=== PATIENT | male | born 1965 | race African-American/Black ===

== ENCOUNTER 2017-06-06 17:33 | Inpatient (IN) | payer SELFPAY ==
[2017-06-06 19:03] LABS: ADD MAN DIFF? NO
[2017-06-06 19:06] LABS: BASO # 0.1 x10^3/uL (0.0-0.2); BASO % 1 % (0-3); EOS % 1 % (0-3); HEMATOCRIT 46.7 % (39.0-53.0); HEMOGLOBIN 14.9 g/dL (13.0-17.5); LYMPH # 1.5 x10^3/uL (1.0-4.8); LYMPH % 23 % (24-48); MEAN CORPUSCULAR HEMOGLOBIN 25 pg (25-35); MEAN CORPUSCULAR HGB CONC 32 g/dL (31-37); MEAN CORPUSCULAR VOLUME 79 fL (79-100); MONO # 0.7 x10^3/uL (0.0-1.1); MONO % 10 % (0-9); NEUT # 4.4 x10^3uL (1.8-7.7); NEUT % 65 % (31-73); PLATELET COUNT 198 x10^3/uL (140-400); RED BLOOD COUNT 5.89 x10^6/uL (4.30-5.70); RED CELL DISTRIBUTION WIDTH 15.8 % (11.5-14.5); WHITE BLOOD COUNT 6.7 x10^3/uL (4.0-11.0)
[2017-06-06 19:16] LABS: ANION GAP 11 (6-14); BLOOD UREA NITROGEN 17 mg/dL (8-26); CARBON DIOXIDE 29 mmol/L (21-32); CHLORIDE 103 mmol/L (98-107); CREATININE 1.3 mg/dL (0.7-1.3); GLUCOSE 102 mg/dL (70-99); POTASSIUM 3.7 mmol/L (3.5-5.1); SODIUM 143 mmol/L (136-145)
[2017-06-06] MEDS: IV NORMAL SALINE 1000ML BAG 1,000 ML IV (19:17)
[2017-06-06] MEDS: IPRATRPIUM/ALBUTEROL 0.5/2.5MG 3 ML NEBU. NEB (19:19)
[2017-06-06 19:22] LABS: ALBUMIN 3.7 g/dL (3.4-5.0); ALK PHOS 98 U/L (46-116); ALT (SGPT) 79 U/L (16-63); AST (SGOT) 38 U/L (15-37); DIRECT BILIRUBIN 0.2 mg/dL (0.0-0.2); MAGNESIUM 2.1 mg/dL (1.8-2.4); TOTAL BILIRUBIN 0.6 mg/dL (0.2-1.0); TOTAL PROTEIN 7.7 g/dL (6.4-8.2)
[2017-06-06] MEDS: FAMOTIDINE 20 MG/2 ML VIAL IVP (19:22)
[2017-06-06 19:28] LABS: TROPONINI 0.056 ng/mL (0.000-0.055)
[2017-06-06 19:29] LABS: NT-PRO BNP 1262 pg/mL (0-124); THYROID STIM HORMONE (TSH) 1.845 uIU/mL (0.358-3.74)
[2017-06-06 19:29] LABS: CKMB INDEX 1.5 % (0-4); CKMB MASS 9.8 ng/mL (0.0-3.6); CREATINE KINASE 644 U/L (39-308)
[2017-06-06] MEDS: methylPREDNISolone SOD SUCC PF 125 MG/2 ML VIAL. IV (20:02)
[2017-06-06] MEDS: ASPIRIN 325 MG TABLET PO (20:02)
[2017-06-06] MEDS: AZITHROMYCIN 250 MG TABLET. PO (20:02)
[2017-06-06 20:09] LABS: D-DIMER 0.56 ug/mlFEU (0.00-0.50)
[2017-06-06] MEDS: IOHEXOL 300 MG/ML 100ML VIAL. IV (21:08)
[2017-06-06] MEDS ORDERED: CONTRAST GIVEN MC (21:15)
[2017-06-07] MEDS: METOPROLOL TART IMMED RELEASE 25 MG TABLET. PO (01:28)
[2017-06-07 05:02] LABS: TROPONINI 0.051 ng/mL (0.000-0.055)
[2017-06-07 10:05] LABS: ANION GAP 12 (6-14); BLOOD UREA NITROGEN 18 mg/dL (8-26); CALCIUM 8.5 mg/dL (8.5-10.1); CARBON DIOXIDE 24 mmol/L (21-32); CHLORIDE 103 mmol/L (98-107); CHOLESTEROL 201 mg/dL (0-200); CREATINE KINASE 707 U/L (39-308); CREATININE 1.1 mg/dL (0.7-1.3); GFR 85.1; GLUCOSE 157 mg/dL (70-99); HDLC 53 mg/dL (40-60); LDLC 137 mg/dL (0-100); NON-HDL CHOLESTEROL 148 mg/dL (0-129); POTASSIUM 4.7 mmol/L (3.5-5.1); SODIUM 139 mmol/L (136-145); TRIGLYCERIDES 54 mg/dL (0-150); VLDLC 11 mg/dL (0-40)
[2017-06-07] MEDS ORDERED: hydrALAZINE 20 MG/ML VIAL. IVP (10:15)
[2017-06-07 10:17] LABS: TROPONINI 0.025 ng/mL (0.000-0.055)
[2017-06-07 10:24] LABS: CHOLESTEROL/HDL RATIO 3.8
[2017-06-07] MEDS: ASPIRIN ENTERIC COATED 81 MG TABLET.DR. PO (10:30)
[2017-06-07 10:43] LABS: INFLUENZA A PATIENT NEGATIVE (NEGATIVE); INFLUENZA B PATIENT NEGATIVE (NEGATIVE); OBC FLU VALID
[2017-06-07] MEDS: FUROSEMIDE 20 MG/2 ML VIAL. IVP (11:07)
[2017-06-07] MEDS: LOSARTAN POTASSIUM 50 MG TABLET. PO (12:00)
[2017-06-07] MEDS: REGADENOSON 0.4 MG/5 ML DISP.SYRIN. IV (13:16)
[2017-06-08 05:57] LABS: ADD MAN DIFF? NO
[2017-06-08 06:13] LABS: BASO % 1 % (0-3); EOS % 0 % (0-3); HEMATOCRIT 43.1 % (39.0-53.0); HEMOGLOBIN 13.7 g/dL (13.0-17.5); LYMPH # 2.2 x10^3/uL (1.0-4.8); LYMPH % 21 % (24-48); MEAN CORPUSCULAR HEMOGLOBIN 25 pg (25-35); MEAN CORPUSCULAR HGB CONC 32 g/dL (31-37); MEAN CORPUSCULAR VOLUME 80 fL (79-100); MONO # 0.7 x10^3/uL (0.0-1.1); MONO % 7 % (0-9); NEUT # 7.3 x10^3uL (1.8-7.7); NEUT % 72 % (31-73); PLATELET COUNT 166 x10^3/uL (140-400); RED BLOOD COUNT 5.39 x10^6/uL (4.30-5.70); RED CELL DISTRIBUTION WIDTH 16.1 % (11.5-14.5); WHITE BLOOD COUNT 10.3 x10^3/uL (4.0-11.0)
[2017-06-08 06:55] LABS: ANION GAP 11 (6-14); BLOOD UREA NITROGEN 23 mg/dL (8-26); CALCIUM 8.6 mg/dL (8.5-10.1); CARBON DIOXIDE 25 mmol/L (21-32); CHLORIDE 106 mmol/L (98-107); CREATININE 1.1 mg/dL (0.7-1.3); GFR 85.1; GLUCOSE 122 mg/dL (70-99); POTASSIUM 4.2 mmol/L (3.5-5.1); SODIUM 142 mmol/L (136-145)
[2017-06-08] MEDS: ASPIRIN ENTERIC COATED 81 MG TABLET.DR. PO (10:42)
[2017-06-08] MEDS: LOSARTAN POTASSIUM 50 MG TABLET. PO (12:05)
[2017-06-08] MEDS: FLU VACC QS2017-18 (36MOS+)/PF 0.5 ML SYRINGE. VAX IM (12:09)
[2017-06-08] MEDS ORDERED: METOPROLOL TART IMMED RELEASE 25 MG TABLET. PO (13:00)
[2017-06-08] MEDS ORDERED: SPIRONOLACTONE 25 MG TABLET PO (13:00)
[2017-06-08] MEDS ORDERED: FUROSEMIDE 40 MG TABLET. PO (13:00)
[2017-06-08 13:01] LABS: CREATINE KINASE 668 U/L (39-308)
[2017-06-08] MEDS ORDERED: ATORVASTATIN CALCIUM 20 MG TABLET PO (21:00)
== END 2017-06-08 12:25 | disposition home or self-care (01) | DRG 190 ==
LOC: ER 17:33 → 6 SOUTH 20:00
DX: J44.1 Chronic obstructive pulmonary disease with (acute) exacerbation (principal); J96.90 Respiratory failure, unspecified, unspecified whether with hypoxia or hypercapnia; I42.9 Cardiomyopathy, unspecified; M62.82 Rhabdomyolysis; F17.210 Nicotine dependence, cigarettes, uncomplicated; I10 Essential (primary) hypertension; Z82.3 Family history of stroke; Z82.49 Family history of ischemic heart disease and other diseases of the circulatory system; Z87.01 Personal history of pneumonia (recurrent); Z71.6 Tobacco abuse counseling; I50.9 Heart failure, unspecified
CPT/HCPCS: 36415; 71046; 71275; 78452; 80048; 80061; 80076; 82550; 82553; 83735; 83880; 84443; 84484; 85025; 85379; 87804; 87804-59; 90686; 93005; 93017; 93306; 94640; 96374; 96375; 96376; A9500; J2785; J2930; J7030; J7620; Q0144; Q9967; S0028

== ENCOUNTER 2017-06-26 23:31 | Inpatient (IN) | payer OTHER ==
[2017-06-27] MEDS: IPRATRPIUM/ALBUTEROL 0.5/2.5MG 3 ML NEBU. NEB ×2 (00:11)
[2017-06-27] MEDS: LISINOPRIL 10 MG TABLET PO ×4 (01:37→12:13)
[2017-06-27] MEDS: LABETALOL 20 MG/4 ML DISP.SYRIN. IVP ×4 (01:38→04:00)
[2017-06-27 01:46] LABS: ADD MAN DIFF? NO
[2017-06-27 01:49] LABS: BASO # 0.1 x10^3/uL (0.0-0.2); BASO % 1 % (0-3); EOS # 0.1 x10^3/uL (0.0-0.7); EOS % 1 % (0-3); HEMOGLOBIN 13.6 g/dL (13.0-17.5); LYMPH # 2.3 x10^3/uL (1.0-4.8); LYMPH % 34 % (24-48); MEAN CORPUSCULAR HEMOGLOBIN 25 pg (25-35); MEAN CORPUSCULAR HGB CONC 33 g/dL (31-37); MEAN CORPUSCULAR VOLUME 78 fL (79-100); MONO # 0.7 x10^3/uL (0.0-1.1); MONO % 10 % (0-9); NEUT # 3.7 x10^3uL (1.8-7.7); NEUT % 54 % (31-73); PLATELET COUNT 170 x10^3/uL (140-400); RED BLOOD COUNT 5.37 x10^6/uL (4.30-5.70); RED CELL DISTRIBUTION WIDTH 15.6 % (11.5-14.5); WHITE BLOOD COUNT 6.9 x10^3/uL (4.0-11.0)
[2017-06-27 01:59] LABS: BARBITURATES NEG (NEG); BENZODIAZEPINES NEG (NEG); CANNABINOIDS NEG (NEG); COCAINE NEG (NEG); METHADONE NEG (NEG); OPIATES NEG (NEG); PHENCYCLIDINE NEG (NEG)
[2017-06-27 02:00] LABS: ANION GAP 10 (6-14); BLOOD UREA NITROGEN 18 mg/dL (8-26); CALCIUM 9.1 mg/dL (8.5-10.1); CARBON DIOXIDE 28 mmol/L (21-32); CHLORIDE 102 mmol/L (98-107); CREATININE 1.1 mg/dL (0.7-1.3); GFR 85.1; GLUCOSE 100 mg/dL (70-99); POTASSIUM 3.5 mmol/L (3.5-5.1); SODIUM 140 mmol/L (136-145)
[2017-06-27 02:02] LABS: AMPHETAMINE/METHAMPHETAMINE NEG (NEG); ETHANOL, URINE NEG (NEG)
[2017-06-27 02:12] LABS: TROPONINI 0.095 ng/mL (0.000-0.055)
[2017-06-27 02:13] LABS: NT-PRO BNP 1549 pg/mL (0-124)
[2017-06-27] MEDS ORDERED: CONTRAST GIVEN MC ×2 (02:15)
[2017-06-27] MEDS: IOHEXOL 300 MG/ML 100ML VIAL. IV ×2 (02:19)
[2017-06-27] MEDS: ASPIRIN CHEWABLE 81 MG TABLET. PO ×2 (03:01)
[2017-06-27] MEDS ORDERED: ONDANSETRON PF 4 MG/2 ML VIAL. IV ×2 (03:30)
[2017-06-27 10:19] LABS: TROPONINI 0.058 ng/mL (0.000-0.055)
[2017-06-27] MEDS: CARVEDILOL 6.25 MG TABLET. PO ×4 (12:13→16:19)
[2017-06-27] MEDS: POTASSIUM CHLORIDE 20 MEQ TABLET.ER. PO ×2 (12:13)
[2017-06-27] MEDS: FUROSEMIDE 40 MG/4 ML VIAL. IVP ×2 (12:13)
[2017-06-27 12:16] LABS: CREATINE KINASE 351 U/L (39-308)
[2017-06-27] MEDS: ENOXAPARIN 40 MG/0.4 ML SYRINGE. SQ ×2 (16:20)
[2017-06-27 16:29] LABS: TROPONINI 0.048 ng/mL (0.000-0.055)
[2017-06-27] MEDS: ATORVASTATIN CALCIUM 20 MG TABLET PO ×2 (20:31)
[2017-06-28 03:00] LABS: ADD MAN DIFF? NO
[2017-06-28 03:03] LABS: BASO # 0.1 x10^3/uL (0.0-0.2); BASO % 1 % (0-3); EOS # 0.2 x10^3/uL (0.0-0.7); EOS % 3 % (0-3); HEMATOCRIT 43.6 % (39.0-53.0); HEMOGLOBIN 14.1 g/dL (13.0-17.5); LYMPH % 35 % (24-48); MEAN CORPUSCULAR HEMOGLOBIN 26 pg (25-35); MEAN CORPUSCULAR HGB CONC 32 g/dL (31-37); MEAN CORPUSCULAR VOLUME 79 fL (79-100); MONO # 0.5 x10^3/uL (0.0-1.1); MONO % 9 % (0-9); NEUT % 52 % (31-73); PLATELET COUNT 162 x10^3/uL (140-400); RED BLOOD COUNT 5.54 x10^6/uL (4.30-5.70); RED CELL DISTRIBUTION WIDTH 16.3 % (11.5-14.5); WHITE BLOOD COUNT 5.8 x10^3/uL (4.0-11.0)
[2017-06-28 03:34] LABS: ANION GAP 9 (6-14); BLOOD UREA NITROGEN 18 mg/dL (8-26); CARBON DIOXIDE 28 mmol/L (21-32); CHLORIDE 104 mmol/L (98-107); CREATININE 1.3 mg/dL (0.7-1.3); GFR 70.1; GLUCOSE 101 mg/dL (70-99); SODIUM 141 mmol/L (136-145)
[2017-06-28] MEDS: ASPIRIN ENTERIC COATED 81 MG TABLET.DR. PO ×2 (08:28)
[2017-06-28] MEDS: POTASSIUM CHLORIDE 20 MEQ TABLET.ER. PO ×2 (08:28)
[2017-06-28] MEDS: CARVEDILOL 6.25 MG TABLET. PO ×4 (08:29→16:56)
[2017-06-28] MEDS: LISINOPRIL 10 MG TABLET PO ×2 (08:29)
[2017-06-28] MEDS: FUROSEMIDE 40 MG TABLET. PO ×2 (08:29)
[2017-06-28] MEDS: ENOXAPARIN 40 MG/0.4 ML SYRINGE. SQ ×2 (15:00)
[2017-06-28] MEDS: ATORVASTATIN CALCIUM 20 MG TABLET PO ×2 (20:54)
[2017-06-29 05:17] LABS: ADD MAN DIFF? NO
[2017-06-29 05:31] LABS: BASO % 1 % (0-3); EOS # 0.1 x10^3/uL (0.0-0.7); EOS % 2 % (0-3); HEMATOCRIT 46.3 % (39.0-53.0); HEMOGLOBIN 14.7 g/dL (13.0-17.5); LYMPH % 37 % (24-48); MEAN CORPUSCULAR HEMOGLOBIN 25 pg (25-35); MEAN CORPUSCULAR HGB CONC 32 g/dL (31-37); MEAN CORPUSCULAR VOLUME 79 fL (79-100); MONO # 0.5 x10^3/uL (0.0-1.1); MONO % 9 % (0-9); NEUT # 2.8 x10^3uL (1.8-7.7); NEUT % 51 % (31-73); PLATELET COUNT 155 x10^3/uL (140-400); RED BLOOD COUNT 5.83 x10^6/uL (4.30-5.70); RED CELL DISTRIBUTION WIDTH 16.4 % (11.5-14.5); WHITE BLOOD COUNT 5.5 x10^3/uL (4.0-11.0)
[2017-06-29 05:59] LABS: ANION GAP 6 (6-14); BLOOD UREA NITROGEN 18 mg/dL (8-26); CALCIUM 8.5 mg/dL (8.5-10.1); CARBON DIOXIDE 30 mmol/L (21-32); CHLORIDE 103 mmol/L (98-107); CREATININE 1.2 mg/dL (0.7-1.3); GFR 76.9; GLUCOSE 107 mg/dL (70-99); POTASSIUM 4.2 mmol/L (3.5-5.1); SODIUM 139 mmol/L (136-145)
[2017-06-29] MEDS: FUROSEMIDE 40 MG TABLET. PO ×2 (09:15)
[2017-06-29] MEDS: CARVEDILOL 6.25 MG TABLET. PO ×2 (09:15)
[2017-06-29] MEDS: LISINOPRIL 10 MG TABLET PO ×2 (09:16)
[2017-06-29] MEDS: POTASSIUM CHLORIDE 20 MEQ TABLET.ER. PO ×2 (09:16)
[2017-06-29] MEDS: ASPIRIN ENTERIC COATED 81 MG TABLET.DR. PO ×2 (09:16)
== END 2017-06-29 10:45 | disposition home or self-care (01) | DRG 311 ==
LOC: 2 SOUTH 06-27 03:14 → ER 23:31
DX: I24.8 Other forms of acute ischemic heart disease (principal); I50.23 Acute on chronic systolic (congestive) heart failure; I42.8 Other cardiomyopathies; I11.0 Hypertensive heart disease with heart failure; E78.5 Hyperlipidemia, unspecified; R74.8 Abnormal levels of other serum enzymes; E87.6 Hypokalemia; J44.9 Chronic obstructive pulmonary disease, unspecified; F17.210 Nicotine dependence, cigarettes, uncomplicated; Z91.19 Patient's noncompliance with other medical treatment and regimen; Z82.3 Family history of stroke; Z87.01 Personal history of pneumonia (recurrent); Z71.6 Tobacco abuse counseling
CPT/HCPCS: 36415; 71046; 71275; 76770; 80048; 80307; 82550; 83735; 83880; 84484; 85025; 93005; 94640; 96374; 99285; 99285-25; J1650; J1940; J3490; J7620; Q9967

== ENCOUNTER → 2017-09-13 | Day surgery (SDC) | payer OTHER ==
[~2017-09-13] MED LIST: LIDOCAINE 1% PF 2 ML VIAL. ID; MIDAZOLAM HCL/PF 2 MG/2 ML VIAL. IV; PROPOFOL 40 ML IV; fentaNYL PF VIAL 100 MCG/2 ML VIAL IV
[2017-09-13] MEDS: IV RINGERS,LACTATED 1000ML 1,000 ML IV (07:55)
== END | disposition home or self-care (01) ==
LOC: ENDOS 07:10
DX: Z12.11 Encounter for screening for malignant neoplasm of colon (principal); K64.0 First degree hemorrhoids; Z80.0 Family history of malignant neoplasm of digestive organs
CPT/HCPCS: 45378; J2704

== ENCOUNTER → 2018-01-17 | Outpatient (CLI) | payer OTHER ==
[2017-09-13 08:35] VITALS: BP 138/66
[~2018-01-17] MED LIST changes: +ASPI-482 PO; +ATOR20TA58 PO; +CARV12.52 PO; +FURO40TA4 PO; -LIDOCAINE 1% PF 2 ML VIAL. ID; +LISI-334 PO; -MIDAZOLAM HCL/PF 2 MG/2 ML VIAL. IV; +POTA20TA82 PO; -PROPOFOL 40 ML IV; +Pantoprazole PO; -fentaNYL PF VIAL 100 MCG/2 ML VIAL IV
--- NOTE | 2018-01-17 12:06 | KCIC ---
EXAM: Lumbar spine, 4 views. HISTORY: Pain. COMPARISON: None. FINDINGS: Frontal, lateral, bilateral oblique and coned sacral views of the lumbar spine are obtained. There is minimal lumbar levocurvature centered at L4. There is no significant listhesis. There is degenerative endplate remodeling anterior osteophytosis at L3-L4 and L4-L5. There is facet arthropathy predominantly at L4-L5 and L5-S1. IMPRESSION: 1. Degenerative change primarily at the mid and lower lumbar levels, described above. 2. No acute osseous finding. 3. Minimal lumbar levocurvature. Electronically signed by: Olga Hardin MD (01/17/2018 12:03 PM) [facility]
== END | disposition home or self-care (01) ==
LOC: KCIC 09:35
PROVIDERS: ATTEND Family Medicine
DX: M47.896 Other spondylosis, lumbar region (principal); M12.88 Other specific arthropathies, not elsewhere classified, other specified site; I13.0 Hypertensive heart and chronic kidney disease with heart failure and stage 1 through stage 4 chronic kidney disease, or unspecified chronic kidney disease; I50.9 Heart failure, unspecified; N18.3 Chronic kidney disease, stage 3 (moderate); E78.5 Hyperlipidemia, unspecified; F17.210 Nicotine dependence, cigarettes, uncomplicated
CPT/HCPCS: 72110

== ENCOUNTER 2018-06-25 13:55 | Inpatient (IN) | payer OTHER ==
[~2018-06-25] VITALS: Ht 172.7 cm; Wt 93.0 kg
[~2018-06-25 13:55] MED LIST changes: +CARV12.511 PO; -CARV12.52 PO
[2018-06-25] MEDS ORDERED: ASPIRIN 325 MG TABLET PO ONE (14:15)
--- NOTE | 2018-06-25 14:20 | EKG ---
[facility] [address] [place] [address] Test Date: 2018-06-25 Test Time: 14:13:42 Pat Name: VANIA MISHRA Department: Room: Gender: M Irrigator: : 1965 Requested By: DG SWIFT Order Number: [id number] Reading MD: Rickie Sibley MD Measurements Intervals [place] Rate: 108 P: 62 NE: 134 QRS: -20 QRSD: 88 T: 105 QT: 340 QTc: 459 Interpretive Statements SINUS TACHYCARDIA CONSIDER LVH LAD Electronically Signed On 06-26-2018 10:48:24 ELEMENT BURNER by Rickie Sibley MD
[2018-06-25 14:26] LABS: BASO % 1 % (0-3); EOS # 0.1 x10^3/uL (0.0-0.7); EOS % 1 % (0-3); HEMOGLOBIN 15.2 g/dL (13.0-17.5); LYMPH # 1.9 x10^3/uL (1.0-4.8); LYMPH % 28 % (24-48); MEAN CORPUSCULAR HEMOGLOBIN 26 pg (25-35); MEAN CORPUSCULAR HGB CONC 32 g/dL (31-37); MEAN CORPUSCULAR VOLUME 80 fL (79-100); MONO # 0.6 x10^3/uL (0.0-1.1); MONO % 9 % (0-9); NEUT # 4.3 x10^3uL (1.8-7.7); NEUT % 62 % (31-73); PLATELET COUNT 162 x10^3/uL (140-400); RED BLOOD COUNT 5.88 x10^6/uL (4.30-5.70); RED CELL DISTRIBUTION WIDTH 14.5 % (11.5-14.5); WHITE BLOOD COUNT 6.9 x10^3/uL (4.0-11.0)
--- NOTE | 2018-06-25 14:35 | PHYS DOC ---
Past Medical History Past Medical History: CHF, COPD, High Cholesterol, Hypertension, Pneumonia, Other Additional Past Medical Histor: R LUNG COLLAPSED, UMBILLICAL HERNIA Past Surgical History: Other Additional Past Surgical Histo: R JAW, R LUNG Alcohol Use: Occasionally Drug Use: None Adult General Chief Complaint Chief Complaint: CHEST PAIN HPI HPI Patient is a 52 year old male who presents with left chest cramping that started 6:30 this morning. Patient is very stressed with the upcoming deadlines bills. Patient states that this has some slight tingling in his left fingertips. Patient states occasionally feels like his heart will skip a beat. She is rating his pain a 7 out of 10 and is nonradiating. Review of Systems Review of Systems Constitutional: Denies fever or chills [] Eyes: Denies change in visual acuity, redness, or eye pain [] HENT: Denies nasal congestion or sore throat [] Respiratory: Denies cough or shortness of breath [] Cardiovascular: Left chest cramping with occasional palpitations GI: Denies abdominal pain, nausea, vomiting, bloody stools or diarrhea [] : Denies dysuria or hematuria [] Musculoskeletal: Denies back pain or joint pain [] Integument: Denies rash or skin lesions [] Neurologic: Denies headache, focal weakness or sensory changes [] All other systems were reviewed and found to be within normal limits, except as documented in this note. Current Medications Current Medications Current Medications Medications (Trade) Dose Ordered Sig/Jules Start Time Stop Time Status Last Admin Dose Admin Acetaminophen (Tylenol) 650 mg PRN Q4HRS PRN 06/25/18 15:30 06/26/18 15:29 Aspirin (Katherine Aspirin) 325 mg 1X ONCE 06/25/18 14:15 06/25/18 14:16 DC 06/25/18 14:43 325 MG Morphine Sulfate (Morphine Sulfate) 2 mg PRN Q2HR PRN 06/25/18 15:30 06/26/18 15:29 Nitroglycerin (Nitrostat) 0.4 mg PRN Q5MIN PRN 06/25/18 15:30 06/25/18 15:26 0.4 MG Ondansetron HCl (Zofran) 4 mg PRN Q8HRS PRN 06/25/18 15:30 06/26/18 15:29 Allergies Allergies Allergies Coded Allergies Type Severity Reaction Last Updated Verified No Known Drug Allergies 09/13/17 No Physical Exam Physical Exam Constitutional: Well developed, well nourished, no acute distress, non-toxic appearance. [] HENT: Normocephalic, atraumatic, bilateral external ears normal, oropharynx moist, no oral exudates, nose normal. [] Eyes: PERRLA, EOMI, conjunctiva normal, no discharge. [] Neck: Normal range of motion, no tenderness, supple, no stridor. [] Cardiovascular:Heart rate regular rhythm, no murmur [] Lungs & Thorax: Bilateral breath sounds clear to auscultation [] Abdomen: Bowel sounds normal, soft, no tenderness, no masses, no pulsatile masses. [] Skin: Warm, dry, no erythema, no rash. [] Back: No tenderness, no CVA tenderness. [] Extremities: No tenderness, no cyanosis, no clubbing, ROM intact, no edema. [] Neurologic: Alert and oriented X 3, normal motor function, normal sensory function, no focal deficits noted. [] Psychologic: Affect normal, judgement normal, mood normal. [] Current Patient Data Vital Signs Vital Signs Date Time Temp Pulse Resp B/P (MAP) Pulse Ox O2 Delivery O2 Flow Rate FiO2 06/25/18 15:26 98 180/93 06/25/18 14:58 97 Room Air 06/25/18 14:28 20 06/25/18 14:06 98.5 98.5 Lab Values Laboratory Tests Test 06/25/18 14:14 06/25/18 14:30 White Blood Count 6.9 x10^3/uL (4.0-11.0) Red Blood Count 5.88 x10^6/uL (4.30-5.70) H Hemoglobin 15.2 g/dL (13.0-17.5) Hematocrit 47.0 % (39.0-53.0) Mean Corpuscular Volume 80 fL (79-100) Mean Corpuscular Hemoglobin 26 pg (25-35) Mean Corpuscular Hemoglobin Concent 32 g/dL (31-37) Red Cell Distribution Width 14.5 % (11.5-14.5) Platelet Count 162 x10^3/uL (140-400) Neutrophils (%) (Auto) 62 % (31-73) Lymphocytes (%) (Auto) 28 % (24-48) Monocytes (%) (Auto) 9 % (0-9) Eosinophils (%) (Auto) 1 % (0-3) Basophils (%) (Auto) 1 % (0-3) Neutrophils # (Auto) 4.3 x10^3uL (1.8-7.7) Lymphocytes # (Auto) 1.9 x10^3/uL (1.0-4.8) Monocytes # (Auto) 0.6 x10^3/uL (0.0-1.1) Eosinophils # (Auto) 0.1 x10^3/uL (0.0-0.7) Basophils # (Auto) 0.0 x10^3/uL (0.0-0.2) Sodium Level 138 mmol/L (136-145) Potassium Level 3.9 mmol/L (3.5-5.1) Chloride Level 104 mmol/L (98-107) Carbon Dioxide Level 27 mmol/L (21-32) Anion Gap 7 (6-14) Blood Urea Nitrogen 11 mg/dL (8-26) Creatinine 1.0 mg/dL (0.7-1.3) Estimated GFR (Cockcroft-Gault) 94.6 BUN/Creatinine Ratio 11 (6-20) Glucose Level 85 mg/dL (70-99) Calcium Level 9.4 mg/dL (8.5-10.1) Total Bilirubin 0.4 mg/dL (0.2-1.0) Aspartate Amino Transferase (AST) 20 U/L (15-37) Alanine Aminotransferase (ALT) 27 U/L (16-63) Alkaline Phosphatase 102 U/L (46-116) Troponin I Quantitative 0.048 ng/mL (0.000-0.055) FH-Jma-A-Type Natriuretic Peptide 1795 pg/mL (0-124) H Total Protein 7.4 g/dL (6.4-8.2) Albumin 3.4 g/dL (3.4-5.0) Albumin/Globulin Ratio 0.9 (1.0-1.7) L Laboratory Tests 06/25/18 14:14 Laboratory Tests 06/25/18 14:30 EKG EKG Sinus tachycardia and no STEMI Interpretation Time: [address] Posada Radiology/Procedures Radiology/Procedures Chest x-ray Impressions: [facility] [address] [place], [place] [id number] IMAGING REPORT Signed PATIENT: VANIA MISHRA ACCOUNT: [id number] : 1965 LOCATION: ER AGE: 52 SEX: M EXAM STATUS: REG ER ORD. PHYSICIAN: DG SWIFT APRN REASON: chest pain PROCEDURE: CHEST PA & LATERAL Examination: CHEST PA LATERAL History: CHEST PAIN Comparison/Correlation: 06/27/2017 two-view chest x-ray exam, CTA of the chest 06/27/2017 Findings: PA and lateral views of chest were obtained. Heart size and pulmonary vasculature are normal. No infiltrate identified in the interval. There is minimal costophrenic angle opacification which may represent atelectasis and this is significantly decreased compared to the prior exam. No significant effusion in the interval. Minimal right pleural effusion is suggested but this is decreased. Left lung field is unremarkable. Impression: Right pleural effusion and atelectasis the posterior basilar aspect is suggested but significantly less than on the prior exam. Correlate clinically in determining continued interval follow-up. Electronically signed by: Carlos Gandhi MD (06/25/2018 2:37 PM) [facility] DICTATED and SIGNED BY: CARLOS GANDHI MD DATE: 06/25/18 1435 Course & Med Decision Making Course & Med Decision Making Patient is a 52 year old male who presents with left chest cramping that started 6:30 this morning. Patient is very stressed with the upcoming deadlines bills. Patient states that this has some slight tingling in his left fingertips. Patient states occasionally feels like his heart will skip a beat. he is rating his pain a 7 out of 10 and is nonradiating. Chest pain is nonreproducible with palpation. He states she's also had a constant cough which his primary care is said that it was a virus. Patient states that the cough will cause him chest wall pain and he is only coughing up occasional white phlegm. Patient denies nausea, vomiting, abdominal pain, dizziness, diaphoresis , diarrhea, fevers. Patient has no extremity swelling. Patient speaks in full clear sentences. He is ambulatory with with steady gait. PERRLA. Lungs wheezes to auscultation of upper lobes but diminished in lower lobes. Patient smokes about a pack a day. he denies any shortness of breath. Alert and oriented. Skin pink warm and dry. Mucous membranes are moist. Neurologically intact. EKG shows sinus tachycardia at 108 but no STEMI. Patient's blood pressure is elevated on arrival to ED. Patient states he takes off his daily medications at night. Patient currently has a history of CHF, hypertension, high cholesterol, anxiety , smoker, COPD, a right collapsed lung. Heart score 4. Patient sees Dr. Sibley for his heart and Dr. Crooks for primary care. Chest x-ray shows Right pleural effusion and atelectasis the posterior basilar aspect is suggested but significantly less than on the prior exam. Correlate clinically in determining continued interval follow-up. Patient's troponin is 0.048. Patient has agreed to admission. Patient remained stable and his status remained unchanged. Patient's blood pressure has come down to 180/93 with heart rate of 98. Patient given one nitroglycerin and it took his pain from a 3 out of 10 to a 1 out of 10. Patient now has headaches that he will be given the morphine. I have spoken to Dr Gilman for admission to hospital. I will consult Dr Sibley. Dragon Disclaimer Khoaon Disclaimer This electronic medical record was generated, in whole or in part, using a voice recognition dictation system. Departure Departure Impression: Primary Impression: Chest pain Disposition: ADMITTED INPATIENT Admitting Physician: Other Condition: STABLE Referrals: KATY CROOKS MD (PCP) Problem Qualifiers Primary Impression: Chest pain Chest pain type: unspecified Qualified Codes: R07.9 - Chest pain, unspecified DG SWIFT GUITAR INSTRUCTOR Jun 25, 2018 14:35
--- NOTE | 2018-06-25 14:42 | RAD ---
Examination: CHEST PA LATERAL History: CHEST PAIN Comparison/Correlation: 06/27/2017 two-view chest x-ray exam, CTA of the chest 06/27/2017 Findings: PA and lateral views of chest were obtained. Heart size and pulmonary vasculature are normal. No infiltrate identified in the interval. There is minimal costophrenic angle opacification which may represent atelectasis and this is significantly decreased compared to the prior exam. No significant effusion in the interval. Minimal right pleural effusion is suggested but this is decreased. Left lung field is unremarkable. Impression: Right pleural effusion and atelectasis the posterior basilar aspect is suggested but significantly less than on the prior exam. Correlate clinically in determining continued interval follow-up. Electronically signed by: Carlos Kauffman MD (06/25/2018 2:37 PM) [facility]
[2018-06-25 15:00] LABS: CALCIUM 9.4 mg/dL (8.5-10.1); GFR 94.6; POTASSIUM 3.9 mmol/L (3.5-5.1)
[2018-06-25 15:06] LABS: ALBUMIN 3.4 g/dL (3.4-5.0); ALBUMIN/GLOBULIN RATIO 0.9 (1.0-1.7); TOTAL BILIRUBIN 0.4 mg/dL (0.2-1.0); TOTAL PROTEIN 7.4 g/dL (6.4-8.2)
--- NOTE | 2018-06-25 15:23 | PDOC1 ---
History and Physical Date of Admission Date of Admission DATE: 06/25/18 TIME: 15:21 Identification/Chief Complaint Chief Complaint Chest pain Source Source: Chart review, Patient History of Present Illness History of Present Illness 52 yo m w/ PMHx HTN, CHF (EF 25-30% 05/2017), COPD, schizophrenia, anxiety who presents with left chest cramping that started 6:30 this morning. Patient states that this has some slight tingling in his left fingertips that is associated as well as palpitations. He rates his pain a 7 out of 10 and is nonradiating. In ED noted with troponin 0.048 and CXR that appeared improved from 1 year ago, though with bilateral small pleural effusions. Also with BP 208/120. Denies recent sick contacts. Patient is very stressed with the upcoming deadlines bills. On further review he notes he is a script for sildenafil he has been taking. May 2017 had myocardial perfusion imaging Conclusion 1. Regadenoson cardioisotope stress test did not show any evidence of ischemia or infarct. 2. Mild global left ventricle systolic dysfunction with ejection fraction calculated at 45%. 3. Low risk for cardiac events. Echo that month showed EF 25-30% Past Medical History Cardiovascular: CHF, HTN Past Surgical History Past Surgical History: Other, No pertinent history Family History Family History: Hypertension, Stroke Social History Smoke: 1 pack per day ALCOHOL: none Drugs: None Current Problem List Problem List Problems Medical Problems: (1) Chest pain Status: Acute Current Medications Current Medications Current Medications Aspirin (Katherine Aspirin) 325 mg 1X ONCE PO Last administered on 06/25/18at 14:43 ; Start 06/25/18 at 14:15; Stop 06/25/18 at 14:16; Status DC Nitroglycerin (Nitrostat) 0.4 mg PRN Q5MIN PRN SL CHEST PAIN; Start 06/25/18 at 15:30 Active Scripts Active Reported Lisinopril 20 Mg Tablet 1 Tab PO DAILY Atorvastatin Calcium 20 Mg Tablet 1 Tab PO DAILY Potassium Chloride 20 Meq Tablet.er 20 Meq PO DAILY Carvedilol 12.5 Mg Tablet 1 Tab PO BID Aspir 81 (Aspirin) 81 Mg Tablet.dr 1 Tab PO DAILY Furosemide 40 Mg Tablet 1 Tab PO DAILY Allergies Allergies: Coded Allergies: No Known Drug Allergies (Unverified , 09/13/17) ROS General: YES: Fatigue, Malaise; No: Chills, Night Sweats, Appetite, Other PSYCHOLOGICAL ROS: YES: Anxiety; No: Behavioral Disorder, Concentration difficultie, Decreased libido, Depression, Disorientation, Hallucinations, Hostility, Irritablity, Memory difficulties, Mood Swings, Obsessive thoughts, Physical abuse, Sexual abuse, Sleep disturbances, Suicidal ideation, Other Eyes: No Blurry vision, No Decreased vision, No Double vision, No Dry eyes, No Excessive tearing, No Eye Pain, No Itchy Eyes, No Loss of vision, No Photophobia , No Scotomata, No Uses contacts, No Uses glasses, No Other HEENT: YES: Heacaches; No: Visual Changes, Hearing change, Nasal congestion, Nasal discharge, Oral lesions, Sinus pain, Sore Throat, Epistaxis, Sneezing, Snoring, Tinnitus, Vertigo, Vocal changes, Other ALLERGY AND IMMUNOLOGY: No: Hives, Insect Bite Sensitivity, Itchy/Watery Eyes, Nasal Congestion, Post Nasal Drip, Seasonal Allergies, Other Hematological and Lymphatic: No: Bleeding Problems, Blood Clots, Blood Transfusions, Brusing, Night Sweats, Pallor, Swollen Lymph Nodes, Other ENDOCRINE: No: Breast Changes, Galactorrhea, Hair Pattern Changes, Hot Flashes , Malaise/lethargy, Mood Swings, Palpitations, Polydipsia/polyuria, Skin Changes , Temperature Intolerance, Unexpected Weight Changes, Other Breast: No New/Changing Breast Lumps, No Nipple changes, No Nipple discharge, No Other Respiratory: No: Cough, Hemoptysis, Orthopnea, Pleuritic Pain, Shortness of breath, SOB with excertion, Sputum Changes, Stridor, Tachypnea, Wheezing, Other Cardiovascular: yes Chest Pain, yes Palpitations; No Orthopnea, No Paroxysmal Noc. Dyspnea, No Edema, No Lt Headedness, No Other Gastrointestinal: Yes Nausea; No Vomiting, No Abdominal Pain, No Diarrhea, No Constipation, No Melena, No Hematochezia, No Other Genitourinary: No Dysuria, No Frequency, No Incontinence, No Hematuria, No Retention, No Discharge, No Urgency, No Pain, No Flank Pain, No Other, No , No , No , No , No , No , No Musculoskeletal: No Gait Disturbance, No Joint Pain, No Joint Stiffness, No Joint Swelling, No Muscle Pain, No Muscular Weakness, No Pain In:, No Swelling In:, No Other Neurological: No Behavorial Changes, No Bowel/Bladder ControlChng, No Confusion , No Dizziness, No Gait Disturbance, No Headaches, No Impaired Coord/balance, No Memory Loss, No Numbness/Tingling, No Seizures, No Speech Problems, No Tremors, No Visual Changes, No Weakness, No Other Skin: No Dry Skin, No Eczema, No Hair Changes, No Lumps, No Mole Changes, No Mottling, No Nail Changes, No Pruritus, No Rash, No Skin Lesion Changes, No Other, No Acne Physical Exam General: Alert, Oriented X3, Cooperative, No acute distress HEENT: Atraumatic, PERRLA, EOMI, Mucous membr. moist/pink Lungs: Other (Decreased bibasilar breath sounds, slight crackles) Heart: S1S2, RRR Abdomen: Normal bowel sounds, Soft, No tenderness, No hepatosplenomegaly, No masses Rectal Exam: not examined Extremities: No clubbing, No cyanosis, Normal pulses, No tenderness/swelling, Other (Scant edema) Skin: No rashes, No breakdown, No significant lesion Neuro: Normal gait, Normal speech, Strength at 5/5 X4 ext, Normal tone, Sensation intact, Cranial nerves 3-12 NL, Reflexes 2+ Psych/Mental Status: Mental status NL, Mood NL Vitals Vitals Vital Signs Date Time Temp Pulse Resp B/P (MAP) Pulse Ox O2 Delivery O2 Flow Rate FiO2 06/25/18 14:06 98.5 104 18 203/120 (147) 97 Room Air 98.5 Labs Labs Laboratory Tests Test 06/25/18 14:14 06/25/18 14:30 White Blood Count 6.9 x10^3/uL (4.0-11.0) Red Blood Count 5.88 x10^6/uL (4.30-5.70) Hemoglobin 15.2 g/dL (13.0-17.5) Hematocrit 47.0 % (39.0-53.0) Mean Corpuscular Volume 80 fL (79-100) Mean Corpuscular Hemoglobin 26 pg (25-35) Mean Corpuscular Hemoglobin Concent 32 g/dL (31-37) Red Cell Distribution Width 14.5 % (11.5-14.5) Platelet Count 162 x10^3/uL (140-400) Neutrophils (%) (Auto) 62 % (31-73) Lymphocytes (%) (Auto) 28 % (24-48) Monocytes (%) (Auto) 9 % (0-9) Eosinophils (%) (Auto) 1 % (0-3) Basophils (%) (Auto) 1 % (0-3) Neutrophils # (Auto) 4.3 x10^3uL (1.8-7.7) Lymphocytes # (Auto) 1.9 x10^3/uL (1.0-4.8) Monocytes # (Auto) 0.6 x10^3/uL (0.0-1.1) Eosinophils # (Auto) 0.1 x10^3/uL (0.0-0.7) Basophils # (Auto) 0.0 x10^3/uL (0.0-0.2) Sodium Level 138 mmol/L (136-145) Potassium Level 3.9 mmol/L (3.5-5.1) Chloride Level 104 mmol/L (98-107) Carbon Dioxide Level 27 mmol/L (21-32) Anion Gap 7 (6-14) Blood Urea Nitrogen 11 mg/dL (8-26) Creatinine 1.0 mg/dL (0.7-1.3) Estimated GFR (Cockcroft-Gault) 94.6 BUN/Creatinine Ratio 11 (6-20) Glucose Level 85 mg/dL (70-99) Calcium Level 9.4 mg/dL (8.5-10.1) Total Bilirubin 0.4 mg/dL (0.2-1.0) Aspartate Amino Transf (AST/SGOT) 20 U/L (15-37) Alanine Aminotransferase (ALT/SGPT) 27 U/L (16-63) Alkaline Phosphatase 102 U/L (46-116) Troponin I Quantitative 0.048 ng/mL (0.000-0.055) Total Protein 7.4 g/dL (6.4-8.2) Albumin 3.4 g/dL (3.4-5.0) Albumin/Globulin Ratio 0.9 (1.0-1.7) Laboratory Tests Test 06/25/18 14:14 06/25/18 14:30 White Blood Count 6.9 x10^3/uL (4.0-11.0) Red Blood Count 5.88 x10^6/uL (4.30-5.70) Hemoglobin 15.2 g/dL (13.0-17.5) Hematocrit 47.0 % (39.0-53.0) Mean Corpuscular Volume 80 fL (79-100) Mean Corpuscular Hemoglobin 26 pg (25-35) Mean Corpuscular Hemoglobin Concent 32 g/dL (31-37) Red Cell Distribution Width 14.5 % (11.5-14.5) Platelet Count 162 x10^3/uL (140-400) Neutrophils (%) (Auto) 62 % (31-73) Lymphocytes (%) (Auto) 28 % (24-48) Monocytes (%) (Auto) 9 % (0-9) Eosinophils (%) (Auto) 1 % (0-3) Basophils (%) (Auto) 1 % (0-3) Neutrophils # (Auto) 4.3 x10^3uL (1.8-7.7) Lymphocytes # (Auto) 1.9 x10^3/uL (1.0-4.8) Monocytes # (Auto) 0.6 x10^3/uL (0.0-1.1) Eosinophils # (Auto) 0.1 x10^3/uL (0.0-0.7) Basophils # (Auto) 0.0 x10^3/uL (0.0-0.2) Sodium Level 138 mmol/L (136-145) Potassium Level 3.9 mmol/L (3.5-5.1) Chloride Level 104 mmol/L (98-107) Carbon Dioxide Level 27 mmol/L (21-32) Anion Gap 7 (6-14) Blood Urea Nitrogen 11 mg/dL (8-26) Creatinine 1.0 mg/dL (0.7-1.3) Estimated GFR (Cockcroft-Gault) 94.6 BUN/Creatinine Ratio 11 (6-20) Glucose Level 85 mg/dL (70-99) Calcium Level 9.4 mg/dL (8.5-10.1) Total Bilirubin 0.4 mg/dL (0.2-1.0) Aspartate Amino Transf (AST/SGOT) 20 U/L (15-37) Alanine Aminotransferase (ALT/SGPT) 27 U/L (16-63) Alkaline Phosphatase 102 U/L (46-116) Troponin I Quantitative 0.048 ng/mL (0.000-0.055) Total Protein 7.4 g/dL (6.4-8.2) Albumin 3.4 g/dL (3.4-5.0) Albumin/Globulin Ratio 0.9 (1.0-1.7) Images Images CXR - Right pleural effusion and atelectasis the posterior basilar aspect is suggested but significantly less than on the prior exam. Correlate clinically in determining continued interval follow-up. VTE Prophylaxis Ordered VTE Prophylaxis Devices: No VTE Pharmacological Prophylaxi: Yes Assessment/Plan Assessment/Plan A/P: HTN urgency - likely etiology of elevated troponin, compliance seems to be a difficulty and life stressors. He has his meds with them, notes work schedule makes it difficult to comply with meds. Acute on chronic systolic CHF - with elevated BNP, will order IV lasix. Cont KYRIE , BB, ASA, Statin COPD with continued tobaccoism - will order nebs Non-ischemic cardiomyopathy - cardiomegaly on CXR. BNP elevated. last EF 25-30% on echo Elevated troponin - likely is demand mediated from HTN urgency. Will consult cardiology, trend trops Tobacco dependence - nicotine patch HLD - will cont statin FEN - cardiac diet tonight, NPO after midnight PPX - SCDs, if troponin climbs will initiate heparin GTT FULL CODE Inpatient for uncontrolled HTN with chest pain and elevated troponin not amenable to outpatient treatment. STARLA BRANDON MD Jun 25, 2018 15:23
[2018-06-25] MEDS ORDERED: ACETAMINOPHEN 325 MG TABLET. PO PRN (15:30)
[2018-06-25] MEDS ORDERED: ONDANSETRON PF 4 MG/2 ML VIAL. IV PRN (15:30)
[2018-06-25] MEDS ORDERED: MORPHINE SULFATE 4 MG/ML VIAL. IV PRN (15:30)
[2018-06-25] MEDS ORDERED: NITROGLYCERIN SUBLINGUAL 0.4 MG BOTTLE OF 25. SL PRN (15:30)
[2018-06-25 16:20] VITALS: BP 177/105
[2018-06-25] MEDS ORDERED: ENALAPRILAT 1.25 MG/ML VIAL. IVP PRN (16:30)
[2018-06-25] MEDS ORDERED: LORazepam 1 MG TABLET PO PRN (16:45)
[2018-06-25] MEDS: NICOTINE 21MG PATCH. TD SCH (17:01)
[2018-06-25] MEDS ORDERED: FUROSEMIDE 40 MG/4 ML VIAL. IVP SCH (17:30)
[2018-06-25] MEDS: CARVEDILOL 12.5 MG TABLET. PO SCH (17:39)
[2018-06-25] MEDS: POTASSIUM CHLORIDE 20 MEQ TABLET.ER. PO SCH (17:39)
[2018-06-25] MEDS: LISINOPRIL 20 MG TABLET PO SCH (17:39)
[2018-06-25 19:50] VITALS: BP 147/79
[2018-06-25] MEDS: IPRATRPIUM/ALBUTEROL 0.5/2.5MG 3 ML NEBU. NEB SCH (19:56)
[2018-06-25] MEDS: ATORVASTATIN CALCIUM 20 MG TABLET PO SCH (21:09)
[2018-06-25] MEDS: LABETALOL 20 MG/4 ML DISP.SYRIN. IVP PRN (21:12)
[2018-06-25 22:50] VITALS: BP 121/64
[2018-06-26] VITALS (15 sets, daily range): BP systolic 111–169; BP diastolic 60–102
--- NOTE | 2018-06-26 02:22 | NUR ---
Called Dr. Neely with elevated trop. Told to keep patient NPO and they will see him in the AM.
[2018-06-26 06:59] LABS: CREATININE 1.2 mg/dL (0.7-1.3); GFR 76.6; MAGNESIUM 1.9 mg/dL (1.8-2.4); POTASSIUM 4.2 mmol/L (3.5-5.1)
--- NOTE | 2018-06-26 07:20 | EKG ---
[facility] [address] [place] [address] Test Date: 2018-06-26 Test Time: 06:59:25 Pat Name: VANIA MISHRA Department: Patient ID: [id number] Room: Gender: M Ostrich Farmer: [facility] : 1965 Requested By: DG SWIFT Order Number: [id number] Reading MD: Rickie Sibley MD Measurements Intervals [place] Rate: 78 P: 73 [place]: 174 QRS: -3 QRSD: 92 T: 160 QT: 418 QTc: 480 Interpretive Statements SINUS RHYTHM LEFT ATRIAL ABNORMALITY LEFTWARD AXIS LVH WITH REPOLARIZATION ABNORMALITY PROLONGED QT CANNOT RULE OUT ISCHEMIA Electronically Signed On 06-26-2018 10:54:50 RECOVERY OPERATOR HELPER by Rickie Sibley MD
[2018-06-26] MEDS: IPRATRPIUM/ALBUTEROL 0.5/2.5MG 3 ML NEBU. NEB SCH ×4 (07:49→19:59)
--- NOTE | 2018-06-26 08:04 | PDOC ---
PROGRESS NOTES Chief Complaint Chief Complaint HTN urgency Acute on chronic systolic CHF COPD Non-ischemic cardiomyopathy Elevated troponin Tobacco dependence HLD History of Present Illness History of Present Illness 52 yo m w/ PMHx HTN, CHF (EF 25-30% 05/2017), COPD, schizophrenia, anxiety who p/ w left chest cramping that started 6:30 on 06/25/18. Assoc slight tingling in his left fingertips as well as palpitations. He rated his pain a 7 out of 10 and is nonradiating. In ED noted with troponin 0.048 and CXR that appeared improved from 1 year ago, though with bilateral small pleural effusions. Also with BP 208/120, admitted for HTN urgency Yesterday troponin peaked at 0.060. His pain improved when his BP came down. He feels his anxiety is better as well. A/P: HTN urgency - likely etiology of elevated troponin, compliance seems to be a difficulty and life stressors. He has his meds with them, notes work schedule makes it difficult to comply with meds. Needs a CCB, will start amlodipine today Acute on chronic systolic CHF - with elevated BNP, ordered IV lasix. Cont KYRIE, BB, ASA, Statin COPD with continued tobaccoism - will order nebs Non-ischemic cardiomyopathy - cardiomegaly on CXR. BNP elevated. last EF 25-30% on echo Elevated troponin - likely is demand mediated from HTN urgency. Consulted cardiology, trended trops Tobacco dependence - nicotine patch HLD - will cont statin FEN - NPO after midnight PPX - SCDs FULL CODE Inpatient for uncontrolled HTN with chest pain and elevated troponin not amenable to outpatient treatment. May 2017 had myocardial perfusion imaging Conclusion 1. Regadenoson cardioisotope stress test did not show any evidence of ischemia or infarct. 2. Mild global left ventricle systolic dysfunction with ejection fraction calculated at 45%. 3. Low risk for cardiac events. Echo that month showed EF 25-30% Vitals Vitals Vital Signs Date Time Temp Pulse Resp B/P (MAP) Pulse Ox O2 Delivery O2 Flow Rate FiO2 06/26/18 07:48 92 Room Air 06/26/18 03:15 98.2 78 18 111/60 (77) 98.2 Physical Exam General: Alert, Oriented X3, Cooperative, No acute distress Lungs: Other Abdomen: Normal bowel sounds, Soft, No tenderness, No hepatosplenomegaly, No masses Extremities: No clubbing, No cyanosis, Normal pulses, No tenderness/swelling, Other (Scant edema) Skin: No rashes, No breakdown, No significant lesion Labs LABS Laboratory Tests Test 06/25/18 14:14 06/25/18 14:30 06/25/18 18:10 06/26/18 00:15 White Blood Count 6.9 x10^3/uL (4.0-11.0) Red Blood Count 5.88 x10^6/uL (4.30-5.70) Hemoglobin 15.2 g/dL (13.0-17.5) Hematocrit 47.0 % (39.0-53.0) Mean Corpuscular Volume 80 fL (79-100) Mean Corpuscular Hemoglobin 26 pg (25-35) Mean Corpuscular Hemoglobin Concent 32 g/dL (31-37) Red Cell Distribution Width 14.5 % (11.5-14.5) Platelet Count 162 x10^3/uL (140-400) Neutrophils (%) (Auto) 62 % (31-73) Lymphocytes (%) (Auto) 28 % (24-48) Monocytes (%) (Auto) 9 % (0-9) Eosinophils (%) (Auto) 1 % (0-3) Basophils (%) (Auto) 1 % (0-3) Neutrophils # (Auto) 4.3 x10^3uL (1.8-7.7) Lymphocytes # (Auto) 1.9 x10^3/uL (1.0-4.8) Monocytes # (Auto) 0.6 x10^3/uL (0.0-1.1) Eosinophils # (Auto) 0.1 x10^3/uL (0.0-0.7) Basophils # (Auto) 0.0 x10^3/uL (0.0-0.2) Sodium Level 138 mmol/L (136-145) Potassium Level 3.9 mmol/L (3.5-5.1) Chloride Level 104 mmol/L (98-107) Carbon Dioxide Level 27 mmol/L (21-32) Anion Gap 7 (6-14) Blood Urea Nitrogen 11 mg/dL (8-26) Creatinine 1.0 mg/dL (0.7-1.3) Estimated GFR (Cockcroft-Gault) 94.6 BUN/Creatinine Ratio 11 (6-20) Glucose Level 85 mg/dL (70-99) Calcium Level 9.4 mg/dL (8.5-10.1) Total Bilirubin 0.4 mg/dL (0.2-1.0) Aspartate Amino Transf (AST/SGOT) 20 U/L (15-37) Alanine Aminotransferase (ALT/SGPT) 27 U/L (16-63) Alkaline Phosphatase 102 U/L (46-116) Troponin I Quantitative 0.048 ng/mL (0.000-0.055) 0.050 ng/mL (0.000-0.055) 0.060 ng/mL (0.000-0.055) DR-Hry-M-Type Natriuretic Peptide 1795 pg/mL (0-124) Total Protein 7.4 g/dL (6.4-8.2) Albumin 3.4 g/dL (3.4-5.0) Albumin/Globulin Ratio 0.9 (1.0-1.7) Test 06/26/18 06:17 Sodium Level 141 mmol/L (136-145) Potassium Level 4.2 mmol/L (3.5-5.1) Chloride Level 104 mmol/L (98-107) Carbon Dioxide Level 28 mmol/L (21-32) Anion Gap 9 (6-14) Blood Urea Nitrogen 14 mg/dL (8-26) Creatinine 1.2 mg/dL (0.7-1.3) Estimated GFR (Cockcroft-Gault) 76.6 Glucose Level 108 mg/dL (70-99) Calcium Level 9.0 mg/dL (8.5-10.1) Magnesium Level 1.9 mg/dL (1.8-2.4) Troponin I Quantitative 0.040 ng/mL (0.000-0.055) Assessment and Plan Assessmemt and Plan Problems Medical Problems: (1) Chest pain Status: Acute Comment Review of Relevant I have reviewed the following items gretchen (where applicable) has been applied. Labs Laboratory Tests Test 06/25/18 14:14 06/25/18 14:30 06/25/18 18:10 06/26/18 00:15 White Blood Count 6.9 x10^3/uL (4.0-11.0) Red Blood Count 5.88 x10^6/uL (4.30-5.70) Hemoglobin 15.2 g/dL (13.0-17.5) Hematocrit 47.0 % (39.0-53.0) Mean Corpuscular Volume 80 fL (79-100) Mean Corpuscular Hemoglobin 26 pg (25-35) Mean Corpuscular Hemoglobin Concent 32 g/dL (31-37) Red Cell Distribution Width 14.5 % (11.5-14.5) Platelet Count 162 x10^3/uL (140-400) Neutrophils (%) (Auto) 62 % (31-73) Lymphocytes (%) (Auto) 28 % (24-48) Monocytes (%) (Auto) 9 % (0-9) Eosinophils (%) (Auto) 1 % (0-3) Basophils (%) (Auto) 1 % (0-3) Neutrophils # (Auto) 4.3 x10^3uL (1.8-7.7) Lymphocytes # (Auto) 1.9 x10^3/uL (1.0-4.8) Monocytes # (Auto) 0.6 x10^3/uL (0.0-1.1) Eosinophils # (Auto) 0.1 x10^3/uL (0.0-0.7) Basophils # (Auto) 0.0 x10^3/uL (0.0-0.2) Sodium Level 138 mmol/L (136-145) Potassium Level 3.9 mmol/L (3.5-5.1) Chloride Level 104 mmol/L (98-107) Carbon Dioxide Level 27 mmol/L (21-32) Anion Gap 7 (6-14) Blood Urea Nitrogen 11 mg/dL (8-26) Creatinine 1.0 mg/dL (0.7-1.3) Estimated GFR (Cockcroft-Gault) 94.6 BUN/Creatinine Ratio 11 (6-20) Glucose Level 85 mg/dL (70-99) Calcium Level 9.4 mg/dL (8.5-10.1) Total Bilirubin 0.4 mg/dL (0.2-1.0) Aspartate Amino Transf (AST/SGOT) 20 U/L (15-37) Alanine Aminotransferase (ALT/SGPT) 27 U/L (16-63) Alkaline Phosphatase 102 U/L (46-116) Troponin I Quantitative 0.048 ng/mL (0.000-0.055) 0.050 ng/mL (0.000-0.055) 0.060 ng/mL (0.000-0.055) CK-Cbs-Z-Type Natriuretic Peptide 1795 pg/mL (0-124) Total Protein 7.4 g/dL (6.4-8.2) Albumin 3.4 g/dL (3.4-5.0) Albumin/Globulin Ratio 0.9 (1.0-1.7) Test 06/26/18 06:17 Sodium Level 141 mmol/L (136-145) Potassium Level 4.2 mmol/L (3.5-5.1) Chloride Level 104 mmol/L (98-107) Carbon Dioxide Level 28 mmol/L (21-32) Anion Gap 9 (6-14) Blood Urea Nitrogen 14 mg/dL (8-26) Creatinine 1.2 mg/dL (0.7-1.3) Estimated GFR (Cockcroft-Gault) 76.6 Glucose Level 108 mg/dL (70-99) Calcium Level 9.0 mg/dL (8.5-10.1) Magnesium Level 1.9 mg/dL (1.8-2.4) Troponin I Quantitative 0.040 ng/mL (0.000-0.055) Laboratory Tests Test 06/25/18 14:14 06/25/18 14:30 06/25/18 18:10 06/26/18 00:15 White Blood Count 6.9 x10^3/uL (4.0-11.0) Red Blood Count 5.88 x10^6/uL (4.30-5.70) Hemoglobin 15.2 g/dL (13.0-17.5) Hematocrit 47.0 % (39.0-53.0) Mean Corpuscular Volume 80 fL (79-100) Mean Corpuscular Hemoglobin 26 pg (25-35) Mean Corpuscular Hemoglobin Concent 32 g/dL (31-37) Red Cell Distribution Width 14.5 % (11.5-14.5) Platelet Count 162 x10^3/uL (140-400) Neutrophils (%) (Auto) 62 % (31-73) Lymphocytes (%) (Auto) 28 % (24-48) Monocytes (%) (Auto) 9 % (0-9) Eosinophils (%) (Auto) 1 % (0-3) Basophils (%) (Auto) 1 % (0-3) Neutrophils # (Auto) 4.3 x10^3uL (1.8-7.7) Lymphocytes # (Auto) 1.9 x10^3/uL (1.0-4.8) Monocytes # (Auto) 0.6 x10^3/uL (0.0-1.1) Eosinophils # (Auto) 0.1 x10^3/uL (0.0-0.7) Basophils # (Auto) 0.0 x10^3/uL (0.0-0.2) Sodium Level 138 mmol/L (136-145) Potassium Level 3.9 mmol/L (3.5-5.1) Chloride Level 104 mmol/L (98-107) Carbon Dioxide Level 27 mmol/L (21-32) Anion Gap 7 (6-14) Blood Urea Nitrogen 11 mg/dL (8-26) Creatinine 1.0 mg/dL (0.7-1.3) Estimated GFR (Cockcroft-Gault) 94.6 BUN/Creatinine Ratio 11 (6-20) Glucose Level 85 mg/dL (70-99) Calcium Level 9.4 mg/dL (8.5-10.1) Total Bilirubin 0.4 mg/dL (0.2-1.0) Aspartate Amino Transf (AST/SGOT) 20 U/L (15-37) Alanine Aminotransferase (ALT/SGPT) 27 U/L (16-63) Alkaline Phosphatase 102 U/L (46-116) Troponin I Quantitative 0.048 ng/mL (0.000-0.055) 0.050 ng/mL (0.000-0.055) 0.060 ng/mL (0.000-0.055) BZ-Mhw-F-Type Natriuretic Peptide 1795 pg/mL (0-124) Total Protein 7.4 g/dL (6.4-8.2) Albumin 3.4 g/dL (3.4-5.0) Albumin/Globulin Ratio 0.9 (1.0-1.7) Test 06/26/18 06:17 Sodium Level 141 mmol/L (136-145) Potassium Level 4.2 mmol/L (3.5-5.1) Chloride Level 104 mmol/L (98-107) Carbon Dioxide Level 28 mmol/L (21-32) Anion Gap 9 (6-14) Blood Urea Nitrogen 14 mg/dL (8-26) Creatinine 1.2 mg/dL (0.7-1.3) Estimated GFR (Cockcroft-Gault) 76.6 Glucose Level 108 mg/dL (70-99) Calcium Level 9.0 mg/dL (8.5-10.1) Magnesium Level 1.9 mg/dL (1.8-2.4) Troponin I Quantitative 0.040 ng/mL (0.000-0.055) Medications Current Medications Aspirin (Katherine Aspirin) 325 mg 1X ONCE PO Last administered on 06/25/18 14:43 ; Start 06/25/18 at 14:15; Stop 06/25/18 at 14:16; Status DC Nitroglycerin (Nitrostat) 0.4 mg PRN Q5MIN PRN SL CHEST PAIN Last administered on 06/25/18 15:26; Start 06/25/18 at 15:30; Stop 06/25/18 at 16:31; Status DC Ondansetron HCl (Zofran) 4 mg PRN Q8HRS PRN IV NAUSEA/VOMITING; Start 06/25/18 at 15:30; Stop 06/26/18 at 15:29 Morphine Sulfate (Morphine Sulfate) 2 mg PRN Q2HR PRN IV PAIN Last administered on 06/25/18 15:43; Start 06/25/18 at 15:30; Stop 06/26/18 at 15:29 Acetaminophen (Tylenol) 650 mg PRN Q4HRS PRN PO FEVER; Start 06/25/18 at 15:30; Stop 06/26/18 at 15:29 Enalaprilat (Vasotec Inj) 1.25 mg PRN Q6HRS PRN IVP HYPERTENSION, SEE COMMENTS Last administered on 06/25/18at 16:52; Start 06/25/18 at 16:30 Labetalol HCl (Normodyne Iv Push) 10 mg PRN Q2HR PRN IVP HYPERTENSION, SEE COMMENTS Last administered on 06/25/18at 21:12; Start 06/25/18 at 16:30 Aspirin (Ecotrin) 81 mg DAILY PO ; Start 06/26/18 at 09:00 Atorvastatin Calcium (Lipitor) 20 mg QHS PO Last administered on 06/25/18at 21:09 ; Start 06/25/18 at 21:00 Carvedilol (Coreg) 12.5 mg BIDWMEALS PO Last administered on 06/25/18at 17:39; Start 06/25/18 at 17:30 Lisinopril (Prinivil) 20 mg DAILY PO Last administered on 06/25/18 17:39; Start 06/25/18 at 17:30 Potassium Chloride (Klor-Con) 20 meq DAILYWBKFT PO Last administered on 17:39; Start 06/25/18 at 17:30 Furosemide (Lasix) 40 mg BID92 IVP Last administered on 06/25/18 17:38; Start 06/25/18 at 17:30 Albuterol/ Ipratropium (Duoneb) 3 ml RTQID NEB Last administered on 06/26/18at 07 :49; Start 06/25/18 at 20:00 Nicotine (Nicoderm Cq 21mg) 1 patch DAILY TD ; Start 06/25/18 at 17:30 Lorazepam (Ativan) 0.5 mg PRN Q6HRS PRN PO ANXIETY / AGITATION; Start 06/25/18 at 16:45 Active Scripts Active Reported Lisinopril 20 Mg Tablet 1 Tab PO DAILY Atorvastatin Calcium 20 Mg Tablet 1 Tab PO DAILY Potassium Chloride 20 Meq Tablet.er 20 Meq PO DAILY Carvedilol (Carvedilol) 12.5 Mg Tablet 1 Tab PO BID Aspir 81 (Aspirin) 81 Mg Tablet.dr 1 Tab PO DAILY Furosemide 40 Mg Tablet 1 Tab PO DAILY Vitals/I & O Vital Sign - Last 24 Hours 06/25/18 06/25/18 06/25/18 06/25/18 14:06 14:28 14:58 15:26 Temp 98.5 98.5 Pulse 104 107 106 98 Resp 18 20 B/P (MAP) 203/120 (147) 205/107 (139) 180/93 (122) 180/93 Pulse Ox 97 98 97 O2 Delivery Room Air Room Air Room Air 06/25/18 06/25/18 06/25/1819 15:32 16:20 16:37 16:52 Temp 98.5 98.5 Pulse 103 108 103 Resp 20 24 B/P (MAP) 170/87 (114) 177/105 (129) 170/87 Pulse Ox 95 97 95 O2 Delivery Room Air Room Air 06/25/18 06/25/18 06/25/18 06/25/18 17:39 17:39 18:23 19:50 Temp 97.9 97.9 Pulse 103 103 99 Resp 20 B/P (MAP) 170/87 170/87 147/79 (101) Pulse Ox 97 O2 Delivery Room Air Room Air 06/25/18 06/25/18 06/25/18 06/25/18 19:57 20:00 21:12 22:50 Temp 98.4 98.4 Pulse 90 84 Resp 20 B/P (MAP) 209/101 121/64 (83) Pulse Ox 97 93 O2 Delivery Room Air Room Air Room Air 06/26/18 06/26/18 06/26/18 03:15 07:23 07:48 Temp 98.2 98.2 Pulse 78 Resp 18 B/P (MAP) 111/60 (77) Pulse Ox 92 92 O2 Delivery Room Air Room Air Room Air Intake and Output 06/25/18 06/25/18 06/26/18 15:01 23:01 07:01 Intake Total 180 ml 800 ml Output Total 350 ml Balance -170 ml 800 ml STARLA BRANDON MD Jun 26, 2018 08:04
[2018-06-26 08:22] LABS: CHOLESTEROL/HDL RATIO 3.2
[2018-06-26] MEDS: NICOTINE 21MG PATCH. TD SCH (09:29)
[2018-06-26] MEDS: LISINOPRIL 20 MG TABLET PO SCH (09:30)
[2018-06-26] MEDS: ASPIRIN ENTERIC COATED 81 MG TABLET.DR. PO SCH (09:30)
--- NOTE | 2018-06-26 09:54 | PDOC2 ---
GRAHAM JENNINGS NEWS ASSISTANT 06/26/18 0954: CARDIAC CONSULT DATE OF CONSULT Date of Consult DATE: 06/26/18 TIME: 09:39 REASON FOR CONSULT Reason for Consult: Chest pain, elevated trop REFERRING PHYSICIAN Referring Physician: Jama SOURCE Source: Chart review, Patient HISTORY OF PRESENT ILLNESS HISTORY OF PRESENT ILLNESS This is a pleasant 52 yo male admitted for complains of chest pain. Reports of midchest sharp discomfort that lasted about 1 hour yesterday with nausea, LA heaviness, and SOA. No leg swelling. Reports that he has been having intermittent CP and SOA in the last 2 weeks. He also has been stressed out lately, with spouse relating it to "everything". He has been compliant with his medications with lipitor the only med he has missed about a week which was recently filled. He has not been complaint with his diet but otherwise his BP at home has been in the 150s. He has not had any LHC done in the past and has been noted with NICm in the past. PAST MEDICAL HISTORY Cardiovascular: CHF, HTN, Hyperlipidemia, Other (NICM) Pulmonary: COPD, Pneumonia GI: GERD, Other (umbilical hernia) Musculoskeletal: Osteoarthritis Endocrine: No pertinent hx Dermatology: No pertinent hx PAST SURGICAL HISTORY Past Surgical History: Other (jaw surgery) FAMILY HISTORY Family History: Stroke SOCIAL HISTORY Smoke: <1 pack per day ALCOHOL: occassional Drugs: Marijuana Lives: with Family CURRENT MEDICATIONS CURRENT MEDICATIONS Current Medications Medications (Trade) Dose Ordered Sig/Jules Route PRN Reason Start Time Stop Time Status Last Admin Dose Admin Aspirin (Katherine Aspirin) 325 mg 1X ONCE PO 06/25/18 14:15 06/25/18 14:16 DC 06/25/18 14:43 Nitroglycerin (Nitrostat) 0.4 mg PRN Q5MIN PRN SL CHEST PAIN 06/25/18 15:30 06/25/18 16:31 DC 06/25/18 15:26 Morphine Sulfate (Morphine Sulfate) 2 mg PRN Q2HR PRN IV PAIN 06/25/18 15:30 06/26/18 15:29 06/25/18 15:43 Enalaprilat (Vasotec Inj) 1.25 mg PRN Q6HRS PRN IVP HYPERTENSION, SEE COMMENTS 06/25/18 16:30 06/25/18 16:52 Labetalol HCl (Normodyne Iv Push) 10 mg PRN Q2HR PRN IVP HYPERTENSION, SEE COMMENTS 06/25/18 16:30 06/25/18 21:12 Aspirin (Ecotrin) 81 mg DAILY PO 06/26/18 09:00 06/26/18 09:30 Atorvastatin Calcium (Lipitor) 20 mg QHS PO 06/25/18 21:00 06/25/18 21:09 Carvedilol (Coreg) 12.5 mg BIDWMEALS PO 06/25/18 17:30 06/25/18 17:39 Lisinopril (Prinivil) 20 mg DAILY PO 06/25/18 17:30 06/26/18 09:30 Potassium Chloride (Klor-Con) 20 meq DAILYWBKFT PO 06/25/18 17:30 06/25/18 17:39 Furosemide (Lasix) 40 mg BID92 IVP 06/25/18 17:30 06/25/18 17:38 Albuterol/ Ipratropium (Duoneb) 3 ml RTQID NEB 06/25/18 20:00 06/26/18 07:49 Nicotine (Nicoderm Cq 21mg) 1 patch DAILY TD 06/25/18 17:30 06/26/18 09:29 Lorazepam (Ativan) 0.5 mg PRN Q6HRS PRN PO ANXIETY / AGITATION 06/25/18 16:45 06/26/18 09:29 ALLERGIES ALLERGIES: Coded Allergies: No Known Drug Allergies (Unverified , 09/13/17) ROS Review of System 14 point ROS evaluated with pertinent positives noted per HPI PHYSICAL EXAM General: Alert, Oriented X3, Cooperative, No acute distress HEENT: Atraumatic, Mucous membr. moist/pink Lungs: Other (basilar crackles) Heart: Regular rate (SR), Normal S1, Normal S2, Other Abdomen: Soft, No tenderness Extremities: No cyanosis Skin: No breakdown, No significant lesion Neuro: Sensation intact Psych/Mental Status: Mental status NL, Mood NL MUSCULOSKELETAL: Osteoarthritic changes both hands VITALS VITALS Vital Signs Date Time Temp Pulse Resp B/P (MAP) Pulse Ox O2 Delivery O2 Flow Rate FiO2 06/26/18 09:30 82 152/81 06/26/18 07:48 92 Room Air 06/26/18 07:00 97.8 16 97.8 LABS Lab: Laboratory Tests Test 2/4/19 14:14 06/25/18 14:30 06/25/18 18:10 06/26/18 00:15 White Blood Count 6.9 x10^3/uL (4.0-11.0) Red Blood Count 5.88 x10^6/uL (4.30-5.70) Hemoglobin 15.2 g/dL (13.0-17.5) Hematocrit 47.0 % (39.0-53.0) Mean Corpuscular Volume 80 fL (79-100) Mean Corpuscular Hemoglobin 26 pg (25-35) Mean Corpuscular Hemoglobin Concent 32 g/dL (31-37) Red Cell Distribution Width 14.5 % (11.5-14.5) Platelet Count 162 x10^3/uL (140-400) Neutrophils (%) (Auto) 62 % (31-73) Lymphocytes (%) (Auto) 28 % (24-48) Monocytes (%) (Auto) 9 % (0-9) Eosinophils (%) (Auto) 1 % (0-3) Basophils (%) (Auto) 1 % (0-3) Neutrophils # (Auto) 4.3 x10^3uL (1.8-7.7) Lymphocytes # (Auto) 1.9 x10^3/uL (1.0-4.8) Monocytes # (Auto) 0.6 x10^3/uL (0.0-1.1) Eosinophils # (Auto) 0.1 x10^3/uL (0.0-0.7) Basophils # (Auto) 0.0 x10^3/uL (0.0-0.2) Sodium Level 138 mmol/L (136-145) Potassium Level 3.9 mmol/L (3.5-5.1) Chloride Level 104 mmol/L (98-107) Carbon Dioxide Level 27 mmol/L (21-32) Anion Gap 7 (6-14) Blood Urea Nitrogen 11 mg/dL (8-26) Creatinine 1.0 mg/dL (0.7-1.3) Estimated GFR (Cockcroft-Gault) 94.6 BUN/Creatinine Ratio 11 (6-20) Glucose Level 85 mg/dL (70-99) Calcium Level 9.4 mg/dL (8.5-10.1) Total Bilirubin 0.4 mg/dL (0.2-1.0) Aspartate Amino Transf (AST/SGOT) 20 U/L (15-37) Alanine Aminotransferase (ALT/SGPT) 27 U/L (16-63) Alkaline Phosphatase 102 U/L (46-116) Troponin I Quantitative 0.048 ng/mL (0.000-0.055) 0.050 ng/mL (0.000-0.055) 0.060 ng/mL (0.000-0.055) JY-Tvn-X-Type Natriuretic Peptide 1795 pg/mL (0-124) Total Protein 7.4 g/dL (6.4-8.2) Albumin 3.4 g/dL (3.4-5.0) Albumin/Globulin Ratio 0.9 (1.0-1.7) Test 06/26/18 06:17 Sodium Level 141 mmol/L (136-145) Potassium Level 4.2 mmol/L (3.5-5.1) Chloride Level 104 mmol/L (98-107) Carbon Dioxide Level 28 mmol/L (21-32) Anion Gap 9 (6-14) Blood Urea Nitrogen 14 mg/dL (8-26) Creatinine 1.2 mg/dL (0.7-1.3) Estimated GFR (Cockcroft-Gault) 76.6 Glucose Level 108 mg/dL (70-99) Calcium Level 9.0 mg/dL (8.5-10.1) Magnesium Level 1.9 mg/dL (1.8-2.4) Troponin I Quantitative 0.040 ng/mL (0.000-0.055) Triglycerides Level 72 mg/dL (0-150) Cholesterol Level 142 mg/dL (0-200) LDL Cholesterol, Calculated 84 mg/dL (0-100) VLDL Cholesterol, Calculated 14 mg/dL (0-40) Non-HDL Cholesterol Calculated 98 mg/dL (0-129) HDL Cholesterol 44 mg/dL (40-60) Cholesterol/HDL Ratio 3.2 ECHOCARDIOGRAM ECHOCARDIOGRAM <Conclusion> The ejection fraction is moderately to severely impaired. The Ejection Fraction is 25-30%. There is global hypokinesis of the left ventricle. Doppler and Color Flow revealed mild to moderate aortic regurgitation. Doppler and Color-flow revealed mild mitral regurgitation. Doppler and Color Flow revealed mild tricuspid regurgitation. DATE: 06/08/17 1103 ~ STRESS TEST STRESS TEST Conclusion 1. Regadenoson cardioisotope stress test did not show any evidence of ischemia or infarct. 2. Mild global left ventricle systolic dysfunction with ejection fraction calculated at 45%. 3. Low risk for cardiac events. DATE: 06/07/17 1514 ASSESSMENT/PLAN ASSESSMENT/PLAN 1. Chest pain: peaked trop at 0.06, EKG SR with LVH with anterolateral symmetrical T wave inversions concerning of ischemia 2. Accelerated HTN: highest noted at 209/101, better now 3. COPD with continued tobaccoism 4. Acute on chronic systolic CHF/NICM: compensated currently 5. HLP 6. Anxiety Recommendations 1. TTE. lipids, UDS 2. Smoking cessation. Marijuana cessation. Dietitian consult 3. Continue with secondary prevention 4. Restart home BP meds, will adjust pending BP trend 5. Lasix therapy. 6. LHC today, risks and benefits discussed agreeable to proceed. KOURTNEY FARRIS MD 06/26/18 1710: CARDIAC CONSULT ASSESSMENT/PLAN ASSESSMENT/PLAN Pt. seen and examined. 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 LHC w/o disease. Mild CMP. EDP wnl. Continue treatment of BP. GRAHAM JENNINGS APRN Jun 26, 2018 09:54 KOURTNEY FARRIS MD Jun 26, 2018 17:10
--- NOTE | 2018-06-26 09:56 | CARD ---
MR#: [id number] Date of Study: 06/26/2018 Ordering Physician: GRAHAM JENNINGS, Referring Physician: STARLA BRANDON Tech: Nat Hennessy ROLDAN APPROVED REPORT EXAM: Two-dimensional and M-mode echocardiogram with Doppler and color Doppler. Other Information Quality : Good INDICATION Chest Pain 2D DIMENSIONS RVDd2.3 (2.9-3.5cm)Left Atrium(2D)3.9 (1.6-4.0cm) IVSd1.4 (0.7-1.1cm)Aortic Root(2D)2.9 (2.0-3.7cm) LVDd5.1 (3.9-5.9cm)LVOT Diameter2.1 (1.8-2.4cm) PWd1.7 (0.7-1.1cm)LVDs4.2 (2.5-4.0cm) FS (%) 18.1 %SV45.9 ml LVEF(%)35.0 (>50%) Aortic Valve AoV Peak Julio Cesar.143.2cm/sAoV VTI25.5cm AO Peak GR.8.2mmHgLVOT Peak Julio Cesar.81.1cm/s AO Mean GR.5mmHgAVA (VMAX)1.97cm2 JAYLEN (VTI)2.59tg0AF P 1/2 Ohmh656qc Mitral Valve MV E Chqimpoc20.6cm/sMV DECEL [id number] MV A Fxabizgq46.4cm/sE/A Ratio0.9 Pulmonary Vein S1 Edfsxlvr37.8cm/sD2 Esudkbjc38.2cm/s LEFT VENTRICLE The left ventricle is normal size. There is mild to moderate concentric left ventricular hypertrophy. Left ventricle systolic function is moderately impaired. The Ejection Fraction is 30-35%. There is m oderate global hypokinesis of the left ventricle with severe hypokinesis of the basal to mid anterior wall. Transmitral Doppler flow pattern is Grade I-abnormal relaxation pattern. RIGHT VENTRICLE The right ventricle is normal size. The right ventricular systolic function is normal. ATRIA The left atrium size is normal. The right atrium size is normal. The interatrial septum is intact wit h no evidence for an atrial septal defect or patent foramen ovale as noted on 2-D or Doppler imaging. AORTIC VALVE The aortic valve is calcified but opens well. Doppler and Color Flow revealed mild to moderate aortic regurgitation. There is no significant aortic valvular stenosis. MITRAL VALVE The mitral valve is calcified but opens well. There is no evidence of mitral valve prolapse. There is no mitral valve stenosis. Doppler and Color-flow revealed trace mitral regurgitation. TRICUSPID VALVE The tricuspid valve is normal in structure and function. Doppler and Color Flow revealed no tricuspid valve regurgitation noted. There is no tricuspid valve stenosis. PULMONIC VALVE Doppler and Color Flow revealed trace pulmonic valvular regurgitation. There is no pulmonic valvular stenosis. GREAT VESSELS The aortic root is normal in size. The ascending aorta is normal in size. The IVC is normal in size a nd collapses >50% with inspiration. PERICARDIAL EFFUSION There is no evidence of significant pericardial effusion. Critical Notification Critical Value: No <Conclusion> There is moderate global hypokinesis of the left ventricle with severe hypokinesis of the basal to mi d anterior wall. Left ventricle systolic function is moderately impaired. The Ejection Fraction is 30-35%. Doppler and Color Flow revealed mild to moderate aortic regurgitation. Signed by : Rickie Sibley, Electronically Approved : 06/26/2018 09:54:17
[2018-06-26] MEDS: amLODIPine BESYLATE 5 MG TABLET PO SCH (10:15)
[2018-06-26] MEDS ORDERED: IODIXANOL 320 MG/ML 100 ML VIAL. ONE (11:04)
[2018-06-26] MEDS ORDERED: LIDOCAINE 1% PF 2 ML VIAL. ONE (11:04)
--- NOTE | 2018-06-26 12:58 | PDOC ---
MODERATE SEDATION ASSESSMENT RISKS/ALTERNATIVES Risks/Alternatives Risks and alternatives of this type of sedation and procedure discussed with: RISK/ALTERNATIVES: Patient H & P ON CHART H & P H & P on chart and reviewed for co-morbid conditions and appropriate labs. H&P ON CHART: Yes STATUS PREG STATUS ASSESSED: N/A MEDS/ALLERGIES REVIEWED Meds/Allergies Reviewed Medications and Allergies including time and route of recently administered narcotics and sedatives. MEDS/ALLERGIES REVIEWED: Yes ASA RATING ASA RATING: III AIRWAY ASSESSMENT Airway Assessment Airway patency, oral function limitations, presence of caps, crowns, dentures, partials, and ability to extend neck assessed. AIRWAY ASSESSMENT: Yes MALLAMPATI SCORE MALLAMPATI SCORE: III PRE-SEDATION ASSESSMENT PRE-SEDATION ASSESSMENT: Yes KOURTNEY FARRIS MD Jun 26, 2018 12:58
[2018-06-26] MEDS ORDERED: MIDAZOLAM HCL/PF 2 MG/2 ML VIAL. ONE (13:12)
[2018-06-26] MEDS ORDERED: HEPARIN for IV BOLUS 10,000 UNIT/10 ML VIAL. ONE (13:12)
[2018-06-26] MEDS ORDERED: NITROGLYCERIN 200 MCG/2 ML SYRINGE FOR CATH/VASC LAB. ONE (13:12)
[2018-06-26] MEDS ORDERED: VERAPAMIL 5 MG/2 ML VIAL. ONE (13:12)
[2018-06-26] MEDS ORDERED: fentaNYL PF VIAL 100 MCG/2 ML VIAL ONE (13:12)
[2018-06-26] MEDS ORDERED: IODIXANOL 320 MG/ML 100 ML VIAL. IART ONE (13:45)
[2018-06-26] MEDS ORDERED: CONTRAST GIVEN. MC PRN (13:45)
[2018-06-26] MEDS ORDERED: fentaNYL PF VIAL 100 MCG/2 ML VIAL IV ONE (13:45)
[2018-06-26] MEDS ORDERED: LIDOCAINE 1% PF 2 ML VIAL. INJ ONE (13:45)
[2018-06-26] MEDS ORDERED: NITROGLYCERIN 200 MCG/2 ML SYRINGE FOR CATH/VASC LAB. IART ONE (13:45)
[2018-06-26] MEDS ORDERED: MIDAZOLAM HCL/PF 2 MG/2 ML VIAL. IV ONE (13:45)
[2018-06-26] MEDS ORDERED: VERAPAMIL 5 MG/2 ML VIAL. IART ONE (13:45)
[2018-06-26] MEDS ORDERED: HEPARIN for IV BOLUS 10,000 UNIT/10 ML VIAL. IART ONE (13:45)
[2018-06-26] MEDS: CARVEDILOL 12.5 MG TABLET. PO SCH ×2 (14:25→17:00)
[2018-06-26] MEDS: LABETALOL 20 MG/4 ML DISP.SYRIN. IVP PRN ×2 (14:26→23:18)
[2018-06-26] MEDS: POTASSIUM CHLORIDE 20 MEQ TABLET.ER. PO SCH (14:26)
--- NOTE | 2018-06-26 15:29 | NUR ---
SS following for discharge planning. SS reviewed pt chart. Pt is from home with spouse. No discharge needs noted at this time. SS will continue to follow for pending discharge needs.
--- NOTE | 2018-06-26 16:18 | CARD ---
MR#: [id number] Date of Study: 06/26/2018 Ordering Physician: GRAHAM JENNINGS, Referring Physician: STARLA BRANDON, Tech: RT Jak (R) APPROVED REPORT Technologist: RT Jak (R) Nurse: Judith Colon R.N. Procedure(s) performed: MODERATE SEDATION 25 MINUTES LHC, Coronary angiography, Left ventriculography HISTORY The patient is a 52 year-old male with a history of : hypertension. INDICATION The indication(s) include : unstable angina , abnormal ECG. CS Clinical Frailty Scale CS Clinical Frailty Scale: Well Heart Failure Heart Failure: Yes If Yes, Newly Diagnosed: Yes If Yes, HF Type: Diastolic Systolic If Yes, NYHA Class: Class II PROCEDURE NARRATIVE INFORMED CONSENT: After explaining the risks and benefits of the procedure and alternatives, informed consent was obtained. The patient was brought electively to the cardiac catheterization lab. A timeout was performed confi rming the patient's name, date of , procedure, and site of procedure. All necessary personnel w ere wearing the appropriate protective equipment and radiation monitor devices. (See nursing notes for medications administered). ACCESS: The right wrist was sterilely prepped and draped in the usual fashion. The right wrist was infiltrat ed with 1 mL of 2% lidocaine for subcutaneous anesthesia. A 6 Maori Terumo glide sheath was inserte d into the right radial artery without difficulty. CORONARY ANGIOGRAPHY: Right and left coronary angiography was performed using a 6Fr TIG 4.0 catheter. Left ventricular en d diastolic pressure was obtained with a pigtail catheter and pullback was performed after left ventr iculography. All catheter exchanges and advancements were performed over a guidewire. CLOSURE: At case completion the right radial sheath was removed and a Terumo radial band was applied with 13 m l of air. COMPLICATIONS: The patient tolerated the procedure well and there were no immediate complications. FINDINGS: HEMODYNAMICS: LVEDP 12 mm Hg No gradient on LV to aortic pullback. AO: 110/70 LEFT VENTRICULOGRAM: EF 40-45% Mild global hypokinesis. CORONARY ANGIOGRAPHY: LM is a large caliber vessel with normal angiographic appearance. LAD is a large caliber vessel with normal angiographic appearance. LCx is a moderate caliber non-dominant vessel with normal angiographic appearance. OM1 is a moderate caliber vessel with normal angiographic appearance. OM2 is a moderate caliber vessel with normal angiographic appearance. RCA is a moderate caliber dominant vessel with mild less than 20% stenosis in the mid segment. The R CA bifuractes early with a large RV marginal branch noted. RPDA and RPL are small caliber vessels with normal angiographic appearance. Conclusion 1. Normal LVEDP 2. Mild LV dysfunction. EF 40-45% 3. No significant coronary disease. Recommendations Aggressive Medical Therapy Signed by : Rickie Sibley, Electronically Approved : 06/26/2018 16:16:02
[2018-06-26] MEDS: ATORVASTATIN CALCIUM 20 MG TABLET PO SCH (20:38)
[2018-06-27 03:10] VITALS: BP 139/83
[2018-06-27 07:00] VITALS: BP 124/61
[2018-06-27] MEDS: IPRATRPIUM/ALBUTEROL 0.5/2.5MG 3 ML NEBU. NEB SCH ×2 (07:40→11:34)
--- NOTE | 2018-06-27 08:24 | PDOC ---
PROGRESS NOTES Chief Complaint Chief Complaint HTN urgency Acute on chronic systolic CHF COPD Non-ischemic cardiomyopathy Elevated troponin Tobacco dependence HLD History of Present Illness History of Present Illness 52 yo m w/ PMHx HTN, CHF (EF 25-30% 05/2017), COPD, schizophrenia, anxiety who p/ w left chest cramping that started 6:30 on 06/25/18. Assoc slight tingling in his left fingertips as well as palpitations. He rated his pain a 7 out of 10 and is nonradiating. In ED noted with troponin 0.048 and CXR that appeared improved from 1 year ago, though with bilateral small pleural effusions. Also with BP 208/120, admitted for HTN urgency. 06/27: Yesterday troponin peaked at 0.060. His pain improved when his BP came down. He feels his anxiety is better as well. To dye lab technician: 1. Normal LVEDP, 2. Mild LV dysfunction. EF 40-45%, 3. No significant coronary disease. Overnight no events. His significant other is in bed with him. Chest pain has improved with addition of amlodipine and BP improved as well A/P: HTN urgency - likely etiology of elevated troponin, compliance seems to be a difficulty and life stressors. He has his meds with them, notes work schedule makes it difficult to comply with meds. Needs a CCB, started amlodipine today Acute on chronic systolic CHF - with elevated BNP, ordered IV lasix. Cont KYRIE, BB, ASA, Statin COPD with continued tobaccoism - will order nebs Non-ischemic cardiomyopathy - cardiomegaly on CXR. BNP elevated. last EF 25-30% on echo Elevated troponin - likely is demand mediated from HTN urgency. Consulted cardiology, trended trops Tobacco dependence - nicotine patch HLD - will cont statin FEN - NPO after midnight PPX - SCDs FULL CODE Inpatient for uncontrolled HTN with chest pain and elevated troponin not amenable to outpatient treatment. May 2017 had myocardial perfusion imaging Conclusion 1. Regadenoson cardioisotope stress test did not show any evidence of ischemia or infarct. 2. Mild global left ventricle systolic dysfunction with ejection fraction calculated at 45%. 3. Low risk for cardiac events. Echo that month showed EF 25-30% Vitals Vitals Vital Signs Date Time Temp Pulse Resp B/P (MAP) Pulse Ox O2 Delivery O2 Flow Rate FiO2 06/27/18 07:40 92 Room Air 06/27/18 07:00 97.9 87 16 124/61 (82) 97.9 06/26/18 18:43 2.0 Physical Exam General: Alert, Oriented X3, Cooperative, No acute distress Heart: Regular rate (SR), Normal S1, Normal S2, Other Lungs: Other Abdomen: Soft, No tenderness Extremities: No cyanosis Skin: No breakdown, No significant lesion Assessment and Plan Assessmemt and Plan Problems Medical Problems: (1) Chest pain Status: Acute Comment Review of Relevant I have reviewed the following items gretchen (where applicable) has been applied. Labs Laboratory Tests Test 06/25/18 14:14 06/25/18 14:30 06/25/18 18:10 06/26/18 00:15 White Blood Count 6.9 x10^3/uL (4.0-11.0) Red Blood Count 5.88 x10^6/uL (4.30-5.70) Hemoglobin 15.2 g/dL (13.0-17.5) Hematocrit 47.0 % (39.0-53.0) Mean Corpuscular Volume 80 fL (79-100) Mean Corpuscular Hemoglobin 26 pg (25-35) Mean Corpuscular Hemoglobin Concent 32 g/dL (31-37) Red Cell Distribution Width 14.5 % (11.5-14.5) Platelet Count 162 x10^3/uL (140-400) Neutrophils (%) (Auto) 62 % (31-73) Lymphocytes (%) (Auto) 28 % (24-48) Monocytes (%) (Auto) 9 % (0-9) Eosinophils (%) (Auto) 1 % (0-3) Basophils (%) (Auto) 1 % (0-3) Neutrophils # (Auto) 4.3 x10^3uL (1.8-7.7) Lymphocytes # (Auto) 1.9 x10^3/uL (1.0-4.8) Monocytes # (Auto) 0.6 x10^3/uL (0.0-1.1) Eosinophils # (Auto) 0.1 x10^3/uL (0.0-0.7) Basophils # (Auto) 0.0 x10^3/uL (0.0-0.2) Sodium Level 138 mmol/L (136-145) Potassium Level 3.9 mmol/L (3.5-5.1) Chloride Level 104 mmol/L (98-107) Carbon Dioxide Level 27 mmol/L (21-32) Anion Gap 7 (6-14) Blood Urea Nitrogen 11 mg/dL (8-26) Creatinine 1.0 mg/dL (0.7-1.3) Estimated GFR (Cockcroft-Gault) 94.6 BUN/Creatinine Ratio 11 (6-20) Glucose Level 85 mg/dL (70-99) Calcium Level 9.4 mg/dL (8.5-10.1) Total Bilirubin 0.4 mg/dL (0.2-1.0) Aspartate Amino Transf (AST/SGOT) 20 U/L (15-37) Alanine Aminotransferase (ALT/SGPT) 27 U/L (16-63) Alkaline Phosphatase 102 U/L (46-116) Troponin I Quantitative 0.048 ng/mL (0.000-0.055) 0.050 ng/mL (0.000-0.055) 0.060 ng/mL (0.000-0.055) ZK-Csd-M-Type Natriuretic Peptide 1795 pg/mL (0-124) Total Protein 7.4 g/dL (6.4-8.2) Albumin 3.4 g/dL (3.4-5.0) Albumin/Globulin Ratio 0.9 (1.0-1.7) Test 06/26/18 06:17 Sodium Level 141 mmol/L (136-145) Potassium Level 4.2 mmol/L (3.5-5.1) Chloride Level 104 mmol/L (98-107) Carbon Dioxide Level 28 mmol/L (21-32) Anion Gap 9 (6-14) Blood Urea Nitrogen 14 mg/dL (8-26) Creatinine 1.2 mg/dL (0.7-1.3) Estimated GFR (Cockcroft-Gault) 76.6 Glucose Level 108 mg/dL (70-99) Calcium Level 9.0 mg/dL (8.5-10.1) Magnesium Level 1.9 mg/dL (1.8-2.4) Troponin I Quantitative 0.040 ng/mL (0.000-0.055) Triglycerides Level 72 mg/dL (0-150) Cholesterol Level 142 mg/dL (0-200) LDL Cholesterol, Calculated 84 mg/dL (0-100) VLDL Cholesterol, Calculated 14 mg/dL (0-40) Non-HDL Cholesterol Calculated 98 mg/dL (0-129) HDL Cholesterol 44 mg/dL (40-60) Cholesterol/HDL Ratio 3.2 Medications Current Medications Aspirin (Katherine Aspirin) 325 mg 1X ONCE PO Last administered on 06/25/18 14:43 ; Start 06/25/18 at 14:15; Stop 06/25/18 at 14:16; Status DC Nitroglycerin (Nitrostat) 0.4 mg PRN Q5MIN PRN SL CHEST PAIN Last administered on 06/25/18at 15:26; Start 06/25/18 at 15:30; Stop 06/25/18 at 16:31; Status DC Ondansetron HCl (Zofran) 4 mg PRN Q8HRS PRN IV NAUSEA/VOMITING; Start 06/25/18 at 15:30; Stop 06/26/18 at 15:29; Status DC Morphine Sulfate (Morphine Sulfate) 2 mg PRN Q2HR PRN IV PAIN Last administered on 06/25/18 15:43; Start 06/25/18 at 15:30; Stop 06/26/18 at 15:29; Status DC Acetaminophen (Tylenol) 650 mg PRN Q4HRS PRN PO FEVER; Start 06/25/18 at 15:30; Stop 06/26/18 at 15:29; Status DC Enalaprilat (Vasotec Inj) 1.25 mg PRN Q6HRS PRN IVP HYPERTENSION, 1ST CHOICE Last administered on 06/25/18at 16:52; Start 06/25/18 at 16:30; Stop 06/26/18 at 10: 16; Status DC Labetalol HCl (Normodyne Iv Push) 10 mg PRN Q2HR PRN IVP HYPERTENSION, 2ND CHOICE Last administered on 06/26/18at 23:18; Start 06/25/18 at 16:30 Aspirin (Ecotrin) 81 mg DAILY PO Last administered on 06/26/18 09:30; Start 06/26/18 at 09:00 Atorvastatin Calcium (Lipitor) 20 mg QHS PO Last administered on 06/26/18at 20:38 ; Start 06/25/18 at 21:00 Carvedilol (Coreg) 12.5 mg BIDWMEALS PO Last administered on 06/26/18 14:25; Start 06/25/18 at 17:30 Lisinopril (Prinivil) 20 mg DAILY PO Last administered on 06/26/18 09:30; Start 06/25/18 at 17:30; Stop 06/27/18 at 07:55; Status DC Potassium Chloride (Klor-Con) 20 meq DAILYWBKFT PO Last administered on at 14:26; Start 06/25/18 at 17:30 Furosemide (Lasix) 40 mg BID92 IVP Last administered on 06/25/18 17:38; Start 06/25/18 at 17:30; Stop 06/26/18 at 10:44; Status DC Albuterol/ Ipratropium (Duoneb) 3 ml RTQID NEB Last administered on 06/27/18 07 :40; Start 06/25/18 at 20:00 Nicotine (Nicoderm Cq 21mg) 1 patch DAILY TD Last administered on 06/26/18 09: 29; Start 06/25/18 at 17:30 Lorazepam (Ativan) 0.5 mg PRN Q6HRS PRN PO ANXIETY / AGITATION Last administered on 06/26/18 09:29; Start 06/25/18 at 16:45 Amlodipine Besylate (Norvasc) 5 mg DAILY PO Last administered on 06/26/18at 10:15 ; Start 06/26/18 at 10:15 Furosemide (Lasix) 40 mg DAILY IVP ; Start 06/27/18 at 09:00; Stop 06/27/18 at 12: 00 Iodixanol (Visipaque 320) 100 ml STK-MED ONCE .ROUTE ; Start 06/26/18 at 11:04; Stop 06/26/18 at 11:07; Status DC Lidocaine HCl (Xylocaine-Mpf 1% 2ml Vial) 2 ml STK-MED ONCE .ROUTE ; Start at 11:04; Stop 06/26/18 at 11:07; Status DC Heparin Sodium/ Sodium Chloride 1,000 ml @ As Directed STK-MED ONCE .ROUTE ; Start 06/26/18 at 11:05; Stop 06/26/18 at 11:07; Status DC Midazolam HCl (Versed) 2 mg STK-MED ONCE .ROUTE ; Start 06/26/18 at 13:12; Stop 06/26/18 at 13:14; Status DC Fentanyl Citrate (Fentanyl 2ml Vial) 100 mcg STK-MED ONCE .ROUTE ; Start at 13:12; Stop 06/26/18 at 13:14; Status DC Verapamil HCl (Verapamil) 5 mg STK-MED ONCE .ROUTE ; Start 06/26/18 at 13:12; Stop 06/26/18 at 13:14; Status DC Heparin Sodium (Porcine) (Heparin Sodium) 10,000 unit STK-MED ONCE .ROUTE ; Start 06/26/18 at 13:12; Stop 06/26/18 at 13:14; Status DC Nitroglycerin (Nitroglycerin) 200 mcg STK-MED ONCE .ROUTE ; Start 06/26/18 at 13: 12; Stop 06/26/18 at 13:14; Status DC Nitroglycerin (Nitroglycerin) 200 mcg 1X ONCE IART Last administered on 13:48; Start 06/26/18 at 13:45; Stop 06/26/18 at 13:46; Status DC Verapamil HCl (Verapamil) 2.5 mg 1X ONCE IART Last administered on 06/26/18 13 :49; Start 06/26/18 at 13:45; Stop 06/26/18 at 13:46; Status DC Heparin Sodium (Porcine) (Heparin Sodium) 2,500 unit 1X ONCE IART Last administered on 06/26/18 13:49; Start 06/26/18 at 13:45; Stop 06/26/18 at 13:46; Status DC Heparin Sodium/ Sodium Chloride (HEPARIN for ARTERIAL LINE FLUSH) 1,000 unit 1X ONCE IART Last administered on 06/26/18 13:47; Start 06/26/18 at 13:45; Stop 06/26/18 at 13:46; Status DC Midazolam HCl (Versed) 2 mg 1X ONCE IV Last administered on 06/26/18 13:49; Start 06/26/18 at 13:45; Stop 06/26/18 at 13:46; Status DC Fentanyl Citrate (Fentanyl 2ml Vial) 50 mcg 1X ONCE IV Last administered on 2/ 5/19at 13:48; Start 06/26/18 at 13:45; Stop 06/26/18 at 13:46; Status DC Iodixanol (Visipaque 320) 87 ml 1X ONCE IART Last administered on 06/26/18at 13: 48; Start 06/26/18 at 13:45; Stop 06/26/18 at 13:46; Status DC Lidocaine HCl (Xylocaine-Mpf 1% 2ml Vial) 2 ml 1X ONCE INJ Last administered on 06/26/18at 13:48; Start 06/26/18 at 13:45; Stop 06/26/18 at 13:46; Status DC Info (CONTRAST GIVEN -- Rx MONITORING) 1 each PRN DAILY PRN MC SEE COMMENTS; Start 06/26/18 at 13:45; Stop 06/28/18 at 13:44 Furosemide (Lasix) 40 mg DAILY PO ; Start 06/28/18 at 09:00 Lisinopril (Prinivil) 40 mg DAILY PO ; Start 06/27/18 at 09:00 Active Scripts Active Reported Lisinopril 20 Mg Tablet 1 Tab PO DAILY Atorvastatin Calcium 20 Mg Tablet 1 Tab PO DAILY Potassium Chloride 20 Meq Tablet.er 20 Meq PO DAILY Carvedilol (Carvedilol) 12.5 Mg Tablet 1 Tab PO BID Aspir 81 (Aspirin) 81 Mg Tablet. 1 Tab PO DAILY Furosemide 40 Mg Tablet 1 Tab PO DAILY Vitals/I & O Vital Sign - Last 24 Hours 06/26/18 06/26/18 06/26/18 06/26/18 09:30 10:15 11:00 11:16 Temp 97.6 97.6 Pulse 82 82 81 Resp 16 B/P (MAP) 152/81 152/81 163/87 (112) Pulse Ox 97 96 O2 Delivery Room Air Room Air 06/26/18 06/26/18 06/26/18 06/26/18 13:48 13:49 13:50 13:57 Pulse 76 88 89 Resp 17 17 B/P (MAP) 162/95 (117) Pulse Ox 97 97 O2 Delivery Nasal Cannula Nasal Cannula O2 Flow Rate 2.0 2.0 06/26/18 06/26/18 06/26/18 06/26/18 14:12 14:25 14:26 14:27 Pulse 95 88 88 88 B/P (MAP) 167/72 (103) 153/87 167/87 155/71 (99) 06/26/18 06/26/18 06/26/18 06/26/18 14:30 14:42 14:57 15:52 Pulse 94 87 88 Resp 17 B/P (MAP) 150/90 (110) 147/75 (99) Pulse Ox 97 97 O2 Delivery Room Air Nasal Cannula O2 Flow Rate 2.0 2.0 06/26/18 06/26/18 06/26/18 06/26/18 16:07 16:08 17:32 18:43 Pulse 88 88 88 Resp 17 17 17 Pulse Ox 97 97 97 O2 Delivery Room Air Nasal Cannula Nasal Cannula Nasal Cannula O2 Flow Rate 2.0 2.0 2.0 06/26/18 06/26/18 06/26/18 06/26/18 19:11 19:20 19:54 22:48 Temp 98.5 98.6 98.5 98.6 Pulse 88 98 Resp 16 16 B/P (MAP) 144/83 (103) 169/102 (124) Pulse Ox 96 97 96 O2 Delivery Room Air Room Air Room Air Room Air 06/26/18 06/27/18 06/27/18 06/27/18 23:18 03:10 07:00 07:30 Temp 98.3 97.9 98.3 97.9 Pulse 98 92 87 Resp 16 16 B/P (MAP) 169/102 139/83 (101) 124/61 (82) Pulse Ox 92 94 O2 Delivery Room Air Room Air Room Air 06/27/18 07:40 Pulse Ox 92 O2 Delivery Room Air Intake and Output 06/26/18 06/26/18 06/27/18 15:01 23:01 07:01 Intake Total 360 ml Balance 360 ml STARLA BRANDON MD Jun 27, 2018 08:24
[2018-06-27] MEDS ORDERED: Nicotine 21MG TD (08:26)
[2018-06-27] MEDS ORDERED: AMLO5TAB10 PO (08:26)
--- NOTE | 2018-06-27 08:32 | PDOC3 ---
Discharge Summary Visit Information Date of Admission: Jun 25, 2018 Date of Discharge: Jun 27, 2018 Admitting Diagnosis: Chest pain Final Diagnosis Problems Medical Problems: (1) Chest pain Status: Acute Brief Hospital Course Allergies Allergies Coded Allergies Type Severity Reaction Last Updated Verified No Known Drug Allergies 09/13/17 No Vital Signs Vital Signs Date Time Temp Pulse Resp B/P (MAP) Pulse Ox O2 Delivery O2 Flow Rate FiO2 06/27/18 07:40 92 Room Air 06/27/18 07:00 97.9 87 16 124/61 (82) 97.9 06/26/18 18:43 2.0 Lab Results Laboratory Tests Test 06/25/18 14:14 06/25/18 14:30 06/25/18 18:10 06/26/18 00:15 White Blood Count 6.9 x10^3/uL (4.0-11.0) Red Blood Count 5.88 x10^6/uL (4.30-5.70) Hemoglobin 15.2 g/dL (13.0-17.5) Hematocrit 47.0 % (39.0-53.0) Mean Corpuscular Volume 80 fL (79-100) Mean Corpuscular Hemoglobin 26 pg (25-35) Mean Corpuscular Hemoglobin Concent 32 g/dL (31-37) Red Cell Distribution Width 14.5 % (11.5-14.5) Platelet Count 162 x10^3/uL (140-400) Neutrophils (%) (Auto) 62 % (31-73) Lymphocytes (%) (Auto) 28 % (24-48) Monocytes (%) (Auto) 9 % (0-9) Eosinophils (%) (Auto) 1 % (0-3) Basophils (%) (Auto) 1 % (0-3) Neutrophils # (Auto) 4.3 x10^3uL (1.8-7.7) Lymphocytes # (Auto) 1.9 x10^3/uL (1.0-4.8) Monocytes # (Auto) 0.6 x10^3/uL (0.0-1.1) Eosinophils # (Auto) 0.1 x10^3/uL (0.0-0.7) Basophils # (Auto) 0.0 x10^3/uL (0.0-0.2) Sodium Level 138 mmol/L (136-145) Potassium Level 3.9 mmol/L (3.5-5.1) Chloride Level 104 mmol/L (98-107) Carbon Dioxide Level 27 mmol/L (21-32) Anion Gap 7 (6-14) Blood Urea Nitrogen 11 mg/dL (8-26) Creatinine 1.0 mg/dL (0.7-1.3) Estimated GFR (Cockcroft-Gault) 94.6 BUN/Creatinine Ratio 11 (6-20) Glucose Level 85 mg/dL (70-99) Calcium Level 9.4 mg/dL (8.5-10.1) Total Bilirubin 0.4 mg/dL (0.2-1.0) Aspartate Amino Transf (AST/SGOT) 20 U/L (15-37) Alanine Aminotransferase (ALT/SGPT) 27 U/L (16-63) Alkaline Phosphatase 102 U/L (46-116) Troponin I Quantitative 0.048 ng/mL (0.000-0.055) 0.050 ng/mL (0.000-0.055) 0.060 ng/mL (0.000-0.055) WX-Pyq-K-Type Natriuretic Peptide 1795 pg/mL (0-124) Total Protein 7.4 g/dL (6.4-8.2) Albumin 3.4 g/dL (3.4-5.0) Albumin/Globulin Ratio 0.9 (1.0-1.7) Test 06/26/18 06:17 Sodium Level 141 mmol/L (136-145) Potassium Level 4.2 mmol/L (3.5-5.1) Chloride Level 104 mmol/L (98-107) Carbon Dioxide Level 28 mmol/L (21-32) Anion Gap 9 (6-14) Blood Urea Nitrogen 14 mg/dL (8-26) Creatinine 1.2 mg/dL (0.7-1.3) Estimated GFR (Cockcroft-Gault) 76.6 Glucose Level 108 mg/dL (70-99) Calcium Level 9.0 mg/dL (8.5-10.1) Magnesium Level 1.9 mg/dL (1.8-2.4) Troponin I Quantitative 0.040 ng/mL (0.000-0.055) Triglycerides Level 72 mg/dL (0-150) Cholesterol Level 142 mg/dL (0-200) LDL Cholesterol, Calculated 84 mg/dL (0-100) VLDL Cholesterol, Calculated 14 mg/dL (0-40) Non-HDL Cholesterol Calculated 98 mg/dL (0-129) HDL Cholesterol 44 mg/dL (40-60) Cholesterol/HDL Ratio 3.2 Brief Hospital Course 52 yo m w/ PMHx HTN, CHF (EF 25-30% 05/2017), COPD, schizophrenia, anxiety who p/ w left chest cramping that started 6:30 on 06/25/18. Assoc slight tingling in his left fingertips as well as palpitations. He rated his pain a 7 out of 10 and is nonradiating. In ED noted with troponin 0.048 and CXR that appeared improved from 1 year ago, though with bilateral small pleural effusions. Also with BP 208/120, admitted for HTN urgency. 06/27: Troponin peaked at 0.060. His pain improved when his BP came down. He feels his anxiety is better as well. Seen by cardiology: To label maker: 1. Normal LVEDP, 2. Mild LV dysfunction. EF 40- 45%, 3. No significant coronary disease. Overnight no events. His significant other is in bed with him. Chest pain has improved with addition of amlodipine and BP improved as well. Was discharged for f/u with cardiology as well as addition of amlodipine A/P: HTN urgency - likely etiology of elevated troponin, compliance seems to be a difficulty and life stressors. He has his meds with them, notes work schedule makes it difficult to comply with meds. Needs a CCB, started amlodipine Acute on chronic systolic CHF - with elevated BNP, ordered IV lasix. Cont KYRIE, BB, ASA, Statin. Improved with 2 days of IV lasix. COPD with continued tobaccoism - will order nebs Non-ischemic cardiomyopathy - cardiomegaly on CXR. BNP elevated. last EF 25-30% on echo Elevated troponin - likely is demand mediated from HTN urgency. Consulted cardiology, trended trops. Cath as above Tobacco dependence - nicotine patch HLD - will cont statin FEN - Cardiac PPX - SCDs FULL CODE Discharge to home into the care of his girlfriend May 2017 had myocardial perfusion imaging Conclusion 1. Regadenoson cardioisotope stress test did not show any evidence of ischemia or infarct. 2. Mild global left ventricle systolic dysfunction with ejection fraction calculated at 45%. 3. Low risk for cardiac events. Echo that month showed EF 25-30% Discharge Information Condition at Discharge: Improved Follow Up: Weeks (2) Disposition/Orders: D/C to Home Scheduled Amlodipine Besylate (Amlodipine Besylate) 5 Mg Tablet, 5 MG PO DAILY for HTN/ CAD for 30 Days, #30 Ref 5 Prescribed by: STARLA BRANDON MD on 06/27/18 08 Aspirin (Aspir 81) 81 Mg Tablet.dr, 1 TAB PO DAILY, #30 Ref 5 (Reported) Entered as Reported by: David Martin RN on 08/14/17452 Last Action: Continued on 06/25/181637 by STARLA BRANDON MD Atorvastatin Calcium (Atorvastatin Calcium) 20 Mg Tablet, 1 TAB PO DAILY, #30 Ref 5 (Reported) Entered as Reported by: David Martin RN on 08/14/17452 Last Action: Continued on 06/25/181637 by STARLA BRANDON MD Carvedilol (Carvedilol ) 12.5 Mg Tablet, 1 TAB PO BID, #180 Ref 1 (Reported) Entered as Reported by: David Martin RN on 08/14/17452 Last Action: Continued on 06/25/181637 by STARLA BRANDON MD Furosemide (Furosemide) 40 Mg Tablet, 1 TAB PO DAILY, #30 Ref 5 (Reported) Entered as Reported by: David Martin RN on 08/14/17452 Last Action: HELD on 06/25/181636 by STARLA BRANDON MD Lisinopril (Lisinopril) 20 Mg Tablet, 1 TAB PO DAILY, #30 Ref 5 (Reported) Entered as Reported by: David Martin RN on 08/14/17452 Last Action: Continued on 06/25/181637 by STARLA BRANDON MD Potassium Chloride (Potassium Chloride) 20 Meq Tablet.er, 20 MEQ PO DAILY, ( Reported) Entered as Reported by: David Martin RN on 08/14/17452 Last Action: Converted on 06/25/188 by STARLA BRANDON MD [Nicotine 21MG] 1 PATCH PATCH, 1 PATCH TD DAILY for Smoking cessation for 30 Days, #30 Ref 2 Prescribed by: STARLA BRANDON MD on 06/27/18 0826 STARLA BRANDON MD Jun 27, 2018 08:32
[2018-06-27] MEDS: POTASSIUM CHLORIDE 20 MEQ TABLET.ER. PO SCH (08:56)
[2018-06-27] MEDS: CARVEDILOL 12.5 MG TABLET. PO SCH (08:56)
[2018-06-27] MEDS: NICOTINE 21MG PATCH. TD SCH (08:57)
[2018-06-27] MEDS: ASPIRIN ENTERIC COATED 81 MG TABLET.DR. PO SCH (08:57)
[2018-06-27] MEDS ORDERED: FUROSEMIDE 40 MG/4 ML VIAL. IVP SCH (09:00)
[2018-06-27] MEDS ORDERED: LISINOPRIL 20 MG TABLET PO SCH (09:00)
[2018-06-27] MEDS ORDERED: LISI-130 PO (10:12)
[2018-06-27 10:16] VITALS: BP 137/75
[2018-06-27] MEDS: amLODIPine BESYLATE 5 MG TABLET PO SCH (10:16)
--- NOTE | 2018-06-27 12:18 | NUR ---
Discharge Note: VANIA MISHRA Discharge instructions and discharge home medications reviewed with Patient and a copy given. All questions have been answered and understanding verbalized.
[2018-06-28] MEDS ORDERED: FUROSEMIDE 40 MG TABLET. PO SCH (09:00)
== END 2018-06-27 12:19 | disposition home or self-care (01) | DRG 286 ==
LOC: ER 13:55 → 2 SOUTH 15:12
PROVIDERS: ADMIT Internal Medicine; ATTEND Internal Medicine
PROC: 4A023N7 Measurement of Cardiac Sampling and Pressure, Left Heart, Percutaneous Approach (ICD-10-PCS; principal; 2018-06-26)
PROC: B2151ZZ Fluoroscopy of Left Heart using Low Osmolar Contrast (ICD-10-PCS; 2018-06-26)
PROC: B2111ZZ Fluoroscopy of Multiple Coronary Arteries using Low Osmolar Contrast (ICD-10-PCS; 2018-06-26)
DX: I16.0 Hypertensive urgency (principal); I50.23 Acute on chronic systolic (congestive) heart failure; I42.9 Cardiomyopathy, unspecified; I11.0 Hypertensive heart disease with heart failure; E78.5 Hyperlipidemia, unspecified; F17.210 Nicotine dependence, cigarettes, uncomplicated; F20.9 Schizophrenia, unspecified; F41.9 Anxiety disorder, unspecified; M19.90 Unspecified osteoarthritis, unspecified site; J44.9 Chronic obstructive pulmonary disease, unspecified; K21.9 Gastro-esophageal reflux disease without esophagitis; E78.00 Pure hypercholesterolemia, unspecified; Z82.3 Family history of stroke; Z82.49 Family history of ischemic heart disease and other diseases of the circulatory system; Z87.01 Personal history of pneumonia (recurrent); Z71.51 Drug abuse counseling and surveillance of drug abuser; Z71.6 Tobacco abuse counseling
CPT/HCPCS: 36415; 71046; 80048; 80053; 80061; 83735; 83880; 84484; 85025; 93005; 93306; 93458; 94640; 94760; 96374; 99152; 99153; 99406; C1769; C1892; J1644; J1940; J2250; J2270; J3010; J3490; J7620; Q9967; 99285-25; G0378

== ENCOUNTER 2018-07-19 15:54 | Inpatient (IN) | payer SELFPAY ==
[~2018-07-19] VITALS: Ht 172.7 cm; Wt 91.0 kg
[~2018-07-19 15:54] MED LIST changes: +AMLO5TAB10 PO; +LISI-130 PO; +Nicotine 21MG TD
[2018-07-19] MEDS ORDERED: OLANZapine 5 MG TABLET PO ONE (16:45)
[2018-07-19 17:39] LABS: BASO % 1 % (0-3); EOS # 0.1 x10^3/uL (0.0-0.7); EOS % 2 % (0-3); HEMATOCRIT 47.5 % (39.0-53.0); HEMOGLOBIN 15.1 g/dL (13.0-17.5); LYMPH # 1.7 x10^3/uL (1.0-4.8); LYMPH % 33 % (24-48); MEAN CORPUSCULAR HEMOGLOBIN 25 pg (25-35); MEAN CORPUSCULAR HGB CONC 32 g/dL (31-37); MEAN CORPUSCULAR VOLUME 79 fL (79-100); MONO # 0.5 x10^3/uL (0.0-1.1); MONO % 9 % (0-9); NEUT % 56 % (31-73); PLATELET COUNT 151 x10^3/uL (140-400); RED BLOOD COUNT 5.98 x10^6/uL (4.30-5.70); RED CELL DISTRIBUTION WIDTH 13.9 % (11.5-14.5); WHITE BLOOD COUNT 5.3 x10^3/uL (4.0-11.0)
[2018-07-19 17:48] LABS: CALCIUM 9.1 mg/dL (8.5-10.1); GFR 94.6; POTASSIUM 3.9 mmol/L (3.5-5.1)
[2018-07-19 17:51] LABS: ACETAMIN < 2 mcg/ml (10-30); ETHANOL < 10 mg/dL (0-10)
[2018-07-19 17:53] LABS: ALBUMIN 3.6 g/dL (3.4-5.0); DIRECT BILIRUBIN 0.1 mg/dL (0.0-0.2); TOTAL BILIRUBIN 0.4 mg/dL (0.2-1.0); TOTAL PROTEIN 7.5 g/dL (6.4-8.2)
--- NOTE | 2018-07-19 17:54 | PHYS DOC ---
Past Medical History Past Medical History: CHF, COPD, High Cholesterol, Hypertension, Pneumonia, Other Additional Past Medical Histor: R LUNG COLLAPSED, UMBILICAL HERNIA Past Surgical History: Other Additional Past Surgical Histo: R JAW,R LUNG/CHEST TUBE Alcohol Use: Heavy Additional Information: PT STATES, "WHENEVER I CAN. 1/2 PINT DAILY & A BEER." DRANK 1 BEER TODAY. Drug Use: Cocaine, Marijuana, Methamphetamine, Other Social History Narrative: CRACK COCAINE,LAST USED WEDNESDAY, JULY 18, 2018 Adult General Chief Complaint Chief Complaint: PSYCH EVALUATION HPI HPI 52-year-old male presenting the emergency department today with concerns that he is in danger from his ex following him. He states she is in the waiting room. He is concerned that she is monitoring his phone. He also complains of a chest pain that is nonradiating intermittent and without leaving factors. He has a history of cocaine use he reports living in his car. Cocaine yesterday. Currently his chest pain is improving. Review of systems is negative for nausea vomiting diaphoresis fevers or chills. All other review of systems is negative unless otherwise noted in history of present illness. ED course: 52-year-old male presenting the emergency department today with symptoms of paranoia. I'm unable to corroborate the patient's concern about the patient's ex. The patient has chest pain we will get an EKG blood work and a chest x-ray. We will have the PAT team evaluate the patient and give a spinal recommendations on his paranoia. He denies suicidal or homicidal ideation and appears well-appearing in the examination room. Workup pending at the time of sign out at 6 PM with plans to reevaluate patient. Plan to likely admit the patient for chest pain rule out. Review of Systems Review of Systems SEE ABOVE. Current Medications Current Medications Current Medications Medications (Trade) Dose Ordered Sig/Jules Start Time Stop Time Status Last Admin Dose Admin Olanzapine (ZyPREXA) 5 mg 1X ONCE 07/19/18 16:45 07/19/18 16:46 DC 07/19/18 16:56 5 MG Allergies Allergies Allergies Coded Allergies Type Severity Reaction Last Updated Verified No Known Drug Allergies 09/13/17 No Physical Exam Physical Exam SEE ABOVE Constitutional: Well developed, well nourished, no acute distress, non-toxic appearance. HENT: Normocephalic, atraumatic, bilateral external ears normal, oropharynx moist, no oral exudates, nose normal. Eyes: PERRLA, EOMI, conjunctiva normal, no discharge. [] Neck: Normal range of motion, no tenderness, supple, no stridor. Cardiovascular:Heart rate regular rhythm, no murmur [] Lungs & Thorax: Bilateral breath sounds clear to auscultation Abdomen: Bowel sounds normal, soft, no tenderness, no masses, no pulsatile masses. Skin: Warm, dry, no erythema, no rash. [] Back: No tenderness, no CVA tenderness. Extremities: No tenderness, no cyanosis, no clubbing, ROM intact, no edema. [] Neurologic: Alert and oriented X 3, normal motor function, normal sensory function, no focal deficits noted. [] Psychologic: Affect normal, judgement normal, mood normal. [] Current Patient Data Vital Signs Vital Signs Date Time Temp Pulse Resp B/P (MAP) Pulse Ox O2 Delivery O2 Flow Rate FiO2 07/19/18 16:56 116 22 164/75 (104) 99 Room Air 07/19/18 16:25 98.3 98.3 Lab Values Laboratory Tests Test 07/19/18 17:35 White Blood Count 5.3 x10^3/uL (4.0-11.0) Red Blood Count 5.98 x10^6/uL (4.30-5.70) H Hemoglobin 15.1 g/dL (13.0-17.5) Hematocrit 47.5 % (39.0-53.0) Mean Corpuscular Volume 79 fL (79-100) Mean Corpuscular Hemoglobin 25 pg (25-35) Mean Corpuscular Hemoglobin Concent 32 g/dL (31-37) Red Cell Distribution Width 13.9 % (11.5-14.5) Platelet Count 151 x10^3/uL (140-400) Neutrophils (%) (Auto) 56 % (31-73) Lymphocytes (%) (Auto) 33 % (24-48) Monocytes (%) (Auto) 9 % (0-9) Eosinophils (%) (Auto) 2 % (0-3) Basophils (%) (Auto) 1 % (0-3) Neutrophils # (Auto) 3.0 x10^3uL (1.8-7.7) Lymphocytes # (Auto) 1.7 x10^3/uL (1.0-4.8) Monocytes # (Auto) 0.5 x10^3/uL (0.0-1.1) Eosinophils # (Auto) 0.1 x10^3/uL (0.0-0.7) Basophils # (Auto) 0.0 x10^3/uL (0.0-0.2) Laboratory Tests 07/19/18 17:35 EKG EKG [] Radiology/Procedures Radiology/Procedures [] Course & Med Decision Making Course & Med Decision Making Pertinent Labs and Imaging studies reviewed. (See chart for details) [] Dragon Disclaimer Dragon Disclaimer This electronic medical record was generated, in whole or in part, using a voice recognition dictation system. Departure Departure Referrals: KATY ALVAREZ MD (PCP) ANNABELLE CAMACHO MD Jul 19, 2018 17:54
[2018-07-19] MEDS ORDERED: IV NORMAL SALINE 1000ML BAG 1,000 ML IV ONE (18:00)
[2018-07-19 18:26] LABS: BILIRUBIN,URINE NEGATIVE (NEG); CLARITY,URINE CLOUDY; COLOR,URINE YELLOW; NITRITE,URINE NEGATIVE (NEG); PROTEIN,URINE NEGATIVE (NEG-TRACE)
[2018-07-19 18:34] LABS: BACTERIA,URINE 0 /HPF (0-FEW); RBC,URINE 0 /HPF (0-2); SQUAMOUS EPITHELIAL CELL,UR OCC /LPF
[2018-07-19 18:35] LABS: BARBITURATES NEG (NEG); BENZODIAZEPINES NEG (NEG); CANNABINOIDS NEG (NEG); COCAINE POS (NEG); METHADONE NEG (NEG); OPIATES NEG (NEG); PHENCYCLIDINE NEG (NEG)
[2018-07-19 18:37] LABS: AMPHETAMINE/METHAMPHETAMINE POS (NEG)
--- NOTE | 2018-07-19 18:38 | RAD ---
PROCEDURE: CHEST AP ONLY CLINICAL INDICATION: Chest pain COMPARISON: 06/25/2018 FINDINGS: No pneumothorax identified. Cardiac and mediastinal contours unremarkable. No pulmonary consolidation or acute airspace disease. No acute osseous abnormalities identified. IMPRESSION: No pulmonary consolidation or acute airspace disease. Electronically signed by: Flynn Falcon DO (07/19/2018 6:35 PM) [facility]
[2018-07-19] MEDS ORDERED: ASPIRIN 325 MG TABLET PO ONE (18:45)
[2018-07-19] MEDS ORDERED: NITROGLYCERIN SUBLINGUAL 0.4 MG BOTTLE OF 25. SL PRN (19:00)
[2018-07-19] MEDS ORDERED: ONDANSETRON PF 4 MG/2 ML VIAL. IV PRN (19:00)
[2018-07-19] MEDS ORDERED: MORPHINE SULFATE 2 MG/ML VIAL. IV PRN (19:00)
--- NOTE | 2018-07-19 19:03 | PDOC1 ---
History and Physical Date of Admission Date of Admission DATE: 07/19/18 TIME: 19:02 Identification/Chief Complaint Chief Complaint seen in er 52-year-old male presenting the emergency department today with symptoms of paranoia. The patient has chest pain and trop is slightly elevated , cardiology notified by ER ILIANA SANTOS team evaluate the patient and recommendations on his paranoia. He denies suicidal but pos for homicidal ideation presented with concerns that he is in danger from his ex following him. very paranoid thoughts on my interview" states everyone thinks I AM Crazy" Past Medical History Past Medical History Past Medical History Past Medical History: CHF, COPD, High Cholesterol, Hypertension, Pneumonia, Other Additional Past Medical Histor: R LUNG COLLAPSED, UMBILICAL HERNIA Past Surgical History: Other Additional Past Surgical Histo: R JAW,R LUNG/CHEST TUBE Alcohol Use: Heavy Additional Information: . 1/2 PINT DAILY & A BEER." Drug Use: Cocaine, Marijuana, Methamphetamine, Other Social History Narrative: CRACK COCAINE,LAST USED WEDNESDAY, JULY 18, 2018 Cardiovascular: CHF, HTN, Hyperlipidemia, Other Pulmonary: Bronchitis, COPD, Pneumonia GI: GERD, Other Heme/Onc: No pertinent hx Hepatobiliary: No pertinent hx Musculoskeletal: Osteoarthritis Rheumatologic: No pertinent hx Infectious disease: No pertinent hx Endocrine: No pertinent hx Past Surgical History Past Surgical History: Other Family History Family History: High Cholestrol, Hypertension, Stroke Social History Smoke: <1 pack per day ALCOHOL: heavy Drugs: Cocaine, Marijuana, Crystal meth Current Medications Current Medications Current Medications Olanzapine (ZyPREXA) 5 mg 1X ONCE PO Last administered on 07/19/18at 16:56; Start 07/19/18 at 16:45; Stop 07/19/18 at 16:46; Status DC Sodium Chloride 1,000 ml @ 1,000 mls/hr 1X ONCE IV Last administered on at 17:57; Start 07/19/18 at 18:00; Stop 07/19/18 at 18:59; Status DC Aspirin (Katherine Aspirin) 325 mg 1X ONCE PO Last administered on 07/19/18at 18:19 ; Start 07/19/18 at 18:45; Stop 07/19/18 at 18:46; Status DC Ondansetron HCl (Zofran) 4 mg PRN Q8HRS PRN IV NAUSEA/VOMITING; Start 07/19/18 at 19:00; Stop 3/1/19 at 18:59 Morphine Sulfate (Morphine Sulfate) 2 mg PRN Q2HR PRN IV PAIN; Start 07/19/18 at 19:00; Stop 07/20/18 at 18:59 Sodium Chloride 1,000 ml @ 100 mls/hr Q10H IV ; Start 07/19/18 at 18:52; Stop 07/20/18 at 18:51 Nitroglycerin (Nitrostat) 0.4 mg PRN Q5MIN PRN SL CHEST PAIN; Start 07/19/18 at 19:00; Stop 07/20/18 at 18:59 Active Scripts Active Amlodipine Besylate 5 Mg Tablet 5 Mg PO DAILY 30 Days [Nicotine 21MG] 1 PATCH Patch 1 Patch TD DAILY 30 Days Reported Lisinopril 40 Mg Tablet 1 Tab PO DAILY Atorvastatin Calcium 20 Mg Tablet 1 Tab PO DAILY Potassium Chloride 20 Meq Tablet.er 20 Meq PO DAILY Carvedilol (Carvedilol) 12.5 Mg Tablet 1 Tab PO BID Aspir 81 (Aspirin) 81 Mg Tablet.dr 1 Tab PO DAILY Furosemide 40 Mg Tablet 1 Tab PO DAILY Allergies Allergies: Coded Allergies: No Known Drug Allergies (Unverified , 09/13/17) ROS Review of System 14 pt ros otherwise neg General: No: Chills, Night Sweats, Fatigue, Malaise, Appetite, Other PSYCHOLOGICAL ROS: YES: Anxiety, Behavioral Disorder, Concentration difficultie , Disorientation, Hallucinations, Hostility, Irritablity Eyes: No Blurry vision, No Decreased vision, No Double vision, No Dry eyes, No Excessive tearing, No Eye Pain, No Itchy Eyes, No Loss of vision, No Photophobia , No Scotomata, No Uses contacts, No Uses glasses, No Other HEENT: No: Heacaches, Visual Changes, Hearing change, Nasal congestion, Nasal discharge, Oral lesions, Sinus pain, Sore Throat, Epistaxis, Sneezing, Snoring, Tinnitus, Vertigo, Vocal changes, Other ALLERGY AND IMMUNOLOGY: No: Hives, Insect Bite Sensitivity, Itchy/Watery Eyes, Nasal Congestion, Post Nasal Drip, Seasonal Allergies, Other Hematological and Lymphatic: No: Bleeding Problems, Blood Clots, Blood Transfusions, Brusing, Night Sweats, Pallor, Swollen Lymph Nodes, Other ENDOCRINE: No: Breast Changes, Galactorrhea, Hair Pattern Changes, Hot Flashes , Malaise/lethargy, Mood Swings, Palpitations, Polydipsia/polyuria, Skin Changes , Temperature Intolerance, Unexpected Weight Changes, Other Breast: No New/Changing Breast Lumps, No Nipple changes, No Nipple discharge, No Other Respiratory: No: Cough, Hemoptysis, Orthopnea, Pleuritic Pain, Shortness of breath, SOB with excertion, Sputum Changes, Stridor, Tachypnea, Wheezing, Other Cardiovascular: yes Chest Pain Gastrointestinal: No Nausea, No Vomiting, No Abdominal Pain, No Diarrhea, No Constipation, No Melena, No Hematochezia, No Other Genitourinary: No Dysuria, No Frequency, No Incontinence, No Hematuria, No Retention, No Discharge, No Urgency, No Pain, No Flank Pain, No Other, No , No , No , No , No , No , No Musculoskeletal: No Gait Disturbance, No Joint Pain, No Joint Stiffness, No Joint Swelling, No Muscle Pain, No Muscular Weakness, No Pain In:, No Swelling In:, No Other Neurological: Yes Behavorial Changes, Yes Confusion, Yes Memory Loss, Yes Tremors Skin: No Dry Skin, No Eczema, No Hair Changes, No Lumps, No Mole Changes, No Mottling, No Nail Changes, No Pruritus, No Rash, No Skin Lesion Changes, No Other, No Acne Physical Exam Physical Exam Physical Exam Physical Exam SEE ABOVE Constitutional: Well developed, well nourished, no acute distress, non-toxic appearance. HENT: Normocephalic, atraumatic, bilateral external ears normal, oropharynx moist, no oral exudates, nose normal. Eyes: PERRLA, EOMI, conjunctiva normal, no discharge. [] Neck: Normal range of motion, no tenderness, supple, no stridor. Cardiovascular:Heart rate regular rhythm, no murmur [] Lungs & Thorax: Bilateral breath sounds clear to auscultation Abdomen: Bowel sounds normal, soft, no tenderness, no masses, no pulsatile masses. Skin: Warm, dry, no erythema, no rash. [] Back: No tenderness, no CVA tenderness. Extremities: No tenderness, no cyanosis, no clubbing, ROM intact, no edema. [] Neurologic: Alert and oriented X 3, normal motor function, normal sensory function, no focal deficits noted. [] Psychologic: Affect normal, judgement POOR , mood FLAT [] General: Alert, Cooperative, moderate distress HEENT: Atraumatic, PERRLA Lungs: Clear to auscultation Heart: S1S2, RRR Breasts: Not examined Abdomen: Normal bowel sounds, Soft Rectal Exam: not examined Extremities: No clubbing, No cyanosis Skin: No significant lesion Neuro: Normal speech, Cranial nerves 3-12 NL Vitals Vitals Vital Signs Date Time Temp Pulse Resp B/P (MAP) Pulse Ox O2 Delivery O2 Flow Rate FiO2 07/19/18 16:56 116 22 164/75 (104) 99 Room Air 07/19/18 16:25 98.3 98.3 Labs Labs Laboratory Tests Test 07/19/18 17:35 07/19/18 18:15 White Blood Count 5.3 x10^3/uL (4.0-11.0) Red Blood Count 5.98 x10^6/uL (4.30-5.70) Hemoglobin 15.1 g/dL (13.0-17.5) Hematocrit 47.5 % (39.0-53.0) Mean Corpuscular Volume 79 fL (79-100) Mean Corpuscular Hemoglobin 25 pg (25-35) Mean Corpuscular Hemoglobin Concent 32 g/dL (31-37) Red Cell Distribution Width 13.9 % (11.5-14.5) Platelet Count 151 x10^3/uL (140-400) Neutrophils (%) (Auto) 56 % (31-73) Lymphocytes (%) (Auto) 33 % (24-48) Monocytes (%) (Auto) 9 % (0-9) Eosinophils (%) (Auto) 2 % (0-3) Basophils (%) (Auto) 1 % (0-3) Neutrophils # (Auto) 3.0 x10^3uL (1.8-7.7) Lymphocytes # (Auto) 1.7 x10^3/uL (1.0-4.8) Monocytes # (Auto) 0.5 x10^3/uL (0.0-1.1) Eosinophils # (Auto) 0.1 x10^3/uL (0.0-0.7) Basophils # (Auto) 0.0 x10^3/uL (0.0-0.2) Sodium Level 142 mmol/L (136-145) Potassium Level 3.9 mmol/L (3.5-5.1) Chloride Level 101 mmol/L (98-107) Carbon Dioxide Level 29 mmol/L (21-32) Anion Gap 12 (6-14) Blood Urea Nitrogen 7 mg/dL (8-26) Creatinine 1.0 mg/dL (0.7-1.3) Estimated GFR (Cockcroft-Gault) 94.6 Glucose Level 94 mg/dL (70-99) Calcium Level 9.1 mg/dL (8.5-10.1) Total Bilirubin 0.4 mg/dL (0.2-1.0) Direct Bilirubin 0.1 mg/dL (0.0-0.2) Aspartate Amino Transf (AST/SGOT) 19 U/L (15-37) Alanine Aminotransferase (ALT/SGPT) 21 U/L (16-63) Alkaline Phosphatase 117 U/L (46-116) Troponin I Quantitative 0.067 ng/mL (0.000-0.055) Total Protein 7.5 g/dL (6.4-8.2) Albumin 3.6 g/dL (3.4-5.0) Lipase 56 U/L (73-393) Salicylates Level 3.0 mg/dL (2.8-20.0) Salicylate Last Dose Date Unk Salicylate Last Dose Time Unk Acetaminophen Level < 2 mcg/ml (10-30) Acetaminophen Last Dose Date Unk Acetaminophen Last Dose Time Unk Ethyl Alcohol Level < 10 mg/dL (0-10) Urine Color Yellow Urine Clarity Cloudy Urine pH 7.0 Urine Specific [place] 1.020 Urine Protein Negative mg/dL (NEG-TRACE) Urine Glucose (UA) Negative mg/dL (NEG) Urine Ketones (Stick) Negative mg/dL (NEG) Urine Blood Negative (NEG) Urine Nitrite Negative (NEG) Urine Bilirubin Negative (NEG) Urine Urobilinogen Dipstick 1.0 mg/dL (0.2 mg/dL) Urine Leukocyte Esterase Negative (NEG) Urine RBC 0 /HPF (0-2) Urine WBC 1-4 /HPF (0-4) Urine Squamous Epithelial Cells Occ /LPF Urine Bacteria 0 /HPF (0-FEW) Urine Mucus Mod /LPF Urine Opiates Screen Neg (NEG) Urine Methadone Screen Neg (NEG) Urine Barbiturates Neg (NEG) Urine Phencyclidine Screen Neg (NEG) Urine Amphetamine/Methamphetamine Pos (NEG) Urine Benzodiazepines Screen Neg (NEG) Urine Cocaine Screen Pos (NEG) Urine Cannabinoids Screen Neg (NEG) Urine Ethyl Alcohol Neg (NEG) Laboratory Tests Test 07/19/18 17:35 07/19/18 18:15 White Blood Count 5.3 x10^3/uL (4.0-11.0) Red Blood Count 5.98 x10^6/uL (4.30-5.70) Hemoglobin 15.1 g/dL (13.0-17.5) Hematocrit 47.5 % (39.0-53.0) Mean Corpuscular Volume 79 fL (79-100) Mean Corpuscular Hemoglobin 25 pg (25-35) Mean Corpuscular Hemoglobin Concent 32 g/dL (31-37) Red Cell Distribution Width 13.9 % (11.5-14.5) Platelet Count 151 x10^3/uL (140-400) Neutrophils (%) (Auto) 56 % (31-73) Lymphocytes (%) (Auto) 33 % (24-48) Monocytes (%) (Auto) 9 % (0-9) Eosinophils (%) (Auto) 2 % (0-3) Basophils (%) (Auto) 1 % (0-3) Neutrophils # (Auto) 3.0 x10^3uL (1.8-7.7) Lymphocytes # (Auto) 1.7 x10^3/uL (1.0-4.8) Monocytes # (Auto) 0.5 x10^3/uL (0.0-1.1) Eosinophils # (Auto) 0.1 x10^3/uL (0.0-0.7) Basophils # (Auto) 0.0 x10^3/uL (0.0-0.2) Sodium Level 142 mmol/L (136-145) Potassium Level 3.9 mmol/L (3.5-5.1) Chloride Level 101 mmol/L (98-107) Carbon Dioxide Level 29 mmol/L (21-32) Anion Gap 12 (6-14) Blood Urea Nitrogen 7 mg/dL (8-26) Creatinine 1.0 mg/dL (0.7-1.3) Estimated GFR (Cockcroft-Gault) 94.6 Glucose Level 94 mg/dL (70-99) Calcium Level 9.1 mg/dL (8.5-10.1) Total Bilirubin 0.4 mg/dL (0.2-1.0) Direct Bilirubin 0.1 mg/dL (0.0-0.2) Aspartate Amino Transf (AST/SGOT) 19 U/L (15-37) Alanine Aminotransferase (ALT/SGPT) 21 U/L (16-63) Alkaline Phosphatase 117 U/L (46-116) Troponin I Quantitative 0.067 ng/mL (0.000-0.055) Total Protein 7.5 g/dL (6.4-8.2) Albumin 3.6 g/dL (3.4-5.0) Lipase 56 U/L (73-393) Salicylates Level 3.0 mg/dL (2.8-20.0) Salicylate Last Dose Date Unk Salicylate Last Dose Time Unk Acetaminophen Level < 2 mcg/ml (10-30) Acetaminophen Last Dose Date Unk Acetaminophen Last Dose Time Unk Ethyl Alcohol Level < 10 mg/dL (0-10) Urine Color Yellow Urine Clarity Cloudy Urine pH 7.0 Urine Specific [place] 1.020 Urine Protein Negative mg/dL (NEG-TRACE) Urine Glucose (UA) Negative mg/dL (NEG) Urine Ketones (Stick) Negative mg/dL (NEG) Urine Blood Negative (NEG) Urine Nitrite Negative (NEG) Urine Bilirubin Negative (NEG) Urine Urobilinogen Dipstick 1.0 mg/dL (0.2 mg/dL) Urine Leukocyte Esterase Negative (NEG) Urine RBC 0 /HPF (0-2) Urine WBC 1-4 /HPF (0-4) Urine Squamous Epithelial Cells Occ /LPF Urine Bacteria 0 /HPF (0-FEW) Urine Mucus Mod /LPF Urine Opiates Screen Neg (NEG) Urine Methadone Screen Neg (NEG) Urine Barbiturates Neg (NEG) Urine Phencyclidine Screen Neg (NEG) Urine Amphetamine/Methamphetamine Pos (NEG) Urine Benzodiazepines Screen Neg (NEG) Urine Cocaine Screen Pos (NEG) Urine Cannabinoids Screen Neg (NEG) Urine Ethyl Alcohol Neg (NEG) VTE Prophylaxis Ordered VTE Prophylaxis Devices: No VTE Pharmacological Prophylaxi: Yes Assessment/Plan Assessment/Plan Clinical impression: #1 chest pain #2 elevated troponin #3 cocaine abuse #4 methamphetamine abuse associated psychosis, severe #5 paranoia severe, possible schizophrenia # 6 reported homcidal ideations directed at ex spouse # 7 alcohol abuse plan cardiology consult alcohol withdrawal protocol dvt prophylaxis serial troponin i echo PAT TEAM NOTIFIED IN ER [facility] ADMIT sitter needed manisha spear THOMAS W MD Jul 19, 2018 19:03
[2018-07-19] MEDS ORDERED: diphenhydrAMINE 50 MG/ML VIAL IVP PRN ×2 (21:15→22:00)
[2018-07-19] MEDS ORDERED: LORazepam 1 MG TABLET PO PRN ×4 (21:15→22:00)
[2018-07-19] MEDS ORDERED: HALOPERIDOL LACTATE 5 MG/ML VIAL. IVP PRN ×2 (21:15→22:00)
[2018-07-19] MEDS: IV NORMAL SALINE 1000ML BAG 1,000 ML IV SCH (21:40)
[2018-07-19] MEDS ORDERED: cloNIDine HCL 0.1 MG TABLET PO PRN (22:00)
[2018-07-19 23:00] VITALS: BP 131/91
[2018-07-20 03:00] VITALS: BP 122/56
[2018-07-20] MEDS: IV NORMAL SALINE 1000ML BAG 1,000 ML IV SCH (04:52)
[2018-07-20 05:12] LABS: BASO % 1 % (0-3); EOS # 0.2 x10^3/uL (0.0-0.7); EOS % 3 % (0-3); HEMATOCRIT 43.5 % (39.0-53.0); HEMOGLOBIN 13.6 g/dL (13.0-17.5); LYMPH # 1.5 x10^3/uL (1.0-4.8); LYMPH % 30 % (24-48); MEAN CORPUSCULAR HEMOGLOBIN 25 pg (25-35); MEAN CORPUSCULAR HGB CONC 31 g/dL (31-37); MEAN CORPUSCULAR VOLUME 80 fL (79-100); MONO # 0.5 x10^3/uL (0.0-1.1); MONO % 10 % (0-9); NEUT # 2.8 x10^3uL (1.8-7.7); NEUT % 56 % (31-73); PLATELET COUNT 137 x10^3/uL (140-400); RED BLOOD COUNT 5.44 x10^6/uL (4.30-5.70); RED CELL DISTRIBUTION WIDTH 13.9 % (11.5-14.5); WHITE BLOOD COUNT 4.9 x10^3/uL (4.0-11.0)
[2018-07-20 05:52] LABS: ALBUMIN 2.9 g/dL (3.4-5.0); ALBUMIN/GLOBULIN RATIO 0.8 (1.0-1.7); CALCIUM 8.3 mg/dL (8.5-10.1); CREATININE 1.1 mg/dL (0.7-1.3); GFR 84.7; POTASSIUM 3.9 mmol/L (3.5-5.1); TOTAL BILIRUBIN 0.3 mg/dL (0.2-1.0); TOTAL PROTEIN 6.6 g/dL (6.4-8.2)
[2018-07-20 06:38] VITALS: BP 138/62
[2018-07-20] MEDS ORDERED: MULTIVIT INFUSN,ADULT 4,VIT K 10 ML, THIAMINE INJ 100 MG, FOLIC ACID INJ 1 MG in IV NOR... IV SCH ×8 (09:00)
--- NOTE | 2018-07-20 09:48 | NUR ---
SS following up with discharge planning. SS contacted PAT team for assessment and evaluation. SS received phone contact from [place] at the PAT team, , stating that they saw pt in the ER last night and pt was agreeable to go to [facility] but was medically not stable at the time. [place] reported that they will come see pt today and assess and will plan to send to [facility] at discharge if pt is agreeable. Pt's RN notified.
--- NOTE | 2018-07-20 10:57 | EKG ---
[facility] [address] [place] [address] Test Date: 2018-07-19 Test Time: 18:17:11 Pat Name: VANIA MISHRA Department: Room: 250 1 Gender: M [employer] Operator: : [id number] Requested By: ANNABELLE CAMACHO Order Number: [id number] Reading MD: Rickie Sibley MD Measurements Intervals [place] Rate: 107 P: 51 VA: 142 QRS: 15 QRSD: 90 T: 114 QT: 334 QTc: 451 Interpretive Statements SINUS TACHYCARDIA NON-SPECIFIC ST/T CHANGES Electronically Signed On 07-24-2018 7:57:12 [employer] OPERATOR by Rickie Sibley MD
[2018-07-20 11:00] VITALS: BP 131/69
--- NOTE | 2018-07-20 11:33 | PDOC2 ---
CARDIAC CONSULT DATE OF CONSULT Date of Consult DATE: 07/20/18 TIME: 11:13 REASON FOR CONSULT Reason for Consult: Chest pain Elevated troponin REFERRING PHYSICIAN Referring Physician: Dr. Brown SOURCE Source: Chart review, Patient HISTORY OF PRESENT ILLNESS HISTORY OF PRESENT ILLNESS This is a 52 yo male, with a history of cocaine and methamphetamine abuse who is known to us from previous admission, who presented secondary to concerns that he is in danger from his ex following him and chest pain. Pain located in his central chest. Describes as constant aching. Non-radiating. Associated with shortness of breath. Feels this is relaxed to anxiety as people are after him. Denies any palpitations, dizziness, diaphoresis, or nausea/vomiting. Troponin was noted to be elevated, which prompted this consult. No further pain overnight. Was seen by our service earlier this month and underwent cardiac catheterization , which did not reveal any significant coronary artery disease. Due to hallucination and homicidal ideations upon arrival, patient is being referred to [facility], a [facility] for psychiatric treatment. PAST MEDICAL HISTORY Past Medical History Cardiovascular: CHF, HTN, Hyperlipidemia, Other (NICM) Pulmonary: COPD, Pneumonia GI: GERD, Other (umbilical hernia) Musculoskeletal: Osteoarthritis Endocrine: No pertinent hx Dermatology: No pertinent hx PAST SURGICAL HISTORY Past Surgical History: Other (jaw surgery) FAMILY HISTORY Family History: Stroke SOCIAL HISTORY Social History Smoke: <1 pack per day ALCOHOL: occassional Drugs: Marijuana, cocaine, methamphetamines Lives: with Family CURRENT MEDICATIONS CURRENT MEDICATIONS Current Medications Medications (Trade) Dose Ordered Sig/Jules Route PRN Reason Start Time Stop Time Status Last Admin Dose Admin Olanzapine (ZyPREXA) 5 mg 1X ONCE PO 07/19/18 16:45 07/19/18 16:46 DC 07/19/18 16:56 Sodium Chloride 1,000 ml @ 1,000 mls/hr 1X ONCE IV 07/19/18 18:00 07/19/18 18:59 DC 07/19/18 17:57 Aspirin (Katherine Aspirin) 325 mg 1X ONCE PO 07/19/18 18:45 07/19/18 18:46 DC 07/19/18 18:19 Sodium Chloride 1,000 ml @ 100 mls/hr Q10H IV 07/19/18 18:52 07/20/18 18:51 07/19/18 21:40 Nitroglycerin (Nitrostat) 0.4 mg PRN Q5MIN PRN SL CHEST PAIN 07/19/18 19:00 07/20/18 18:59 07/19/18 21:43 Multivitamins 10 ml/Thiamine HCl 100 mg/Folic Acid 1 mg/Sodium Chloride 1,011.2 ml @ 100 mls/ hr DAILY IV 07/20/18 09:00 07/20/18 19:07 07/20/18 09:02 Lorazepam (Ativan) 8 mg PRN Q1HR PRN PO For CIWA 15 or greater 07/19/18 21:15 07/19/18 21:40 ALLERGIES ALLERGIES: Coded Allergies: No Known Drug Allergies (Unverified , 09/13/17) ROS Review of System 14 point ROS conducted with pertinent positives noted above in HPI. PHYSICAL EXAM PHYSICAL EXAM General: Alert, Oriented X3, Cooperative, No acute distress HEENT: Atraumatic, Mucous membr. moist/pink Lungs: CTA Heart: Regular rate (SR), Normal S1, Normal S2, Other Abdomen: Soft, No tenderness Extremities: No cyanosis Skin: No breakdown, No significant lesion Neuro: Sensation intact MUSCULOSKELETAL: Osteoarthritic changes both hands VITALS VITALS Vital Signs Date Time Temp Pulse Resp B/P (MAP) Pulse Ox O2 Delivery O2 Flow Rate FiO2 07/20/18 11:00 97.9 91 18 131/69 (89) 94 Room Air 97.9 LABS Lab: Laboratory Tests Test 07/19/18 17:35 07/19/18 18:15 07/19/18 22:00 07/20/18 01:00 White Blood Count 5.3 x10^3/uL (4.0-11.0) Red Blood Count 5.98 x10^6/uL (4.30-5.70) Hemoglobin 15.1 g/dL (13.0-17.5) Hematocrit 47.5 % (39.0-53.0) Mean Corpuscular Volume 79 fL (79-100) Mean Corpuscular Hemoglobin 25 pg (25-35) Mean Corpuscular Hemoglobin Concent 32 g/dL (31-37) Red Cell Distribution Width 13.9 % (11.5-14.5) Platelet Count 151 x10^3/uL (140-400) Neutrophils (%) (Auto) 56 % (31-73) Lymphocytes (%) (Auto) 33 % (24-48) Monocytes (%) (Auto) 9 % (0-9) Eosinophils (%) (Auto) 2 % (0-3) Basophils (%) (Auto) 1 % (0-3) Neutrophils # (Auto) 3.0 x10^3uL (1.8-7.7) Lymphocytes # (Auto) 1.7 x10^3/uL (1.0-4.8) Monocytes # (Auto) 0.5 x10^3/uL (0.0-1.1) Eosinophils # (Auto) 0.1 x10^3/uL (0.0-0.7) Basophils # (Auto) 0.0 x10^3/uL (0.0-0.2) D-Dimer (Rajani) 0.27 ug/mlFEU (0.00-0.50) Sodium Level 142 mmol/L (136-145) Potassium Level 3.9 mmol/L (3.5-5.1) Chloride Level 101 mmol/L (98-107) Carbon Dioxide Level 29 mmol/L (21-32) Anion Gap 12 (6-14) Blood Urea Nitrogen 7 mg/dL (8-26) Creatinine 1.0 mg/dL (0.7-1.3) Estimated GFR (Cockcroft-Gault) 94.6 Glucose Level 94 mg/dL (70-99) Calcium Level 9.1 mg/dL (8.5-10.1) Total Bilirubin 0.4 mg/dL (0.2-1.0) Direct Bilirubin 0.1 mg/dL (0.0-0.2) Aspartate Amino Transf (AST/SGOT) 19 U/L (15-37) Alanine Aminotransferase (ALT/SGPT) 21 U/L (16-63) Alkaline Phosphatase 117 U/L (46-116) Troponin I Quantitative 0.067 ng/mL (0.000-0.055) 0.070 ng/mL (0.000-0.055) 0.076 ng/mL (0.000-0.055) Total Protein 7.5 g/dL (6.4-8.2) Albumin 3.6 g/dL (3.4-5.0) Lipase 56 U/L (73-393) Salicylates Level 3.0 mg/dL (2.8-20.0) Salicylate Last Dose Date Unk Salicylate Last Dose Time Unk Acetaminophen Level < 2 mcg/ml (10-30) Acetaminophen Last Dose Date Unk Acetaminophen Last Dose Time Unk Ethyl Alcohol Level < 10 mg/dL (0-10) Urine Color Yellow Urine Clarity Cloudy Urine pH 7.0 Urine Specific [place] 1.020 Urine Protein Negative mg/dL (NEG-TRACE) Urine Glucose (UA) Negative mg/dL (NEG) Urine Ketones (Stick) Negative mg/dL (NEG) Urine Blood Negative (NEG) Urine Nitrite Negative (NEG) Urine Bilirubin Negative (NEG) Urine Urobilinogen Dipstick 1.0 mg/dL (0.2 mg/dL) Urine Leukocyte Esterase Negative (NEG) Urine RBC 0 /HPF (0-2) Urine WBC 1-4 /HPF (0-4) Urine Squamous Epithelial Cells Occ /LPF Urine Bacteria 0 /HPF (0-FEW) Urine Mucus Mod /LPF Urine Opiates Screen Neg (NEG) Urine Methadone Screen Neg (NEG) Urine Barbiturates Neg (NEG) Urine Phencyclidine Screen Neg (NEG) Urine Amphetamine/Methamphetamine Pos (NEG) Urine Benzodiazepines Screen Neg (NEG) Urine Cocaine Screen Pos (NEG) Urine Cannabinoids Screen Neg (NEG) Urine Ethyl Alcohol Neg (NEG) Test 07/20/18 04:30 07/20/18 05:00 White Blood Count 4.9 x10^3/uL (4.0-11.0) Red Blood Count 5.44 x10^6/uL (4.30-5.70) Hemoglobin 13.6 g/dL (13.0-17.5) Hematocrit 43.5 % (39.0-53.0) Mean Corpuscular Volume 80 fL (79-100) Mean Corpuscular Hemoglobin 25 pg (25-35) Mean Corpuscular Hemoglobin Concent 31 g/dL (31-37) Red Cell Distribution Width 13.9 % (11.5-14.5) Platelet Count 137 x10^3/uL (140-400) Neutrophils (%) (Auto) 56 % (31-73) Lymphocytes (%) (Auto) 30 % (24-48) Monocytes (%) (Auto) 10 % (0-9) Eosinophils (%) (Auto) 3 % (0-3) Basophils (%) (Auto) 1 % (0-3) Neutrophils # (Auto) 2.8 x10^3uL (1.8-7.7) Lymphocytes # (Auto) 1.5 x10^3/uL (1.0-4.8) Monocytes # (Auto) 0.5 x10^3/uL (0.0-1.1) Eosinophils # (Auto) 0.2 x10^3/uL (0.0-0.7) Basophils # (Auto) 0.0 x10^3/uL (0.0-0.2) Sodium Level 142 mmol/L (136-145) Potassium Level 3.9 mmol/L (3.5-5.1) Chloride Level 104 mmol/L (98-107) Carbon Dioxide Level 26 mmol/L (21-32) Anion Gap 12 (6-14) Blood Urea Nitrogen 11 mg/dL (8-26) Creatinine 1.1 mg/dL (0.7-1.3) Estimated GFR (Cockcroft-Gault) 84.7 BUN/Creatinine Ratio 10 (6-20) Glucose Level 85 mg/dL (70-99) Calcium Level 8.3 mg/dL (8.5-10.1) Total Bilirubin 0.3 mg/dL (0.2-1.0) Aspartate Amino Transf (AST/SGOT) 17 U/L (15-37) Alanine Aminotransferase (ALT/SGPT) 17 U/L (16-63) Alkaline Phosphatase 101 U/L (46-116) Total Protein 6.6 g/dL (6.4-8.2) Albumin 2.9 g/dL (3.4-5.0) Albumin/Globulin Ratio 0.8 (1.0-1.7) ECHOCARDIOGRAM ECHOCARDIOGRAM <Conclusion> There is moderate global hypokinesis of the left ventricle with severe hypokinesis of the basal to mid anterior wall. Left ventricle systolic function is moderately impaired. The Ejection Fraction is 30-35%. Doppler and Color Flow revealed mild to moderate aortic regurgitation. DATE: 06/26/18 0954 HEART CATH HEART CATH Conclusion 1. Normal LVEDP 2. Mild LV dysfunction. EF 40-45% 3. No significant coronary disease. Recommendations Aggressive Medical Therapy DATE: 06/26/18 1616 ASSESSMENT/PLAN ASSESSMENT/PLAN 1. Chest pain, atypical 2. Mild troponin elevation; highest 0.076 in the setting of #3 3. Substance abuse; UDS + cocaine methamphetamines 4. Chronic systolic HF with mild NICM; LVEF 45% as noted above. 5. Hyperlipidemia 6. Anxiety 7. Schizophrenia; hallucinations, homicidal ideation upon arrival. Presently denies. 8. Tobaccoism Recommendations Supportive care No further cardiac workup indicated Smoking and substance cessation discussed and encouraged. May transfer to [facility] ISABELL FERRO APRN Jul 20, 2018 11:33
--- NOTE | 2018-07-20 11:55 | PDOC ---
PROGRESS NOTES Chief Complaint Chief Complaint Chest pain Elevated troponin Substance-induced psychosis, severe Cocaine use Methamphetamine use Reported homicidal ideation directed towards spouse Alcohol use CHF COPD High Cholesterol Hypertension GERD Osteoarthritis History of Present Illness History of Present Illness Patient was seen and examined in his room this morning. He was resting in bed with NAD. [facility] PAT team. Discussed with nurse. Patient is currently homeless. Discharge disposition pending. Vitals Vitals Vital Signs Date Time Temp Pulse Resp B/P (MAP) Pulse Ox O2 Delivery O2 Flow Rate FiO2 07/20/18 11:00 97.9 91 18 131/69 (89) 94 Room Air 97.9 Physical Exam General: No acute distress, Other (sleeping) Heart: Regular rate, No murmurs Lungs: Clear, Other (no rhonchi) Abdomen: Soft, No tenderness Extremities: No clubbing, No cyanosis Skin: No rashes, No significant lesion Labs LABS Laboratory Tests Test 07/19/18 17:35 07/19/18 18:15 07/19/18 22:00 07/20/18 01:00 White Blood Count 5.3 x10^3/uL (4.0-11.0) Red Blood Count 5.98 x10^6/uL (4.30-5.70) Hemoglobin 15.1 g/dL (13.0-17.5) Hematocrit 47.5 % (39.0-53.0) Mean Corpuscular Volume 79 fL (79-100) Mean Corpuscular Hemoglobin 25 pg (25-35) Mean Corpuscular Hemoglobin Concent 32 g/dL (31-37) Red Cell Distribution Width 13.9 % (11.5-14.5) Platelet Count 151 x10^3/uL (140-400) Neutrophils (%) (Auto) 56 % (31-73) Lymphocytes (%) (Auto) 33 % (24-48) Monocytes (%) (Auto) 9 % (0-9) Eosinophils (%) (Auto) 2 % (0-3) Basophils (%) (Auto) 1 % (0-3) Neutrophils # (Auto) 3.0 x10^3uL (1.8-7.7) Lymphocytes # (Auto) 1.7 x10^3/uL (1.0-4.8) Monocytes # (Auto) 0.5 x10^3/uL (0.0-1.1) Eosinophils # (Auto) 0.1 x10^3/uL (0.0-0.7) Basophils # (Auto) 0.0 x10^3/uL (0.0-0.2) D-Dimer (Rajani) 0.27 ug/mlFEU (0.00-0.50) Sodium Level 142 mmol/L (136-145) Potassium Level 3.9 mmol/L (3.5-5.1) Chloride Level 101 mmol/L (98-107) Carbon Dioxide Level 29 mmol/L (21-32) Anion Gap 12 (6-14) Blood Urea Nitrogen 7 mg/dL (8-26) Creatinine 1.0 mg/dL (0.7-1.3) Estimated GFR (Cockcroft-Gault) 94.6 Glucose Level 94 mg/dL (70-99) Calcium Level 9.1 mg/dL (8.5-10.1) Total Bilirubin 0.4 mg/dL (0.2-1.0) Direct Bilirubin 0.1 mg/dL (0.0-0.2) Aspartate Amino Transf (AST/SGOT) 19 U/L (15-37) Alanine Aminotransferase (ALT/SGPT) 21 U/L (16-63) Alkaline Phosphatase 117 U/L (46-116) Troponin I Quantitative 0.067 ng/mL (0.000-0.055) 0.070 ng/mL (0.000-0.055) 0.076 ng/mL (0.000-0.055) Total Protein 7.5 g/dL (6.4-8.2) Albumin 3.6 g/dL (3.4-5.0) Lipase 56 U/L (73-393) Salicylates Level 3.0 mg/dL (2.8-20.0) Salicylate Last Dose Date Unk Salicylate Last Dose Time Unk Acetaminophen Level < 2 mcg/ml (10-30) Acetaminophen Last Dose Date Unk Acetaminophen Last Dose Time Unk Ethyl Alcohol Level < 10 mg/dL (0-10) Urine Color Yellow Urine Clarity Cloudy Urine pH 7.0 Urine Specific [place] 1.020 Urine Protein Negative mg/dL (NEG-TRACE) Urine Glucose (UA) Negative mg/dL (NEG) Urine Ketones (Stick) Negative mg/dL (NEG) Urine Blood Negative (NEG) Urine Nitrite Negative (NEG) Urine Bilirubin Negative (NEG) Urine Urobilinogen Dipstick 1.0 mg/dL (0.2 mg/dL) Urine Leukocyte Esterase Negative (NEG) Urine RBC 0 /HPF (0-2) Urine WBC 1-4 /HPF (0-4) Urine Squamous Epithelial Cells Occ /LPF Urine Bacteria 0 /HPF (0-FEW) Urine Mucus Mod /LPF Urine Opiates Screen Neg (NEG) Urine Methadone Screen Neg (NEG) Urine Barbiturates Neg (NEG) Urine Phencyclidine Screen Neg (NEG) Urine Amphetamine/Methamphetamine Pos (NEG) Urine Benzodiazepines Screen Neg (NEG) Urine Cocaine Screen Pos (NEG) Urine Cannabinoids Screen Neg (NEG) Urine Ethyl Alcohol Neg (NEG) Test 07/20/18 04:30 07/20/18 05:00 White Blood Count 4.9 x10^3/uL (4.0-11.0) Red Blood Count 5.44 x10^6/uL (4.30-5.70) Hemoglobin 13.6 g/dL (13.0-17.5) Hematocrit 43.5 % (39.0-53.0) Mean Corpuscular Volume 80 fL (79-100) Mean Corpuscular Hemoglobin 25 pg (25-35) Mean Corpuscular Hemoglobin Concent 31 g/dL (31-37) Red Cell Distribution Width 13.9 % (11.5-14.5) Platelet Count 137 x10^3/uL (140-400) Neutrophils (%) (Auto) 56 % (31-73) Lymphocytes (%) (Auto) 30 % (24-48) Monocytes (%) (Auto) 10 % (0-9) Eosinophils (%) (Auto) 3 % (0-3) Basophils (%) (Auto) 1 % (0-3) Neutrophils # (Auto) 2.8 x10^3uL (1.8-7.7) Lymphocytes # (Auto) 1.5 x10^3/uL (1.0-4.8) Monocytes # (Auto) 0.5 x10^3/uL (0.0-1.1) Eosinophils # (Auto) 0.2 x10^3/uL (0.0-0.7) Basophils # (Auto) 0.0 x10^3/uL (0.0-0.2) Sodium Level 142 mmol/L (136-145) Potassium Level 3.9 mmol/L (3.5-5.1) Chloride Level 104 mmol/L (98-107) Carbon Dioxide Level 26 mmol/L (21-32) Anion Gap 12 (6-14) Blood Urea Nitrogen 11 mg/dL (8-26) Creatinine 1.1 mg/dL (0.7-1.3) Estimated GFR (Cockcroft-Gault) 84.7 BUN/Creatinine Ratio 10 (6-20) Glucose Level 85 mg/dL (70-99) Calcium Level 8.3 mg/dL (8.5-10.1) Total Bilirubin 0.3 mg/dL (0.2-1.0) Aspartate Amino Transf (AST/SGOT) 17 U/L (15-37) Alanine Aminotransferase (ALT/SGPT) 17 U/L (16-63) Alkaline Phosphatase 101 U/L (46-116) Total Protein 6.6 g/dL (6.4-8.2) Albumin 2.9 g/dL (3.4-5.0) Albumin/Globulin Ratio 0.8 (1.0-1.7) Review of Systems Review of Systems Complains of chest pain and paranoia. Denies headache or shortness of breath. Assessment and Plan Assessmemt and Plan Assessment: Chest pain Elevated troponin Substance-induced psychosis, severe Cocaine use Methamphetamine use Reported homicidal ideation directed towards spouse Alcohol use CHF COPD High Cholesterol Hypertension GERD Osteoarthritis Plan: 1. Cardiac monitoring 2. Alcohol withdrawal protocol 3. Await PAT team 4. Serial enzymes 5. Serial EKGs 6. Home meds 7. PT/OT 8. Monitor labs 9. DVT prophylaxis 10. Appreciate subspecialty input 11. Discharge disposition pending Comment Review of Relevant I have reviewed the following items gretchen (where applicable) has been applied. Labs Laboratory Tests Test 07/19/18 17:35 07/19/18 18:15 07/19/18 22:00 07/20/18 01:00 White Blood Count 5.3 x10^3/uL (4.0-11.0) Red Blood Count 5.98 x10^6/uL (4.30-5.70) Hemoglobin 15.1 g/dL (13.0-17.5) Hematocrit 47.5 % (39.0-53.0) Mean Corpuscular Volume 79 fL (79-100) Mean Corpuscular Hemoglobin 25 pg (25-35) Mean Corpuscular Hemoglobin Concent 32 g/dL (31-37) Red Cell Distribution Width 13.9 % (11.5-14.5) Platelet Count 151 x10^3/uL (140-400) Neutrophils (%) (Auto) 56 % (31-73) Lymphocytes (%) (Auto) 33 % (24-48) Monocytes (%) (Auto) 9 % (0-9) Eosinophils (%) (Auto) 2 % (0-3) Basophils (%) (Auto) 1 % (0-3) Neutrophils # (Auto) 3.0 x10^3uL (1.8-7.7) Lymphocytes # (Auto) 1.7 x10^3/uL (1.0-4.8) Monocytes # (Auto) 0.5 x10^3/uL (0.0-1.1) Eosinophils # (Auto) 0.1 x10^3/uL (0.0-0.7) Basophils # (Auto) 0.0 x10^3/uL (0.0-0.2) D-Dimer (Rajani) 0.27 ug/mlFEU (0.00-0.50) Sodium Level 142 mmol/L (136-145) Potassium Level 3.9 mmol/L (3.5-5.1) Chloride Level 101 mmol/L (98-107) Carbon Dioxide Level 29 mmol/L (21-32) Anion Gap 12 (6-14) Blood Urea Nitrogen 7 mg/dL (8-26) Creatinine 1.0 mg/dL (0.7-1.3) Estimated GFR (Cockcroft-Gault) 94.6 Glucose Level 94 mg/dL (70-99) Calcium Level 9.1 mg/dL (8.5-10.1) Total Bilirubin 0.4 mg/dL (0.2-1.0) Direct Bilirubin 0.1 mg/dL (0.0-0.2) Aspartate Amino Transf (AST/SGOT) 19 U/L (15-37) Alanine Aminotransferase (ALT/SGPT) 21 U/L (16-63) Alkaline Phosphatase 117 U/L (46-116) Troponin I Quantitative 0.067 ng/mL (0.000-0.055) 0.070 ng/mL (0.000-0.055) 0.076 ng/mL (0.000-0.055) Total Protein 7.5 g/dL (6.4-8.2) Albumin 3.6 g/dL (3.4-5.0) Lipase 56 U/L (73-393) Salicylates Level 3.0 mg/dL (2.8-20.0) Salicylate Last Dose Date Unk Salicylate Last Dose Time Unk Acetaminophen Level < 2 mcg/ml (10-30) Acetaminophen Last Dose Date Unk Acetaminophen Last Dose Time Unk Ethyl Alcohol Level < 10 mg/dL (0-10) Urine Color Yellow Urine Clarity Cloudy Urine pH 7.0 Urine Specific [place] 1.020 Urine Protein Negative mg/dL (NEG-TRACE) Urine Glucose (UA) Negative mg/dL (NEG) Urine Ketones (Stick) Negative mg/dL (NEG) Urine Blood Negative (NEG) Urine Nitrite Negative (NEG) Urine Bilirubin Negative (NEG) Urine Urobilinogen Dipstick 1.0 mg/dL (0.2 mg/dL) Urine Leukocyte Esterase Negative (NEG) Urine RBC 0 /HPF (0-2) Urine WBC 1-4 /HPF (0-4) Urine Squamous Epithelial Cells Occ /LPF Urine Bacteria 0 /HPF (0-FEW) Urine Mucus Mod /LPF Urine Opiates Screen Neg (NEG) Urine Methadone Screen Neg (NEG) Urine Barbiturates Neg (NEG) Urine Phencyclidine Screen Neg (NEG) Urine Amphetamine/Methamphetamine Pos (NEG) Urine Benzodiazepines Screen Neg (NEG) Urine Cocaine Screen Pos (NEG) Urine Cannabinoids Screen Neg (NEG) Urine Ethyl Alcohol Neg (NEG) Test 07/20/18 04:30 07/20/18 05:00 White Blood Count 4.9 x10^3/uL (4.0-11.0) Red Blood Count 5.44 x10^6/uL (4.30-5.70) Hemoglobin 13.6 g/dL (13.0-17.5) Hematocrit 43.5 % (39.0-53.0) Mean Corpuscular Volume 80 fL (79-100) Mean Corpuscular Hemoglobin 25 pg (25-35) Mean Corpuscular Hemoglobin Concent 31 g/dL (31-37) Red Cell Distribution Width 13.9 % (11.5-14.5) Platelet Count 137 x10^3/uL (140-400) Neutrophils (%) (Auto) 56 % (31-73) Lymphocytes (%) (Auto) 30 % (24-48) Monocytes (%) (Auto) 10 % (0-9) Eosinophils (%) (Auto) 3 % (0-3) Basophils (%) (Auto) 1 % (0-3) Neutrophils # (Auto) 2.8 x10^3uL (1.8-7.7) Lymphocytes # (Auto) 1.5 x10^3/uL (1.0-4.8) Monocytes # (Auto) 0.5 x10^3/uL (0.0-1.1) Eosinophils # (Auto) 0.2 x10^3/uL (0.0-0.7) Basophils # (Auto) 0.0 x10^3/uL (0.0-0.2) Sodium Level 142 mmol/L (136-145) Potassium Level 3.9 mmol/L (3.5-5.1) Chloride Level 104 mmol/L (98-107) Carbon Dioxide Level 26 mmol/L (21-32) Anion Gap 12 (6-14) Blood Urea Nitrogen 11 mg/dL (8-26) Creatinine 1.1 mg/dL (0.7-1.3) Estimated GFR (Cockcroft-Gault) 84.7 BUN/Creatinine Ratio 10 (6-20) Glucose Level 85 mg/dL (70-99) Calcium Level 8.3 mg/dL (8.5-10.1) Total Bilirubin 0.3 mg/dL (0.2-1.0) Aspartate Amino Transf (AST/SGOT) 17 U/L (15-37) Alanine Aminotransferase (ALT/SGPT) 17 U/L (16-63) Alkaline Phosphatase 101 U/L (46-116) Total Protein 6.6 g/dL (6.4-8.2) Albumin 2.9 g/dL (3.4-5.0) Albumin/Globulin Ratio 0.8 (1.0-1.7) Laboratory Tests Test 07/19/18 17:35 07/19/18 18:15 07/19/18 22:00 07/20/18 01:00 White Blood Count 5.3 x10^3/uL (4.0-11.0) Red Blood Count 5.98 x10^6/uL (4.30-5.70) Hemoglobin 15.1 g/dL (13.0-17.5) Hematocrit 47.5 % (39.0-53.0) Mean Corpuscular Volume 79 fL (79-100) Mean Corpuscular Hemoglobin 25 pg (25-35) Mean Corpuscular Hemoglobin Concent 32 g/dL (31-37) Red Cell Distribution Width 13.9 % (11.5-14.5) Platelet Count 151 x10^3/uL (140-400) Neutrophils (%) (Auto) 56 % (31-73) Lymphocytes (%) (Auto) 33 % (24-48) Monocytes (%) (Auto) 9 % (0-9) Eosinophils (%) (Auto) 2 % (0-3) Basophils (%) (Auto) 1 % (0-3) Neutrophils # (Auto) 3.0 x10^3uL (1.8-7.7) Lymphocytes # (Auto) 1.7 x10^3/uL (1.0-4.8) Monocytes # (Auto) 0.5 x10^3/uL (0.0-1.1) Eosinophils # (Auto) 0.1 x10^3/uL (0.0-0.7) Basophils # (Auto) 0.0 x10^3/uL (0.0-0.2) D-Dimer (Rajani) 0.27 ug/mlFEU (0.00-0.50) Sodium Level 142 mmol/L (136-145) Potassium Level 3.9 mmol/L (3.5-5.1) Chloride Level 101 mmol/L (98-107) Carbon Dioxide Level 29 mmol/L (21-32) Anion Gap 12 (6-14) Blood Urea Nitrogen 7 mg/dL (8-26) Creatinine 1.0 mg/dL (0.7-1.3) Estimated GFR (Cockcroft-Gault) 94.6 Glucose Level 94 mg/dL (70-99) Calcium Level 9.1 mg/dL (8.5-10.1) Total Bilirubin 0.4 mg/dL (0.2-1.0) Direct Bilirubin 0.1 mg/dL (0.0-0.2) Aspartate Amino Transf (AST/SGOT) 19 U/L (15-37) Alanine Aminotransferase (ALT/SGPT) 21 U/L (16-63) Alkaline Phosphatase 117 U/L (46-116) Troponin I Quantitative 0.067 ng/mL (0.000-0.055) 0.070 ng/mL (0.000-0.055) 0.076 ng/mL (0.000-0.055) Total Protein 7.5 g/dL (6.4-8.2) Albumin 3.6 g/dL (3.4-5.0) Lipase 56 U/L (73-393) Salicylates Level 3.0 mg/dL (2.8-20.0) Salicylate Last Dose Date Unk Salicylate Last Dose Time Unk Acetaminophen Level < 2 mcg/ml (10-30) Acetaminophen Last Dose Date Unk Acetaminophen Last Dose Time Unk Ethyl Alcohol Level < 10 mg/dL (0-10) Urine Color Yellow Urine Clarity Cloudy Urine pH 7.0 Urine Specific [place] 1.020 Urine Protein Negative mg/dL (NEG-TRACE) Urine Glucose (UA) Negative mg/dL (NEG) Urine Ketones (Stick) Negative mg/dL (NEG) Urine Blood Negative (NEG) Urine Nitrite Negative (NEG) Urine Bilirubin Negative (NEG) Urine Urobilinogen Dipstick 1.0 mg/dL (0.2 mg/dL) Urine Leukocyte Esterase Negative (NEG) Urine RBC 0 /HPF (0-2) Urine WBC 1-4 /HPF (0-4) Urine Squamous Epithelial Cells Occ /LPF Urine Bacteria 0 /HPF (0-FEW) Urine Mucus Mod /LPF Urine Opiates Screen Neg (NEG) Urine Methadone Screen Neg (NEG) Urine Barbiturates Neg (NEG) Urine Phencyclidine Screen Neg (NEG) Urine Amphetamine/Methamphetamine Pos (NEG) Urine Benzodiazepines Screen Neg (NEG) Urine Cocaine Screen Pos (NEG) Urine Cannabinoids Screen Neg (NEG) Urine Ethyl Alcohol Neg (NEG) Test 07/20/18 04:30 07/20/18 05:00 White Blood Count 4.9 x10^3/uL (4.0-11.0) Red Blood Count 5.44 x10^6/uL (4.30-5.70) Hemoglobin 13.6 g/dL (13.0-17.5) Hematocrit 43.5 % (39.0-53.0) Mean Corpuscular Volume 80 fL (79-100) Mean Corpuscular Hemoglobin 25 pg (25-35) Mean Corpuscular Hemoglobin Concent 31 g/dL (31-37) Red Cell Distribution Width 13.9 % (11.5-14.5) Platelet Count 137 x10^3/uL (140-400) Neutrophils (%) (Auto) 56 % (31-73) Lymphocytes (%) (Auto) 30 % (24-48) Monocytes (%) (Auto) 10 % (0-9) Eosinophils (%) (Auto) 3 % (0-3) Basophils (%) (Auto) 1 % (0-3) Neutrophils # (Auto) 2.8 x10^3uL (1.8-7.7) Lymphocytes # (Auto) 1.5 x10^3/uL (1.0-4.8) Monocytes # (Auto) 0.5 x10^3/uL (0.0-1.1) Eosinophils # (Auto) 0.2 x10^3/uL (0.0-0.7) Basophils # (Auto) 0.0 x10^3/uL (0.0-0.2) Sodium Level 142 mmol/L (136-145) Potassium Level 3.9 mmol/L (3.5-5.1) Chloride Level 104 mmol/L (98-107) Carbon Dioxide Level 26 mmol/L (21-32) Anion Gap 12 (6-14) Blood Urea Nitrogen 11 mg/dL (8-26) Creatinine 1.1 mg/dL (0.7-1.3) Estimated GFR (Cockcroft-Gault) 84.7 BUN/Creatinine Ratio 10 (6-20) Glucose Level 85 mg/dL (70-99) Calcium Level 8.3 mg/dL (8.5-10.1) Total Bilirubin 0.3 mg/dL (0.2-1.0) Aspartate Amino Transf (AST/SGOT) 17 U/L (15-37) Alanine Aminotransferase (ALT/SGPT) 17 U/L (16-63) Alkaline Phosphatase 101 U/L (46-116) Total Protein 6.6 g/dL (6.4-8.2) Albumin 2.9 g/dL (3.4-5.0) Albumin/Globulin Ratio 0.8 (1.0-1.7) Medications Current Medications Olanzapine (ZyPREXA) 5 mg 1X ONCE PO Last administered on 07/19/18at 16:56; Start 07/19/18 at 16:45; Stop 07/19/18 at 16:46; Status DC Sodium Chloride 1,000 ml @ 1,000 mls/hr 1X ONCE IV Last administered on at 17:57; Start 07/19/18 at 18:00; Stop 07/19/18 at 18:59; Status DC Aspirin (Katherine Aspirin) 325 mg 1X ONCE PO Last administered on 07/19/18at 18:19 ; Start 07/19/18 at 18:45; Stop 07/19/18 at 18:46; Status DC Ondansetron HCl (Zofran) 4 mg PRN Q8HRS PRN IV NAUSEA/VOMITING; Start 07/19/18 at 19:00; Stop 07/20/18 at 18:59 Morphine Sulfate (Morphine Sulfate) 2 mg PRN Q2HR PRN IV PAIN; Start 07/19/18 at 19:00; Stop 07/20/18 at 18:59 Sodium Chloride 1,000 ml @ 100 mls/hr Q10H IV Last administered on 07/19/18at 21:40; Start 07/19/18 at 18:52; Stop 07/20/18 at 18:51 Nitroglycerin (Nitrostat) 0.4 mg PRN Q5MIN PRN SL CHEST PAIN Last administered on 07/19/18at 21:43; Start 07/19/18 at 19:00; Stop 07/20/18 at 18:59 Multivitamins 10 ml/Thiamine HCl 100 mg/Folic Acid 1 mg/Sodium Chloride 1,011.2 ml @ 100 mls/ hr DAILY IV Last administered on 07/20/18at 09:02; Start 07/20/18 at 09:00; Stop 07/20/18 at 19:07 Lorazepam (Ativan) 4 mg PRN Q1HR PRN PO For CIWA 8-14; Start 07/19/18 at 21:15 Lorazepam (Ativan) 8 mg PRN Q1HR PRN PO For CIWA 15 or greater Last administered on 07/19/18at 21:40; Start 07/19/18 at 21:15 Lorazepam (Ativan) 2 mg PRN Q1HR PRN IV For CIWA 8-14; Start 07/19/18 at 21:15 Lorazepam (Ativan) 4 mg PRN Q1HR PRN IV For CIWA 15 or greater; Start 07/19/18 at 21:15 Haloperidol Lactate (Haldol Inj) 5 mg PRN Q4HRS PRN IVP Hallucinatns,Confusn, Delirium; Start 07/19/18 at 21:15 Diphenhydramine HCl (Benadryl) 25 mg PRN Q15MIN PRN IVP EPS symptoms 2'Haldol admin; Start 07/19/18 at 21:15 Multivitamins 10 ml/Thiamine HCl 100 mg/Folic Acid 1 mg/Sodium Chloride 1,011.2 ml @ 100 mls/ hr DAILY IV ; Start 07/20/18 at 09:00; Stop 07/24/18 at 19:07; Status UNV Multivitamins (Thera M Plus) 1 tab DAILY PO ; Start 07/21/18 at 09:00 Folic Acid (Folic Acid) 1 mg DAILY PO ; Start 07/21/18 at 09:00 Lorazepam (Ativan) 4 mg PRN Q1HR PRN PO For CIWA 8-14; Start 07/19/18 at 22:00 ; Status UNV Lorazepam (Ativan) 8 mg PRN Q1HR PRN PO For CIWA 15 or greater; Start 07/19/18 at 22:00; Status UNV Lorazepam (Ativan) 2 mg PRN Q1HR PRN IV For CIWA 8-14; Start 07/19/18 at 22:00 ; Status UNV Lorazepam (Ativan) 4 mg PRN Q1HR PRN IV For CIWA 15 or greater; Start 07/19/18 at 22:00; Status UNV Haloperidol Lactate (Haldol Inj) 5 mg PRN Q4HRS PRN IVP Hallucinatns,Confusn, Delirium; Start 07/19/18 at 22:00; Status UNV Diphenhydramine HCl (Benadryl) 25 mg PRN Q15MIN PRN IVP EPS symptoms 2'Haldol admin; Start 07/19/18 at 22:00; Status UNV Clonidine HCl (Catapres) 0.1 mg PRN Q1HR PRN PO SBP > 180 or DBP > 100, MRX3; Start 07/19/18 at 22:00 Lorazepam (Ativan) 2 mg PRN Q15MIN PRN IV ; Start 07/19/18 at 22:00; Status UNV Lorazepam (Ativan) 4 mg PRN Q15MIN PRN IV ; Start 07/19/18 at 22:00; Status UNV Thiamine Mononitrate (Vitamin B-1) 100 mg DAILY PO ; Start 07/21/18 at 09:00 Active Scripts Active Amlodipine Besylate 5 Mg Tablet 5 Mg PO DAILY 30 Days [Nicotine 21MG] 1 PATCH Patch 1 Patch TD DAILY 30 Days Reported Lisinopril 40 Mg Tablet 1 Tab PO DAILY Atorvastatin Calcium 20 Mg Tablet 1 Tab PO DAILY Potassium Chloride 20 Meq Tablet.er 20 Meq PO DAILY Carvedilol (Carvedilol) 12.5 Mg Tablet 1 Tab PO BID Aspir 81 (Aspirin) 81 Mg Tablet. 1 Tab PO DAILY Furosemide 40 Mg Tablet 1 Tab PO DAILY Vitals/I & O Vital Sign - Last 24 Hours 07/19/18 07/19/18 07/19/18 07/19/18 16:25 16:56 18:19 18:49 Temp 98.3 98.3 Pulse 115 116 112 118 Resp 20 21 B/P (MAP) 188/108 (134) 164/75 (104) 162/87 (112) 142/114 (123) Pulse Ox 98 99 95 O2 Delivery Room Air Room Air Room Air Room Air 07/19/18 07/19/18 07/19/18 07/19/18 19:19 20:24 20:48 21:43 Pulse 114 112 110 110 Resp B/P (MAP) 210/90 (130) 198/105 (136) 199/108 (138) 199/108 Pulse Ox 96 99 97 O2 Delivery Room Air Room Air Room Air 07/19/18 07/19/18 07/20/18 07/20/18 22:40 23:00 03:00 06:38 Temp 98.4 97.7 97.7 98.4 97.7 97.7 Pulse 107 98 94 Resp 20 20 20 B/P (MAP) 131/91 (104) 122/56 (78) 138/62 (87) Pulse Ox 91 O2 Delivery Room Air Room Air Room Air Room Air 07/20/18 07/20/18 08:00 11:00 Temp 97.9 97.9 Pulse 91 Resp 18 B/P (MAP) 131/69 (89) Pulse Ox 94 O2 Delivery Room Air Room Air Intake and Output 07/19/18 07/19/18 07/20/18 15:00 23:00 07:00 Intake Total 1000 ml 240 ml Balance 1000 ml 240 ml CHRISSY CHAVEZ III DO Jul 20, 2018 11:55
--- NOTE | 2018-07-20 13:10 | NUR ---
SS following up with discharge planning. Pt accepted at [facility]. ([facility]), [address] [address], . Packet placed on chart. Pt will discharge today and go to [facility] vis [facility] transport, [id number], at 1400. Pt's RN notified.
--- NOTE | 2018-07-20 14:02 | NUR ---
Discharge Note: VANIA MISHRA Discharge instructions and discharge home medications reviewed with Patient and a copy given. All questions have been answered and understanding verbalized. The following instructions and handouts were given: Substance abuse, F/U with Dr Crooks in 1 week Discontinued lines and drains: dressing clean dry and intact. Patient discharged to [facility] mental [facility] with inpatient care via transportation
--- NOTE | 2018-07-20 20:27 | DS ---
DATE OF DISCHARGE: 07/20/2018 ADMISSION DIAGNOSES: 1. Chest pain. 2. Elevated troponin. 3. Polysubstance abuse. DISCHARGE DIAGNOSES: 1. Atypical chest pain, probably secondary to cocaine and methamphetamine. 2. Alcohol abuse. 3. Psychosis. HOSPITAL COURSE: The patient is a pleasant 52-year-old male who presented with chest pain. He was psychotic as well. He was noted to be cocaine and meth positive. He was also withdrawing from alcohol and had a bump in his troponin to 0.076. We admitted the patient overnight, consulted the Psychiatric team and the Cardiology team. This morning, I saw him and examined him. He is doing better. We plan to discharge to inpatient psych. DISPOSITION: Inpatient psych. ACTIVITY: As tolerated. DIET: Low sodium, MEDICATIONS: Please see the MRAD. TOTAL TIME ON DISCHARGE: 37 minutes. CHRISSY CHAVEZ DO DR: FABRICE/ralf JOB#: [id number] / [id number]
[2018-07-21] MEDS ORDERED: THIAMINE 100 MG TABLET. PO SCH (09:00)
[2018-07-21] MEDS ORDERED: MULTIVITAMIN with MINERAL TABLET. PO SCH (09:00)
[2018-07-21] MEDS ORDERED: FOLIC ACID 1 MG TABLET. PO SCH (09:00)
== END 2018-07-20 13:58 | DRG 918 ==
LOC: EEVIPCON 15:54 → ER 15:54 → 2 SOUTH 18:47
PROVIDERS: ADMIT Family Medicine; ATTEND Family Medicine
DX: T40.5X1A Poisoning by cocaine, accidental (unintentional), initial encounter (principal); F10.239 Alcohol dependence with withdrawal, unspecified; I42.9 Cardiomyopathy, unspecified; I50.22 Chronic systolic (congestive) heart failure; E78.00 Pure hypercholesterolemia, unspecified; E78.5 Hyperlipidemia, unspecified; F17.210 Nicotine dependence, cigarettes, uncomplicated; F20.9 Schizophrenia, unspecified; F41.9 Anxiety disorder, unspecified; I11.0 Hypertensive heart disease with heart failure; J44.9 Chronic obstructive pulmonary disease, unspecified; R74.8 Abnormal levels of other serum enzymes; F22 Delusional disorders; F15.10 Other stimulant abuse, uncomplicated; K21.9 Gastro-esophageal reflux disease without esophagitis; T43.621A Poisoning by amphetamines, accidental (unintentional), initial encounter; F15.159 Other stimulant abuse with stimulant-induced psychotic disorder, unspecified; M19.90 Unspecified osteoarthritis, unspecified site; R45.850 Homicidal ideations; Z59.0 Homelessness; Z82.3 Family history of stroke; Z82.49 Family history of ischemic heart disease and other diseases of the circulatory system; Z87.01 Personal history of pneumonia (recurrent); Z79.899 Other long term (current) drug therapy; Y92.89 Other specified places as the place of occurrence of the external cause
CPT/HCPCS: 36415; 71045; 80048; 80053; 80076; 80307; 80329; 81001; 83690; 84484; 85025; 85379; 93005; 96360; 96361; G0480; J7030; 99285-25

== ENCOUNTER 2018-08-07 01:04 | Emergency (ER) | payer SELFPAY ==
[~2018-08-07] VITALS: Ht 172.7 cm; Wt 90.7 kg
[2018-08-07 02:15] VITALS: BP 148/77
--- NOTE | 2018-08-07 03:49 | PHYS DOC ---
Past Medical History Past Medical History: CHF, COPD, High Cholesterol, Hypertension, Pneumonia, Other Additional Past Medical Histor: R LUNG COLLAPSED, UMBILICAL HERNIA (ANN HOLLIS MD) Past Surgical History: Other Additional Past Surgical Histo: R JAW,R LUNG/CHEST TUBE (ANN HOLLIS MD) Alcohol Use: Heavy Drug Use: Cocaine, Marijuana, Methamphetamine, Other (ANN HOLLIS MD) Adult General Chief Complaint Chief Complaint: MANIC BEHAVIOR HPI HPI Patient is a 52 year old male brought in by ambulance from [facility] for alcohol intoxication I would not take him due to alcohol on board further history is limited at this time (ANN HOLLIS MD) Review of Systems Review of Systems Limited by alcohol intoxicationlim (ANN HOLLIS MD) Allergies Allergies Allergies Coded Allergies Type Severity Reaction Last Updated Verified No Known Drug Allergies 09/13/17 No (KG MCBRIDE DO) Physical Exam Physical Exam Constitutional: Well developed, well nourished, no acute distress, non-toxic appearance. [] HENT: Normocephalic, atraumatic, bilateral external ears normal, oropharynx moist, no oral exudates, nose normal. [] Eyes: PERRLA, , conjunctiva normal, no discharge. [] Neck: Normal range of motion, no tenderness, supple, no stridor. [] Pulmonary: Normal respiratory effort no increased work of breathing no obvious chest wall trauma Abdomen: Bowel sounds normal, soft, no tenderness, no masses, no pulsatile masses. [] Extremities: No tenderness, no cyanosis, no clubbing, ROM intact, no edema. [] Neurologic: Alert and oriented X 2, normal motor function, normal sensory function, no focal deficits noted. [] Psychologicdifficult to assess pt not answering questions (ANN HOLLIS MD) Current Patient Data Vital Signs Vital Signs Date Time Temp Pulse Resp B/P (MAP) Pulse Ox O2 Delivery O2 Flow Rate FiO2 08/07/18 02:15 97.6 89 16 148/77 (100) 96 Room Air 97.6 (KG MCBRIDE DO) Lab Values Laboratory Tests Test 08/07/18 04:50 White Blood Count 4.9 x10^3/uL (4.0-11.0) Red Blood Count 6.01 x10^6/uL (4.30-5.70) H Hemoglobin 15.2 g/dL (13.0-17.5) Hematocrit 47.7 % (39.0-53.0) Mean Corpuscular Volume 79 fL (79-100) Mean Corpuscular Hemoglobin 25 pg (25-35) Mean Corpuscular Hemoglobin Concent 32 g/dL (31-37) Red Cell Distribution Width 13.9 % (11.5-14.5) Platelet Count 210 x10^3/uL (140-400) Neutrophils (%) (Auto) 49 % (31-73) Lymphocytes (%) (Auto) 39 % (24-48) Monocytes (%) (Auto) 8 % (0-9) Eosinophils (%) (Auto) 3 % (0-3) Basophils (%) (Auto) 1 % (0-3) Neutrophils # (Auto) 2.4 x10^3uL (1.8-7.7) Lymphocytes # (Auto) 1.9 x10^3/uL (1.0-4.8) Monocytes # (Auto) 0.4 x10^3/uL (0.0-1.1) Eosinophils # (Auto) 0.2 x10^3/uL (0.0-0.7) Basophils # (Auto) 0.0 x10^3/uL (0.0-0.2) Sodium Level 139 mmol/L (136-145) Potassium Level 3.7 mmol/L (3.5-5.1) Chloride Level 101 mmol/L (98-107) Carbon Dioxide Level 29 mmol/L (21-32) Anion Gap 9 (6-14) Blood Urea Nitrogen 11 mg/dL (8-26) Creatinine 1.1 mg/dL (0.7-1.3) Estimated GFR (Cockcroft-Gault) 84.7 BUN/Creatinine Ratio 10 (6-20) Glucose Level 91 mg/dL (70-99) Calcium Level 8.5 mg/dL (8.5-10.1) Total Bilirubin 0.4 mg/dL (0.2-1.0) Aspartate Amino Transferase (AST) 22 U/L (15-37) Alanine Aminotransferase (ALT) 21 U/L (16-63) Alkaline Phosphatase 123 U/L (46-116) H Total Protein 8.1 g/dL (6.4-8.2) Albumin 3.4 g/dL (3.4-5.0) Albumin/Globulin Ratio 0.7 (1.0-1.7) L Ethyl Alcohol Level 86 mg/dL (0-10) H Laboratory Tests 08/07/18 04:50 Laboratory Tests 08/07/18 04:50 (KG MCBRIDE DO) Lab Values Laboratory Tests Test 08/07/18 04:50 White Blood Count 4.9 x10^3/uL (4.0-11.0) Red Blood Count 6.01 x10^6/uL (4.30-5.70) H Hemoglobin 15.2 g/dL (13.0-17.5) Hematocrit 47.7 % (39.0-53.0) Mean Corpuscular Volume 79 fL (79-100) Mean Corpuscular Hemoglobin 25 pg (25-35) Mean Corpuscular Hemoglobin Concent 32 g/dL (31-37) Red Cell Distribution Width 13.9 % (11.5-14.5) Platelet Count 210 x10^3/uL (140-400) Neutrophils (%) (Auto) 49 % (31-73) Lymphocytes (%) (Auto) 39 % (24-48) Monocytes (%) (Auto) 8 % (0-9) Eosinophils (%) (Auto) 3 % (0-3) Basophils (%) (Auto) 1 % (0-3) Neutrophils # (Auto) 2.4 x10^3uL (1.8-7.7) Lymphocytes # (Auto) 1.9 x10^3/uL (1.0-4.8) Monocytes # (Auto) 0.4 x10^3/uL (0.0-1.1) Eosinophils # (Auto) 0.2 x10^3/uL (0.0-0.7) Basophils # (Auto) 0.0 x10^3/uL (0.0-0.2) Sodium Level 139 mmol/L (136-145) Potassium Level 3.7 mmol/L (3.5-5.1) Chloride Level 101 mmol/L (98-107) Carbon Dioxide Level 29 mmol/L (21-32) Anion Gap 9 (6-14) Blood Urea Nitrogen 11 mg/dL (8-26) Creatinine 1.1 mg/dL (0.7-1.3) Estimated GFR (Cockcroft-Gault) 84.7 BUN/Creatinine Ratio 10 (6-20) Glucose Level 91 mg/dL (70-99) Calcium Level 8.5 mg/dL (8.5-10.1) Total Bilirubin 0.4 mg/dL (0.2-1.0) Aspartate Amino Transferase (AST) 22 U/L (15-37) Alanine Aminotransferase (ALT) 21 U/L (16-63) Alkaline Phosphatase 123 U/L (46-116) H Total Protein 8.1 g/dL (6.4-8.2) Albumin 3.4 g/dL (3.4-5.0) Albumin/Globulin Ratio 0.7 (1.0-1.7) L Ethyl Alcohol Level 86 mg/dL (0-10) H Laboratory Tests 08/07/18 04:50 Laboratory Tests 08/07/18 04:50 (ANN HOLLIS MD) EKG EKG [] (ANN HOLLIS MD) Radiology/Procedures Radiology/Procedures [] (ANN HOLLIS MD) Course & Med Decision Making Course & Med Decision Making Pertinent Labs and Imaging studies reviewed. (See chart for details) []52 yo m with hx of possibly psych ?schizophrenia (when i asked him this explicitly he said maybe) biba from [place] he had drank etoh [facility] said eh requested [facility] evaluation initially was refusing all then on reeval at 530 am he was more awake to verbal stimulation waiting on labs and dispo s/o to mcbride (ANN HOLLIS MD) Course & Med Decision Making Patient was awake, alert, oriented. He denied suicidal ideation or homicidal ideation. Patient was evaluated by PAT TEAM, DENIED SI OR HI WELL, RECOMMENDED TO DISCHARGE FROM THE ER, PATIENT CAN GO TO [facility] FOR EVALUATION. (KG MCBRIDE DO) Dragon Disclaimer Dragon Disclaimer This electronic medical record was generated, in whole or in part, using a voice recognition dictation system. (ANN HOLLIS MD) Departure Departure Impression: Primary Impression: Paranoia Additional Impression: Alcohol abuse Disposition: 01 HOME, SELF-CARE Condition: IMPROVED Referrals: KATY ALVAREZ MD (PCP) FOLLOW UP WITH [facility] Patient Instructions: Alcohol Problems, Paranoia Problem Qualifiers ANN HOLLIS MD Aug 07, 2018 03:49 KG MCBRIDE DO Aug 07, 2018 11:10
[2018-08-07 05:18] LABS: BASO % 1 % (0-3); EOS # 0.2 x10^3/uL (0.0-0.7); EOS % 3 % (0-3); HEMATOCRIT 47.7 % (39.0-53.0); HEMOGLOBIN 15.2 g/dL (13.0-17.5); LYMPH # 1.9 x10^3/uL (1.0-4.8); LYMPH % 39 % (24-48); MEAN CORPUSCULAR HEMOGLOBIN 25 pg (25-35); MEAN CORPUSCULAR HGB CONC 32 g/dL (31-37); MEAN CORPUSCULAR VOLUME 79 fL (79-100); MONO # 0.4 x10^3/uL (0.0-1.1); MONO % 8 % (0-9); NEUT # 2.4 x10^3uL (1.8-7.7); NEUT % 49 % (31-73); PLATELET COUNT 210 x10^3/uL (140-400); RED BLOOD COUNT 6.01 x10^6/uL (4.30-5.70); RED CELL DISTRIBUTION WIDTH 13.9 % (11.5-14.5); WHITE BLOOD COUNT 4.9 x10^3/uL (4.0-11.0)
[2018-08-07 06:58] LABS: CALCIUM 8.5 mg/dL (8.5-10.1); CREATININE 1.1 mg/dL (0.7-1.3); GFR 84.7; POTASSIUM 3.7 mmol/L (3.5-5.1)
[2018-08-07 07:05] LABS: ALBUMIN 3.4 g/dL (3.4-5.0); ALBUMIN/GLOBULIN RATIO 0.7 (1.0-1.7); TOTAL BILIRUBIN 0.4 mg/dL (0.2-1.0); TOTAL PROTEIN 8.1 g/dL (6.4-8.2)
== END 2018-08-07 11:29 | disposition home or self-care (01) ==
LOC: ER 01:04
DX: F10.250 Alcohol dependence with alcohol-induced psychotic disorder with delusions (principal); Y90.4 Blood alcohol level of 80-99 mg/100 ml; J44.9 Chronic obstructive pulmonary disease, unspecified; I11.0 Hypertensive heart disease with heart failure; I50.9 Heart failure, unspecified; E78.00 Pure hypercholesterolemia, unspecified
CPT/HCPCS: 36415; 80053; 85025; 99283; G0480

== ENCOUNTER 2019-01-23 23:11 | Observation (INO) | payer OTHER ==
[~2019-01-23] VITALS: Ht 172.7 cm; Wt 90.7 kg
[2019-01-23] MEDS ORDERED: NITROGLYCERIN SUBLINGUAL 0.4 MG BOTTLE OF 25. SL PRN (23:30)
[2019-01-23] MEDS ORDERED: MORPHINE SULFATE 2 MG/ML VIAL. IV/SQ PRN (23:30)
--- NOTE | 2019-01-23 23:41 | RAD ---
AP chest. HISTORY: Chest pain AP view was taken of the chest. Lungs are clear. Heart is normal in size without heart failure. There is slight blunting of the right costophrenic angle from pleural thickening or small right effusion, the pattern is similar to an old study from June.. Patient's taken as not taken a deep inspiration. IMPRESSION: 1. No acute infiltrates. 2. Blunting of the right costophrenic angle from pleural thickening or small effusion. Electronically signed by: Joshua Colin MD (01/23/2019 11:38 PM) [facility]
[2019-01-23 23:59] LABS: PROTHROMBIN TIME PATIENT 11.9 SEC (11.7-14.0)
[2019-01-24 00:01] LABS: CALCIUM 8.4 mg/dL (8.5-10.1); GFR 42.3; POTASSIUM 4.5 mmol/L (3.5-5.1)
[2019-01-24 00:07] LABS: ALBUMIN 3.6 g/dL (3.4-5.0); ALBUMIN/GLOBULIN RATIO 0.9 (1.0-1.7); TOTAL BILIRUBIN 0.1 mg/dL (0.2-1.0); TOTAL PROTEIN 7.7 g/dL (6.4-8.2)
--- NOTE | 2019-01-24 00:53 | PHYS DOC ---
Past Medical History Past Medical History: CHF, COPD, High Cholesterol, Hypertension, Pneumonia, Other Additional Past Medical Histor: R LUNG COLLAPSED, UMBILICAL HERNIA Past Surgical History: Other Additional Past Surgical Histo: R JAW,R LUNG/CHEST TUBE Alcohol Use: Heavy Drug Use: Cocaine, Marijuana, Methamphetamine, Other Adult General Chief Complaint Chief Complaint: CHEST PAIN HPI HPI Patient is a 53 year old male who presents with complains chest pain off and on �2 days. Describes in the center of his chest no significant radiation. Pain is described as sharp, he does have had some nausea. Patient has no history of coronary stents. He does have a history of hypertension, hyperlipidemia, substance abuse. EMS responded to complaints of chest pain, nitroglycerin provided, aspirin, morphine upon arrival. Patient states his pain did improve after nitroglycerin/Morphine. Nothing makes his pain worse or better. Patient is acutely intoxicated. Review of Systems Review of Systems Constitutional: Denies fever or chills [] Eyes: Denies change in visual acuity, redness, or eye pain [] HENT: Denies nasal congestion or sore throat [] Respiratory: Denies cough or shortness of breath [] Cardiovascular: No additional information not addressed in HPI [] GI: Denies abdominal pain, nausea, positive vomiting : Denies dysuria or hematuria [] Musculoskeletal: Denies back pain or joint pain [] Integument: Denies rash or skin lesions [] Neurologic: Denies headache, focal weakness or sensory changes [] Endocrine: Denies polyuria or polydipsia [] All other systems were reviewed and found to be within normal limits, except as documented in this note. Current Medications Current Medications Current Medications Medications (Trade) Dose Ordered Sig/Jules Start Time Stop Time Status Last Admin Dose Admin Acetaminophen (Tylenol) 650 mg PRN Q4HRS PRN 01/24/19 01:30 01/25/19 01:29 Morphine Sulfate (Morphine Sulfate) 2 mg PRN Q2HR PRN 01/24/19 01:30 01/25/19 01:29 Nitroglycerin (Nitrostat) 0.4 mg PRN Q5MIN PRN 01/24/19 01:30 01/25/19 01:29 Ondansetron HCl (Zofran) 4 mg PRN Q8HRS PRN 01/24/19 01:30 01/25/19 01:29 Allergies Allergies Allergies Coded Allergies Type Severity Reaction Last Updated Verified No Known Drug Allergies 09/13/17 No Physical Exam Physical Exam Constitutional: Well developed, well nourished, no acute distress, non-toxic appearance. [] HENT: Normocephalic, atraumatic, bilateral external ears normal, oropharynx moist, no oral exudates, nose normal. [] Eyes: PERRLA, EOMI, conjunctiva normal, no discharge. [] Neck: Normal range of motion, no tenderness, supple, no stridor. [] Cardiovascular:Heart rate regular rhythm, no murmur [] Lungs & Thorax: Bilateral breath sounds clear to auscultation [] Abdomen: Bowel sounds normal, soft, no tenderness, no masses, no pulsatile masses. [] Skin: Warm, dry, no erythema, no rash. [] Back: No tenderness, no CVA tenderness. [] Extremities: No tenderness, no cyanosis, no clubbing, ROM intact, no edema. [] Neurologic: Alert and oriented X 3, no focal deficits noted. [] Psychologic: Affect normal, judgement normal, mood normal. [] Current Patient Data Vital Signs Vital Signs Date Time Temp Pulse Resp B/P (MAP) Pulse Ox O2 Delivery O2 Flow Rate FiO2 01/24/19 01:49 94 18 153/81 (105) 95 Room Air 01/23/19 23:11 98.4 98.4 Lab Values Laboratory Tests Test 01/23/19 23:40 01/24/19 00:45 Prothrombin Time 11.9 SEC (11.7-14.0) Prothrombin Time INR 0.9 (0.8-1.1) Sodium Level 148 mmol/L (136-145) H Potassium Level 4.5 mmol/L (3.5-5.1) Chloride Level 109 mmol/L (98-107) H Carbon Dioxide Level 28 mmol/L (21-32) Anion Gap 11 (6-14) Blood Urea Nitrogen 23 mg/dL (8-26) Creatinine 2.0 mg/dL (0.7-1.3) H Estimated GFR (Cockcroft-Gault) 42.3 BUN/Creatinine Ratio 12 (6-20) Glucose Level 101 mg/dL (70-99) H Calcium Level 8.4 mg/dL (8.5-10.1) L Total Bilirubin 0.1 mg/dL (0.2-1.0) L Aspartate Amino Transferase (AST) 20 U/L (15-37) Alanine Aminotransferase (ALT) 21 U/L (16-63) Alkaline Phosphatase 136 U/L (46-116) H Creatine Kinase 207 U/L (39-308) Creatine Kinase MB (Mass) 1.8 ng/mL (0.0-3.6) Creatine Kinase MB Relative Index 0.9 % (0-4) Troponin I Quantitative < 0.017 ng/mL (0.000-0.055) Total Protein 7.7 g/dL (6.4-8.2) Albumin 3.6 g/dL (3.4-5.0) Albumin/Globulin Ratio 0.9 (1.0-1.7) L Ethyl Alcohol Level 159 mg/dL (0-10) H White Blood Count 5.7 x10^3/uL (4.0-11.0) Red Blood Count 4.72 x10^6/uL (4.30-5.70) Hemoglobin 12.4 g/dL (13.0-17.5) L Hematocrit 37.7 % (39.0-53.0) L Mean Corpuscular Volume 80 fL (79-100) Mean Corpuscular Hemoglobin 26 pg (25-35) Mean Corpuscular Hemoglobin Concent 33 g/dL (31-37) Red Cell Distribution Width 16.4 % (11.5-14.5) H Platelet Count 139 x10^3/uL (140-400) L Neutrophils (%) (Auto) 54 % (31-73) Lymphocytes (%) (Auto) 37 % (24-48) Monocytes (%) (Auto) 8 % (0-9) Eosinophils (%) (Auto) 1 % (0-3) Basophils (%) (Auto) 1 % (0-3) Neutrophils # (Auto) 3.0 x10^3/uL (1.8-7.7) Lymphocytes # (Auto) 2.1 x10^3/uL (1.0-4.8) Monocytes # (Auto) 0.5 x10^3/uL (0.0-1.1) Eosinophils # (Auto) 0.0 x10^3/uL (0.0-0.7) Basophils # (Auto) 0.0 x10^3/uL (0.0-0.2) Laboratory Tests 01/24/19 00:45 Laboratory Tests 01/23/19 23:40 EKG EKG EKG reviewed, heart rate 97, normal access, no evidence of acute ST or T wave change.[] Interpretation Time: 2316 Radiology/Procedures Radiology/Procedures [facility] [address] [place] [address] IMAGING REPORT Signed PATIENT: VANIA MISHRA ACCOUNT: [id number] : 1965 LOCATION: ER AGE: 53 SEX: M EXAM STATUS: PRE ER ORD. PHYSICIAN: SLADE CUEVA MD REASON: Chest pain PROCEDURE: PORTABLE CHEST 1V AP chest. HISTORY: Chest pain AP view was taken of the chest. Lungs are clear. Heart is normal in size without heart failure. There is slight blunting of the right costophrenic angle from pleural thickening or small right effusion, the pattern is similar to an old study from June.. Patient's taken as not taken a deep inspiration. IMPRESSION: 1. No acute infiltrates. 2. Blunting of the right costophrenic angle from pleural thickening or small effusion. Electronically signed by: Joshua Colin MD (01/23/2019 11:38 PM) [facility] DICTATED and SIGNED BY: JOSHUA COLIN MD DATE: 01/23/19 2338 [] Course & Med Decision Making Course & Med Decision Making Pertinent Labs and Imaging studies reviewed. (See chart for details) Patient presents with complaints of chest pain off and on �2 days, described as sharp, positive nausea. Patient's family history of hypertension, hyperlipidemia, substance abuse. Labs and imaging reviewed, no evidence of acute cardiopulmonary process, troponin negative. Discussed admission with hospitalist (DR GOMEZ) Plan for routine consultation with cardiology. Dragon Disclaimer Dragon Disclaimer This electronic medical record was generated, in whole or in part, using a voice recognition dictation system. Departure Departure Impression: Primary Impression: Chest pain Additional Impressions: Hypertension Hyperlipemia Disposition: ADMITTED INPATIENT Admitting Physician: Mikal Gomez Condition: IMPROVED Referrals: KATY ALVAREZ MD (PCP) patient states he does not follow with DR. ALVAREZ, sees French CONNOLLY MD The HEART Score for CP Pts HEART Score for Chest Pain: HEART Score for Chest Pain Response (Comments) Value History Slighlty/Non-Suspicious 0 ECG Nonspecific Repolarizatio 1 Age >45 - < 65 1 Risk Factors >3 Risk Factors or Hx CAD 2 Troponin >1-<3x Normal Limit 1 Total 5 Risk Factors: Risk Factors: DM, Current or recent (<one month) smoker, HTN, HLP, family history of CAD, obesity. Risk Scores: Score 0 - 3: 2.5% MACE over next 6 weeks - Discharge Home Score 4 - 6: 20.3% MACE over next 6 weeks - Admit for Clinical Observation Score 7 - 10: 72.7% MACE over next 6 weeks - Early Invasive Strategies Problem Qualifiers Primary Impression: Chest pain Chest pain type: unspecified Qualified Codes: R07.9 - Chest pain, unspecified Additional Impressions: Hypertension Hypertension type: essential hypertension Qualified Codes: I10 - Essential (primary) hypertension Hyperlipemia Hyperlipidemia type: unspecified Qualified Codes: E78.5 - Hyperlipidemia, unspecified SLADE CUEVA MD Jan 24, 2019 00:53
[2019-01-24 00:56] LABS: BASO % 1 % (0-3); EOS % 1 % (0-3); HEMATOCRIT 37.7 % (39.0-53.0); HEMOGLOBIN 12.4 g/dL (13.0-17.5); LYMPH # 2.1 x10^3/uL (1.0-4.8); LYMPH % 37 % (24-48); MEAN CORPUSCULAR HEMOGLOBIN 26 pg (25-35); MEAN CORPUSCULAR HGB CONC 33 g/dL (31-37); MEAN CORPUSCULAR VOLUME 80 fL (79-100); MONO # 0.5 x10^3/uL (0.0-1.1); MONO % 8 % (0-9); NEUT % 54 % (31-73); PLATELET COUNT 139 x10^3/uL (140-400); RED BLOOD COUNT 4.72 x10^6/uL (4.30-5.70); RED CELL DISTRIBUTION WIDTH 16.4 % (11.5-14.5); WHITE BLOOD COUNT 5.7 x10^3/uL (4.0-11.0)
[2019-01-24] MEDS ORDERED: ONDANSETRON PF 4 MG/2 ML VIAL. IV PRN (01:30)
[2019-01-24] MEDS ORDERED: ACETAMINOPHEN 325 MG TABLET. PO PRN (01:30)
[2019-01-24] MEDS ORDERED: MORPHINE SULFATE 2 MG/ML VIAL. IV PRN (01:30)
[2019-01-24] MEDS ORDERED: NITROGLYCERIN SUBLINGUAL 0.4 MG BOTTLE OF 25. SL PRN (01:30)
--- NOTE | 2019-01-24 02:40 | NUR ---
Admit from ED via WC. Ambulate from WC to bed with standby assist. A/O x 4. Cooperative. VSS. Denies pain at this time. Orientated to POC and room. Verbalized understanding. Resting in bed with call light at hand.
[2019-01-24 03:22] VITALS: BP 173/95
[2019-01-24] MEDS ORDERED: risperidone PO (03:29)
[2019-01-24] MEDS ORDERED: potassium PO (03:30)
--- NOTE | 2019-01-24 06:26 | EKG ---
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
[2019-01-24 07:00] VITALS: BP 181/78
[2019-01-24] MEDS ORDERED: LABETALOL 20 MG/4 ML DISP.SYRIN. IVP ONE (08:30)
[2019-01-24] MEDS ORDERED: TIOT4MIS3 IH (09:19)
[2019-01-24] MEDS ORDERED: ALBU2.5V8 INH (09:19)
[2019-01-24] MEDS ORDERED: SERT50TA PO (09:19)
[2019-01-24] MEDS ORDERED: RISP1TAB3 PO (09:19)
[2019-01-24] MEDS ORDERED: HYDR25TA PO (09:19)
[2019-01-24] MEDS ORDERED: hydrALAZINE 20 MG/ML VIAL. IVP ONE (10:00)
--- NOTE | 2019-01-24 10:00 | PDOC2 ---
[facility] 01/24/19 1000: CARDIAC CONSULT DATE OF CONSULT Date of Consult DATE: 01/24/19 TIME: 09:54 REASON FOR CONSULT Reason for Consult: Chest pain REFERRING PHYSICIAN Referring Physician: Kamryn SOURCE Source: Chart review, Patient HISTORY OF PRESENT ILLNESS HISTORY OF PRESENT ILLNESS This is a 53 yo male admitted for complains of some nausea and chest pain which was sharp. This is midchest and nonradiating. Reports that this started few days ago. He has been milking his medication since he does not have insurance and also has been drinking alcohol heavily. No SOA, REBOLLEDO or any exertional CP. Denies any falls, injury, intractable coughing. He does have remote hx of PUD. No palpitations, frequent dizziness. His chest pain is again nonradiating. PAST MEDICAL HISTORY Past Medical History Cardiovascular: CHF, HTN, Hyperlipidemia, Other (NICM), mild CAD Pulmonary: COPD, Pneumonia GI: GERD, Other (umbilical hernia) Musculoskeletal: Osteoarthritis Endocrine: No pertinent hx Dermatology: No pertinent hx PAST SURGICAL HISTORY Past Surgical History: Other (jaw surgery; [facility]) FAMILY HISTORY Family History: Hypertension SOCIAL HISTORY Smoke: <1 pack per day ALCOHOL: heavy Drugs: Marijuana, Other (past hx of cocaine) Lives: with Family CURRENT MEDICATIONS CURRENT MEDICATIONS Current Medications Medications (Trade) Dose Ordered Sig/Jules Route PRN Reason Start Time Stop Time Status Last Admin Dose Admin Labetalol HCl (Normodyne Iv Push) 20 mg 1X ONCE IVP 01/24/19 08:30 01/24/19 08:31 DC 01/24/19 08:41 ALLERGIES ALLERGIES: Coded Allergies: No Known Drug Allergies (Unverified , 09/13/17) ROS Review of System 14 point ROS evaluated with pertinent positives noted per HPI PHYSICAL EXAM General: Alert, Oriented X3, Cooperative, No acute distress HEENT: Atraumatic, Mucous membr. moist/pink Lungs: Other (diminished bases) Heart: Regular rate (SR), Normal S1, Normal S2, Other (2/6 systolic murmur to LLS border) Abdomen: Soft, No tenderness Extremities: No cyanosis, No edema Skin: No breakdown, No significant lesion Neuro: Normal speech, Sensation intact Psych/Mental Status: Mental status NL MUSCULOSKELETAL: Osteoarthritic changes both hands VITALS/I&O VITALS/I&O: Vital Signs Date Time Temp Pulse Resp B/P (MAP) Pulse Ox O2 Delivery O2 Flow Rate FiO2 01/24/19 08:41 85 181/78 01/24/19 08:10 Room Air 01/24/19 07:00 98.5 20 93 98.5 I & O 01/23/19 01/23/19 01/24/19 15:00 23:00 07:00 Intake Total 0 ml Balance 0 ml LABS Lab: Laboratory Tests Test 01/23/19 23:40 01/24/19 00:45 01/24/19 07:10 Prothrombin Time 11.9 SEC (11.7-14.0) Prothrombin Time INR 0.9 (0.8-1.1) Sodium Level 148 mmol/L (136-145) H Potassium Level 4.5 mmol/L (3.5-5.1) Chloride Level 109 mmol/L (98-107) H Carbon Dioxide Level 28 mmol/L (21-32) Anion Gap 11 (6-14) Blood Urea Nitrogen 23 mg/dL (8-26) Creatinine 2.0 mg/dL (0.7-1.3) H Estimated GFR (Cockcroft-Gault) 42.3 BUN/Creatinine Ratio 12 (6-20) Glucose Level 101 mg/dL (70-99) H Calcium Level 8.4 mg/dL (8.5-10.1) L Total Bilirubin 0.1 mg/dL (0.2-1.0) L Aspartate Amino Transferase (AST) 20 U/L (15-37) Alanine Aminotransferase (ALT) 21 U/L (16-63) Alkaline Phosphatase 136 U/L (46-116) H Creatine Kinase 207 U/L (39-308) Creatine Kinase MB (Mass) 1.8 ng/mL (0.0-3.6) Creatine Kinase MB Relative Index 0.9 % (0-4) Troponin I Quantitative < 0.017 ng/mL (0.000-0.055) 0.026 ng/mL (0.000-0.055) Total Protein 7.7 g/dL (6.4-8.2) Albumin 3.6 g/dL (3.4-5.0) Albumin/Globulin Ratio 0.9 (1.0-1.7) L Ethyl Alcohol Level 159 mg/dL (0-10) H White Blood Count 5.7 x10^3/uL (4.0-11.0) Red Blood Count 4.72 x10^6/uL (4.30-5.70) Hemoglobin 12.4 g/dL (13.0-17.5) L Hematocrit 37.7 % (39.0-53.0) L Mean Corpuscular Volume 80 fL (79-100) Mean Corpuscular Hemoglobin 26 pg (25-35) Mean Corpuscular Hemoglobin Concent 33 g/dL (31-37) Red Cell Distribution Width 16.4 % (11.5-14.5) H Platelet Count 139 x10^3/uL (140-400) L Neutrophils (%) (Auto) 54 % (31-73) Lymphocytes (%) (Auto) 37 % (24-48) Monocytes (%) (Auto) 8 % (0-9) Eosinophils (%) (Auto) 1 % (0-3) Basophils (%) (Auto) 1 % (0-3) Neutrophils # (Auto) 3.0 x10^3/uL (1.8-7.7) Lymphocytes # (Auto) 2.1 x10^3/uL (1.0-4.8) Monocytes # (Auto) 0.5 x10^3/uL (0.0-1.1) Eosinophils # (Auto) 0.0 x10^3/uL (0.0-0.7) Basophils # (Auto) 0.0 x10^3/uL (0.0-0.2) Laboratory Tests 01/24/19 00:45 Laboratory Tests 01/23/19 23:40 HEART CATH HEART CATH LEFT VENTRICULOGRAM: EF 40-45% Mild global hypokinesis. CORONARY ANGIOGRAPHY: LM is a large caliber vessel with normal angiographic appearance. LAD is a large caliber vessel with normal angiographic appearance. LCx is a moderate caliber non-dominant vessel with normal angiographic appearance. OM1 is a moderate caliber vessel with normal angiographic appearance. OM2 is a moderate caliber vessel with normal angiographic appearance. RCA is a moderate caliber dominant vessel with mild less than 20% stenosis in the mid segment. The RCA bifuractes early with a large RV marginal branch noted. RPDA and RPL are small caliber vessels with normal angiographic appearance. Conclusion 1. Normal LVEDP 2. Mild LV dysfunction. EF 40-45% 3. No significant coronary disease. Recommendations Aggressive Medical Therapy DATE: 06/26/18 1616 ASSESSMENT/PLAN ASSESSMENT/PLAN 1. Malignant HTN; due to noncomplaince 2. Atypical CP: due to above and possible GI with ETOH abuse 3. Alcoholism: at least 1-2 pints of vodka at least tiw. Defer to PCP 4. Noncompliance: skipping meds 5. Substance abuse: admits use of marijuana 6. Tobaccoism 7. 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 Hydralazine IV. slowly restart home BP meds discussed with RN 2. Start on PPI 3. Continue with secondary prevention measures 4. TSH, lipids and TTE. UDS 5. Discussed lifestyle modification. Discussed adherence KOURTNEY FARRIS MD 01/24/19 1807: CARDIAC CONSULT ASSESSMENT/PLAN ASSESSMENT/PLAN Pt. seen and examined. Agree with above MANAGER [employer] note. Alcoholic with non-cardiac chest pain supportive care. Pls call with questions. Thanks GRAHAM JENNINGS APRN Jan 24, 2019 10:00 KOURTNEY FARRIS MD Jan 24, 2019 18:07
[2019-01-24] MEDS ORDERED: amLODIPine BESYLATE 5 MG TABLET PO SCH (10:30)
[2019-01-24] MEDS ORDERED: amLODIPine BESYLATE 10 MG TABLET PO SCH (10:30)
[2019-01-24] MEDS ORDERED: ASPIRIN ENTERIC COATED 81 MG TABLET.DR. PO SCH (10:30)
[2019-01-24] MEDS ORDERED: LISINOPRIL 20 MG TABLET PO SCH (10:30)
[2019-01-24] MEDS ORDERED: FUROSEMIDE 40 MG TABLET. PO SCH (10:30)
[2019-01-24 10:32] LABS: CHOLESTEROL/HDL RATIO 2.4
[2019-01-24] MEDS ORDERED: PANTOPRAZOLE 40 MG TABLET.DR. PO ONE (10:45)
[2019-01-24 11:00] VITALS: BP 186/79
--- NOTE | 2019-01-24 13:08 | CARD ---
MR#: [id number] Date of Study: 01/24/2019 Ordering Physician: GRAHAM JENNINGS, Referring Physician: GRAHAM JENNINGS, Tech: Delilah Peters ROLDAN APPROVED REPORT EXAM: Two-dimensional and M-mode echocardiogram with Doppler and color Doppler. Other Information Quality : AverageHR: 86bpm Rhythm : NSR INDICATION Chest Pain 2D DIMENSIONS RVDd2.9 (2.9-3.5cm)Left Atrium(2D)3.4 (1.6-4.0cm) IVSd1.1 (0.7-1.1cm)Aortic Root(2D)2.8 (2.0-3.7cm) LVDd5.1 (3.9-5.9cm)LVOT Diameter1.9 (1.8-2.4cm) PWd1.2 (0.7-1.1cm)LVDs3.6 (2.5-4.0cm) FS (%) 30.7 %SV72.9 ml LVEF(%)58.0 (>50%) M-Mode DIMENSIONS Left Atrium(MM)3.97 (2.5-4.0cm)Aortic Root2.99 (2.2-3.7cm) Aortic Valve AoV Peak Julio Cesar.181.5cm/sAoV VTI32.5cm AO Peak GR.13.2mmHgLVOT Peak Julio Cesar.117.2cm/s AO Mean GR.7mmHgAVA (VMAX)1.87cm2 JAYLEN (VTI)1.90oq6IX P 1/2 Mkva658ah Mitral Valve MV E Cifmutxd57.9cm/sMV DECEL QVXW548ju MV A Zkqzwxcp573.1cm/sE/A Ratio0.6 Pulmonary Valve PV Peak Omtgrvsr551.9cm/s LEFT VENTRICLE The left ventricle is normal size. There is borderline to mild concentric left ventricular hypertroph y. The left ventricular systolic function is normal and the ejection fraction is within normal range. The Ejection Fraction is 55-60%. There is normal LV segmental wall motion. Transmitral Doppler flow pattern is Grade I-abnormal relaxation pattern. RIGHT VENTRICLE The right ventricle is normal size. There is normal right ventricular wall thickness. The right ventr icular systolic function is normal. ATRIA The left atrium size is normal. The right atrium size is normal. The interatrial septum is intact wit h no evidence for an atrial septal defect or patent foramen ovale as noted on 2-D or Doppler imaging. AORTIC VALVE The aortic valve is mildly calcified. The aortic valve is trileaflet. Doppler and Color Flow revealed mild aortic regurgitation. There is no significant aortic valvular stenosis. MITRAL VALVE The mitral valve is mildly thickened. There is no evidence of mitral valve prolapse. There is no mitr al valve stenosis. Doppler and Color Flow revealed trace mitral valve regurgitation. TRICUSPID VALVE The tricuspid valve is normal in structure and function. Doppler and Color Flow revealed no tricuspid valve regurgitation noted. There is no tricuspid valve prolapse or vegetation. There is no tricuspid valve stenosis. PULMONIC VALVE The pulmonic valve is not well visualized. GREAT VESSELS The aortic root is normal in size. The ascending aorta is normal in size. The IVC is normal in size a nd collapses >50% with inspiration. PERICARDIAL EFFUSION There is no evidence of significant pericardial effusion. Critical Notification Critical Value: No <Conclusion> The left ventricle is normal size. The left ventricular systolic function is normal and the ejection fraction is within normal range. The Ejection Fraction is 55-60%. There is borderline to mild concentric left ventricular hypertrophy. There is no significant aortic valvular stenosis. Doppler and Color Flow revealed mild aortic regurgitation. Doppler and Color Flow revealed trace mitral valve regurgitation. Doppler and Color Flow revealed no tricuspid valve regurgitation noted. Signed by : Soto Virk MD Electronically Approved : 01/24/2019 12:55:36
--- NOTE | 2019-01-24 13:54 | HP ---
ADMIT DATE: 01/24/2019 CHIEF COMPLAINT: Chest pain. HISTORY OF PRESENT ILLNESS: The patient is a pleasant 53-year-old male who has multiple medical issues including COPD and heart failure, hypertension, hyperlipidemia, basically presented with chest pain, rates it as 7/10. This has been occurring for several days, took some ncad-ppk-ldrjmdz meds, but this did not seem to help. I discussed the case with ER physician. They gave him some nitro and that did not help. We are going to admit the patient and consult Cardiology. The patient is being seen in the echocardiogram area currently. PAST MEDICAL HISTORY: CHF, COPD, hypertension, hyperlipidemia, pneumonia, right lung pneumothorax, umbilical hernia repair, right jaw surgery, lung surgery on the right, right lung chest tube, cocaine use, marijuana use, and methamphetamine use. ALLERGIES: None. FAMILY HISTORY: Diabetes. SOCIAL HISTORY: He drinks, smokes and takes drugs. MEDICATIONS: Reviewed, please refer to the MRAD. REVIEW OF SYSTEMS: GENERAL: No history of weight change, weakness or fevers. SKIN: No bruising, hair changes or rashes. EYES: No blurred, double or loss of vision. NOSE AND THROAT: No history of nosebleeds, hoarseness or sore throat. HEART: Frequent chest pain. LUNGS: Denies cough, hemoptysis, wheezing or shortness of breath. GASTROINTESTINAL: Denies changes in appetite, nausea, vomiting, diarrhea or constipation. GENITOURINARY: No history of frequency, urgency, hesitancy or nocturia. NEUROLOGIC: Denies history of numbness, tingling, tremor or weakness. PSYCHIATRIC: No history of panic, anxiety or depression. ENDOCRINE: No history of heat or cold intolerance, polyuria or polydipsia. EXTREMITIES: Denies muscle weakness, joint pain, pain on walking or stiffness. PHYSICAL EXAMINATION: VITALS: Within normal limits and are stable. GENERAL: No apparent distress. Alert and oriented. HEENT: Head is normocephalic, atraumatic, pupils were equally round and reactive to light and accommodation. NECK: Supple, no JVD, no thyromegaly was noted. LUNGS: Clear to auscultation in all lung alvarez without rhonchi or wheezing. HEART: RRR, S1, S2 present. Peripheral pulses intact, no obvious murmurs were noted. ABDOMEN: Soft, nontender. Positive bowel sounds no organomegaly, normal bowel sounds. EXTREMITIES: Without any cyanosis, clubbing, or edema. Pedal pulses intact, Homans sign is negative. NEUROLOGIC: Normal speech, normal tone. A and O x3, moves all extremities, no obvious focal deficits. PSYCHIATRIC: Normal affect, normal mood. Stable. SKIN: No ulcerations or rashes, good skin turgor, no jaundice. VASCULAR: Good capillary refill, neurovascular bundle appears to be intact. LABORATORY DATA: Hemoglobin is 12.4. Troponin is slightly high at 0.026. ASSESSMENT AND PLAN: Chest pain with history of polysubstance abuse and elevated troponin. The patient has been admitted. We will check serial enzymes, serial EKGs, echocardiogram, cardiac monitoring. Daily aspirin. P.r.n. nitro. Consult Cardiology. DVT prophylaxis. Home meds. Check a drug screen. CHRISSY CHAVEZ DO DR: FABRICE/ralf JOB#: [id number] / [id number]
--- NOTE | 2019-01-24 13:59 | NUR ---
SS following for discharge planning. SS reviewed pt chart. Pt is from home and is currently on room air. No discharge needs noted at this time. SS will continue to follow for discharge planning.
[2019-01-24] MEDS: CARVEDILOL 3.125 MG TABLET. PO SCH ×2 (14:00→17:16)
[2019-01-24 15:00] VITALS: BP 140/70
[2019-01-24 17:16] VITALS: BP 162/82
[2019-01-24 17:32] LABS: BARBITURATES NEG (NEG); BENZODIAZEPINES NEG (NEG); CANNABINOIDS POS (NEG); COCAINE POS (NEG); METHADONE NEG (NEG); OPIATES NEG (NEG); PHENCYCLIDINE NEG (NEG)
[2019-01-24 17:40] LABS: AMPHETAMINE/METHAMPHETAMINE NEG (NEG)
--- NOTE | 2019-01-24 19:04 | NUR ---
Discharge Note: VANIA MISHRA Discharge instructions and discharge home medications reviewed with Patient and a copy given. All questions have been answered and understanding verbalized. The following instructions and handouts were given: CP, smoking cessation, tips for success for alcohol and smoking Discontinued lines and drains: Peripheral IV intact. Patient discharged to Home or Self Care with Family Member via Wheelchair
[2019-01-24] MEDS ORDERED: ATORVASTATIN CALCIUM 20 MG TABLET PO SCH (21:00)
[2019-01-25] MEDS ORDERED: PANTOPRAZOLE 40 MG TABLET.DR. PO SCH (07:30)
== END 2019-01-24 19:06 | disposition home or self-care (01) ==
LOC: ER 23:11 → 2 NORTH 01-24 01:56
PROVIDERS: ADMIT Internal Medicine; ATTEND Internal Medicine
DX: R07.89 Other chest pain (principal); E78.5 Hyperlipidemia, unspecified; J44.9 Chronic obstructive pulmonary disease, unspecified; E78.00 Pure hypercholesterolemia, unspecified; F10.20 Alcohol dependence, uncomplicated; R79.89 Other specified abnormal findings of blood chemistry; F12.90 Cannabis use, unspecified, uncomplicated; F17.210 Nicotine dependence, cigarettes, uncomplicated; F15.90 Other stimulant use, unspecified, uncomplicated; I11.0 Hypertensive heart disease with heart failure; I50.9 Heart failure, unspecified; Z82.49 Family history of ischemic heart disease and other diseases of the circulatory system; Z83.3 Family history of diabetes mellitus; Z87.11 Personal history of peptic ulcer disease; Z91.19 Patient's noncompliance with other medical treatment and regimen
CPT/HCPCS: 36415; 71045; 80053; 80061; 80307; 82550; 82553; 84443; 84484; 85025; 85610; 93005; 93306; 96374; 96375; 99284; G0378; G0480; J0360; J3490; G0379

== ENCOUNTER 2019-03-09 08:11 | Emergency (ER) | payer OTHER ==
[~2019-03-09] VITALS: Ht 177.8 cm; Wt 90.7 kg
[~2019-03-09 08:11] MED LIST changes: +ALBU2.5V8 INH; +HYDR25TA PO; +RISP1TAB3 PO; +SERT50TA PO; +TIOT4MIS3 IH; +potassium PO; +risperidone PO
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
[2019-03-09 09:21] LABS: BASO % 1 % (0-3); CALCIUM 8.6 mg/dL (8.5-10.1); CREATININE 1.5 mg/dL (0.7-1.3); EOS # 0.2 x10^3/uL (0.0-0.7); EOS % 3 % (0-3); HEMATOCRIT 40.6 % (39.0-53.0); HEMOGLOBIN 13.2 g/dL (13.0-17.5); LYMPH # 2.5 x10^3/uL (1.0-4.8); LYMPH % 38 % (24-48); MEAN CORPUSCULAR HEMOGLOBIN 26 pg (25-35); MEAN CORPUSCULAR HGB CONC 33 g/dL (31-37); MEAN CORPUSCULAR VOLUME 80 fL (79-100); MONO # 0.5 x10^3/uL (0.0-1.1); MONO % 8 % (0-9); NEUT # 3.2 x10^3/uL (1.8-7.7); NEUT % 50 % (31-73); PLATELET COUNT 137 x10^3/uL (140-400); POTASSIUM 3.8 mmol/L (3.5-5.1); RED BLOOD COUNT 5.06 x10^6/uL (4.30-5.70); RED CELL DISTRIBUTION WIDTH 15.3 % (11.5-14.5); WHITE BLOOD COUNT 6.5 x10^3/uL (4.0-11.0)
[2019-03-09 09:26] LABS: ETHANOL 247 mg/dL (0-10); SALIC 5.2 mg/dL (2.8-20.0)
[2019-03-09 09:27] LABS: ACETAMIN < 2 mcg/ml (10-30); ALBUMIN 3.6 g/dL (3.4-5.0); TOTAL BILIRUBIN 0.2 mg/dL (0.2-1.0); TOTAL PROTEIN 7.2 g/dL (6.4-8.2)
--- NOTE | 2019-03-09 11:23 | EKG ---
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
[2019-03-09 16:00] VITALS: BP 106/54
== END 2019-03-09 16:00 | disposition home or self-care (01) ==
LOC: ER 08:11
DX: F10.20 Alcohol dependence, uncomplicated (principal); I11.0 Hypertensive heart disease with heart failure; I50.9 Heart failure, unspecified; E78.00 Pure hypercholesterolemia, unspecified; J44.9 Chronic obstructive pulmonary disease, unspecified; F41.9 Anxiety disorder, unspecified
CPT/HCPCS: 36415; 80053; 80329; 85025; 93005; 99285; G0480

== ENCOUNTER 2019-04-02 13:39 | Emergency (ER) | payer SELFPAY ==
[~2019-04-02] VITALS: Ht 172.7 cm; Wt 97.5 kg
--- NOTE | 2019-04-02 14:45 | RAD ---
RS Compliance Statement: One or more of the following individualized dose reduction techniques were utilized for this examination: 1. Automated exposure control 2. Adjustment of the mA and/or kV according to patient size 3. Use of iterative reconstruction technique CT head without contrast 04/02/2019 2:30 PM INDICATION: Headache for 4 days COMPARISON: None available TECHNIQUE: Multiple axial CT images of the head were obtained from skull base through the vertex without intravenous contrast. FINDINGS: Head: Ventricles, sulci and basal cisterns are within normal limits. There is no hydrocephalus. Hsu-white matter differentiation is normal. There is no acute intracranial hemorrhage. There is no mass, mass effect or midline shift. Posterior fossa is normal in appearance. Visualized portions of the orbits are normal. Paranasal sinuses are well aerated. Mastoid air cells are well aerated. Scalp and calvaria are normal. IMPRESSION: No acute intracranial hemorrhage. Electronically signed by: Henny Henderson MD (04/02/2019 2:42 PM) [facility]
--- NOTE | 2019-04-02 15:15 | PHYS DOC ---
Past Medical History Past Medical History: CHF, COPD, High Cholesterol, Hypertension, Pneumonia, Other Additional Past Medical Histor: R LUNG COLLAPSED,UMBILICAL HERNIA,PARANOIA,RACING THOUGHTS Past Surgical History: Other Additional Past Surgical Histo: ORIF R JAW,R LUNG/CHEST TUBE Additional Information: 2 TO 3 CIGARETTES A DAY Alcohol Use: Heavy Drug Use: Cocaine, Marijuana, Methamphetamine, Other Adult General Chief Complaint Chief Complaint: HEADACHE HPI HPI Patient is a 53 year old male who presented to ER today for evaluation of headache that been going on for 4 days. Patient denies any trauma, no fever, no neck pain. Patient said the light and noise makes THE headache worse. he also complains of left upper dental pain for several day as well. He denies any chest pain, no abdominal pain, no nausea vomiting. aLL OTHER ros IS NEGATIVE UNLESS OTHERWISE NOTED IN hpi Review of Systems Review of Systems See above Allergies Allergies Allergies Coded Allergies Type Severity Reaction Last Updated Verified No Known Drug Allergies 09/13/17 No Physical Exam Physical Exam See above Constitutional: Well developed, well nourished, no acute distress, non-toxic appearance. [] HENT: Normocephalic, atraumatic, bilateral external ears normal, oropharynx moist, no oral exudates, nose normal. left upper 3rd premolar with cavity, tender to palpation. Eyes: PERRLA, EOMI, conjunctiva normal, no discharge. [] Neck: Normal range of motion, no tenderness, supple, no stridor. [] Cardiovascular:Heart rate regular rhythm, no murmur [] Lungs & Thorax: Bilateral breath sounds clear to auscultation [] Abdomen: Bowel sounds normal, soft, no tenderness, no masses, no pulsatile masses. [] Skin: Warm, dry, no erythema, no rash. [] Back: No tenderness, no CVA tenderness. [] Extremities: No tenderness, no cyanosis, no clubbing, ROM intact, no edema. [] Neurologic: Alert and oriented X 3, normal motor function, normal sensory funct ion, no focal deficits noted. [] Psychologic: Affect normal, judgement normal, mood normal. [] Current Patient Data Vital Signs Vital Signs Date Time Temp Pulse Resp B/P (MAP) Pulse Ox O2 Delivery O2 Flow Rate FiO2 04/02/19 13:39 98.7 83 19 163/76 (105) 96 Room Air 98.7 EKG EKG [] Radiology/Procedures Radiology/Procedures [][facility] [address] [place], [place] [id number] IMAGING REPORT Signed PATIENT: VANIA MISHRA ACCOUNT: [id number] : 1965 LOCATION: ER AGE: 53 SEX: M EXAM STATUS: PRE ER ORD. PHYSICIAN: KG ORTIZ DO REASON: headache for 4 days PROCEDURE: CT HEAD WO CONTRAST PQRS Compliance Statement: One or more of the following individualized dose reduction techniques were utilized for this examination: 1. Automated exposure control 2. Adjustment of the mA and/or kV according to patient size 3. Use of iterative reconstruction technique CT head without contrast 04/02/2019 2:30 PM INDICATION: Headache for 4 days COMPARISON: None available TECHNIQUE: Multiple axial CT images of the head were obtained from skull base through the vertex without intravenous contrast. FINDINGS: Head: Ventricles, sulci and basal cisterns are within normal limits. There is no hydrocephalus. Hsu-white matter differentiation is normal. There is no acute intracranial hemorrhage. There is no mass, mass effect or midline shift. Posterior fossa is normal in appearance. Visualized portions of the orbits are normal. Paranasal sinuses are well aerated. Mastoid air cells are well aerated. Scalp and calvaria are normal. IMPRESSION: No acute intracranial hemorrhage. Electronically signed by: Armida Peterson MD (04/02/2019 2:42 PM) [facility] DICTATED and SIGNED BY: ARMIDA PETERSON MD DATE: 04/02/19 1442 Course & Med Decision Making Course & Med Decision Making Pertinent Labs and Imaging studies reviewed. (See chart for details) [] Dragon Disclaimer Dragon Disclaimer This electronic medical record was generated, in whole or in part, using a voice recognition dictation system. Departure Departure Impression: Primary Impression: Headache Additional Impression: Infected dental caries Disposition: HOME, SELF-CARE Condition: STABLE Referrals: NO PCP (PCP) FOLLOW UP WITH YOUR DOCTOR THIS WEEK. Patient Instructions: Dental Abscess, General Headache Without Cause Scripts Butalbital/Aspirin/Caffeine (FIORINAL 50-325-40 MG CAPSULE) 1 Each Capsule 1 EACH PO QID PRN for HEADACHE, #15 CAP Prov: ORTIZ,PETER T DO 04/02/19 Amoxicillin (AMOXICILLIN) 500 Mg Capsule 1 CAP PO TID, #30 CAP Prov: KG ORTIZ DO 04/02/19 Problem Qualifiers KG ORTIZ DO Apr 02, 2019 15:15
[2019-04-02] MEDS ORDERED: AMOX500C PO (15:19)
[2019-04-02] MEDS ORDERED: BUTA1CAP31 PO (15:21)
[2019-04-02 17:00] VITALS: BP 165/93
== END 2019-04-02 17:10 | disposition home or self-care (01) ==
LOC: ER 13:39
DX: R51 Headache (principal); K02.9 Dental caries, unspecified; I50.9 Heart failure, unspecified; J44.9 Chronic obstructive pulmonary disease, unspecified; I11.0 Hypertensive heart disease with heart failure; E78.00 Pure hypercholesterolemia, unspecified; F17.210 Nicotine dependence, cigarettes, uncomplicated; F12.90 Cannabis use, unspecified, uncomplicated; F14.90 Cocaine use, unspecified, uncomplicated; F19.90 Other psychoactive substance use, unspecified, uncomplicated
CPT/HCPCS: 70450; 99284

== ENCOUNTER 2019-04-10 01:53 | Emergency (ER) | payer SELFPAY ==
[~2019-04-10] VITALS: Ht 175.3 cm; Wt 95.3 kg
[2019-04-10 01:53] VITALS: BP 166/85
[~2019-04-10 01:53] MED LIST changes: +AMOX500C PO; +BUTA1CAP31 PO
--- NOTE | 2019-04-10 02:29 | PHYS DOC ---
Past Medical History Past Medical History: CHF, COPD, High Cholesterol, Hypertension, Pneumonia, Other Additional Past Medical Histor: R LUNG COLLAPSED,UMBILICAL HERNIA,PARANOIA,RACING THOUGHTS Past Surgical History: Other Additional Past Surgical Histo: ORIF R JAW,R LUNG/CHEST TUBE Additional Information: 3-4 CIGS/DAY Alcohol Use: Heavy Drug Use: Cocaine, Marijuana, Methamphetamine, Other Adult General Chief Complaint Chief Complaint: Toothache HPI HPI 53-year-old male presents to the emergency department with complaints of headache, toothache. Patient was seen at this facility on 02 April with diagnosis of dental caries and headache at that time. Patient was given amoxicillin and caffeine of which she states is not working. Denies any fever. He does complain of some sore throat. Does have some submental lymphadenopathy appreciated. Nothing makes his symptoms better. Patient denies any visual changes. He currently denies any nausea or vomiting. Review of Systems Review of Systems Constitutional: Denies fever or chills [] Eyes: Denies change in visual acuity, redness, or eye pain [] HENT: Denies nasal congestion or sore throat [] Respiratory: Denies cough or shortness of breath [] Cardiovascular: No additional information not addressed in HPI [] GI: Denies abdominal pain, nausea, vomiting, bloody stools or diarrhea [] : Denies dysuria or hematuria [] Musculoskeletal: Denies back pain or joint pain [] Integument: Denies rash or skin lesions [] Neurologic: Denies headache, focal weakness or sensory changes [] Endocrine: Denies polyuria or polydipsia [] All other systems were reviewed and found to be within normal limits, except as documented in this note. Current Medications Current Medications Current Medications Medications (Trade) Dose Ordered Sig/Jules Start Time Stop Time Status Last Admin Dose Admin Diphenhydramine HCl (Benadryl) 50 mg 1X ONCE 04/10/19 02:30 04/10/19 02:31 DC 04/10/19 02:46 50 MG Ketorolac Tromethamine (Toradol Im) 60 mg 1X ONCE 04/10/19 02:30 04/10/19 02:31 DC 04/10/19 02:45 60 MG Metoclopramide HCl (Reglan) 10 mg 1X ONCE 04/10/19 02:30 04/10/19 02:31 DC 04/10/19 02:44 10 MG Allergies Allergies Allergies Coded Allergies Type Severity Reaction Last Updated Verified No Known Drug Allergies 09/13/17 No Physical Exam Physical Exam Constitutional: Well developed, well nourished, no acute distress, non-toxic appearance. [] HENT: Normocephalic, atraumatic, bilateral external ears normal, oropharynx moist, evidence of multiple dental caries, no evidence of abscess appreciated on examination, no oral exudates, nose normal. [] Eyes: PERRLA, EOMI, conjunctiva normal, no discharge. [] Neck: Normal range of motion, no tenderness, supple, left submandibular lymphadenopathy appreciated Cardiovascular:Heart rate regular rhythm, no murmur [] Lungs & Thorax: Bilateral breath sounds clear to auscultation [] Abdomen: Bowel sounds normal, soft, no tenderness, no masses, no pulsatile masses. [] Skin: Warm, dry, no erythema, no rash. [] Extremities: No tenderness, no edema. [] Neurologic: Alert and oriented X 3, no focal deficits noted. [] Psychologic: Affect normal, judgement normal, mood normal. [] Current Patient Data Vital Signs Vital Signs Date Time Temp Pulse Resp B/P (MAP) Pulse Ox O2 Delivery O2 Flow Rate FiO2 04/10/19 01:53 98.8 88 20 166/85 (112) 98 Room Air 98.8 EKG EKG [] Radiology/Procedures Radiology/Procedures [] Course & Med Decision Making Course & Med Decision Making Pertinent Labs and Imaging studies reviewed. (See chart for details) []53-year-old male presents to the emergency department with complaints of headache, toothache. Patient was seen at this facility on 02 April with diagnosis of dental caries and headache at that time. Patient was given amoxicillin and caffeine of which she states is not working. Denies any fever. He does complain of some sore throat. Does have some submental lymphadenopathy appreciated. Nothing makes his symptoms better. Patient denies any visual changes. He currently denies any nausea or vomiting. Reglan, Toradol, Benadryl provided IM Reassessment at 0312 - pain improved Discussed use of prn medications at home for migraine headache Discussed continued use of abx as previously prescribed Dragon Disclaimer Dragon Disclaimer This electronic medical record was generated, in whole or in part, using a voice recognition dictation system. Departure Departure Impression: Primary Impression: Migraine headache Disposition: HOME, SELF-CARE Condition: IMPROVED Referrals: NO PCP (PCP) Patient Instructions: Recurrent Migraine Headache, [id number] Additional Instructions: Recommend follow up with PCP 3 - 5 days Return to the ER with worsening symptoms, intractable pain, fever, altered mental status Tylenol as needed Take pain medications as needed (diclofenac) Continue amoxil as previously prescribed Scripts Diclofenac Sodium (DICLOFENAC SODIUM) 50 Mg Tablet.dr 1 TAB PO BID PRN for HEADACHE for 4 Days, #8 TAB 1 Refill Prov: SLADE CUEVA MD 04/10/19 Problem Qualifiers Primary Impression: Migraine headache Migraine type: unspecified Status migrainosus presence: without status migrainosus Intractability: intractable Qualified Codes: G43.919 - Migraine, unspecified, intractable, without status migrainosus SLADE CUEVA MD Apr 10, 2019 02:29
[2019-04-10] MEDS ORDERED: METOCLOPRAMIDE 10 MG TABLET. PO ONE (02:30)
[2019-04-10] MEDS ORDERED: KETOROLAC 60 MG/2 ML VIAL. IM ONE (02:30)
[2019-04-10] MEDS ORDERED: diphenhydrAMINE 50 MG/ML VIAL IM ONE (02:30)
[2019-04-10] MEDS ORDERED: DICL50TA4 PO (03:15)
== END 2019-04-10 03:20 | disposition home or self-care (01) ==
LOC: ER 01:53
DX: G43.919 Migraine, unspecified, intractable, without status migrainosus (principal); I11.0 Hypertensive heart disease with heart failure; I50.9 Heart failure, unspecified; J44.9 Chronic obstructive pulmonary disease, unspecified; E78.00 Pure hypercholesterolemia, unspecified; F10.20 Alcohol dependence, uncomplicated; F12.90 Cannabis use, unspecified, uncomplicated; Y90.9 Presence of alcohol in blood, level not specified; F14.90 Cocaine use, unspecified, uncomplicated
CPT/HCPCS: 96372; 99284; J1200; J1885; J8597

== ENCOUNTER 2019-05-27 09:38 | Emergency (ER) | payer SELFPAY ==
[~2019-05-27] VITALS: Ht 175.3 cm; Wt 96.6 kg
[~2019-05-27 09:38] MED LIST changes: +DICL50TA4 PO; +POTA20TA4 PO; -POTA20TA82 PO
[2019-05-27] MEDS ORDERED: hydrALAZINE 20 MG/ML VIAL. IVP STA (11:20)
--- NOTE | 2019-05-27 11:26 | PHYS DOC ---
Past Medical History Past Medical History: CHF, COPD, High Cholesterol, Hypertension, Pneumonia, Other Additional Past Medical Histor: R LUNG COLLAPSED,UMBILICAL HERNIA,PARANOIA,RACING THOUGHTS Past Surgical History: Other Additional Past Surgical Histo: ORIF R JAW,R LUNG/CHEST TUBE Alcohol Use: Heavy Drug Use: Cocaine, Marijuana, Methamphetamine Social History Narrative: DENIES 05/27/19 Adult General Chief Complaint Chief Complaint: HYPERTENSION HPI HPI Patient is a 53 year old male who presents with headache, blurry vision, high blood pressure this been ongoing for last month or so. The patient states that he used to have Dr. Bagley is a primary care doctor but however has not been seen him of recent months. The patient also currently in treatment for meth and alcohol abuse at [facility]. Patient's blood pressure on arrival is 190 systolic. He describes a posterior headache. Review of Systems Review of Systems Constitutional: Denies fever or chills [] Eyes: Reports blurry vision. Denies change in visual acuity, redness, or eye pain [] HENT: Denies nasal congestion or sore throat [] Respiratory: Denies cough but reports mild shortness of breath [] Cardiovascular: No additional information not addressed in HPI [] GI: Denies abdominal pain, nausea, vomiting, bloody stools or diarrhea [] : Denies dysuria or hematuria [] Musculoskeletal: Denies back pain or joint pain [] Integument: Denies rash or skin lesions [] Neurologic: Reports headache, denies focal weakness or sensory changes [] Endocrine: Denies polyuria or polydipsia [] Complete systems were reviewed and found to be within normal limits, except as documented in this note. Current Medications Current Medications Current Medications Medications (Trade) Dose Ordered Sig/Jules Start Time Stop Time Status Last Admin Dose Admin Diphenhydramine HCl (Benadryl) 25 mg 1X STAT 05/27/19 13:06 05/27/19 13:10 DC 05/27/19 13:34 25 MG Furosemide (Lasix) 40 mg 1X STAT 05/27/19 12:32 05/27/19 12:44 DC 05/27/19 12:42 40 MG Hydralazine HCl (Apresoline Inj) 10 mg 1X STAT 05/27/19 11:20 05/27/19 11:22 DC 05/27/19 12:42 10 MG Ketorolac Tromethamine (Toradol 15mg Vial) 10 mg 1X STAT 05/27/19 13:06 05/27/19 13:10 DC 05/27/19 13:34 10 MG Lidocaine HCl 20 ml 1X STAT 05/27/19 14:01 05/27/19 14:02 UNV Prochlorperazine Edisylate (Compazine) 10 mg 1X ONCE 05/27/19 13:15 05/27/19 13:16 DC 05/27/19 13:34 10 MG Allergies Allergies Allergies Coded Allergies Type Severity Reaction Last Updated Verified No Known Drug Allergies 09/13/17 No Physical Exam Physical Exam Constitutional: Well developed, well nourished, no acute distress, non-toxic appearance. [] HENT: Normocephalic, atraumatic, bilateral external ears normal, oropharynx moist, no oral exudates, nose normal. [] Eyes: PERRLA, EOMI, conjunctiva normal, no discharge. [] Neck: Normal range of motion, no tenderness, supple, no stridor. [] Cardiovascular:Heart rate regular rhythm, no murmur [] Lungs & Thorax: Bilateral breath sounds clear to auscultation [] Abdomen: Bowel sounds normal, soft, no tenderness, has hernia. Skin: Warm, dry, no erythema, no rash. [] Neurologic: Alert and oriented X 3, normal motor function, normal sensory function, no focal deficits noted. [] Psychologic: Affect normal, judgement normal, mood normal. [] Current Patient Data Vital Signs Vital Signs Date Time Temp Pulse Resp B/P (MAP) Pulse Ox O2 Delivery O2 Flow Rate FiO2 05/27/19 12:42 76 177/80 05/27/19 09:52 98.8 16 95 Room Air 98.8 Lab Values Laboratory Tests Test 05/27/19 11:14 05/27/19 11:45 05/27/19 12:38 White Blood Count 7.1 x10^3/uL (4.0-11.0) Red Blood Count 5.23 x10^6/uL (4.30-5.70) Hemoglobin 13.1 g/dL (13.0-17.5) Hematocrit 40.5 % (39.0-53.0) Mean Corpuscular Volume 77 fL (79-100) L Mean Corpuscular Hemoglobin 25 pg (25-35) Mean Corpuscular Hemoglobin Concent 32 g/dL (31-37) Red Cell Distribution Width 13.5 % (11.5-14.5) Platelet Count 195 x10^3/uL (140-400) Neutrophils (%) (Auto) 59 % (31-73) Lymphocytes (%) (Auto) 30 % (24-48) Monocytes (%) (Auto) 8 % (0-9) Eosinophils (%) (Auto) 3 % (0-3) Basophils (%) (Auto) 1 % (0-3) Neutrophils # (Auto) 4.1 x10^3/uL (1.8-7.7) Lymphocytes # (Auto) 2.1 x10^3/uL (1.0-4.8) Monocytes # (Auto) 0.6 x10^3/uL (0.0-1.1) Eosinophils # (Auto) 0.2 x10^3/uL (0.0-0.7) Basophils # (Auto) 0.1 x10^3/uL (0.0-0.2) Sodium Level 139 mmol/L (136-145) Potassium Level 4.2 mmol/L (3.5-5.1) Chloride Level 102 mmol/L (98-107) Carbon Dioxide Level 30 mmol/L (21-32) Anion Gap 7 (6-14) Blood Urea Nitrogen 8 mg/dL (8-26) Creatinine 1.2 mg/dL (0.7-1.3) Estimated GFR (Cockcroft-Gault) 76.3 BUN/Creatinine Ratio 7 (6-20) Glucose Level 101 mg/dL (70-99) H Calcium Level 9.0 mg/dL (8.5-10.1) Magnesium Level 1.9 mg/dL (1.8-2.4) Total Bilirubin 0.3 mg/dL (0.2-1.0) Aspartate Amino Transferase (AST) 18 U/L (15-37) Alanine Aminotransferase (ALT) 21 U/L (16-63) Alkaline Phosphatase 91 U/L (46-116) Troponin I Quantitative < 0.017 ng/mL (0.000-0.055) WS-Bpy-V-Type Natriuretic Peptide 409 pg/mL (0-124) H Total Protein 7.4 g/dL (6.4-8.2) Albumin 4.1 g/dL (3.4-5.0) Albumin/Globulin Ratio 1.2 (1.0-1.7) Ethyl Alcohol Level < 10 mg/dL (0-10) Urine Collection Type Unknown Urine Color Yellow Urine Clarity Cloudy Urine pH 6.0 Urine Specific [place] <=1.005 Urine Protein Negative mg/dL (NEG-TRACE) Urine Glucose (UA) Negative mg/dL (NEG) Urine Ketones (Stick) Negative mg/dL (NEG) Urine Blood Negative (NEG) Urine Nitrite Negative (NEG) Urine Bilirubin Negative (NEG) Urine Urobilinogen Dipstick 0.2 mg/dL (0.2 mg/dL) Urine Leukocyte Esterase Negative (NEG) Urine RBC Occ /HPF (0-2) Urine WBC 0 /HPF (0-4) Urine Squamous Epithelial Cells Occ /LPF Urine Bacteria 0 /HPF (0-FEW) Urine Mucus Slight /LPF Urine Opiates Screen Neg (NEG) Urine Methadone Screen Neg (NEG) Urine Barbiturates Neg (NEG) Urine Phencyclidine Screen Neg (NEG) Urine Amphetamine/Methamphetamine Neg (NEG) Urine Benzodiazepines Screen Neg (NEG) Urine Cocaine Screen Neg (NEG) Urine Cannabinoids Screen Neg (NEG) Urine Ethyl Alcohol Neg (NEG) Laboratory Tests 05/27/19 11:14 Laboratory Tests 05/27/19 11:45 EKG EKG EKG interpreted by Dr. Albino Turner with rate of 68. No STEMI. Left wynn axis. [] Radiology/Procedures Radiology/Procedures [facility] [address] [place] [address] IMAGING REPORT Signed PATIENT: VANIA MISHRA ACCOUNT: [id number] : 1965 LOCATION: ER AGE: 53 SEX: M EXAM STATUS: REG ER ORD. PHYSICIAN: CIPRIANO SAL APRN REASON: shortness of breath PROCEDURE: CHEST PA & LATERAL CHEST PA LATERAL History: Shortness of breath Comparison: January 23, 2019 Findings: Bilateral interstitial prominence. Biapical bullous changes, unchanged. Unchanged heart size. No pleural effusion. No focal consolidation. Impression: 1. Mild bilateral interstitial prominence, may indicate early pulmonary edema or atypical infection. Electronically signed by: Shaq Martinez DO (05/27/2019 12:24 PM) [id number] DICTATED and SIGNED BY: SHAQ MARTINEZ DO DATE: 05/27/19 1224 [][facility] [address] [place] [address] IMAGING REPORT Signed PATIENT: VANIA MISHRA ACCOUNT: [id number] : 1965 LOCATION: ER AGE: 53 SEX: M EXAM STATUS: REG ER ORD. PHYSICIAN: CIPRIANO SAL APRN REASON: headache PROCEDURE: CT HEAD WO CONTRAST Examination: CT HEAD WO CONTRAST History: Headache Comparison/Correlation: 04/02/2019 CT head without contrast Findings: Axial images were obtained without contrast. Ventricles are normal size. No intracranial hemorrhage, midline shift, or mass effect. Bony structures are grossly unremarkable. A small right maxillary sinus fluid level is present. Visualized orbits are unremarkable. Impression: No suspicious intracranial process. Right maxillary acute sinusitis noted. RS Compliance Statement: One or more of the following individualized dose reduction techniques were utilized for this examination: 1. Automated exposure control 2. Adjustment of the mA and/or kV according to patient size 3. Use of iterative reconstruction technique Electronically signed by: Carlos Gandhi MD (05/27/2019 11:47 AM) [facility] DICTATED and SIGNED BY: CARLOS GANDHI MD DATE: 05/27/19 1147 Course & Med Decision Making Course & Med Decision Making Pertinent Labs and Imaging studies reviewed. (See chart for details) Will get head CT, chest x-ray, and labs. Will also give Hydralazine for BP. I suspect that his headache is related to blood pressure. Also gave Lasix. Blood pressure reduced to 150's still was having headache. Gave headache cocktail and part of headache disappreared. Then gave Intranasal lidocaine and it made headache disappear. Discussed with patient the need to follow up with primary care and have blood pressure medications adjusted. Will d/c home to follow up with PCP. Dragon Disclaimer Dragon Disclaimer This electronic medical record was generated, in whole or in part, using a voice recognition dictation system. Departure Departure Impression: Primary Impression: Headache Disposition: HOME, SELF-CARE Condition: STABLE Referrals: NO PCP (PCP) Patient Instructions: General Headache Without Cause Additional Instructions: Thank you for visiting [facility]. We appreciate you trusting us with your care. If any additional problems come up don't hesitate to return to visit us. Please follow up with your primary care provider so they can plan additional care if needed and know about the problem that you had. If symptoms worsen come back to the Emergency Department. Any concerning symptoms that start such as chest pain, shortness of air, weakness or numbness on one side of the body, running high fevers or any other concerning symptoms return to the ER. Problem Qualifiers Primary Impression: Headache Headache type: unspecified Headache chronicity pattern: unspecified teofilo cruz Intractability: not intractable Qualified Codes: R51 - Headache CIPRIANO SAL APRN May 27, 2019 11:26
[2019-05-27 11:27] LABS: BASO # 0.1 x10^3/uL (0.0-0.2); BASO % 1 % (0-3); EOS # 0.2 x10^3/uL (0.0-0.7); EOS % 3 % (0-3); HEMATOCRIT 40.5 % (39.0-53.0); HEMOGLOBIN 13.1 g/dL (13.0-17.5); LYMPH # 2.1 x10^3/uL (1.0-4.8); LYMPH % 30 % (24-48); MEAN CORPUSCULAR HEMOGLOBIN 25 pg (25-35); MEAN CORPUSCULAR HGB CONC 32 g/dL (31-37); MEAN CORPUSCULAR VOLUME 77 fL (79-100); MONO # 0.6 x10^3/uL (0.0-1.1); MONO % 8 % (0-9); NEUT # 4.1 x10^3/uL (1.8-7.7); NEUT % 59 % (31-73); PLATELET COUNT 195 x10^3/uL (140-400); RED BLOOD COUNT 5.23 x10^6/uL (4.30-5.70); RED CELL DISTRIBUTION WIDTH 13.5 % (11.5-14.5); WHITE BLOOD COUNT 7.1 x10^3/uL (4.0-11.0)
--- NOTE | 2019-05-27 11:50 | RAD ---
Examination: CT HEAD WO CONTRAST History: Headache Comparison/Correlation: 04/02/2019 CT head without contrast Findings: Axial images were obtained without contrast. Ventricles are normal size. No intracranial hemorrhage, midline shift, or mass effect. Bony structures are grossly unremarkable. A small right maxillary sinus fluid level is present. Visualized orbits are unremarkable. Impression: No suspicious intracranial process. Right maxillary acute sinusitis noted. PQRS Compliance Statement: One or more of the following individualized dose reduction techniques were utilized for this examination: 1. Automated exposure control 2. Adjustment of the mA and/or kV according to patient size 3. Use of iterative reconstruction technique Electronically signed by: Carlos Kauffman MD (05/27/2019 11:47 AM) [facility]
[2019-05-27 12:05] LABS: CREATININE 1.2 mg/dL (0.7-1.3); GFR 76.3; POTASSIUM 4.2 mmol/L (3.5-5.1)
--- NOTE | 2019-05-27 12:11 | EKG ---
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
[2019-05-27 12:14] LABS: ALBUMIN 4.1 g/dL (3.4-5.0); ALBUMIN/GLOBULIN RATIO 1.2 (1.0-1.7); TOTAL BILIRUBIN 0.3 mg/dL (0.2-1.0); TOTAL PROTEIN 7.4 g/dL (6.4-8.2)
--- NOTE | 2019-05-27 12:27 | RAD ---
CHEST PA LATERAL History: Shortness of breath Comparison: January 23, 2019 Findings: Bilateral interstitial prominence. Biapical bullous changes, unchanged. Unchanged heart size. No pleural effusion. No focal consolidation. Impression: 1. Mild bilateral interstitial prominence, may indicate early pulmonary edema or atypical infection. Electronically signed by: Shaq Allen DO (05/27/2019 12:24 PM) [id number]
[2019-05-27] MEDS ORDERED: FUROSEMIDE 40 MG/4 ML VIAL. IVP STA (12:32)
[2019-05-27 12:45] LABS: BILIRUBIN,URINE NEGATIVE (NEG); CLARITY,URINE CLOUDY; COLOR,URINE YELLOW; NITRITE,URINE NEGATIVE (NEG); PROTEIN,URINE NEGATIVE (NEG-TRACE); UROBILINOGEN,URINE 0.2 mg/dL (0.2 mg/dL)
[2019-05-27 12:54] LABS: BACTERIA,URINE 0 /HPF (0-FEW); RBC,URINE OCC /HPF (0-2); SQUAMOUS EPITHELIAL CELL,UR OCC /LPF; WBC,URINE 0 /HPF (0-4)
[2019-05-27 12:57] LABS: BARBITURATES NEG (NEG); BENZODIAZEPINES NEG (NEG); CANNABINOIDS NEG (NEG); COCAINE NEG (NEG); METHADONE NEG (NEG); OPIATES NEG (NEG); PHENCYCLIDINE NEG (NEG)
[2019-05-27 13:06] LABS: AMPHETAMINE/METHAMPHETAMINE NEG (NEG)
[2019-05-27] MEDS ORDERED: diphenhydrAMINE 50 MG/ML VIAL IVP STA (13:06)
[2019-05-27] MEDS ORDERED: KETOROLAC 15 MG/ML VIAL. IV STA (13:06)
[2019-05-27] MEDS ORDERED: PROCHLORPERAZINE 10 MG/2 ML VIAL. IV ONE (13:15)
[2019-05-27 13:41] VITALS: BP 156/98
[2019-05-27] MEDS ORDERED: LIDOCAINE 2% 20 ML VIAL. IJ STA (14:01)
== END 2019-05-27 14:24 | disposition home or self-care (01) ==
LOC: ER 09:38
DX: I10 Essential (primary) hypertension (principal); R51 Headache; H53.8 Other visual disturbances; I50.9 Heart failure, unspecified; J44.9 Chronic obstructive pulmonary disease, unspecified; E78.00 Pure hypercholesterolemia, unspecified; F14.90 Cocaine use, unspecified, uncomplicated; F13.90 Sedative, hypnotic, or anxiolytic use, unspecified, uncomplicated; F12.90 Cannabis use, unspecified, uncomplicated; Z98.890 Other specified postprocedural states
CPT/HCPCS: 36415; 70450; 71046; 80053; 80307; 81001; 83735; 83880; 84484; 85025; 93005; 96374; 96375; 99285; G0480; J0360; J0780; J1200; J1885; J1940; J2001

== ENCOUNTER → 2020-01-22 | Outpatient (CLI) | payer OTHER ==
--- NOTE | 2020-01-22 11:29 | RAD ---
KNEE RIGHT 2V DATE: 01/22/2020 10:39 AM INDICATION: Reason: RIGHT KNEE AND LEFT HIP PAIN. / Spl. Instructions: / History: COMPARISON: None. FINDINGS: Bones: There is no evidence of acute fracture or dislocation. Joints: The joint spaces are normal. There is no joint effusion. Miscellaneous: None. IMPRESSION: Normal exam Electronically signed by: Rachid Farooq MD (01/22/2020 11:27 AM) [facility]
--- NOTE | 2020-01-22 11:30 | RAD ---
HIP LEFT 2V WITH PELVIS DATE: 01/22/2020 12:00 AM INDICATION: LEFT HIP PAIN COMPARISON: None. FINDINGS: Bones: There is no evidence of acute fracture or dislocation. Joints: The joint spaces are normal. Miscellaneous: None. IMPRESSION: Normal exam Electronically signed by: Rachid Farooq MD (01/22/2020 11:27 AM) [facility]
== END | disposition home or self-care (01) ==
LOC: RAD 09:26
PROVIDERS: ATTEND Anesthesiology Pain Medicine
DX: M25.552 Pain in left hip (principal); M25.561 Pain in right knee
CPT/HCPCS: 73502; 73560

== ENCOUNTER 2021-09-04 14:38 | Inpatient (IN) | payer MEDICAID, OTHER ==
[~2021-09-04] VITALS: Ht 172.7 cm; Wt 94.2 kg
[~2021-09-04 14:38] MED LIST changes: +AMLO-186 PO; -AMLO5TAB10 PO; -LISI-334 PO; +LISI20TA18 PO; -RISP1TAB3 PO; +RISP1TAB88 PO
--- NOTE | 2021-09-04 15:22 | RAD ---
EXAMINATION: Chest radiograph. VIEWS: Single AP view of the chest COMPARISON: Radiograph from 05/27/2019 INDICATION:56 years, Male, shortness of breath. FINDINGS: Cardiac silhouette is mildly enlarged. Biapical bullous changes, unchanged. Patchy bilateral airspace disease. Bilateral interstitial prominence. Small right pleural effusion. No pneumothorax. No acute osseous process. IMPRESSION: Mild cardiomegaly with scattered bilateral airspace opacities may represent interstitial pulmonary ed shahzad and/or multifocal pneumonia. Small right pleural effusion. Recommend follow-up to resolution. Electronically signed by: Sander Tong DO (09/04/2021 3:20 PM) [id number]
[2021-09-04 15:24] LABS: BASO % 1 % (0-3); EOS % 1 % (0-3); HEMATOCRIT 43.1 % (39.0-53.0); HEMOGLOBIN 13.9 g/dL (13.0-17.5); LYMPH # 1.1 x10^3/uL (1.0-4.8); LYMPH % 21 % (24-48); MEAN CORPUSCULAR HEMOGLOBIN 25 pg (25-35); MEAN CORPUSCULAR HGB CONC 32 g/dL (31-37); MEAN CORPUSCULAR VOLUME 77 fL (79-100); MONO # 0.7 x10^3/uL (0.0-1.1); MONO % 14 % (0-9); NEUT # 3.3 x10^3/uL (1.8-7.7); NEUT % 63 % (31-73); PLATELET COUNT 237 x10^3/uL (140-400); RED BLOOD COUNT 5.61 x10^6/uL (4.30-5.70); RED CELL DISTRIBUTION WIDTH 14.8 % (11.5-14.5); WHITE BLOOD COUNT 5.3 x10^3/uL (4.0-11.0)
[2021-09-04 15:28] LABS: BACTERIA,URINE 0 /HPF (0-FEW); RBC,URINE OCC /HPF (0-2); WBC,URINE 0 /HPF (0-4)
[2021-09-04] MEDS ORDERED: FUROSEMIDE 40 MG/4 ML VIAL. IVP ONE (15:30)
[2021-09-04 15:40] LABS: INFLUENZA B PATIENT NEGATIVE (NEGATIVE)
[2021-09-04 15:42] LABS: INFLUENZA A PATIENT POSITIVE (NEGATIVE)
[2021-09-04 15:53] LABS: CALCIUM 8.5 mg/dL (8.5-10.1); CREATININE 1.3 mg/dL (0.7-1.3); GFR 68.8; POTASSIUM 3.7 mmol/L (3.5-5.1)
[2021-09-04 16:05] LABS: ALBUMIN/GLOBULIN RATIO 0.7 (1.0-1.7); TOTAL BILIRUBIN 0.5 mg/dL (0.2-1.0); TOTAL PROTEIN 7.5 g/dL (6.4-8.2)
[2021-09-04] MEDS ORDERED: IPRATRPIUM/ALBUTEROL 0.5/2.5MG 3 ML NEBU. NEB ONE (16:15)
[2021-09-04] MEDS ORDERED: IOHEXOL 350 MG/ML 100 ML VIAL. IV ONE (16:15)
[2021-09-04] MEDS ORDERED: CONTRAST GIVEN. MC PRN (16:15)
[2021-09-04] MEDS ORDERED: methylPREDNISolone SOD SUCC PF 40 MG/ML VIAL. IV ONE (16:45)
--- NOTE | 2021-09-04 16:48 | PDOC1 ---
History and Physical Date of Service: DOS: DATE: 09/04/21 TIME: 16:44 Chief Complaint: Chief Complain: Shortness of Breath History of Present Illness: HPI: 56 year old male who presents with acute shortness of breath for 1 to 2 weeks now. Patient states that he has not taken his regular home medications for quite some time. He has a history of COPD, CHF, CAD, hypertension, dyslipidemia. He smokes half a pack to 1 pack/day. He states that he is very short of breath at home. He is tachypneic and tachycardic on presentation. He states it feels a lot like his CHF and COPD. He has not used his inhalers in quite some time. He states that it feels better when he sits up as opposed to laying down. Past Medical/Surgical History: PMH/PSH: PAST MEDICAL HISTORY: CHF, COPD, hypertension, hyperlipidemia, pneumonia, right lung pneumothorax, umbilical hernia repair, right jaw surgery, lung surgery on the right, right lung chest tube, cocaine use, marijuana use, and methamphetamine use. ALLERGIES: None. FAMILY HISTORY: Diabetes. SOCIAL HISTORY: He drinks, smokes and takes drugs. Allergies: Allergies: Coded Allergies: No Known Drug Allergies (Unverified , 09/13/17) Family History: Family History: Reviewed with no relative findings in the chart Social History: Social History: Smoking Status: Current Every Day Smoker Additional Information: 0.5 TO 1 PPD Alcohol Use: Heavy Drug Use: Cocaine, Marijuana, Methamphetamine Current Medications: Current Medications Current Medications Furosemide (Lasix) 40 mg 1X ONCE IVP Last administered on 09/04/21at 15:32; Start 09/04/21 at 15:30; Stop 09/04/21 at 15:31; Status DC Iohexol (Omnipaque 350 Mg/ml) 100 ml 1X ONCE IV ; Start 09/04/21 at 16:15; Stop 09/04/21 at 16:16; Status DC Albuterol/ Ipratropium (Duoneb) 3 ml 1X ONCE NEB Last administered on 09/04/21at 16:18; Start 09/04/21 at 16:15; Stop 09/04/21 at 16:16; Status DC Info (CONTRAST GIVEN -- Rx MONITORING) 1 each PRN DAILY PRN MC SEE COMMENTS; Start 09/04/21 at 16:15; Stop 09/06/21 at 16:14 Methylprednisolone Sodium Succinate (SOLU-Medrol 40MG VIAL) 60 mg 1X ONCE IV ; Start 09/04/21 at 16:45; Stop 09/04/21 at 16:46 Active Scripts Active Diclofenac Sodium 50 Mg Tablet.dr 1 Tab PO BID PRN 4 Days Fiorinal 50-325-40 Mg Capsule (Butalbital/Aspirin/Caffeine) 1 Each Capsule 1 Each PO QID PRN Amoxicillin 500 Mg Capsule 1 Cap PO TID Amlodipine Besylate 5 Mg Tablet 5 Mg PO DAILY 30 Days [Nicotine 21MG] 1 PATCH Patch 1 Patch TD DAILY 30 Days Reported Proair Hfa (Albuterol Sulfate) 8.5 Gm Hfa.aer.ad 2 Puff INH PRN Q6HRS PRN Stiolto Respimat Inhal [place] (Tiotropium Br/Olodaterol HCl) 4 Gm Mist.inhal 2 Puff IH DAILY Zoloft (Sertraline Hcl) 50 Mg Tablet 1 Tab PO DAILY Risperidone 1 Mg Tablet 1 Tab PO BID Hydroxyzine Hcl 25 Mg Tablet 2 Tab PO PRN TID PRN Lisinopril 40 Mg Tablet 1 Tab PO DAILY Atorvastatin Calcium 20 Mg Tablet 1 Tab PO DAILY Potassium Chloride 20 Meq Tablet.er 20 Meq PO DAILY Carvedilol (Carvedilol) 12.5 Mg Tablet 25 Tab PO BID Aspir 81 (Aspirin) 81 Mg Tablet.dr 1 Tab PO DAILY Furosemide 40 Mg Tablet 1 Tab PO DAILY ROS: Review of Systems Review of System REVIEW OF SYSTEMS: GENERAL: Denies weakness SKIN: No bruising, hair changes or rashes. EYES: No blurred, double or loss of vision. NOSE AND THROAT: No history of nosebleeds, hoarseness or sore throat. HEART: No history of palpitations, chest pain or shortness of breath on exertion. LUNGS: Denies cough, hemoptysis, wheezing or shortness of breath. GASTROINTESTINAL: Denies changes in appetite, nausea, vomiting, diarrhea or constipation. GENITOURINARY: No history of frequency, urgency, hesitancy or nocturia. NEUROLOGIC: Denies history of numbness, tingling, or tremor. PSYCHIATRIC: No history of panic, anxiety or depression. ENDOCRINE: No history of heat or cold intolerance, polyuria or polydipsia. EXTREMITIES: Denies joint pain, pain on walking or stiffness. Physical Exam: Vital Signs: Vital Signs Date Time Temp Pulse Resp B/P (MAP) Pulse Ox O2 Delivery O2 Flow Rate FiO2 09/04/21 16:20 97 Room Air 09/04/21 14:38 98.3 109 26 167/100 (122) 98.3 Physcial Exam: General: Well developed, well nourished, no acute distress, well appearing HEENT: Pupils equally round and reactive to light, EOMI, no discharge, normal conjunctiva Neck: Supple, no nuchal rigidity, no JVD, trachea midline, no tenderness Cardiac: RRR, no murmurs, no gallops, no rubs Chest/Lungs: CTAB, no wheeze, no rhonchi, no crackles Abdomen: soft, non-distended, no guarding, no peritoneal signs, non-tender Back: No tenderness Extremities: no edema, pulses intact, non-tender,capillary refill <3 sec bilateral upper and lower extremities, Neuro: Alert and oriented x 4, no focal deficits, normal speech Labs: Labs: Laboratory Tests Test 09/04/21 14:40 09/04/21 15:02 Urine Collection Type Unknown Urine Color (Auto) Yellow Urine Turbidity Clear Urine pH (Auto) 6.0 (<5.0-8.0) Urine Specific [place] 1.022 (1.000-1.030) Urine Protein (Auto) 50 mg/dL (Negative) Urine Glucose (Auto)(UA) Negative mg/dL (Negative) Urine Ketones (Auto) Negative mg/dL (Negative) Urine Blood (Auto) Negative (Negative) Urine Nitrite (Auto) Negative (Negative) Urine Bilirubin (Auto) Negative (Negative) Urine Urobilinogen (Auto) 4 mg/dL (Normal) Urine Leukocyte Esterase (Auto) Negative (Negative) Urine RBC Occ /HPF (0-2) Urine WBC 0 /HPF (0-4) Urine Bacteria 0 /HPF (0-FEW) Urine Mucus Mod /LPF Influenza Type A Antigen Positive (NEGATIVE) Influenza Type B Antigen Negative (NEGATIVE) SARS-CoV-2 Antigen (Rapid) Negative (NEGATIVE) White Blood Count 5.3 x10^3/uL (4.0-11.0) Red Blood Count 5.61 x10^6/uL (4.30-5.70) Hemoglobin 13.9 g/dL (13.0-17.5) Hematocrit 43.1 % (39.0-53.0) Mean Corpuscular Volume 77 fL (79-100) Mean Corpuscular Hemoglobin 25 pg (25-35) Mean Corpuscular Hemoglobin Concent 32 g/dL (31-37) Red Cell Distribution Width 14.8 % (11.5-14.5) Platelet Count 237 x10^3/uL (140-400) Neutrophils (%) (Auto) 63 % (31-73) Lymphocytes (%) (Auto) 21 % (24-48) Monocytes (%) (Auto) 14 % (0-9) Eosinophils (%) (Auto) 1 % (0-3) Basophils (%) (Auto) 1 % (0-3) Neutrophils # (Auto) 3.3 x10^3/uL (1.8-7.7) Lymphocytes # (Auto) 1.1 x10^3/uL (1.0-4.8) Monocytes # (Auto) 0.7 x10^3/uL (0.0-1.1) Eosinophils # (Auto) 0.0 x10^3/uL (0.0-0.7) Basophils # (Auto) 0.0 x10^3/uL (0.0-0.2) D-Dimer (Rajani) 0.67 ug/mlFEU (0.00-0.50) Sodium Level 137 mmol/L (136-145) Potassium Level 3.7 mmol/L (3.5-5.1) Chloride Level 101 mmol/L (98-107) Carbon Dioxide Level 25 mmol/L (21-32) Anion Gap 11 (6-14) Blood Urea Nitrogen 13 mg/dL (8-26) Creatinine 1.3 mg/dL (0.7-1.3) Estimated GFR (Cockcroft-Gault) 68.8 BUN/Creatinine Ratio 10 (6-20) Glucose Level 103 mg/dL (70-99) Lactic Acid Level 1.2 mmol/L (0.4-2.0) Calcium Level 8.5 mg/dL (8.5-10.1) Total Bilirubin 0.5 mg/dL (0.2-1.0) Aspartate Amino Transf (AST/SGOT) 22 U/L (15-37) Alanine Aminotransferase (ALT/SGPT) 28 U/L (16-63) Alkaline Phosphatase 95 U/L (46-116) Troponin I High Sensitivity 45 ng/L (4-75) OZ-Ksa-P-Type Natriuretic Peptide 2188 pg/mL (0-124) Total Protein 7.5 g/dL (6.4-8.2) Albumin 3.0 g/dL (3.4-5.0) Albumin/Globulin Ratio 0.7 (1.0-1.7) Laboratory Tests Test 09/04/21 14:40 09/04/21 15:02 Urine Collection Type Unknown Urine Color (Auto) Yellow Urine Turbidity Clear Urine pH (Auto) 6.0 (<5.0-8.0) Urine Specific [place] 1.022 (1.000-1.030) Urine Protein (Auto) 50 mg/dL (Negative) Urine Glucose (Auto)(UA) Negative mg/dL (Negative) Urine Ketones (Auto) Negative mg/dL (Negative) Urine Blood (Auto) Negative (Negative) Urine Nitrite (Auto) Negative (Negative) Urine Bilirubin (Auto) Negative (Negative) Urine Urobilinogen (Auto) 4 mg/dL (Normal) Urine Leukocyte Esterase (Auto) Negative (Negative) Urine RBC Occ /HPF (0-2) Urine WBC 0 /HPF (0-4) Urine Bacteria 0 /HPF (0-FEW) Urine Mucus Mod /LPF Influenza Type A Antigen Positive (NEGATIVE) Influenza Type B Antigen Negative (NEGATIVE) SARS-CoV-2 Antigen (Rapid) Negative (NEGATIVE) White Blood Count 5.3 x10^3/uL (4.0-11.0) Red Blood Count 5.61 x10^6/uL (4.30-5.70) Hemoglobin 13.9 g/dL (13.0-17.5) Hematocrit 43.1 % (39.0-53.0) Mean Corpuscular Volume 77 fL (79-100) Mean Corpuscular Hemoglobin 25 pg (25-35) Mean Corpuscular Hemoglobin Concent 32 g/dL (31-37) Red Cell Distribution Width 14.8 % (11.5-14.5) Platelet Count 237 x10^3/uL (140-400) Neutrophils (%) (Auto) 63 % (31-73) Lymphocytes (%) (Auto) 21 % (24-48) Monocytes (%) (Auto) 14 % (0-9) Eosinophils (%) (Auto) 1 % (0-3) Basophils (%) (Auto) 1 % (0-3) Neutrophils # (Auto) 3.3 x10^3/uL (1.8-7.7) Lymphocytes # (Auto) 1.1 x10^3/uL (1.0-4.8) Monocytes # (Auto) 0.7 x10^3/uL (0.0-1.1) Eosinophils # (Auto) 0.0 x10^3/uL (0.0-0.7) Basophils # (Auto) 0.0 x10^3/uL (0.0-0.2) D-Dimer (Rajani) 0.67 ug/mlFEU (0.00-0.50) Sodium Level 137 mmol/L (136-145) Potassium Level 3.7 mmol/L (3.5-5.1) Chloride Level 101 mmol/L (98-107) Carbon Dioxide Level 25 mmol/L (21-32) Anion Gap 11 (6-14) Blood Urea Nitrogen 13 mg/dL (8-26) Creatinine 1.3 mg/dL (0.7-1.3) Estimated GFR (Cockcroft-Gault) 68.8 BUN/Creatinine Ratio 10 (6-20) Glucose Level 103 mg/dL (70-99) Lactic Acid Level 1.2 mmol/L (0.4-2.0) Calcium Level 8.5 mg/dL (8.5-10.1) Total Bilirubin 0.5 mg/dL (0.2-1.0) Aspartate Amino Transf (AST/SGOT) 22 U/L (15-37) Alanine Aminotransferase (ALT/SGPT) 28 U/L (16-63) Alkaline Phosphatase 95 U/L (46-116) Troponin I High Sensitivity 45 ng/L (4-75) MM-Xiy-Y-Type Natriuretic Peptide 2188 pg/mL (0-124) Total Protein 7.5 g/dL (6.4-8.2) Albumin 3.0 g/dL (3.4-5.0) Albumin/Globulin Ratio 0.7 (1.0-1.7) Images: Images PROCEDURE: PORTABLE CHEST 1V EXAMINATION: Chest radiograph. VIEWS: Single AP view of the chest COMPARISON: Radiograph from 05/27/2019 INDICATION:56 years, Male, shortness of breath. FINDINGS: Cardiac silhouette is mildly enlarged. Biapical bullous changes, unchanged. Patchy bilateral airspace disease. Bilateral interstitial prominence. Small right pleural effusion. No pneumothorax. No acute osseous process. IMPRESSION: Mild cardiomegaly with scattered bilateral airspace opacities may represent interstitial pulmonary edema and/or multifocal pneumonia. Small right pleural effusion. Recommend follow-up to resolution. Assessment/Plan Assessment/Plan Flu a positive pneumonia Polysubstance abuse Elevated BNP may be suggestive of chronic hypoxia versus undiagnosed COPD History of CHF History of COPD History of hypertension History of dyslipidemia History of pneumothorax Admit to hospitalist service for further management Continue empiric IV antibiotics Continue Tamiflu Continue IV steroids O2 supplementation as needed Lovenox for DVT prophylaxis Protonix GI prophylaxis ADA diet CODE STATUS full Discussed with RN and SW Disposition inpatient management as above, anticipate discharge in the next 24 to 48 hours DPOA: Undesignated Justifications for Admission Other Justification KRISTYN BENÍTEZ MD Sep 04, 2021 16:48
--- NOTE | 2021-09-04 16:57 | PHYS DOC ---
Past Medical History Past Medical History: CHF, COPD, High Cholesterol, Hypertension, Pneumonia, Other Additional Past Medical Histor: R LUNG COLLAPSED,UMBILICAL HERNIA,PARANOIA,RACING THOUGHTS Past Surgical History: Other Additional Past Surgical Histo: ORIF R JAW,R LUNG/CHEST TUBE Smoking Status: Current Every Day Smoker Additional Information: 0.5 TO 1 PPD Alcohol Use: Heavy Drug Use: Cocaine, Marijuana, Methamphetamine General Adult EDM: Chief Complaint: SHORTNESS OF BREATH HPI: HPI: Patient is a 56 year old male who presents with acute shortness of breath for 1 to 2 weeks now. Patient states that he has not taken his regular home medications for quite some time. He has a history of COPD, CHF, CAD, hypertension, dyslipidemia. He smokes half a pack to 1 pack/day. He states that he is very short of breath at home. He is tachypneic and tachycardic on presentation. He states it feels a lot like his CHF and COPD. He has not used his inhalers in quite some time. He states that it feels better when he sits up as opposed to laying down. Review of Systems: Review of Systems: Constitutional: Denies fever or chills. [] Eyes: Denies change in visual acuity. [] HENT: Denies nasal congestion or sore throat. [] Respiratory: Positive cough and shortness of breath. [] Cardiovascular: Denies chest pain or edema. [] GI: Denies abdominal pain, nausea, vomiting, bloody stools or diarrhea. [] : Denies dysuria. [] Musculoskeletal: Denies back pain or joint pain. [] Integument: Denies rash. [] Neurologic: Denies headache, focal weakness or sensory changes. [] Endocrine: Denies polyuria or polydipsia. [] Lymphatic: Denies swollen glands. [] Psychiatric: Denies depression or anxiety. [] Heart Score: C/O Chest Pain: No Risk Factors: Risk Factors: DM, Current or recent (<one month) smoker, HTN, HLP, family history of CAD, obesity. Risk Scores: Score 0 - 3: 2.5% MACE over next 6 weeks - Discharge Home Score 4 - 6: 20.3% MACE over next 6 weeks - Admit for Clinical Observation Score 7 - 10: 72.7% MACE over next 6 weeks - Early Invasive Strategies Current Medications: Current Medications Medications (Trade) Dose Ordered Sig/Jules Start Time Stop Time Status Last Admin Dose Admin Albuterol/ Ipratropium (Duoneb) 3 ml 1X ONCE 09/04/21 16:15 09/04/21 16:16 DC 09/04/21 16:18 3 ML Furosemide (Lasix) 40 mg 1X ONCE 09/04/21 15:30 09/04/21 15:31 DC 09/04/21 15:32 40 MG Info (CONTRAST GIVEN -- Rx MONITORING) 1 each PRN DAILY PRN 09/04/21 16:15 09/06/21 16:14 Iohexol (Omnipaque 350 Mg/ml) 100 ml 1X ONCE 09/04/21 16:15 09/04/21 16:16 DC Methylprednisolone Sodium Succinate (SOLU-Medrol 40MG VIAL) 60 mg 1X ONCE 09/04/21 16:45 09/04/21 16:46 DC Allergies: Allergies: Allergies Coded Allergies Type Severity Reaction Last Updated Verified No Known Drug Allergies 09/13/17 No Physical Exam: PE: Constitutional: Well developed, well nourished, no acute distress, non-toxic bora earance. [] HENT: Normocephalic, atraumatic, bilateral external ears normal, oropharynx moist, no oral exudates, nose normal. [] Eyes: PERRLA, EOMI, conjunctiva normal, no discharge. [] Neck: Normal range of motion, no tenderness, supple, no stridor. [] Cardiovascular:Heart rate tachycardic regular rhythm, no murmur [] Lungs & Thorax: Bilateral diminished breath sounds, tachypnea [] Abdomen: Bowel sounds normal, soft, no tenderness, no masses, no pulsatile masses. [] Skin: Warm, dry, no erythema, no rash. [] Back: No tenderness, no CVA tenderness. [] Extremities: No tenderness, no cyanosis, no clubbing, ROM intact, no edema. [] Neurologic: Alert and oriented X 3, normal motor function, normal sensory function, no focal deficits noted. [] Psychologic: Affect normal, judgement normal, mood normal. [] Current Patient Data: Labs: Laboratory Tests Test 09/04/21 14:40 09/04/21 15:02 Urine Collection Type Unknown Urine Color (Auto) Yellow Urine Turbidity Clear Urine pH (Auto) 6.0 (<5.0-8.0) Urine Specific [place] 1.022 (1.000-1.030) Urine Protein (Auto) 50 mg/dL (Negative) Urine Glucose (Auto)(UA) Negative mg/dL (Negative) Urine Ketones (Auto) Negative mg/dL (Negative) Urine Blood (Auto) Negative (Negative) Urine Nitrite (Auto) Negative (Negative) Urine Bilirubin (Auto) Negative (Negative) Urine Urobilinogen (Auto) 4 mg/dL (Normal) Urine Leukocyte Esterase (Auto) Negative (Negative) Urine RBC Occ /HPF (0-2) Urine WBC 0 /HPF (0-4) Urine Bacteria 0 /HPF (0-FEW) Urine Mucus Mod /LPF Influenza Type A Antigen Positive (NEGATIVE) Influenza Type B Antigen Negative (NEGATIVE) SARS-CoV-2 Antigen (Rapid) Negative (NEGATIVE) White Blood Count 5.3 x10^3/uL (4.0-11.0) Red Blood Count 5.61 x10^6/uL (4.30-5.70) Hemoglobin 13.9 g/dL (13.0-17.5) Hematocrit 43.1 % (39.0-53.0) Mean Corpuscular Volume 77 fL (79-100) L Mean Corpuscular Hemoglobin 25 pg (25-35) Mean Corpuscular Hemoglobin Concent 32 g/dL (31-37) Red Cell Distribution Width 14.8 % (11.5-14.5) H Platelet Count 237 x10^3/uL (140-400) Neutrophils (%) (Auto) 63 % (31-73) Lymphocytes (%) (Auto) 21 % (24-48) L Monocytes (%) (Auto) 14 % (0-9) H Eosinophils (%) (Auto) 1 % (0-3) Basophils (%) (Auto) 1 % (0-3) Neutrophils # (Auto) 3.3 x10^3/uL (1.8-7.7) Lymphocytes # (Auto) 1.1 x10^3/uL (1.0-4.8) Monocytes # (Auto) 0.7 x10^3/uL (0.0-1.1) Eosinophils # (Auto) 0.0 x10^3/uL (0.0-0.7) Basophils # (Auto) 0.0 x10^3/uL (0.0-0.2) D-Dimer (Rajani) 0.67 ug/mlFEU (0.00-0.50) H Sodium Level 137 mmol/L (136-145) Potassium Level 3.7 mmol/L (3.5-5.1) Chloride Level 101 mmol/L (98-107) Carbon Dioxide Level 25 mmol/L (21-32) Anion Gap 11 (6-14) Blood Urea Nitrogen 13 mg/dL (8-26) Creatinine 1.3 mg/dL (0.7-1.3) Estimated GFR (Cockcroft-Gault) 68.8 BUN/Creatinine Ratio 10 (6-20) Glucose Level 103 mg/dL (70-99) H Lactic Acid Level 1.2 mmol/L (0.4-2.0) Calcium Level 8.5 mg/dL (8.5-10.1) Total Bilirubin 0.5 mg/dL (0.2-1.0) Aspartate Amino Transferase (AST) 22 U/L (15-37) Alanine Aminotransferase (ALT) 28 U/L (16-63) Alkaline Phosphatase 95 U/L (46-116) Troponin I High Sensitivity 45 ng/L (4-75) QN-Xie-E-Type Natriuretic Peptide 2188 pg/mL (0-124) H Total Protein 7.5 g/dL (6.4-8.2) Albumin 3.0 g/dL (3.4-5.0) L Albumin/Globulin Ratio 0.7 (1.0-1.7) L Laboratory Tests 09/04/21 15:02 Laboratory Tests 09/04/21 15:02 Vital Signs: Vital Signs Date Time Temp Pulse Resp B/P (MAP) Pulse Ox O2 Delivery O2 Flow Rate FiO2 09/04/21 16:20 97 Room Air 09/04/21 14:38 98.3 109 26 167/100 (122) 98.3 EKG: EKG: [] Sinus tachycardia, left atrial abnormality, leftward axis deviation Radiology/Procedures: Radiology/Procedures: Chest x-ray : mild cardiomegaly with scattered bilateral airspace opacities may represent interstitial pneumonia edema or multifocal pneumonia. Small right pleural effusion. Recommend follow-up to resolution Impression: 56-year-old male with history of CHF and COPD and tobacco abuse disorder. Presenting with COPD exacerbation, CHF exacerbation, shortness of breath, tachycardia, tachypnea. Course & Med Decision Making: Course & Med Decision Making Pertinent Labs and Imaging studies reviewed. (See chart for details) Patient was given 40 mg of Lasix IV push. Patient was given 1 times DuoNeb and Solu-Medrol. Patient stated that he felt much better after receiving these medications. Patient was not confident to go home, he is still tachypneic and tachycardic, he is uncomfortable being at home since he is so short of breath. He is unable to move around his house safely. He is not taking any of his home medications nor does he have any of his medications with him or at his residen ce. He will be admitted for stabilization as well as diuresis, continuation of DuoNebs, continuation of treatment for COPD exacerbation until patient is more stable to go home. Patient may need social work consult. Patient was admitted to the service of Dr. Crook. Esme Disclaimer: Esme Disclaimer: This electronic medical record was generated, in whole or in part, using a voice recognition dictation system. Departure Departure Referrals: French NUNEZ MD (PCP) LAKESHA HIGGINS MD Sep 04, 2021 16:57
[2021-09-04] MEDS ORDERED: diphenhydrAMINE HCL 25 MG CAPSULE PO PRN (17:00)
[2021-09-04] MEDS ORDERED: ONDANSETRON PF 4 MG/2 ML VIAL. IVP PRN (17:00)
[2021-09-04] MEDS ORDERED: ZOLPIDEM 5 MG TABLET. PO PRN (17:00)
[2021-09-04] MEDS ORDERED: ACETAMINOPHEN 325 MG TABLET. PO PRN (17:00)
[2021-09-04] MEDS ORDERED: PROCHLORPERAZINE 10 MG/2 ML VIAL. IV PRN (17:00)
[2021-09-04] MEDS ORDERED: SENNOSIDES 8.6 MG TABLET PO PRN (17:00)
[2021-09-04] MEDS ORDERED: DOCUSATE SODIUM 100 MG CAPSULE. PO PRN (17:00)
[2021-09-04] MEDS ORDERED: DEXTROSE 50% 25 GM / 50ML DISP.SYRIN. IV PRN (17:00)
[2021-09-04] MEDS ORDERED: diphenhydrAMINE 50 MG/ML VIAL IVP PRN (17:00)
[2021-09-04] MEDS: OSELTAMIVIR 75 MG CAPSULE PO SCH (17:17)
[2021-09-04] MEDS: PIPERACILLIN/TAZOBACTAM 3.375 GM in IV NORMAL SALINE 50ML 50 ML IV SCH (17:17)
[2021-09-04] MEDS: IPRATRPIUM/ALBUTEROL 0.5/2.5MG 3 ML NEBU. NEB SCH (17:32)
[2021-09-04] MEDS ORDERED: VANCOMYCIN 2 GM in IV NORMAL SALINE 500ML BAG 500 ML IV ONE (18:00)
[2021-09-04] MEDS: methylPREDNISolone SOD SUCC PF 40 MG/ML VIAL. IV SCH (18:00)
[2021-09-04] MEDS: VANCOMYCIN PER PHARMACY MC PRN (19:08)
--- NOTE | 2021-09-04 19:14 | NUR ---
Pharmacy Vancomycin Dosing Note S:Consulted to monitor and dose vancomycin started 09/04/21. O:VANIA MISHRA is a 56 year old M with Pneumonia . Height: 5 feet, 8 inches Weight: 86.3 kg [place] Body Weight: 68.40 Adjusted Body Weight: 75.56 Dosing Weight: Actual Other Antibiotics: Zosyn LABS: Last BUN: 13 Last Creatinine: 1.3 Creatinine Clearance: 66 mL/min Last WBC: 5.3 Last Procalcitonin: Tmax (past 24 hours): 98.3 Microbiology: - I/O: Drug Levels: Last level: on at Last dose given 09/04/21 at 1745 Vancomycin Dosing: Loading Dose: x1 Dosing Weight: Actual Target Trough: 15-20 A: Based on: weight and renal function P: 1. Begin Vancomycin 1000 mg IV q12h 2. Follow up Trough level on 09/06/21 at 0530 3. Pharmacy will continue to monitor, follow and adjust therapy as needed. Yissel Noland [facility], 09/04/21 [id number]
[2021-09-04 19:30] VITALS: BP 165/85
[2021-09-04] MEDS: ENOXAPARIN 40 MG/0.4 ML SYRINGE. SQ SCH (20:38)
[2021-09-04 23:50] VITALS: BP 153/100
[2021-09-05] MEDS: methylPREDNISolone SOD SUCC PF 40 MG/ML VIAL. IV SCH ×5 (00:02→23:49)
[2021-09-05] MEDS: PIPERACILLIN/TAZOBACTAM 3.375 GM in IV NORMAL SALINE 50ML 50 ML IV SCH ×5 (00:02→23:50)
[2021-09-05 03:40] VITALS: BP 155/92
[2021-09-05 04:48] LABS: BASO % 0 % (0-3); EOS % 0 % (0-3); HEMATOCRIT 45.8 % (39.0-53.0); HEMOGLOBIN 14.6 g/dL (13.0-17.5); LYMPH # 0.4 x10^3/uL (1.0-4.8); LYMPH % 9 % (24-48); MEAN CORPUSCULAR HEMOGLOBIN 25 pg (25-35); MEAN CORPUSCULAR HGB CONC 32 g/dL (31-37); MEAN CORPUSCULAR VOLUME 77 fL (79-100); MONO # 0.1 x10^3/uL (0.0-1.1); MONO % 1 % (0-9); NEUT # 3.5 x10^3/uL (1.8-7.7); NEUT % 90 % (31-73); PLATELET COUNT 250 x10^3/uL (140-400); RED BLOOD COUNT 5.94 x10^6/uL (4.30-5.70); RED CELL DISTRIBUTION WIDTH 15.2 % (11.5-14.5); WHITE BLOOD COUNT 3.9 x10^3/uL (4.0-11.0)
[2021-09-05 05:20] LABS: CALCIUM 8.7 mg/dL (8.5-10.1); CREATININE 1.4 mg/dL (0.7-1.3); GFR 63.2; POTASSIUM 3.9 mmol/L (3.5-5.1)
[2021-09-05] MEDS: VANCOMYCIN 1 GM in IV NORMAL SALINE 250ML 250 ML IV SCH ×2 (05:36→17:16)
[2021-09-05 06:50] VITALS: BP 130/69
[2021-09-05] MEDS: OSELTAMIVIR 75 MG CAPSULE PO SCH (08:01)
[2021-09-05 11:00] VITALS: BP 155/79
[2021-09-05] MEDS: VANCOMYCIN PER PHARMACY MC PRN (11:06)
--- NOTE | 2021-09-05 11:06 | NUR ---
Pharmacy Vancomycin Dosing Note S: Consulted to monitor and dose vancomycin started 09/04/21. O: VANIA MISHRA is a 56 year old M with Pneumonia, . Other Antibiotics: Zosyn LABS: Last BUN: 18 Last Creatinine: 1.4 Creatinine Clearance: 60 mL/min Last WBC: 3.9 Last Procalcitonin: <0.10 Tmax (past 24 hours): 98.9 Last dose given 09/05/21 at 0536 Vancomycin Dosing: Dosing Weight: Actual Target Trough: 15-20 A: Based on: P: 1. Vancomycin 1000 mg IV q12h 2. Follow up Trough level on 09/06/21 at 0530 3. Pharmacy will continue to monitor, follow and adjust therapy as needed. BASSEM NELSON [facility], 09/05/21 [id number]
[2021-09-05] MEDS: IPRATRPIUM/ALBUTEROL 0.5/2.5MG 3 ML NEBU. NEB SCH ×3 (11:27→20:00)
[2021-09-05 12:11] LABS: AMPHETAMINE/METHAMPHETAMINE NEG (NEG); BARBITURATES NEG (NEG); BENZODIAZEPINES NEG (NEG); CANNABINOIDS NEG (NEG); COCAINE POS (NEG); METHADONE NEG (NEG); OPIATES NEG (NEG); PHENCYCLIDINE POS (NEG)
[2021-09-05] MEDS ORDERED: IV NORMAL SALINE 1000ML BAG 1,000 ML IV ONE (12:30)
--- NOTE | 2021-09-05 12:38 | PDOC ---
[facility] [facility] PROGRESS NOTE Date of Service DOS: DATE: 09/05/21 TIME: 12:34 Chief Complaint Chief Complaint Assessment/Plan CARLA due to vasomotor nephropathy Flu a positive pneumonia Polysubstance abuse Elevated BNP may be suggestive of chronic hypoxia versus undiagnosed COPD History of CHF History of COPD History of hypertension History of dyslipidemia History of pneumothorax Continue IV fluids Continue empiric IV antibiotics Continue Tamiflu Continue IV steroids O2 supplementation as needed Lovenox for DVT prophylaxis Protonix GI prophylaxis ADA diet CODE STATUS full Discussed with RN and SW Disposition inpatient management as above, anticipate discharge in the next 24 to 48 hours DPOA: Undesignated History of Present Illness History of Present Illness 56 year old male who presents with acute shortness of breath for 1 to 2 weeks now. Patient states that he has not taken his regular home medications for quite some time. He has a history of COPD, CHF, CAD, hypertension, dyslipidemia. He smokes half a pack to 1 pack/day. He states that he is very short of breath at home. He is tachypneic and tachycardic on presentation. He states it feels a lot like his CHF and COPD. He has not used his inhalers in quite some time. He states that it feels better when he sits up as opposed to laying down. 09/05/2021 No acute events overnight. Patient seen examined bedside. Patient still having some chest tightness and difficulty breathing. Despite the fact that he saturating 96% on room air. However his creatinine did bump up to 1.4. I will start judicious light IV fluid replacement. Talk screen did show polysubstance abuse. Vitals/I&O Vitals/I&O: Vital Signs Date Time Temp Pulse Resp B/P (MAP) Pulse Ox O2 Delivery O2 Flow Rate FiO2 09/05/21 11:30 100 Room Air 09/05/21 06:50 98.0 97 22 130/69 (89) 98.0 I & O 09/04/21 09/04/21 09/05/21 15:00 23:00 07:00 Intake Total 50 ml 360 ml Output Total 400 ml Balance 50 ml -40 ml Physical Exam General: Alert, Oriented X3, Cooperative Heart: Regular rate Lungs: Clear, Other Abdomen: Normal bowel sounds Extremities: No clubbing Skin: No rashes Labs Labs: Laboratory Tests Test 09/04/21 14:40 09/04/21 15:02 09/05/21 04:00 Urine Collection Type Unknown Urine Color (Auto) Yellow Urine Turbidity Clear Urine pH (Auto) 6.0 (<5.0-8.0) Urine Specific [place] 1.022 (1.000-1.030) Urine Protein (Auto) 50 mg/dL (Negative) Urine Glucose (Auto)(UA) Negative mg/dL (Negative) Urine Ketones (Auto) Negative mg/dL (Negative) Urine Blood (Auto) Negative (Negative) Urine Nitrite (Auto) Negative (Negative) Urine Bilirubin (Auto) Negative (Negative) Urine Urobilinogen (Auto) 4 mg/dL (Normal) Urine Leukocyte Esterase (Auto) Negative (Negative) Urine RBC Occ /HPF (0-2) Urine WBC 0 /HPF (0-4) Urine Bacteria 0 /HPF (0-FEW) Urine Mucus Mod /LPF Urine Opiates Screen Neg (NEG) Urine Methadone Screen Neg (NEG) Urine Barbiturates Neg (NEG) Urine Phencyclidine Screen Pos (NEG) Urine Amphetamine/Methamphetamine Neg (NEG) Urine Benzodiazepines Screen Neg (NEG) Urine Cocaine Screen Pos (NEG) Urine Cannabinoids Screen Neg (NEG) Urine Ethyl Alcohol Neg (NEG) Influenza Type A Antigen Positive (NEGATIVE) Influenza Type B Antigen Negative (NEGATIVE) SARS-CoV-2 Antigen (Rapid) Negative (NEGATIVE) White Blood Count 5.3 x10^3/uL (4.0-11.0) 3.9 x10^3/uL (4.0-11.0) Red Blood Count 5.61 x10^6/uL (4.30-5.70) 5.94 x10^6/uL (4.30-5.70) Hemoglobin 13.9 g/dL (13.0-17.5) 14.6 g/dL (13.0-17.5) Hematocrit 43.1 % (39.0-53.0) 45.8 % (39.0-53.0) Mean Corpuscular Volume 77 fL (79-100) 77 fL (79-100) Mean Corpuscular Hemoglobin 25 pg (25-35) 25 pg (25-35) Mean Corpuscular Hemoglobin Concent 32 g/dL (31-37) 32 g/dL (31-37) Red Cell Distribution Width 14.8 % (11.5-14.5) 15.2 % (11.5-14.5) Platelet Count 237 x10^3/uL (140-400) 250 x10^3/uL (140-400) Neutrophils (%) (Auto) 63 % (31-73) 90 % (31-73) Lymphocytes (%) (Auto) 21 % (24-48) 9 % (24-48) Monocytes (%) (Auto) 14 % (0-9) 1 % (0-9) Eosinophils (%) (Auto) 1 % (0-3) 0 % (0-3) Basophils (%) (Auto) 1 % (0-3) 0 % (0-3) Neutrophils # (Auto) 3.3 x10^3/uL (1.8-7.7) 3.5 x10^3/uL (1.8-7.7) Lymphocytes # (Auto) 1.1 x10^3/uL (1.0-4.8) 0.4 x10^3/uL (1.0-4.8) Monocytes # (Auto) 0.7 x10^3/uL (0.0-1.1) 0.1 x10^3/uL (0.0-1.1) Eosinophils # (Auto) 0.0 x10^3/uL (0.0-0.7) 0.0 x10^3/uL (0.0-0.7) Basophils # (Auto) 0.0 x10^3/uL (0.0-0.2) 0.0 x10^3/uL (0.0-0.2) D-Dimer (Rajani) 0.67 ug/mlFEU (0.00-0.50) Sodium Level 137 mmol/L (136-145) 137 mmol/L (136-145) Potassium Level 3.7 mmol/L (3.5-5.1) 3.9 mmol/L (3.5-5.1) Chloride Level 101 mmol/L (98-107) 100 mmol/L (98-107) Carbon Dioxide Level 25 mmol/L (21-32) 25 mmol/L (21-32) Anion Gap 11 (6-14) 12 (6-14) Blood Urea Nitrogen 13 mg/dL (8-26) 18 mg/dL (8-26) Creatinine 1.3 mg/dL (0.7-1.3) 1.4 mg/dL (0.7-1.3) Estimated GFR (Cockcroft-Gault) 68.8 63.2 BUN/Creatinine Ratio 10 (6-20) Glucose Level 103 mg/dL (70-99) 154 mg/dL (70-99) Lactic Acid Level 1.2 mmol/L (0.4-2.0) Calcium Level 8.5 mg/dL (8.5-10.1) 8.7 mg/dL (8.5-10.1) Total Bilirubin 0.5 mg/dL (0.2-1.0) Aspartate Amino Transf (AST/SGOT) 22 U/L (15-37) Alanine Aminotransferase (ALT/SGPT) 28 U/L (16-63) Alkaline Phosphatase 95 U/L (46-116) Troponin I High Sensitivity 45 ng/L (4-75) AY-Wlx-I-Type Natriuretic Peptide 2188 pg/mL (0-124) Total Protein 7.5 g/dL (6.4-8.2) Albumin 3.0 g/dL (3.4-5.0) Albumin/Globulin Ratio 0.7 (1.0-1.7) Procalcitonin < 0.10 ng/mL (0.00-0.10) Thyroid Stimulating Hormone (TSH) 0.757 uIU/mL (0.358-3.74) Phosphorus Level 3.0 mg/dL (2.6-4.7) Magnesium Level 2.0 mg/dL (1.8-2.4) Assessment and Plan Assessmemt and Plan Problems Medical Problems: (1) Acute exacerbation of congestive heart failure Status: Acute (2) COPD with exacerbation Status: Acute Comment Review of Relevant I have reviewed the following items gretchen (where applicable) has been applied. Medications: Current Medications Medications (Trade) Dose Ordered Sig/Jules Route PRN Reason Start Time Stop Time Status Last Admin Dose Admin Furosemide (Lasix) 40 mg 1X ONCE IVP 09/04/21 15:30 09/04/21 15:31 DC 09/04/21 15:32 Albuterol/ Ipratropium (Duoneb) 3 ml 1X ONCE NEB 09/04/21 16:15 09/04/21 16:16 DC 09/04/21 16:18 Methylprednisolone Sodium Succinate (SOLU-Medrol 40MG VIAL) 60 mg 1X ONCE IV 09/04/21 16:45 09/04/21 16:46 DC 09/04/21 17:45 Methylprednisolone Sodium Succinate (SOLU-Medrol 40MG VIAL) 40 mg Q6HRS IV 09/04/21 18:00 09/05/21 11:51 Albuterol/ Ipratropium (Duoneb) 3 ml Q4HRS NEB 09/04/21 20:00 09/05/21 11:27 Vancomycin HCl (Vanco Per Pharmacy) 1 each PRN DAILY PRN MC SEE COMMENTS 09/04/21 17:00 09/05/21 11:06 Piperacillin Sod/ Tazobactam Sod 3.375 gm/Sodium Chloride 50 ml @ 100 mls/hr Q6HRS IV 09/04/21 18:00 09/05/21 11:52 Enoxaparin Sodium (Lovenox 40mg Syringe) 40 mg Q24H SQ 09/04/21 21:00 09/04/21 20:38 Oseltamivir Phosphate (Tamiflu) 75 mg DAILY PO 09/04/21 18:00 09/09/21 17:59 09/05/21 08:01 Vancomycin HCl 2 gm/Sodium Chloride 500 ml @ 250 mls/hr 1X ONCE IV 09/04/21 18:00 09/04/21 19:59 DC 09/04/21 17:45 Vancomycin HCl 1 gm/Sodium Chloride 250 ml @ 250 mls/hr Q12H IV 09/05/21 06:00 09/05/21 05:36 Justifications for Admission Other Justification Influenza A pneumonia KRISTYN BENÍTEZ MD Sep 05, 2021 12:38
[2021-09-05 15:00] VITALS: BP 159/79
[2021-09-05] MEDS: LACTOBACILLUS RHAMNOSUS GG 1 CAPSULE. PO SCH (20:33)
[2021-09-05] MEDS: BENZONATATE 100 MG CAPSULE. PO PRN (20:33)
[2021-09-05] MEDS: guaiFENesin DM 200MG/20MG 10 ML SYRUP PO PRN (20:33)
[2021-09-05] MEDS: ENOXAPARIN 40 MG/0.4 ML SYRINGE. SQ SCH (20:33)
[2021-09-05 22:29] VITALS: BP 155/89
[2021-09-06] MEDS: IPRATRPIUM/ALBUTEROL 0.5/2.5MG 3 ML NEBU. NEB SCH ×6 (00:32→20:50)
[2021-09-06 02:32] VITALS: BP 156/94
[2021-09-06] MEDS: methylPREDNISolone SOD SUCC PF 40 MG/ML VIAL. IV SCH ×3 (05:42→18:14)
[2021-09-06] MEDS: PIPERACILLIN/TAZOBACTAM 3.375 GM in IV NORMAL SALINE 50ML 50 ML IV SCH ×3 (05:43→18:14)
[2021-09-06 06:45] LABS: BASO % 0 % (0-3); EOS % 0 % (0-3); HEMATOCRIT 43.4 % (39.0-53.0); HEMOGLOBIN 13.7 g/dL (13.0-17.5); LYMPH # 0.5 x10^3/uL (1.0-4.8); LYMPH % 5 % (24-48); MEAN CORPUSCULAR HEMOGLOBIN 25 pg (25-35); MEAN CORPUSCULAR HGB CONC 32 g/dL (31-37); MEAN CORPUSCULAR VOLUME 78 fL (79-100); MONO # 0.4 x10^3/uL (0.0-1.1); MONO % 4 % (0-9); NEUT % 91 % (31-73); PLATELET COUNT 232 x10^3/uL (140-400); RED BLOOD COUNT 5.56 x10^6/uL (4.30-5.70); RED CELL DISTRIBUTION WIDTH 15.3 % (11.5-14.5)
[2021-09-06 07:00] VITALS: BP 136/79
[2021-09-06 07:21] LABS: ANION GAP 10 (6-14); BLOOD UREA NITROGEN 15 mg/dL (8-26); CARBON DIOXIDE 27 mmol/L (21-32); CHLORIDE 105 mmol/L (98-107); CREATININE 1.3 mg/dL (0.7-1.3); GFR 68.8; GLUCOSE 139 mg/dL (70-99); MAGNESIUM 2.3 mg/dL (1.8-2.4); POTASSIUM 3.8 mmol/L (3.5-5.1); SODIUM 142 mmol/L (136-145); VANC TR 11.4 mcg/mL (10.0-20.0)
[2021-09-06] MEDS: VANCOMYCIN PER PHARMACY MC PRN (07:45)
--- NOTE | 2021-09-06 08:01 | NUR ---
Pharmacy Vancomycin Dosing Note S:Consulted to monitor and dose vancomycin started 09/04/21. O:VANIA MISHRA is a 56 year old M with Pneumonia . Height: 5 feet, 8 inches Weight: 89.2 kg [place] Body Weight: 68.40 Adjusted Body Weight: 76.72 Dosing Weight: Actual Other Antibiotics: Zosyn LABS: Last BUN: 18 Last Creatinine: 1.4 Creatinine Clearance: 60 mL/min Last WBC: 10 Last Procalcitonin: Tmax (past 24 hours): 98.9 Microbiology: - I/O: Drug Levels: Last Trough level: on 09/06/21 at 0530 Last dose given 09/05/21 at 0536 Vancomycin Dosing: Loading Dose: x1 Dosing Weight: Actual Target Trough: 15-20 A: Based on: LEVEL P: 1. Change Vancomycin 1500 mg IV q12h 2. Follow up Trough level on 09/07/21 at 1930 3. Pharmacy will continue to monitor, follow and adjust therapy as needed. MELITA HANNAH Sami, 09/06/21 0801
[2021-09-06] MEDS: OSELTAMIVIR 75 MG CAPSULE PO SCH (08:47)
[2021-09-06] MEDS: LACTOBACILLUS RHAMNOSUS GG 1 CAPSULE. PO SCH ×2 (08:47→19:56)
[2021-09-06] MEDS: VANCOMYCIN 1.5 GM in IV NORMAL SALINE 500ML BAG 500 ML IV SCH ×2 (08:47→19:56)
--- NOTE | 2021-09-06 10:05 | EKG ---
[facility] [address] [place] [address] Test Date: 2021-09-04 Test Time: 14:45:15 Pat Name: VANIA MISHRA Department: Room: [facility] Gender: M [employer]: : 1965 Requested By: LAKESHA De La Vega Number: [id number] Reading MD: Frederic Harris Measurements Intervals Ward Rate: 113 P: 66 MT: 126 QRS: -11 QRSD: 90 T: 109 QT: 346 QTc: 481 Interpretive Statements SINUS TACHYCARDIA LEFT ATRIAL ABNORMALITY LEFT VENTRICULAR HYPERTROPHY ABNORMAL ECG Electronically Signed On 09-08-2021 18:40:13 CDT by Frederic Harris
[2021-09-06 11:00] VITALS: BP 143/86
--- NOTE | 2021-09-06 14:37 | PDOC ---
[employer] PROGRESS NOTE Date of Service DOS: DATE: 09/06/21 TIME: 14:36 Chief Complaint Chief Complaint Assessment/Plan CARLA due to vasomotor nephropathy Flu a positive pneumonia Polysubstance abuse Elevated BNP may be suggestive of chronic hypoxia versus undiagnosed COPD History of CHF History of COPD History of hypertension History of dyslipidemia History of pneumothorax Continue IV fluids Continue empiric IV antibiotics Continue Tamiflu Continue IV steroids O2 supplementation as needed Lovenox for DVT prophylaxis Protonix GI prophylaxis ADA diet CODE STATUS full Discussed with RN and SW Disposition inpatient management as above, anticipate discharge in the next 24 to 48 hours DPOA: Undesignated History of Present Illness History of Present Illness 56 year old male who presents with acute shortness of breath for 1 to 2 weeks now. Patient states that he has not taken his regular home medications for quite some time. He has a history of COPD, CHF, CAD, hypertension, dyslipidemia. He smokes half a pack to 1 pack/day. He states that he is very short of breath at home. He is tachypneic and tachycardic on presentation. He states it feels a lot like his CHF and COPD. He has not used his inhalers in quite some time. He states that it feels better when he sits up as opposed to laying down. 09/05/2021 No acute events overnight. Patient seen examined bedside. Patient still having some chest tightness and difficulty breathing. Despite the fact that he saturating 96% on room air. However his creatinine did bump up to 1.4. I will start judicious light IV fluid replacement. Talk screen did show polysubstance abuse. 09/06 Patient evaluated examined at bedside. Resting in bed. Lethargic. Still endorsing shortness of breath. Continue IV antibiotics and IV steroids. Creat inine improving. Will recheck chest x-ray tomorrow morning. Discussed with bedside RN. Vitals/I&O Vitals/I&O: Vital Signs Date Time Temp Pulse Resp B/P (MAP) Pulse Ox O2 Delivery O2 Flow Rate FiO2 09/06/21 11:28 96 Room Air 09/06/21 11:00 97.8 106 16 143/86 (105) 97.8 I & O 09/05/21 09/05/21 09/06/21 15:00 23:00 07:00 Intake Total 0 ml 0 ml 440 ml Balance 0 ml 0 ml 440 ml Physical Exam General: Alert, Oriented X3, Cooperative Heart: Regular rate Lungs: Clear, Other Abdomen: Normal bowel sounds Extremities: No clubbing Skin: No rashes Labs Labs: Laboratory Tests Test 09/06/21 05:35 White Blood Count 10.0 x10^3/uL (4.0-11.0) Red Blood Count 5.56 x10^6/uL (4.30-5.70) Hemoglobin 13.7 g/dL (13.0-17.5) Hematocrit 43.4 % (39.0-53.0) Mean Corpuscular Volume 78 fL (79-100) Mean Corpuscular Hemoglobin 25 pg (25-35) Mean Corpuscular Hemoglobin Concent 32 g/dL (31-37) Red Cell Distribution Width 15.3 % (11.5-14.5) Platelet Count 232 x10^3/uL (140-400) Neutrophils (%) (Auto) 91 % (31-73) Lymphocytes (%) (Auto) 5 % (24-48) Monocytes (%) (Auto) 4 % (0-9) Eosinophils (%) (Auto) 0 % (0-3) Basophils (%) (Auto) 0 % (0-3) Neutrophils # (Auto) 9.0 x10^3/uL (1.8-7.7) Lymphocytes # (Auto) 0.5 x10^3/uL (1.0-4.8) Monocytes # (Auto) 0.4 x10^3/uL (0.0-1.1) Eosinophils # (Auto) 0.0 x10^3/uL (0.0-0.7) Basophils # (Auto) 0.0 x10^3/uL (0.0-0.2) Sodium Level 142 mmol/L (136-145) Potassium Level 3.8 mmol/L (3.5-5.1) Chloride Level 105 mmol/L (98-107) Carbon Dioxide Level 27 mmol/L (21-32) Anion Gap 10 (6-14) Blood Urea Nitrogen 15 mg/dL (8-26) Creatinine 1.3 mg/dL (0.7-1.3) Estimated GFR (Cockcroft-Gault) 68.8 Glucose Level 139 mg/dL (70-99) Calcium Level 8.0 mg/dL (8.5-10.1) Magnesium Level 2.3 mg/dL (1.8-2.4) Vancomycin Level Trough 11.4 mcg/mL (10.0-20.0) Vancomycin Last Dose Date 09/05/21 Vancomycin Last Dose Time 1800 Assessment and Plan Assessmemt and Plan Problems Medical Problems: (1) Acute exacerbation of congestive heart failure Status: Acute (2) COPD with exacerbation Status: Acute Comment Review of Relevant I have reviewed the following items gretchen (where applicable) has been applied. Medications: Current Medications Medications (Trade) Dose Ordered Sig/Jules Route PRN Reason Start Time Stop Time Status Last Admin Dose Admin Vancomycin HCl (Vancomycin Trough Level) 1 each 1X ONCE MC 09/06/21 05:30 09/06/21 05:31 DC 09/06/21 05:30 Lactobacillus Rhamnosus (Culturelle) 1 cap BID PO 09/05/21 21:00 09/06/21 08:47 Guaifenesin (Robitussin Dm) 10 ml PRN Q6HRS PRN PO COUGH 09/05/21 20:15 09/05/21 20:33 Benzonatate (Tessalon Perle) 100 mg PRN TID PRN PO COUGH, 2ND OPTION 09/05/21 20:15 09/05/21 20:33 Vancomycin HCl 1.5 gm/Sodium Chloride 500 ml @ 250 mls/hr Q12H IV 09/06/21 08:00 09/06/21 08:47 Justifications for Admission Other Justification Influenza A pneumonia STARLA GRAY MD Sep 06, 2021 14:37
[2021-09-06 15:00] VITALS: BP 139/86
[2021-09-06 19:32] VITALS: BP 153/89
[2021-09-06] MEDS: BENZONATATE 100 MG CAPSULE. PO PRN (19:56)
[2021-09-06] MEDS: BENZOCAINE/MENTHOL LOZENGE. PO PRN (19:56)
[2021-09-06] MEDS: ENOXAPARIN 40 MG/0.4 ML SYRINGE. SQ SCH (19:57)
[2021-09-06 22:26] VITALS: BP 149/88
[2021-09-07] MEDS: methylPREDNISolone SOD SUCC PF 40 MG/ML VIAL. IV SCH ×5 (01:20→23:05)
[2021-09-07 03:04] VITALS: BP 158/96
[2021-09-07] MEDS: IPRATRPIUM/ALBUTEROL 0.5/2.5MG 3 ML NEBU. NEB SCH ×6 (04:00→20:45)
[2021-09-07] MEDS: PIPERACILLIN/TAZOBACTAM 3.375 GM in IV NORMAL SALINE 50ML 50 ML IV SCH ×5 (05:46→23:05)
[2021-09-07 07:00] VITALS: BP 138/79
[2021-09-07 07:57] LABS: BASO % 0 % (0-3); EOS % 0 % (0-3); HEMATOCRIT 40.4 % (39.0-53.0); HEMOGLOBIN 12.5 g/dL (13.0-17.5); LYMPH # 0.7 x10^3/uL (1.0-4.8); LYMPH % 7 % (24-48); MEAN CORPUSCULAR HEMOGLOBIN 24 pg (25-35); MEAN CORPUSCULAR HGB CONC 31 g/dL (31-37); MEAN CORPUSCULAR VOLUME 78 fL (79-100); MONO # 0.3 x10^3/uL (0.0-1.1); MONO % 3 % (0-9); NEUT # 9.5 x10^3/uL (1.8-7.7); NEUT % 90 % (31-73); PLATELET COUNT 186 x10^3/uL (140-400); RED BLOOD COUNT 5.18 x10^6/uL (4.30-5.70); RED CELL DISTRIBUTION WIDTH 15.2 % (11.5-14.5); WHITE BLOOD COUNT 10.6 x10^3/uL (4.0-11.0)
[2021-09-07] MEDS: VANCOMYCIN 1.5 GM in IV NORMAL SALINE 500ML BAG 500 ML IV SCH ×2 (08:11→20:17)
[2021-09-07] MEDS: OSELTAMIVIR 75 MG CAPSULE PO SCH (08:11)
[2021-09-07] MEDS: LACTOBACILLUS RHAMNOSUS GG 1 CAPSULE. PO SCH ×2 (08:11→19:36)
[2021-09-07 08:15] LABS: CALCIUM 7.6 mg/dL (8.5-10.1); CREATININE 1.1 mg/dL (0.7-1.3); GFR 83.5; POTASSIUM 3.9 mmol/L (3.5-5.1)
[2021-09-07 11:00] VITALS: BP 132/82
--- NOTE | 2021-09-07 12:24 | NUR ---
SS following for discharge planning. SS reviewed pt chart and discussed with pt RN. Pt is from home and is currently on room air. Flu A positive. Pt on IV Vancomycin, IV Solu-Medrol, and IV Zosyn. Discharge plan is currently to home when medically ready for discharge. SS will continue to follow for discharge planning.
--- NOTE | 2021-09-07 14:22 | RAD ---
EXAM: XR CHEST 1V 09/07/2021 12:36 PM CLINICAL INDICATION: Shortness of breath COMPARISON: Chest radiograph 09/04/2021 TECHNIQUE: AP semiupright view of the chest FINDINGS: The heart is mildly enlarged. Unchanged patchy bilateral airspace opacities, more focal in the left perihilar region. Unchanged small right pleural effusion. No pneumothorax. IMPRESSION: 1. Unchanged bilateral opacities, greatest in the left perihilar region, suspicious for multifocal pn eumonia. Recommend follow-up radiograph after treatment to ensure resolution of more focal opacities in the left perihilar region. 2. Unchanged small right pleural effusion. Electronically signed by: Josey Bailey MD (09/07/2021 2:19 PM) [id number]
[2021-09-07 14:53] VITALS: BP 147/80
[2021-09-07 18:57] VITALS: BP 165/79
--- NOTE | 2021-09-07 19:00 | PDOC ---
[employer] PROGRESS NOTE Date of Service DOS: DATE: 09/07/21 TIME: 18:59 Chief Complaint Chief Complaint Assessment/Plan CARLA due to vasomotor nephropathy Flu a positive pneumonia Polysubstance abuse Elevated BNP may be suggestive of chronic hypoxia versus undiagnosed COPD History of CHF History of COPD History of hypertension History of dyslipidemia History of pneumothorax Continue IV fluids Continue empiric IV antibiotics Continue Tamiflu Continue IV steroids O2 supplementation as needed Lovenox for DVT prophylaxis Protonix GI prophylaxis ADA diet CODE STATUS full Discussed with RN and SW Disposition inpatient management as above, anticipate discharge in the next 24 to 48 hours DPOA: Undesignated History of Present Illness History of Present Illness 56 year old male who presents with acute shortness of breath for 1 to 2 weeks now. Patient states that he has not taken his regular home medications for quite some time. He has a history of COPD, CHF, CAD, hypertension, dyslipidemia. He smokes half a pack to 1 pack/day. He states that he is very short of breath at home. He is tachypneic and tachycardic on presentation. He states it feels a lot like his CHF and COPD. He has not used his inhalers in quite some time. He states that it feels better when he sits up as opposed to laying down. 09/05/2021 No acute events overnight. Patient seen examined bedside. Patient still having some chest tightness and difficulty breathing. Despite the fact that he saturating 96% on room air. However his creatinine did bump up to 1.4. I will start judicious light IV fluid replacement. Talk screen did show polysubstance abuse. 09/06 Patient evaluated examined at bedside. Resting in bed. Lethargic. Still endorsing shortness of breath. Continue IV antibiotics and IV steroids. Creat inine improving. Will recheck chest x-ray tomorrow morning. Discussed with bedside RN. 09/07 Patient evaluated examined at bedside. Was sleeping difficult to awaken quite lethargic after. When awoken though he has quite a cough. Has to catch his breath multiple times throughout conversation. Continue antibiotics and steroids. Therapy ordered as he may need placement which he is agreeable to right now. Chest x-ray reviewed. Discussed with bedside RN. Vitals/I&O Vitals/I&O: Vital Signs Date Time Temp Pulse Resp B/P (MAP) Pulse Ox O2 Delivery O2 Flow Rate FiO2 09/07/21 18:57 98.6 94 18 165/79 (107) 94 Room Air 98.6 I & O 09/06/21 09/06/21 09/07/21 15:00 23:00 07:00 Intake Total 480 ml 660 ml 1220 ml Output Total 250 ml Balance 480 ml 410 ml 1220 ml Physical Exam General: Alert, Oriented X3, Cooperative Heart: Regular rate Lungs: Clear, Other Abdomen: Normal bowel sounds Extremities: No clubbing Skin: No rashes Labs Labs: Laboratory Tests Test 09/07/21 07:30 White Blood Count 10.6 x10^3/uL (4.0-11.0) Red Blood Count 5.18 x10^6/uL (4.30-5.70) Hemoglobin 12.5 g/dL (13.0-17.5) Hematocrit 40.4 % (39.0-53.0) Mean Corpuscular Volume 78 fL (79-100) Mean Corpuscular Hemoglobin 24 pg (25-35) Mean Corpuscular Hemoglobin Concent 31 g/dL (31-37) Red Cell Distribution Width 15.2 % (11.5-14.5) Platelet Count 186 x10^3/uL (140-400) Neutrophils (%) (Auto) 90 % (31-73) Lymphocytes (%) (Auto) 7 % (24-48) Monocytes (%) (Auto) 3 % (0-9) Eosinophils (%) (Auto) 0 % (0-3) Basophils (%) (Auto) 0 % (0-3) Neutrophils # (Auto) 9.5 x10^3/uL (1.8-7.7) Lymphocytes # (Auto) 0.7 x10^3/uL (1.0-4.8) Monocytes # (Auto) 0.3 x10^3/uL (0.0-1.1) Eosinophils # (Auto) 0.0 x10^3/uL (0.0-0.7) Basophils # (Auto) 0.0 x10^3/uL (0.0-0.2) Sodium Level 139 mmol/L (136-145) Potassium Level 3.9 mmol/L (3.5-5.1) Chloride Level 106 mmol/L (98-107) Carbon Dioxide Level 23 mmol/L (21-32) Anion Gap 10 (6-14) Blood Urea Nitrogen 12 mg/dL (8-26) Creatinine 1.1 mg/dL (0.7-1.3) Estimated GFR (Cockcroft-Gault) 83.5 Glucose Level 144 mg/dL (70-99) Calcium Level 7.6 mg/dL (8.5-10.1) Magnesium Level 2.0 mg/dL (1.8-2.4) Assessment and Plan Assessmemt and Plan Problems Medical Problems: (1) Acute exacerbation of congestive heart failure Status: Acute (2) COPD with exacerbation Status: Acute Comment Review of Relevant I have reviewed the following items gretchen (where applicable) has been applied. Justifications for Admission Other Justification Influenza A pneumonia STARLA GRAY MD Sep 07, 2021 19:00
[2021-09-07] MEDS: ENOXAPARIN 40 MG/0.4 ML SYRINGE. SQ SCH (19:35)
[2021-09-07] MEDS: VANCOMYCIN PER PHARMACY MC PRN (20:32)
--- NOTE | 2021-09-07 20:34 | NUR ---
Pharmacy Vancomycin Dosing Note S:Consulted to monitor and dose vancomycin started 09/04/21. O:VANIA MISHRA is a 56 year old M with Pneumonia . Height: 5 feet, 8 inches Weight: 91.5 kg [place] Body Weight: 68.40 Adjusted Body Weight: 77.64 Dosing Weight: Actual Other Antibiotics: Zosyn LABS: Last BUN: 12 Last Creatinine: 1.1 Creatinine Clearance: 81 mL/min Last WBC: 10.6 Last Procalcitonin: Tmax (past 24 hours): 98.9 Microbiology: - I/O: Drug Levels: Last Trough level: 12.0 on 09/07/21 at 1920 Last dose given 09/05/21 at 0536 Vancomycin Dosing: Loading Dose: x1 Dosing Weight: Actual Target Trough: 15-20 A: Based on: TROUGH P: 1. Change Vancomycin 1750 mg IV q12h 2. Follow up Trough level on 09/09/21 at 0530 3. Pharmacy will continue to monitor, follow and adjust therapy as needed. SHAWNA GREEN, [facility], 09/07/210
[2021-09-07] MEDS: BENZONATATE 100 MG CAPSULE. PO PRN (21:31)
[2021-09-07] MEDS: BENZOCAINE/MENTHOL LOZENGE. PO PRN (21:31)
[2021-09-07] MEDS: guaiFENesin DM 200MG/20MG 10 ML SYRUP PO PRN (21:31)
[2021-09-07 22:29] VITALS: BP 139/72
[2021-09-08] MEDS: IPRATRPIUM/ALBUTEROL 0.5/2.5MG 3 ML NEBU. NEB SCH ×6 (01:37→21:53)
[2021-09-08 02:23] VITALS: BP 145/81
[2021-09-08] MEDS: methylPREDNISolone SOD SUCC PF 40 MG/ML VIAL. IV SCH ×4 (05:13→23:23)
[2021-09-08] MEDS: PIPERACILLIN/TAZOBACTAM 3.375 GM in IV NORMAL SALINE 50ML 50 ML IV SCH ×4 (05:13→23:23)
[2021-09-08] MEDS: VANCOMYCIN 1.75 GM in IV NORMAL SALINE 500ML BAG 500 ML IV SCH ×2 (06:11→18:31)
[2021-09-08 06:33] LABS: GFR 93.2
[2021-09-08 07:00] VITALS: BP 164/85
[2021-09-08] MEDS: OSELTAMIVIR 75 MG CAPSULE PO SCH (08:24)
[2021-09-08] MEDS: LACTOBACILLUS RHAMNOSUS GG 1 CAPSULE. PO SCH ×2 (08:24→19:43)
[2021-09-08 11:00] VITALS: BP 168/88
[2021-09-08] MEDS: CALCIUM CARBONATE 500 MG TAB.CHEW PO PRN ×2 (12:01→19:50)
--- NOTE | 2021-09-08 12:53 | PDOC ---
[employer] [facility] PROGRESS NOTE Date of Service DOS: DATE: 09/08/21 TIME: 12:52 Chief Complaint Chief Complaint Assessment/Plan CARLA due to vasomotor nephropathy Flu a positive pneumonia Polysubstance abuse Elevated BNP may be suggestive of chronic hypoxia versus undiagnosed COPD History of CHF History of COPD History of hypertension History of dyslipidemia History of pneumothorax Continue IV fluids Continue empiric IV antibiotics Continue Tamiflu Continue IV steroids O2 supplementation as needed Lovenox for DVT prophylaxis Protonix GI prophylaxis ADA diet CODE STATUS full Discussed with RN and SW Disposition inpatient management as above, anticipate discharge in the next 24 to 48 hours DPOA: Undesignated History of Present Illness History of Present Illness 56 year old male who presents with acute shortness of breath for 1 to 2 weeks now. Patient states that he has not taken his regular home medications for quite some time. He has a history of COPD, CHF, CAD, hypertension, dyslipidemia. He smokes half a pack to 1 pack/day. He states that he is very short of breath at home. He is tachypneic and tachycardic on presentation. He states it feels a lot like his CHF and COPD. He has not used his inhalers in quite some time. He states that it feels better when he sits up as opposed to laying down. 09/05/2021 No acute events overnight. Patient seen examined bedside. Patient still having some chest tightness and difficulty breathing. Despite the fact that he saturating 96% on room air. However his creatinine did bump up to 1.4. I will start judicious light IV fluid replacement. Talk screen did show polysubstance abuse. 09/06 Patient evaluated examined at bedside. Resting in bed. Lethargic. Still endorsing shortness of breath. Continue IV antibiotics and IV steroids. Creat inine improving. Will recheck chest x-ray tomorrow morning. Discussed with bedside RN. 09/07 Patient evaluated examined at bedside. Was sleeping difficult to awaken quite lethargic after. When awoken though he has quite a cough. Has to catch his breath multiple times throughout conversation. Continue antibiotics and steroids. Therapy ordered as he may need placement which he is agreeable to right now. Chest x-ray reviewed. Discussed with bedside RN. 09/08 Patient evaluated examined at bedside. Is a little bit improved sitting up eating lunch. Much more alert than previous days. Work with rehab yesterday recommended acute rehab he is agreeable to this. However still continue IV antibiotics IV steroids and scheduled breathing treatments. Discussed with bedside RN. Vitals/I&O Vitals/I&O: Vital Signs Date Time Temp Pulse Resp B/P (MAP) Pulse Ox O2 Delivery O2 Flow Rate FiO2 09/08/21 11:37 97 Room Air 09/08/21 11:00 95.2 92 18 168/88 (114) 95.2 I & O 09/07/21 09/07/21 09/08/21 15:00 23:00 07:00 Intake Total 600 ml 1240 ml 700 ml Output Total 250 ml Balance 600 ml 990 ml 700 ml Physical Exam General: Alert, Oriented X3, Cooperative Heart: Regular rate Lungs: Clear, Other Abdomen: Normal bowel sounds Extremities: No clubbing Skin: No rashes Labs Labs: Laboratory Tests Test 09/07/21 19:20 09/08/21 05:55 Vancomycin Level Trough 12.0 mcg/mL (10.0-20.0) Vancomycin Last Dose Date Vancomycin Last Dose Time Creatinine 1.0 mg/dL (0.7-1.3) Estimated GFR (Cockcroft-Gault) 93.2 Assessment and Plan Assessmemt and Plan Problems Medical Problems: (1) Acute exacerbation of congestive heart failure Status: Acute (2) COPD with exacerbation Status: Acute Comment Review of Relevant I have reviewed the following items gretchen (where applicable) has been applied. Medications: Current Medications Medications (Trade) Dose Ordered Sig/Jules Route PRN Reason Start Time Stop Time Status Last Admin Dose Admin Vancomycin HCl (Vancomycin Trough Level) 1 each 1X ONCE MC 09/07/21 19:30 09/07/21 19:31 DC 09/07/21 19:30 Vancomycin HCl 1.75 gm/Sodium Chloride 500 ml @ 250 mls/hr Q12H IV 09/08/21 06:00 09/08/21 06:11 Calcium Carbonate/ Glycine (Tums) 500 mg PRN TID PRN PO INDIGESTION 09/08/21 12:00 09/08/21 12:01 Justifications for Admission Other Justification Influenza A pneumonia STARLA GRAY MD Sep 08, 2021 12:53
[2021-09-08 15:00] VITALS: BP 171/94
[2021-09-08] MEDS: VANCOMYCIN PER PHARMACY MC PRN (15:56)
[2021-09-08 19:00] VITALS: BP 169/99
[2021-09-08] MEDS: ENOXAPARIN 40 MG/0.4 ML SYRINGE. SQ SCH (19:43)
[2021-09-08 23:00] VITALS: BP 175/108
[2021-09-08] MEDS: guaiFENesin DM 200MG/20MG 10 ML SYRUP PO PRN (23:30)
[2021-09-08] MEDS: BENZONATATE 100 MG CAPSULE. PO PRN (23:30)
[2021-09-08] MEDS: LORazepam 0.5 MG TABLET PO PRN (23:38)
[2021-09-09] MEDS: IPRATRPIUM/ALBUTEROL 0.5/2.5MG 3 ML NEBU. NEB SCH ×6 (01:28→20:00)
[2021-09-09 02:34] VITALS: BP 169/93
[2021-09-09] MEDS: PIPERACILLIN/TAZOBACTAM 3.375 GM in IV NORMAL SALINE 50ML 50 ML IV SCH ×4 (05:09→23:13)
[2021-09-09] MEDS: methylPREDNISolone SOD SUCC PF 40 MG/ML VIAL. IV SCH ×4 (05:11→23:13)
[2021-09-09 06:42] LABS: VANC TR 15.4 mcg/mL (10.0-20.0)
[2021-09-09] MEDS: VANCOMYCIN PER PHARMACY MC PRN (06:47)
[2021-09-09] MEDS: VANCOMYCIN 1.75 GM in IV NORMAL SALINE 500ML BAG 500 ML IV SCH ×2 (06:47→19:07)
--- NOTE | 2021-09-09 06:47 | NUR ---
Pharmacy Vancomycin Dosing Note S:Consulted to monitor and dose vancomycin started 09/04/21. O:VANIA MISHRA is a 56 year old M with Pneumonia . Height: 5 feet, 8 inches Weight: 93.3 kg [place] Body Weight: 68.40 Adjusted Body Weight: 78.36 Dosing Weight: Actual Other Antibiotics: ZOSYN 3.375G IV Q6HRS LABS: Last BUN: 12 Last Creatinine: 1 Creatinine Clearance: 90 mL/min Last WBC: 10.6 Last Procalcitonin: Tmax (past 24 hours): 98.8 Microbiology: - I/O: 2540/250 Drug Levels: Last Trough level: 15.4 on 09/09/21 at 0530 Last dose given 09/08/21 at 0611 Vancomycin Dosing: Loading Dose: x1 Dosing Weight: Actual Target Trough: 15-20 A: Based on: TROUGH P: 1. Continue Vancomycin 1750 mg IV q12h 2. Follow up Trough level IF NEEDED 3. Pharmacy will continue to monitor, follow and adjust therapy as needed. NOBLE FULTON RPH, 09/09/21 [facility] Signed: 09/09/21 at 0648 by NOBLE FULTON RPH PHA
[2021-09-09 07:00] VITALS: BP 189/108
[2021-09-09] MEDS: LACTOBACILLUS RHAMNOSUS GG 1 CAPSULE. PO SCH ×2 (08:27→20:07)
[2021-09-09] MEDS: OSELTAMIVIR 75 MG CAPSULE PO SCH (09:00)
[2021-09-09 11:00] VITALS: BP 193/105
--- NOTE | 2021-09-09 11:25 | PDOC ---
PULMONARY PROGRESS NOTES DATE: 09/09/21 TIME: 11:25 Vitals Vital Signs Date Time Temp Pulse Resp B/P (MAP) Pulse Ox O2 Delivery O2 Flow Rate FiO2 09/09/21 11:10 97 Room Air 09/09/21 07:00 97.8 101 20 189/108 (135) 97.8 General: Alert, No acute distress Lungs: Clear, Other Cardiovascular: S1 Abdomen: Soft Extremities: No Edema Labs Laboratory Tests Test 09/07/21 19:20 09/08/21 05:55 09/09/21 05:30 Vancomycin Level Trough 12.0 mcg/mL (10.0-20.0) 15.4 mcg/mL (10.0-20.0) Vancomycin Last Dose Date 09/08/32 Vancomycin Last Dose Time 1800 Creatinine 1.0 mg/dL (0.7-1.3) Estimated GFR (Cockcroft-Gault) 93.2 Laboratory Tests Test 09/09/21 05:30 Vancomycin Level Trough 15.4 mcg/mL (10.0-20.0) Vancomycin Last Dose Date 09/08/32 Vancomycin Last Dose Time 1800 Medications Active Scripts Medications Dose Route/Sig Max Daily Dose Days Date Category Diclofenac Sodium 50 Mg Tablet.dr 1 Tab PO BID PRN 4 04/10/19 Rx Fiorinal 50-325-40 Mg Capsule (Butalbital/Aspirin/Caffeine) 1 Each Capsule 1 Each PO QID PRN 04/02/19 Rx Amoxicillin 500 Mg Capsule 1 Cap PO TID 04/02/19 Rx Proair Hfa (Albuterol Sulfate) 8.5 Gm Hfa.aer.ad 2 Puff INH PRN Q6HRS PRN 01/24/19 Reported Stiolto Respimat Inhal [place] (Tiotropium Br/Olodaterol HCl) 4 Gm Mist.inhal 2 Puff IH DAILY 01/24/19 Reported Zoloft (Sertraline Hcl) 50 Mg Tablet 1 Tab PO DAILY 01/24/19 Reported Risperidone 1 Mg Tablet 1 Tab PO BID 01/24/19 Reported Hydroxyzine Hcl 25 Mg Tablet 2 Tab PO PRN TID PRN 01/24/19 Reported Lisinopril 40 Mg Tablet 1 Tab PO DAILY 06/27/18 Reported Amlodipine Besylate 5 Mg Tablet 5 Mg PO DAILY 30 06/27/18 Rx [Nicotine 21MG] 1 PATCH Patch 1 Patch TD DAILY 30 06/27/18 Rx Atorvastatin Calcium 20 Mg Tablet 1 Tab PO DAILY 08/14/17 Reported Potassium Chloride 20 Meq Tablet.er 20 Meq PO DAILY 08/14/17 Reported Carvedilol (Carvedilol) 12.5 Mg Tablet 25 Tab PO BID 08/14/17 Reported Aspir 81 (Aspirin) 81 Mg Tablet.dr 1 Tab PO DAILY 08/14/17 Reported Furosemide 40 Mg Tablet 1 Tab PO DAILY 08/14/17 Reported Impression . Full consult dictated Influenza A Possible bacterial pneumonia Polysubstance use Acute exacerbation of COPD See orders SHARONA ZELAYA MD Sep 09, 2021 11:25
[2021-09-09 15:00] VITALS: BP 193/104
--- NOTE | 2021-09-09 15:24 | NUR ---
SS following up with discharge planning. SS reviewed pt chart and discussed with pt RN. Pt is currently on room air. Flu A positive. Pt on IV Solu-Medrol, IV Vancomycin, and IV Zosyn. PT/OT recommended acute rehabilitation. SS met with pt and discussed discharge planning and acute rehabilitation. Pt agreeable and requested referrals to [facility], ; fax [phone], and [facility], ; fax [phone]. Referrals sent as requested. SS will continue to follow for discharge planning.
--- NOTE | 2021-09-09 16:19 | RAD ---
CT chest without contrast dated 09/09/2021. COMPARISON: None INDICATION: Follow-up infiltrates. TECHNIQUE: Contiguous axial imaging the chest was performed without the administration of intravenous contrast. One or more of the following individualized dose reduction techniques were utilized for this examinat ion: 1. Automated exposure control 2. Adjustment of the mA and/or kV according to patient size 3. Use of iterative reconstruction technique FINDINGS: Heart size is mildly enlarged. No pericardial effusion. There are mildly enlarged prevascular and rig ht paratracheal lymph nodes measuring up to 1.2 cm. There is also suspected mild bilateral hilar roseann opathy. No axillary or supraclavicular lymphadenopathy. Thyroid gland unremarkable. Central airways are patent. There is a small right pleural effusion. Patchy increased density at the right lung base. There is also patchy airspace disease along the bronchovascular bundles of the bilat eral upper lobes and anterior left lower lobe. Tiny left pleural effusion. Mild to moderate emphysema . No pneumothorax. Images of the upper abdomen are unremarkable. No significant bony abnormality. IMPRESSION: 1. Patchy bilateral airspace disease, perihilar edema versus atypical pneumonia. 2. Small pleural effusions, right greater than left. 3. Mildly enlarged mediastinal and hilar lymph nodes, likely reactive. Electronically signed by: Mikal Bassett MD (09/09/2021 4:16 PM) [facility]
--- NOTE | 2021-09-09 18:51 | PDOC ---
[employer] PROGRESS NOTE Date of Service DOS: DATE: 09/09/21 TIME: 18:50 Chief Complaint Chief Complaint Assessment/Plan CARLA due to vasomotor nephropathy Flu a positive pneumonia Polysubstance abuse Elevated BNP may be suggestive of chronic hypoxia versus undiagnosed COPD History of CHF History of COPD History of hypertension History of dyslipidemia History of pneumothorax Continue IV fluids Continue empiric IV antibiotics Continue Tamiflu Continue IV steroids O2 supplementation as needed Lovenox for DVT prophylaxis Protonix GI prophylaxis ADA diet CODE STATUS full Discussed with RN and SW Disposition inpatient management as above, anticipate discharge in the next 24 to 48 hours DPOA: Undesignated History of Present Illness History of Present Illness 56 year old male who presents with acute shortness of breath for 1 to 2 weeks now. Patient states that he has not taken his regular home medications for quite some time. He has a history of COPD, CHF, CAD, hypertension, dyslipidemia. He smokes half a pack to 1 pack/day. He states that he is very short of breath at home. He is tachypneic and tachycardic on presentation. He states it feels a lot like his CHF and COPD. He has not used his inhalers in quite some time. He states that it feels better when he sits up as opposed to laying down. 09/05/2021 No acute events overnight. Patient seen examined bedside. Patient still having some chest tightness and difficulty breathing. Despite the fact that he saturating 96% on room air. However his creatinine did bump up to 1.4. I will start judicious light IV fluid replacement. Talk screen did show polysubstance abuse. 09/06 Patient evaluated examined at bedside. Resting in bed. Lethargic. Still endorsing shortness of breath. Continue IV antibiotics and IV steroids. Creat inine improving. Will recheck chest x-ray tomorrow morning. Discussed with bedside RN. 09/07 Patient evaluated examined at bedside. Was sleeping difficult to awaken quite lethargic after. When awoken though he has quite a cough. Has to catch his breath multiple times throughout conversation. Continue antibiotics and steroids. Therapy ordered as he may need placement which he is agreeable to right now. Chest x-ray reviewed. Discussed with bedside RN. 09/08 Patient evaluated examined at bedside. Is a little bit improved sitting up eating lunch. Much more alert than previous days. Work with rehab yesterday recommended acute rehab he is agreeable to this. However still continue IV antibiotics IV steroids and scheduled breathing treatments. Discussed with bedside RN. 09/09 Patient evaluated examined at bedside. Up in chair when seen. Still complaining of quite a bit of shortness of breath. Breath sounds very coarse as well. Consulted pulmonary today. Recommendations of theirs reviewed, CT chest today. Continue IV antibiotics and IV steroids. Aggressive breathing treatments. Likely here through the weekend until early next week Vitals/I&O Vitals/I&O: Vital Signs Date Time Temp Pulse Resp B/P (MAP) Pulse Ox O2 Delivery O2 Flow Rate FiO2 09/09/21 16:03 97 Room Air 09/09/21 15:00 98.0 104 18 193/104 (133) 98.0 I & O 09/08/21 09/08/21 09/09/21 15:00 23:00 07:00 Intake Total 300 ml 800 ml 500 ml Output Total 300 ml 200 ml Balance 0 ml 600 ml 500 ml Physical Exam General: Alert, Oriented X3, Cooperative Heart: Regular rate, Normal S1, Normal S2 Lungs: Wheezing, Crackles, Other Abdomen: Normal bowel sounds Extremities: No clubbing Skin: No rashes Labs Labs: Laboratory Tests Test 09/09/21 05:30 Vancomycin Level Trough 15.4 mcg/mL (10.0-20.0) Vancomycin Last Dose Date 09/08/32 Vancomycin Last Dose Time 1800 Assessment and Plan Assessmemt and Plan Problems Medical Problems: (1) Acute exacerbation of congestive heart failure Status: Acute (2) COPD with exacerbation Status: Acute Comment Review of Relevant I have reviewed the following items gretchen (where applicable) has been applied. Medications: Current Medications Medications (Trade) Dose Ordered Sig/Jules Route PRN Reason Start Time Stop Time Status Last Admin Dose Admin Vancomycin HCl (Vancomycin Trough Level) 1 each 1X ONCE [facility] 09/09/21 05:30 09/09/21 05:31 DC 09/09/21 05:30 Justifications for Admission Other Justification Influenza A pneumonia STARLA GRAY MD Sep 09, 2021 18:51
[2021-09-09 18:57] VITALS: BP 188/100
[2021-09-09] MEDS: ENOXAPARIN 40 MG/0.4 ML SYRINGE. SQ SCH (20:08)
[2021-09-09 22:52] VITALS: BP 181/108
[2021-09-09] MEDS: LORazepam 0.5 MG TABLET PO PRN (23:20)
--- NOTE | 2021-09-09 23:20 | CONS ---
DATE OF CONSULTATION: 09/09/2021 ATTENDING PHYSICIAN: Lance Crook MD REASON FOR CONSULTATION: The patient is seen in pulmonary consultation at the request of Dr. Polanco for persistent abnormal chest x-ray. HISTORY OF PRESENT ILLNESS: The patient is a 56-year-old that presented with increasing shortness of breath and wheezing. He was evaluated for SARS-CoV-2, which was negative. His influenza A was positive. The patient denies any drug use. He came in and tested positive for PCP and cocaine. His white count was initially elevated. He had a chest x-ray, which revealed significant infiltrates. His repeat x-rays revealed unchanged bilateral opacities. I was asked to see him in consultation. The patient denies hemoptysis. He has had no documented fever. PAST MEDICAL HISTORY: Hypertension, tobacco dependence, COPD, hyperlipidemia, previous pneumonia, previous right-sided pneumothorax requiring a chest tube. He does have a history of polysubstance use including cocaine, marijuana and amphetamine use. ALLERGIES: No known drug allergies. FAMILY HISTORY: Diabetes. SOCIAL HISTORY: He denies illicit drug use at this time, but his drug screen was positive. REVIEW OF SYSTEMS: As indicated above, otherwise other systems were reviewed and negative. PHYSICAL EXAMINATION: VITAL SIGNS: Stable. O2 saturation is greater than 92%. HEENT: Eyes: The sclerae were nonicteric. NECK: Jugular venous distention was not elevated. No lymphadenopathy. CHEST: Full expansion. LUNGS: Scattered rhonchi, expiratory wheeze. CARDIOVASCULAR: Regular rate and rhythm with S1, S2, no S3. ABDOMEN: Soft, nontender. EXTREMITIES: No clubbing, cyanosis or edema. LABORATORY DATA: Chest x-ray reviewed as indicated above. White count was not elevated. Hemoglobin and hematocrit were noted. Electrolytes were noted. D-dimer was elevated. Positive drug screen. IMPRESSION: 1. Abnormal x-ray. 2. Acute exacerbation of chronic obstructive pulmonary disease. 3. Polysubstance use. 4. Positive influenza A screen. 5. Acute kidney injury. 6. Possible bacterial pneumonia gram-negative/gram-positive. 7. Chronic obstructive pulmonary disease. 8. Hypertension. PLAN: 1. Continue empiric antibiotics. 2. Finish course of Tamiflu. 3. We will obtain CT chest. 4. It is possible that these x-ray findings are related to acute inhalational injury from his polysubstance use. I do appreciate the privilege in sharing in the patient's care. LIN/SHAE DR: Laurie TID: [id number]
[2021-09-10] MEDS: IPRATRPIUM/ALBUTEROL 0.5/2.5MG 3 ML NEBU. NEB SCH ×6 (00:23→21:46)
[2021-09-10 02:20] VITALS: BP 196/94
[2021-09-10] MEDS: PIPERACILLIN/TAZOBACTAM 3.375 GM in IV NORMAL SALINE 50ML 50 ML IV SCH ×4 (05:07→23:34)
[2021-09-10] MEDS: methylPREDNISolone SOD SUCC PF 40 MG/ML VIAL. IV SCH ×4 (05:07→23:30)
[2021-09-10] MEDS: VANCOMYCIN 1.75 GM in IV NORMAL SALINE 500ML BAG 500 ML IV SCH ×2 (05:56→18:23)
[2021-09-10 07:00] VITALS: BP 205/102
[2021-09-10 08:59] LABS: BASO % 0 % (0-3); EOS % 0 % (0-3); HEMATOCRIT 40.2 % (39.0-53.0); HEMOGLOBIN 12.9 g/dL (13.0-17.5); LYMPH # 0.5 x10^3/uL (1.0-4.8); LYMPH % 7 % (24-48); MEAN CORPUSCULAR HEMOGLOBIN 25 pg (25-35); MEAN CORPUSCULAR HGB CONC 32 g/dL (31-37); MEAN CORPUSCULAR VOLUME 78 fL (79-100); MONO # 0.3 x10^3/uL (0.0-1.1); MONO % 4 % (0-9); NEUT % 89 % (31-73); PLATELET COUNT 189 x10^3/uL (140-400); RED BLOOD COUNT 5.18 x10^6/uL (4.30-5.70); RED CELL DISTRIBUTION WIDTH 15.1 % (11.5-14.5); WHITE BLOOD COUNT 7.8 x10^3/uL (4.0-11.0)
[2021-09-10 09:09] LABS: CALCIUM 7.8 mg/dL (8.5-10.1); CREATININE 1.1 mg/dL (0.7-1.3); GFR 83.5; POTASSIUM 3.6 mmol/L (3.5-5.1)
--- NOTE | 2021-09-10 09:15 | PDOC ---
PULMONARY PROGRESS NOTES DATE: 09/10/21 TIME: 09:15 Subjective Patient continues to be severely short of breath has a cough and wheezing. Vitals Vital Signs Date Time Temp Pulse Resp B/P (MAP) Pulse Ox O2 Delivery O2 Flow Rate FiO2 09/10/21 04:32 99 Room Air 09/10/21 02:20 98.1 107 18 196/94 (128) 98.1 ROS: No Nausea, No Chest Pain, No Abdominal Pain, No Increase Cough General: Alert, No acute distress Lungs: Wheezing, Crackles Cardiovascular: S1 Abdomen: Soft Neuro Exam: Alert Extremities: No Edema Skin: Warm Labs Laboratory Tests Test 09/09/21 05:30 09/10/21 03:45 Vancomycin Level Trough 15.4 mcg/mL (10.0-20.0) Vancomycin Last Dose Date 09/08/32 Vancomycin Last Dose Time 1800 White Blood Count 7.8 x10^3/uL (4.0-11.0) Red Blood Count 5.18 x10^6/uL (4.30-5.70) Hemoglobin 12.9 g/dL (13.0-17.5) Hematocrit 40.2 % (39.0-53.0) Mean Corpuscular Volume 78 fL (79-100) Mean Corpuscular Hemoglobin 25 pg (25-35) Mean Corpuscular Hemoglobin Concent 32 g/dL (31-37) Red Cell Distribution Width 15.1 % (11.5-14.5) Platelet Count 189 x10^3/uL (140-400) Neutrophils (%) (Auto) 89 % (31-73) Lymphocytes (%) (Auto) 7 % (24-48) Monocytes (%) (Auto) 4 % (0-9) Eosinophils (%) (Auto) 0 % (0-3) Basophils (%) (Auto) 0 % (0-3) Neutrophils # (Auto) 7.0 x10^3/uL (1.8-7.7) Lymphocytes # (Auto) 0.5 x10^3/uL (1.0-4.8) Monocytes # (Auto) 0.3 x10^3/uL (0.0-1.1) Eosinophils # (Auto) 0.0 x10^3/uL (0.0-0.7) Basophils # (Auto) 0.0 x10^3/uL (0.0-0.2) Sodium Level 139 mmol/L (136-145) Potassium Level 3.6 mmol/L (3.5-5.1) Chloride Level 102 mmol/L (98-107) Carbon Dioxide Level 26 mmol/L (21-32) Anion Gap 11 (6-14) Blood Urea Nitrogen 20 mg/dL (8-26) Creatinine 1.1 mg/dL (0.7-1.3) Estimated GFR (Cockcroft-Gault) 83.5 Glucose Level 171 mg/dL (70-99) Calcium Level 7.8 mg/dL (8.5-10.1) Laboratory Tests Test 09/10/21 03:45 White Blood Count 7.8 x10^3/uL (4.0-11.0) Red Blood Count 5.18 x10^6/uL (4.30-5.70) Hemoglobin 12.9 g/dL (13.0-17.5) Hematocrit 40.2 % (39.0-53.0) Mean Corpuscular Volume 78 fL (79-100) Mean Corpuscular Hemoglobin 25 pg (25-35) Mean Corpuscular Hemoglobin Concent 32 g/dL (31-37) Red Cell Distribution Width 15.1 % (11.5-14.5) Platelet Count 189 x10^3/uL (140-400) Neutrophils (%) (Auto) 89 % (31-73) Lymphocytes (%) (Auto) 7 % (24-48) Monocytes (%) (Auto) 4 % (0-9) Eosinophils (%) (Auto) 0 % (0-3) Basophils (%) (Auto) 0 % (0-3) Neutrophils # (Auto) 7.0 x10^3/uL (1.8-7.7) Lymphocytes # (Auto) 0.5 x10^3/uL (1.0-4.8) Monocytes # (Auto) 0.3 x10^3/uL (0.0-1.1) Eosinophils # (Auto) 0.0 x10^3/uL (0.0-0.7) Basophils # (Auto) 0.0 x10^3/uL (0.0-0.2) Sodium Level 139 mmol/L (136-145) Potassium Level 3.6 mmol/L (3.5-5.1) Chloride Level 102 mmol/L (98-107) Carbon Dioxide Level 26 mmol/L (21-32) Anion Gap 11 (6-14) Blood Urea Nitrogen 20 mg/dL (8-26) Creatinine 1.1 mg/dL (0.7-1.3) Estimated GFR (Cockcroft-Gault) 83.5 Glucose Level 171 mg/dL (70-99) Calcium Level 7.8 mg/dL (8.5-10.1) Medications Active Scripts Medications Dose Route/Sig Max Daily Dose Days Date Category Diclofenac Sodium 50 Mg Tablet.dr 1 Tab PO BID PRN 4 04/10/19 Rx Fiorinal 50-325-40 Mg Capsule (Butalbital/Aspirin/Caffeine) 1 Each Capsule 1 Each PO QID PRN 04/02/19 Rx Amoxicillin 500 Mg Capsule 1 Cap PO TID 04/02/19 Rx Proair Hfa (Albuterol Sulfate) 8.5 Gm Hfa.aer.ad 2 Puff INH PRN Q6HRS PRN 01/24/19 Reported Stiolto Respimat Inhal [place] (Tiotropium Br/Olodaterol HCl) 4 Gm Mist.inhal 2 Puff IH DAILY 01/24/19 Reported Zoloft (Sertraline Hcl) 50 Mg Tablet 1 Tab PO DAILY 01/24/19 Reported Risperidone 1 Mg Tablet 1 Tab PO BID 01/24/19 Reported Hydroxyzine Hcl 25 Mg Tablet 2 Tab PO PRN TID PRN 01/24/19 Reported Lisinopril 40 Mg Tablet 1 Tab PO DAILY 06/27/18 Reported Amlodipine Besylate 5 Mg Tablet 5 Mg PO DAILY 30 06/27/18 Rx [Nicotine 21MG] 1 PATCH Patch 1 Patch TD DAILY 30 06/27/18 Rx Atorvastatin Calcium 20 Mg Tablet 1 Tab PO DAILY 08/14/17 Reported Potassium Chloride 20 Meq Tablet.er 20 Meq PO DAILY 08/14/17 Reported Carvedilol (Carvedilol) 12.5 Mg Tablet 25 Tab PO BID 08/14/17 Reported Aspir 81 (Aspirin) 81 Mg Tablet. 1 Tab PO DAILY 08/14/17 Reported Furosemide 40 Mg Tablet 1 Tab PO DAILY 08/14/17 Reported Impression . IMPRESSION: 1. Abnormal x-ray. 2. Acute exacerbation of chronic obstructive pulmonary disease. 3. Polysubstance use. 4. Positive influenza A screen. 5. Acute kidney injury. 6. Possible bacterial pneumonia gram-negative/gram-positive. 7. Chronic obstructive pulmonary disease. 8. Hypertension. Plan . Updated 09/10 CT reviewed bilateral infiltrates compatible with possible alveolar hemorrhage Small right-sided effusion Continue empiric antibiotics Tamiflu Patient instructed on the importance of discontinuing all polysubstance SHARONA ZELAYA MD Sep 10, 2021 09:15
[2021-09-10] MEDS: LISINOPRIL 20 MG TABLET PO SCH (09:30)
[2021-09-10] MEDS: LACTOBACILLUS RHAMNOSUS GG 1 CAPSULE. PO SCH ×2 (09:30→23:33)
[2021-09-10] MEDS: CARVEDILOL 12.5 MG TABLET. PO SCH ×2 (09:30→17:40)
[2021-09-10] MEDS: FUROSEMIDE 40 MG TABLET. PO SCH (09:30)
[2021-09-10] MEDS: ASPIRIN ENTERIC COATED 81 MG TABLET.DR. PO SCH (09:30)
[2021-09-10] MEDS: SERTRALINE 50 MG TABLET. PO SCH (09:31)
[2021-09-10] MEDS: risperiDONE 1 MG TABLET. PO SCH ×2 (09:31→23:32)
[2021-09-10] MEDS: ATORVASTATIN CALCIUM 20 MG TABLET PO SCH (09:31)
[2021-09-10 11:00] VITALS: BP 205/100
--- NOTE | 2021-09-10 11:35 | NUR ---
SS following up with discharge planning. SS reviewed pt chart and discussed with pt RN. Pt is currently on room air. Flu A positive. Pt on IV Solu-Medrol, IV Vancomycin, and IV Zosyn. PT/OT recommended acute rehabilitation. Pt accepted at [facility], ; fax [phone], and [facility], ; fax [phone], pending insurance approval. SS will continue to follow for discharge planning.
[2021-09-10] MEDS: VANCOMYCIN PER PHARMACY MC PRN (12:07)
[2021-09-10 15:00] VITALS: BP 137/79
--- NOTE | 2021-09-10 16:52 | NUR ---
Patient assessed for elopement risk per elopement policy and procedure, Patient not deemed a risk.
[2021-09-10 19:55] VITALS: BP 141/82
[2021-09-10] MEDS: LORazepam 0.5 MG TABLET PO PRN (23:32)
[2021-09-10] MEDS: diphenhydrAMINE HCL 25 MG CAPSULE PO PRN (23:32)
[2021-09-10] MEDS: ENOXAPARIN 40 MG/0.4 ML SYRINGE. SQ SCH (23:33)
[2021-09-10 23:40] VITALS: BP 155/88
[2021-09-11] MEDS: IPRATRPIUM/ALBUTEROL 0.5/2.5MG 3 ML NEBU. NEB SCH ×6 (01:09→20:00)
[2021-09-11 03:00] VITALS: BP 156/88
[2021-09-11] MEDS: methylPREDNISolone SOD SUCC PF 40 MG/ML VIAL. IV SCH ×3 (06:26→17:50)
[2021-09-11] MEDS: PIPERACILLIN/TAZOBACTAM 3.375 GM in IV NORMAL SALINE 50ML 50 ML IV SCH ×3 (06:27→17:50)
[2021-09-11 07:00] VITALS: BP 129/77
[2021-09-11] MEDS: VANCOMYCIN 1.75 GM in IV NORMAL SALINE 500ML BAG 500 ML IV SCH ×2 (07:48→18:40)
[2021-09-11] MEDS: SERTRALINE 50 MG TABLET. PO SCH (08:52)
[2021-09-11] MEDS: LISINOPRIL 20 MG TABLET PO SCH (08:53)
[2021-09-11] MEDS: ASPIRIN ENTERIC COATED 81 MG TABLET.DR. PO SCH (08:53)
[2021-09-11] MEDS: risperiDONE 1 MG TABLET. PO SCH ×2 (08:53→22:17)
[2021-09-11] MEDS: CARVEDILOL 12.5 MG TABLET. PO SCH ×2 (08:54→17:00)
[2021-09-11] MEDS: LACTOBACILLUS RHAMNOSUS GG 1 CAPSULE. PO SCH ×2 (08:54→22:17)
[2021-09-11] MEDS: ATORVASTATIN CALCIUM 20 MG TABLET PO SCH (08:54)
[2021-09-11] MEDS: FUROSEMIDE 40 MG TABLET. PO SCH (08:54)
[2021-09-11 10:29] VITALS: BP 154/78
--- NOTE | 2021-09-11 11:55 | NUR ---
Patient assessed for elopement risk per elopement policy and procedure, Patient not deemed a risk.
[2021-09-11 15:00] VITALS: BP 169/89
--- NOTE | 2021-09-11 15:12 | PDOC ---
PULMONARY PROGRESS NOTES DATE: 09/11/21 TIME: 15:09 Subjective Patient sitting up in a chair, was asleep, I woke him up, he still is short of breath but feels better. Vitals Vital Signs Date Time Temp Pulse Resp B/P (MAP) Pulse Ox O2 Delivery O2 Flow Rate FiO2 09/11/21 11:20 96 Room Air 09/11/21 10:29 97.7 76 18 154/78 (103) 97.7 ROS: No Nausea, No Chest Pain, No Abdominal Pain, No Increase Cough General: Alert, No acute distress Lungs: Wheezing, Crackles Cardiovascular: S1 Abdomen: Soft Neuro Exam: Alert Extremities: No Edema Skin: Warm Labs Laboratory Tests Test 09/10/21 03:45 White Blood Count 7.8 x10^3/uL (4.0-11.0) Red Blood Count 5.18 x10^6/uL (4.30-5.70) Hemoglobin 12.9 g/dL (13.0-17.5) Hematocrit 40.2 % (39.0-53.0) Mean Corpuscular Volume 78 fL (79-100) Mean Corpuscular Hemoglobin 25 pg (25-35) Mean Corpuscular Hemoglobin Concent 32 g/dL (31-37) Red Cell Distribution Width 15.1 % (11.5-14.5) Platelet Count 189 x10^3/uL (140-400) Neutrophils (%) (Auto) 89 % (31-73) Lymphocytes (%) (Auto) 7 % (24-48) Monocytes (%) (Auto) 4 % (0-9) Eosinophils (%) (Auto) 0 % (0-3) Basophils (%) (Auto) 0 % (0-3) Neutrophils # (Auto) 7.0 x10^3/uL (1.8-7.7) Lymphocytes # (Auto) 0.5 x10^3/uL (1.0-4.8) Monocytes # (Auto) 0.3 x10^3/uL (0.0-1.1) Eosinophils # (Auto) 0.0 x10^3/uL (0.0-0.7) Basophils # (Auto) 0.0 x10^3/uL (0.0-0.2) Sodium Level 139 mmol/L (136-145) Potassium Level 3.6 mmol/L (3.5-5.1) Chloride Level 102 mmol/L (98-107) Carbon Dioxide Level 26 mmol/L (21-32) Anion Gap 11 (6-14) Blood Urea Nitrogen 20 mg/dL (8-26) Creatinine 1.1 mg/dL (0.7-1.3) Estimated GFR (Cockcroft-Gault) 83.5 Glucose Level 171 mg/dL (70-99) Calcium Level 7.8 mg/dL (8.5-10.1) Medications Active Scripts Medications Dose Route/Sig Max Daily Dose Days Date Category Diclofenac Sodium 50 Mg Tablet.dr 1 Tab PO BID PRN 4 04/10/19 Rx Fiorinal 50-325-40 Mg Capsule (Butalbital/Aspirin/Caffeine) 1 Each Capsule 1 Each PO QID PRN 04/02/19 Rx Amoxicillin 500 Mg Capsule 1 Cap PO TID 04/02/19 Rx Proair Hfa (Albuterol Sulfate) 8.5 Gm Hfa.aer.ad 2 Puff INH PRN Q6HRS PRN 01/24/19 Reported Stiolto Respimat Inhal [place] (Tiotropium Br/Olodaterol HCl) 4 Gm Mist.inhal 2 Puff IH DAILY 01/24/19 Reported Zoloft (Sertraline Hcl) 50 Mg Tablet 1 Tab PO DAILY 01/24/19 Reported Risperidone 1 Mg Tablet 1 Tab PO BID 01/24/19 Reported Hydroxyzine Hcl 25 Mg Tablet 2 Tab PO PRN TID PRN 01/24/19 Reported Lisinopril 40 Mg Tablet 1 Tab PO DAILY 06/27/18 Reported Amlodipine Besylate 5 Mg Tablet 5 Mg PO DAILY 30 06/27/18 Rx [Nicotine 21MG] 1 PATCH Patch 1 Patch TD DAILY 30 06/27/18 Rx Atorvastatin Calcium 20 Mg Tablet 1 Tab PO DAILY 08/14/17 Reported Potassium Chloride 20 Meq Tablet.er 20 Meq PO DAILY 08/14/17 Reported Carvedilol (Carvedilol) 12.5 Mg Tablet 25 Tab PO BID 08/14/17 Reported Aspir 81 (Aspirin) 81 Mg Tablet.dr 1 Tab PO DAILY 08/14/17 Reported Furosemide 40 Mg Tablet 1 Tab PO DAILY 08/14/17 Reported Impression . IMPRESSION: 1. Abnormal x-ray. 2. Acute exacerbation of chronic obstructive pulmonary disease. 3. Polysubstance use. 4. Positive influenza A screen. 5. Acute kidney injury. 6. Possible bacterial pneumonia gram-negative/gram-positive. 7. Chronic obstructive pulmonary disease. 8. Hypertension. Plan . Updated 09/11 patient off of oxygen, improving, discussed with Dr. Polanco, possible discharge today. CT reviewed bilateral infiltrates compatible with possible alveolar hemorrhage Small right-sided effusion, can follow-up with me in the office Continue empiric antibiotics Tamiflu Patient instructed on the importance of discontinuing all polysubstance SHARONA ZELAYA MD Sep 11, 2021 15:12
[2021-09-11] MEDS: VANCOMYCIN PER PHARMACY MC PRN (16:35)
[2021-09-11 19:57] VITALS: BP 161/85
--- NOTE | 2021-09-11 20:33 | PDOC ---
[facility] PROGRESS NOTE Date of Service DOS: September 10 late entry Chief Complaint Chief Complaint Assessment/Plan CARLA due to vasomotor nephropathy Flu a positive pneumonia Polysubstance abuse Elevated BNP may be suggestive of chronic hypoxia versus undiagnosed COPD History of CHF History of COPD History of hypertension History of dyslipidemia History of pneumothorax Continue IV fluids Continue empiric IV antibiotics Continue Tamiflu Continue IV steroids O2 supplementation as needed Lovenox for DVT prophylaxis Protonix GI prophylaxis ADA diet CODE STATUS full Discussed with RN and SW Disposition inpatient management as above, anticipate discharge in the next 24 to 48 hours DPOA: Undesignated History of Present Illness History of Present Illness 56 year old male who presents with acute shortness of breath for 1 to 2 weeks now. Patient states that he has not taken his regular home medications for quite some time. He has a history of COPD, CHF, CAD, hypertension, dyslipidemia. He smokes half a pack to 1 pack/day. He states that he is very short of breath at home. He is tachypneic and tachycardic on presentation. He states it feels a lot like his CHF and COPD. He has not used his inhalers in quite some time. He states that it feels better when he sits up as opposed to laying down. 09/05/2021 No acute events overnight. Patient seen examined bedside. Patient still having some chest tightness and difficulty breathing. Despite the fact that he saturating 96% on room air. However his creatinine did bump up to 1.4. I will start judicious light IV fluid replacement. Talk screen did show polysubstance abuse. 09/06 Patient evaluated examined at bedside. Resting in bed. Lethargic. Still endorsing shortness of breath. Continue IV antibiotics and IV steroids. Creatinine improving. Will recheck chest x-ray tomorrow morning. Discussed with bedside RN. 09/07 Patient evaluated examined at bedside. Was sleeping difficult to awaken quite lethargic after. When awoken though he has quite a cough. Has to catch his breath multiple times throughout conversation. Continue antibiotics and steroids. Therapy ordered as he may need placement which he is agreeable to right now. Chest x-ray reviewed. Discussed with bedside RN. 09/08 Patient evaluated examined at bedside. Is a little bit improved sitting up eating lunch. Much more alert than previous days. Work with rehab yesterday recommended acute rehab he is agreeable to this. However still continue IV antibiotics IV steroids and scheduled breathing treatments. Discussed with bedside RN. 09/09 Patient evaluated examined at bedside. Up in chair when seen. Still complaining of quite a bit of shortness of breath. Breath sounds very coarse as well. Consulted pulmonary today. Recommendations of theirs reviewed, CT chest today. Continue IV antibiotics and IV steroids. Aggressive breathing treatments. Likely here through the weekend until early next week 09/10 Patient evaluated examined at bedside. Up in chair when seen. Ongoing shortness of breath still continues. Discussed with pulmonary physician. Continue current. CT chest reviewed. PT OT. Discussed with bedside RN. Vitals/I&O Vitals/I&O: Vital Signs Date Time Temp Pulse Resp B/P (MAP) Pulse Ox O2 Delivery O2 Flow Rate FiO2 09/11/21 19:57 97.8 94 18 161/85 (110) 99 Room Air 97.8 I & O 09/10/21 09/10/21 09/11/21 15:00 23:00 07:00 Intake Total 600 ml 420 ml 320 ml Output Total 500 ml Balance 600 ml -80 ml 320 ml Physical Exam General: Alert, Oriented X3, Cooperative Heart: Regular rate, Normal S1, Normal S2 Lungs: Wheezing, Crackles Abdomen: Normal bowel sounds Extremities: No clubbing Skin: No rashes Assessment and Plan Assessmemt and Plan Problems Medical Problems: (1) Acute exacerbation of congestive heart failure Status: Acute (2) COPD with exacerbation Status: Acute Comment Review of Relevant I have reviewed the following items gretchen (where applicable) has been applied. Justifications for Admission Other Justification Influenza A pneumonia STARLA GRAY MD Sep 11, 2021 20:33
--- NOTE | 2021-09-11 20:36 | PDOC ---
[facility] PROGRESS NOTE Date of Service DOS: DATE: 09/11/21 TIME: 20:34 Chief Complaint Chief Complaint Assessment/Plan CARLA due to vasomotor nephropathy Flu a positive pneumonia Polysubstance abuse Elevated BNP may be suggestive of chronic hypoxia versus undiagnosed COPD History of CHF History of COPD History of hypertension History of dyslipidemia History of pneumothorax Continue IV fluids Continue empiric IV antibiotics Continue Tamiflu Continue IV steroids O2 supplementation as needed Lovenox for DVT prophylaxis Protonix GI prophylaxis ADA diet CODE STATUS full Discussed with RN and SW Disposition inpatient management as above, anticipate discharge in the next 24 to 48 hours DPOA: Undesignated History of Present Illness History of Present Illness 56 year old male who presents with acute shortness of breath for 1 to 2 weeks now. Patient states that he has not taken his regular home medications for quite some time. He has a history of COPD, CHF, CAD, hypertension, dyslipidemia. He smokes half a pack to 1 pack/day. He states that he is very short of breath at home. He is tachypneic and tachycardic on presentation. He states it feels a lot like his CHF and COPD. He has not used his inhalers in quite some time. He states that it feels better when he sits up as opposed to laying down. 09/05/2021 No acute events overnight. Patient seen examined bedside. Patient still having some chest tightness and difficulty breathing. Despite the fact that he saturating 96% on room air. However his creatinine did bump up to 1.4. I will start judicious light IV fluid replacement. Talk screen did show polysubstance abuse. 09/06 Patient evaluated examined at bedside. Resting in bed. Lethargic. Still endorsing shortness of breath. Continue IV antibiotics and IV steroids. Creat inine improving. Will recheck chest x-ray tomorrow morning. Discussed with bedside RN. 09/07 Patient evaluated examined at bedside. Was sleeping difficult to awaken quite lethargic after. When awoken though he has quite a cough. Has to catch his breath multiple times throughout conversation. Continue antibiotics and steroids. Therapy ordered as he may need placement which he is agreeable to right now. Chest x-ray reviewed. Discussed with bedside RN. 09/08 Patient evaluated examined at bedside. Is a little bit improved sitting up eating lunch. Much more alert than previous days. Work with rehab yesterday recommended acute rehab he is agreeable to this. However still continue IV antibiotics IV steroids and scheduled breathing treatments. Discussed with bedside RN. 09/09 Patient evaluated examined at bedside. Up in chair when seen. Still complaining of quite a bit of shortness of breath. Breath sounds very coarse as well. Consulted pulmonary today. Recommendations of theirs reviewed, CT chest today. Continue IV antibiotics and IV steroids. Aggressive breathing treatments. Likely here through the weekend until early next week 09/10 Patient evaluated examined at bedside. Up in chair when seen. Ongoing shortness of breath still continues. Discussed with pulmonary physician. Continue current. CT chest reviewed. PT OT. Discussed with bedside RN. 09/11 Patient evaluated examined at bedside. Shortness of breath is improving quite a bit today. Discussed with pulmonary physician. Discharge stable from their point. Continue therapy evaluation. If recommend changes to home can probably discharge this weekend. We will follow this closely. Discussed with bedside RN.. Vitals/I&O Vitals/I&O: Vital Signs Date Time Temp Pulse Resp B/P (MAP) Pulse Ox O2 Delivery O2 Flow Rate FiO2 09/11/21 19:57 97.8 94 18 161/85 (110) 99 Room Air 97.8 I & O 09/10/21 09/10/21 09/11/21 15:00 23:00 07:00 Intake Total 600 ml 420 ml 320 ml Output Total 500 ml Balance 600 ml -80 ml 320 ml Physical Exam General: Alert, Oriented X3, Cooperative Heart: Regular rate, Normal S1, Normal S2 Lungs: Wheezing, Crackles Abdomen: Normal bowel sounds Extremities: No clubbing Skin: No rashes Assessment and Plan Assessmemt and Plan Problems Medical Problems: (1) Acute exacerbation of congestive heart failure Status: Acute (2) COPD with exacerbation Status: Acute Comment Review of Relevant I have reviewed the following items gretchen (where applicable) has been applied. Justifications for Admission Other Justification Influenza A pneumonia STARLA GRAY MD Sep 11, 2021 20:36
[2021-09-11] MEDS: diphenhydrAMINE HCL 25 MG CAPSULE PO PRN (22:17)
[2021-09-11] MEDS: LORazepam 0.5 MG TABLET PO PRN (22:17)
[2021-09-11] MEDS: ENOXAPARIN 40 MG/0.4 ML SYRINGE. SQ SCH (22:17)
[2021-09-11 22:45] VITALS: BP 184/89
[2021-09-12] MEDS: methylPREDNISolone SOD SUCC PF 40 MG/ML VIAL. IV SCH ×3 (00:54→12:06)
[2021-09-12] MEDS: PIPERACILLIN/TAZOBACTAM 3.375 GM in IV NORMAL SALINE 50ML 50 ML IV SCH ×4 (00:55→18:09)
[2021-09-12] MEDS: IPRATRPIUM/ALBUTEROL 0.5/2.5MG 3 ML NEBU. NEB SCH ×6 (01:15→20:17)
[2021-09-12] MEDS: CALCIUM CARBONATE 500 MG TAB.CHEW PO PRN (01:16)
[2021-09-12 02:54] VITALS: BP 189/99
[2021-09-12] MEDS: VANCOMYCIN 1.75 GM in IV NORMAL SALINE 500ML BAG 500 ML IV SCH (06:07)
[2021-09-12 07:00] VITALS: BP 167/98
[2021-09-12] MEDS: ATORVASTATIN CALCIUM 20 MG TABLET PO SCH (09:39)
[2021-09-12] MEDS: ASPIRIN ENTERIC COATED 81 MG TABLET.DR. PO SCH (09:40)
[2021-09-12] MEDS: FUROSEMIDE 40 MG TABLET. PO SCH (09:40)
[2021-09-12] MEDS: LISINOPRIL 20 MG TABLET PO SCH (09:40)
[2021-09-12] MEDS: SERTRALINE 50 MG TABLET. PO SCH (09:40)
[2021-09-12] MEDS: risperiDONE 1 MG TABLET. PO SCH ×2 (09:41→21:43)
[2021-09-12] MEDS: LACTOBACILLUS RHAMNOSUS GG 1 CAPSULE. PO SCH ×2 (09:41→21:42)
[2021-09-12] MEDS: CARVEDILOL 12.5 MG TABLET. PO SCH ×2 (09:41→17:24)
[2021-09-12 10:36] VITALS: BP 163/92
--- NOTE | 2021-09-12 12:37 | PDOC ---
[facility] PROGRESS NOTE Date of Service DOS: DATE: 09/12/21 TIME: 12:36 Chief Complaint Chief Complaint Assessment/Plan CARLA due to vasomotor nephropathy Flu a positive pneumonia Polysubstance abuse Elevated BNP may be suggestive of chronic hypoxia versus undiagnosed COPD History of CHF History of COPD History of hypertension History of dyslipidemia History of pneumothorax Continue IV fluids Continue empiric IV antibiotics Continue Tamiflu Continue IV steroids O2 supplementation as needed Lovenox for DVT prophylaxis Protonix GI prophylaxis ADA diet CODE STATUS full Discussed with RN and SW Disposition inpatient management as above, anticipate discharge in the next 24 to 48 hours DPOA: Undesignated History of Present Illness History of Present Illness 56 year old male who presents with acute shortness of breath for 1 to 2 weeks now. Patient states that he has not taken his regular home medications for quite some time. He has a history of COPD, CHF, CAD, hypertension, dyslipidemia. He smokes half a pack to 1 pack/day. He states that he is very short of breath at home. He is tachypneic and tachycardic on presentation. He states it feels a lot like his CHF and COPD. He has not used his inhalers in quite some time. He states that it feels better when he sits up as opposed to laying down. 09/05/2021 No acute events overnight. Patient seen examined bedside. Patient still having some chest tightness and difficulty breathing. Despite the fact that he saturating 96% on room air. However his creatinine did bump up to 1.4. I will start judicious light IV fluid replacement. Talk screen did show polysubstance abuse. 09/06 Patient evaluated examined at bedside. Resting in bed. Lethargic. Still endorsing shortness of breath. Continue IV antibiotics and IV steroids. Creat inine improving. Will recheck chest x-ray tomorrow morning. Discussed with bedside RN. 09/07 Patient evaluated examined at bedside. Was sleeping difficult to awaken quite lethargic after. When awoken though he has quite a cough. Has to catch his breath multiple times throughout conversation. Continue antibiotics and steroids. Therapy ordered as he may need placement which he is agreeable to right now. Chest x-ray reviewed. Discussed with bedside RN. 09/08 Patient evaluated examined at bedside. Is a little bit improved sitting up eating lunch. Much more alert than previous days. Work with rehab yesterday recommended acute rehab he is agreeable to this. However still continue IV antibiotics IV steroids and scheduled breathing treatments. Discussed with bedside RN. 09/09 Patient evaluated examined at bedside. Up in chair when seen. Still complaining of quite a bit of shortness of breath. Breath sounds very coarse as well. Consulted pulmonary today. Recommendations of theirs reviewed, CT chest today. Continue IV antibiotics and IV steroids. Aggressive breathing treatments. Likely here through the weekend until early next week 09/10 Patient evaluated examined at bedside. Up in chair when seen. Ongoing shortness of breath still continues. Discussed with pulmonary physician. Continue current. CT chest reviewed. PT OT. Discussed with bedside RN. 09/11 Patient evaluated examined at bedside. Shortness of breath is improving quite a bit today. Discussed with pulmonary physician. Discharge stable from their point. Continue therapy evaluation. If recommend changes to home can probably discharge this weekend. We will follow this closely. Discussed with bedside RN.. 09/12 Patient evaluated examined at bedside breathing notably improving still getting short of breath with ambulation. Continue antibiotics. Start weaning steroids today. Placement is biggest question at this point if he would still qualify for a rehab. Vitals/I&O Vitals/I&O: Vital Signs Date Time Temp Pulse Resp B/P (MAP) Pulse Ox O2 Delivery O2 Flow Rate FiO2 09/12/21 10:36 97.8 92 18 163/92 (115) 95 Room Air 97.8 I & O 09/11/21 09/11/21 09/12/21 15:00 23:00 07:00 Intake Total 730 ml 1100 ml 100 ml Output Total 200 ml Balance 730 ml 900 ml 100 ml Physical Exam General: Alert, Oriented X3, Cooperative Heart: Regular rate, Normal S1, Normal S2 Lungs: Wheezing, Crackles Abdomen: Normal bowel sounds Extremities: No clubbing Skin: No rashes Assessment and Plan Assessmemt and Plan Problems Medical Problems: (1) Acute exacerbation of congestive heart failure Status: Acute (2) COPD with exacerbation Status: Acute Comment Review of Relevant I have reviewed the following items gretchen (where applicable) has been applied. Justifications for Admission Other Justification Influenza A pneumonia STARLA GRAY MD Sep 12, 2021 12:37
[2021-09-12 15:00] VITALS: BP 146/90
[2021-09-12 19:10] VITALS: BP 174/82
[2021-09-12] MEDS: ENOXAPARIN 40 MG/0.4 ML SYRINGE. SQ SCH (21:44)
[2021-09-12 23:06] VITALS: BP 177/91
[2021-09-13] VITALS (7 sets, daily range): BP systolic 144–180; BP diastolic 70–107
[2021-09-13] MEDS: IPRATRPIUM/ALBUTEROL 0.5/2.5MG 3 ML NEBU. NEB SCH ×6 (00:20→20:00)
[2021-09-13] MEDS: PIPERACILLIN/TAZOBACTAM 3.375 GM in IV NORMAL SALINE 50ML 50 ML IV SCH ×3 (00:30→12:44)
[2021-09-13] MEDS: methylPREDNISolone SOD SUCC PF 40 MG/ML VIAL. IV SCH ×2 (00:34→12:43)
--- NOTE | 2021-09-13 09:01 | PDOC ---
PULMONARY PROGRESS NOTES DATE: 09/13/21 TIME: 09:00 Subjective Patient sitting up in a chair, was asleep, I woke him up, he still is short of breath but feels better. Vitals Vital Signs Date Time Temp Pulse Resp B/P (MAP) Pulse Ox O2 Delivery O2 Flow Rate FiO2 09/13/21 07:20 98 Room Air 09/13/21 07:00 87 16 175/93 (120) 09/13/21 02:46 98.0 98.0 ROS: No Nausea, No Chest Pain, No Abdominal Pain, No Increase Cough General: Alert, No acute distress Lungs: Wheezing, Crackles Cardiovascular: S1 Abdomen: Soft Neuro Exam: Alert Extremities: No Edema Skin: Warm Medications Active Scripts Medications Dose Route/Sig Max Daily Dose Days Date Category Diclofenac Sodium 50 Mg Tablet.dr 1 Tab PO BID PRN 4 04/10/19 Rx Fiorinal 50-325-40 Mg Capsule (Butalbital/Aspirin/Caffeine) 1 Each Capsule 1 Each PO QID PRN 04/02/19 Rx Amoxicillin 500 Mg Capsule 1 Cap PO TID 04/02/19 Rx Proair Hfa (Albuterol Sulfate) 8.5 Gm Hfa.aer.ad 2 Puff INH PRN Q6HRS PRN 01/24/19 Reported Stiolto Respimat Inhal [place] (Tiotropium Br/Olodaterol HCl) 4 Gm Mist.inhal 2 Puff IH DAILY 01/24/19 Reported Zoloft (Sertraline Hcl) 50 Mg Tablet 1 Tab PO DAILY 01/24/19 Reported Risperidone 1 Mg Tablet 1 Tab PO BID 01/24/19 Reported Hydroxyzine Hcl 25 Mg Tablet 2 Tab PO PRN TID PRN 01/24/19 Reported Lisinopril 40 Mg Tablet 1 Tab PO DAILY 06/27/18 Reported Amlodipine Besylate 5 Mg Tablet 5 Mg PO DAILY 30 06/27/18 Rx [Nicotine 21MG] 1 PATCH Patch 1 Patch TD DAILY 30 06/27/18 Rx Atorvastatin Calcium 20 Mg Tablet 1 Tab PO DAILY 08/14/17 Reported Potassium Chloride 20 Meq Tablet.er 20 Meq PO DAILY 08/14/17 Reported Carvedilol (Carvedilol) 12.5 Mg Tablet 25 Tab PO BID 08/14/17 Reported Aspir 81 (Aspirin) 81 Mg Tablet.dr 1 Tab PO DAILY 08/14/17 Reported Furosemide 40 Mg Tablet 1 Tab PO DAILY 08/14/17 Reported Impression . IMPRESSION: 1. Abnormal x-ray. 2. Acute exacerbation of chronic obstructive pulmonary disease. 3. Polysubstance use. 4. Positive influenza A screen. 5. Acute kidney injury. 6. Possible bacterial pneumonia gram-negative/gram-positive. 7. Chronic obstructive pulmonary disease. 8. Hypertension. Plan . Updated 09/11 patient off of oxygen, improving, discussed with Dr. Polanco, possible discharge today. CT reviewed bilateral infiltrates compatible with possible alveolar hemorrhage Small right-sided effusion, can follow-up with me in the office Continue empiric antibiotics Tamiflu Patient instructed on the importance of discontinuing all polysubstance SHARONA ZELAYA MD Sep 13, 2021 09:00
[2021-09-13] MEDS: FUROSEMIDE 40 MG TABLET. PO SCH (09:02)
[2021-09-13] MEDS: risperiDONE 1 MG TABLET. PO SCH ×2 (09:03→21:00)
[2021-09-13] MEDS: LACTOBACILLUS RHAMNOSUS GG 1 CAPSULE. PO SCH ×2 (09:03→21:00)
[2021-09-13] MEDS: CARVEDILOL 12.5 MG TABLET. PO SCH ×2 (09:03→16:36)
[2021-09-13] MEDS: ATORVASTATIN CALCIUM 20 MG TABLET PO SCH (09:03)
[2021-09-13] MEDS: ASPIRIN ENTERIC COATED 81 MG TABLET.DR. PO SCH (09:04)
[2021-09-13] MEDS: LISINOPRIL 20 MG TABLET PO SCH (09:04)
[2021-09-13] MEDS: SERTRALINE 50 MG TABLET. PO SCH (09:05)
--- NOTE | 2021-09-13 13:57 | PDOC ---
[facility] [facility] PROGRESS NOTE Date of Service DOS: DATE: 09/13/21 TIME: 13:53 Chief Complaint Chief Complaint Assessment/Plan CARLA due to vasomotor nephropathy Flu a positive pneumonia Polysubstance abuse Elevated BNP may be suggestive of chronic hypoxia versus undiagnosed COPD History of CHF History of COPD History of hypertension History of dyslipidemia History of pneumothorax Continue IV fluids Continue empiric IV antibiotics Continue Tamiflu Continue IV steroids O2 supplementation as needed Lovenox for DVT prophylaxis Protonix GI prophylaxis ADA diet CODE STATUS full Discussed with RN and SW Disposition inpatient management as above, anticipate discharge in the next 24 to 48 hours DPOA: Undesignated History of Present Illness History of Present Illness 56 year old male who presents with acute shortness of breath for 1 to 2 weeks now. Patient states that he has not taken his regular home medications for quite some time. He has a history of COPD, CHF, CAD, hypertension, dyslipidemia. He smokes half a pack to 1 pack/day. He states that he is very short of breath at home. He is tachypneic and tachycardic on presentation. He states it feels a lot like his CHF and COPD. He has not used his inhalers in quite some time. He states that it feels better when he sits up as opposed to laying down. 09/05/2021 No acute events overnight. Patient seen examined bedside. Patient still having some chest tightness and difficulty breathing. Despite the fact that he saturating 96% on room air. However his creatinine did bump up to 1.4. I will start judicious light IV fluid replacement. Talk screen did show polysubstance abuse. 09/06 Patient evaluated examined at bedside. Resting in bed. Lethargic. Still endorsing shortness of breath. Continue IV antibiotics and IV steroids. Creat inine improving. Will recheck chest x-ray tomorrow morning. Discussed with bedside RN. 09/07 Patient evaluated examined at bedside. Was sleeping difficult to awaken quite lethargic after. When awoken though he has quite a cough. Has to catch his breath multiple times throughout conversation. Continue antibiotics and steroids. Therapy ordered as he may need placement which he is agreeable to right now. Chest x-ray reviewed. Discussed with bedside RN. 09/08 Patient evaluated examined at bedside. Is a little bit improved sitting up eating lunch. Much more alert than previous days. Work with rehab yesterday recommended acute rehab he is agreeable to this. However still continue IV antibiotics IV steroids and scheduled breathing treatments. Discussed with bedside RN. 09/09 Patient evaluated examined at bedside. Up in chair when seen. Still complaining of quite a bit of shortness of breath. Breath sounds very coarse as well. Consulted pulmonary today. Recommendations of theirs reviewed, CT chest today. Continue IV antibiotics and IV steroids. Aggressive breathing treatments. Likely here through the weekend until early next week 09/10 Patient evaluated examined at bedside. Up in chair when seen. Ongoing shortness of breath still continues. Discussed with pulmonary physician. Continue current. CT chest reviewed. PT OT. Discussed with bedside RN. 09/11 Patient evaluated examined at bedside. Shortness of breath is improving quite a bit today. Discussed with pulmonary physician. Discharge stable from their point. Continue therapy evaluation. If recommend changes to home can probably discharge this weekend. We will follow this closely. Discussed with bedside RN.. 09/12 Patient evaluated examined at bedside breathing notably improving still getting short of breath with ambulation. Continue antibiotics. Start weaning steroids today. Placement is biggest question at this point if he would still qualify for a rehab. 09/13: Afebrile. Currently breathing on room air. Will discontinue empiric antibiotics. Will transition from Solu-Medrol to oral prednisone. Still awaiting insurance authorization for SNU. Has multiple questions regarding his car and his job. Discussed with social media designer and RN. Vitals/I&O Vitals/I&O: Vital Signs Date Time Temp Pulse Resp B/P (MAP) Pulse Ox O2 Delivery O2 Flow Rate FiO2 09/13/21 11:13 98.1 84 18 174/82 (112) 96 Room Air 98.1 I & O 09/12/21 09/12/21 09/13/21 15:00 23:00 07:00 Intake Total 580 ml 550 ml 0 ml Output Total 250 ml Balance 580 ml 300 ml 0 ml Physical Exam General: Alert, Oriented X3, Cooperative Heart: Regular rate, Normal S1, Normal S2 Lungs: Wheezing, Crackles Abdomen: Normal bowel sounds Extremities: No clubbing Skin: No rashes Assessment and Plan Assessmemt and Plan Problems Medical Problems: (1) Acute exacerbation of congestive heart failure Status: Acute (2) COPD with exacerbation Status: Acute Comment Review of Relevant I have reviewed the following items gretchen (where applicable) has been applied. Medications: Current Medications Medications (Trade) Dose Ordered Sig/Jules Route PRN Reason Start Time Stop Time Status Last Admin Dose Admin Methylprednisolone Sodium Succinate (SOLU-Medrol 40MG VIAL) 40 mg Q12H IV 09/13/21 00:00 09/13/21 12:43 Justifications for Admission Other Justification Influenza A pneumonia TRE PORTILLO MD Sep 13, 2021 13:57
--- NOTE | 2021-09-13 15:42 | NUR ---
SS following up with discharge planning. SS reviewed pt chart and discussed with pt RN. Pt is currently on room air. Pt on IV Solu-Medrol and IV Zosyn. Pt accepted at [facility] [address], ; fax [phone], and [facility], ; fax [phone], pending insurance approval. Insurance auth still pending at this time. Clinical updates phoned and faxed to both facilities. SS will continue to follow for discharge planning.
[2021-09-13] MEDS ORDERED: methylPREDNISolone SOD SUCC PF 40 MG/ML VIAL. IV ONE (21:00)
[2021-09-13] MEDS: ENOXAPARIN 40 MG/0.4 ML SYRINGE. SQ SCH (21:01)
[2021-09-14 02:36] VITALS: BP 143/103
[2021-09-14] MEDS: IPRATRPIUM/ALBUTEROL 0.5/2.5MG 3 ML NEBU. NEB SCH ×7 (04:00→23:31)
[2021-09-14 07:00] VITALS: BP 149/73
[2021-09-14] MEDS: SERTRALINE 50 MG TABLET. PO SCH (09:07)
[2021-09-14] MEDS: CARVEDILOL 12.5 MG TABLET. PO SCH ×2 (09:07→17:03)
[2021-09-14] MEDS: predniSONE 20 MG TABLET PO SCH (09:07)
[2021-09-14] MEDS: ASPIRIN ENTERIC COATED 81 MG TABLET.DR. PO SCH (09:07)
[2021-09-14] MEDS: risperiDONE 1 MG TABLET. PO SCH ×2 (09:07→21:26)
[2021-09-14] MEDS: LISINOPRIL 20 MG TABLET PO SCH (09:08)
[2021-09-14] MEDS: LACTOBACILLUS RHAMNOSUS GG 1 CAPSULE. PO SCH ×2 (09:08→21:25)
[2021-09-14] MEDS: ATORVASTATIN CALCIUM 20 MG TABLET PO SCH (09:08)
[2021-09-14] MEDS: DOXYCYCLINE HYCLATE 100 MG TABLET PO SCH ×2 (09:08→21:26)
[2021-09-14] MEDS: FUROSEMIDE 40 MG TABLET. PO SCH (09:08)
--- NOTE | 2021-09-14 09:51 | PDOC ---
PULMONARY PROGRESS NOTES DATE: 09/14/21 TIME: 09:48 Subjective Patient sitting up in a chair, currently on room air. Denies any shortness of breath. Vitals Vital Signs Date Time Temp Pulse Resp B/P (MAP) Pulse Ox O2 Delivery O2 Flow Rate FiO2 09/14/21 09:08 93 143/103 09/14/21 08:00 Room Air 09/14/21 07:30 98 09/14/21 07:00 97.7 17 97.7 ROS: No Nausea, No Chest Pain, No Abdominal Pain, No Increase Cough General: Alert, No acute distress Lungs: Other (Decreased breath sounds.) Cardiovascular: S1 Abdomen: Soft Neuro Exam: Alert Extremities: No Edema Skin: Warm Medications Active Scripts Medications Dose Route/Sig Max Daily Dose Days Date Category Diclofenac Sodium 50 Mg Tablet.dr 1 Tab PO BID PRN 4 04/10/19 Rx Fiorinal 50-325-40 Mg Capsule (Butalbital/Aspirin/Caffeine) 1 Each Capsule 1 Each PO QID PRN 04/02/19 Rx Amoxicillin 500 Mg Capsule 1 Cap PO TID 04/02/19 Rx Proair Hfa (Albuterol Sulfate) 8.5 Gm Hfa.aer.ad 2 Puff INH PRN Q6HRS PRN 01/24/19 Reported Stiolto Respimat Inhal [place] (Tiotropium Br/Olodaterol HCl) 4 Gm Mist.inhal 2 Puff IH DAILY 01/24/19 Reported Zoloft (Sertraline Hcl) 50 Mg Tablet 1 Tab PO DAILY 01/24/19 Reported Risperidone 1 Mg Tablet 1 Tab PO BID 01/24/19 Reported Hydroxyzine Hcl 25 Mg Tablet 2 Tab PO PRN TID PRN 01/24/19 Reported Lisinopril 40 Mg Tablet 1 Tab PO DAILY 06/27/18 Reported Amlodipine Besylate 5 Mg Tablet 5 Mg PO DAILY 30 06/27/18 Rx [Nicotine 21MG] 1 PATCH Patch 1 Patch TD DAILY 30 06/27/18 Rx Atorvastatin Calcium 20 Mg Tablet 1 Tab PO DAILY 08/14/17 Reported Potassium Chloride 20 Meq Tablet.er 20 Meq PO DAILY 08/14/17 Reported Carvedilol (Carvedilol) 12.5 Mg Tablet 25 Tab PO BID 08/14/17 Reported Aspir 81 (Aspirin) 81 Mg Tablet.dr 1 Tab PO DAILY 08/14/17 Reported Furosemide 40 Mg Tablet 1 Tab PO DAILY 08/14/17 Reported Impression . IMPRESSION: 1. Abnormal x-ray and CT chest with mild interstitial infiltrates mostly in the upper lobe and small right pleural effusion. 2. Acute exacerbation of chronic obstructive pulmonary disease. 3. Polysubstance use. 4. Positive influenza A 5. Acute kidney injury. 6. Possible bacterial pneumonia gram-negative/gram-positive. 7. Chronic obstructive pulmonary disease. 8. Hypertension. Plan . Patient clinically stable. CT reviewed bilateral infiltrates compatible influenza a pneumonia. Small right-sided effusion, can follow-up in the office. No intervention needed. Continue empiric antibiotics Tamiflu Patient instructed on the importance of discontinuing all polysubstance Clinically improving. RIC SAGE MD Sep 14, 2021 09:51
[2021-09-14 11:00] VITALS: BP 167/91
--- NOTE | 2021-09-14 12:55 | NUR ---
SS following up with discharge planning. SS reviewed pt chart and discussed with pt RN. Pt is currently on room air. PT/OT recommended acute rehabilitation. Pt accepted at [facility], ; fax [phone], and [facility], ; fax [phone]. Pt Medicaid denied insurance approval for acute rehabilitation. Medicaid has no benefits for jail unit. RN requested PT re-evaluate pt today. Discharge plan is currently to home when medically ready for discharge. Physician notified. SS will continue to follow for discharge planning.
--- NOTE | 2021-09-14 12:56 | PDOC ---
[employer] PROGRESS NOTE Date of Service DOS: DATE: 09/14/21 TIME: 12:54 Chief Complaint Chief Complaint Assessment/Plan CARLA due to vasomotor nephropathy Flu a positive pneumonia Polysubstance abuse Elevated BNP may be suggestive of chronic hypoxia versus undiagnosed COPD History of CHF History of COPD History of hypertension History of dyslipidemia History of pneumothorax Continue IV fluids Continue empiric IV antibiotics Continue Tamiflu Continue IV steroids O2 supplementation as needed Lovenox for DVT prophylaxis Protonix GI prophylaxis ADA diet CODE STATUS full Discussed with RN and SW Disposition inpatient management as above, anticipate discharge in the next 24 to 48 hours DPOA: Undesignated History of Present Illness History of Present Illness 56 year old male who presents with acute shortness of breath for 1 to 2 weeks now. Patient states that he has not taken his regular home medications for quite some time. He has a history of COPD, CHF, CAD, hypertension, dyslipidemia. He smokes half a pack to 1 pack/day. He states that he is very short of breath at home. He is tachypneic and tachycardic on presentation. He states it feels a lot like his CHF and COPD. He has not used his inhalers in quite some time. He states that it feels better when he sits up as opposed to laying down. 09/05/2021 No acute events overnight. Patient seen examined bedside. Patient still having some chest tightness and difficulty breathing. Despite the fact that he saturating 96% on room air. However his creatinine did bump up to 1.4. I will start judicious light IV fluid replacement. Talk screen did show polysubstance abuse. 09/06 Patient evaluated examined at bedside. Resting in bed. Lethargic. Still endorsing shortness of breath. Continue IV antibiotics and IV steroids. Creat inine improving. Will recheck chest x-ray tomorrow morning. Discussed with bedside RN. 09/07 Patient evaluated examined at bedside. Was sleeping difficult to awaken quite lethargic after. When awoken though he has quite a cough. Has to catch his breath multiple times throughout conversation. Continue antibiotics and steroids. Therapy ordered as he may need placement which he is agreeable to right now. Chest x-ray reviewed. Discussed with bedside RN. 09/08 Patient evaluated examined at bedside. Is a little bit improved sitting up eating lunch. Much more alert than previous days. Work with rehab yesterday recommended acute rehab he is agreeable to this. However still continue IV antibiotics IV steroids and scheduled breathing treatments. Discussed with bedside RN. 09/09 Patient evaluated examined at bedside. Up in chair when seen. Still complaining of quite a bit of shortness of breath. Breath sounds very coarse as well. Consulted pulmonary today. Recommendations of theirs reviewed, CT chest today. Continue IV antibiotics and IV steroids. Aggressive breathing treatments. Likely here through the weekend until early next week 09/10 Patient evaluated examined at bedside. Up in chair when seen. Ongoing shortness of breath still continues. Discussed with pulmonary physician. Continue current. CT chest reviewed. PT OT. Discussed with bedside RN. 09/11 Patient evaluated examined at bedside. Shortness of breath is improving quite a bit today. Discussed with pulmonary physician. Discharge stable from their point. Continue therapy evaluation. If recommend changes to home can probably discharge this weekend. We will follow this closely. Discussed with bedside RN.. 09/12 Patient evaluated examined at bedside breathing notably improving still getting short of breath with ambulation. Continue antibiotics. Start weaning steroids today. Placement is biggest question at this point if he would still qualify for a rehab. 09/13: Afebrile. Currently breathing on room air. Will discontinue empiric antibiotics. Will transition from Solu-Medrol to oral prednisone. Still awaiting insurance authorization for SNU. Has multiple questions regarding his car and his job. Discussed with psychotherapist social worker and RN. 09/14: Patient seen and evaluated bedside. Resting comfortably in bed, breathing on room air. Currently on oral prednisone and oral doxycycline for 5 days. Awaiting insurance authorization for SNU. Vitals/I&O Vitals/I&O: Vital Signs Date Time Temp Pulse Resp B/P (MAP) Pulse Ox O2 Delivery O2 Flow Rate FiO2 09/14/21 11:26 94 Room Air 09/14/21 11:00 98.4 95 17 167/91 (116) 98.4 I & O 09/13/21 09/13/21 09/14/21 15:00 23:00 07:00 Intake Total 620 ml 360 ml 0 ml Output Total 750 ml Balance 620 ml -390 ml 0 ml Physical Exam General: Alert, Oriented X3, Cooperative Heart: Regular rate, Normal S1, Normal S2 Lungs: Other (Decreased breath sounds.) Abdomen: Normal bowel sounds Extremities: No clubbing Skin: No rashes Assessment and Plan Assessmemt and Plan Problems Medical Problems: (1) Acute exacerbation of congestive heart failure Status: Acute (2) COPD with exacerbation Status: Acute Comment Review of Relevant I have reviewed the following items gretchen (where applicable) has been applied. Medications: Current Medications Medications (Trade) Dose Ordered Sig/Jules Route PRN Reason Start Time Stop Time Status Last Admin Dose Admin Doxycycline Hyclate (Vibra-Tab) 100 mg BID PO 09/14/21 09:00 09/19/21 08:59 09/14/21 09:08 Prednisone (Prednisone) 40 mg DAILY PO 09/14/21 09:00 09/19/21 08:59 09/14/21 09:07 Methylprednisolone Sodium Succinate (SOLU-Medrol 40MG VIAL) 40 mg 1X ONCE IV 09/13/21 21:00 09/13/21 21:01 DC 09/13/21 21:00 Justifications for Admission Other Justification Influenza A pneumonia TRE PORTILLO MD Sep 14, 2021 12:56
[2021-09-14 14:33] VITALS: BP 138/76
[2021-09-14 19:00] VITALS: BP 141/90
[2021-09-14] MEDS: ENOXAPARIN 40 MG/0.4 ML SYRINGE. SQ SCH (21:26)
[2021-09-14 23:58] VITALS: BP 165/95
[2021-09-15 03:25] VITALS: BP 169/81
[2021-09-15] MEDS: IPRATRPIUM/ALBUTEROL 0.5/2.5MG 3 ML NEBU. NEB SCH ×3 (04:00→11:24)
[2021-09-15 07:00] VITALS: BP 173/96
[2021-09-15] MEDS: predniSONE 20 MG TABLET PO SCH (07:42)
[2021-09-15] MEDS: risperiDONE 1 MG TABLET. PO SCH (07:42)
[2021-09-15] MEDS: ASPIRIN ENTERIC COATED 81 MG TABLET.DR. PO SCH (07:42)
[2021-09-15] MEDS: DOXYCYCLINE HYCLATE 100 MG TABLET PO SCH (07:42)
[2021-09-15] MEDS: FUROSEMIDE 40 MG TABLET. PO SCH (07:43)
[2021-09-15] MEDS: ATORVASTATIN CALCIUM 20 MG TABLET PO SCH (07:43)
[2021-09-15] MEDS: LISINOPRIL 20 MG TABLET PO SCH (07:43)
[2021-09-15] MEDS: SERTRALINE 50 MG TABLET. PO SCH (07:43)
[2021-09-15] MEDS: LACTOBACILLUS RHAMNOSUS GG 1 CAPSULE. PO SCH (07:43)
[2021-09-15] MEDS: CARVEDILOL 12.5 MG TABLET. PO SCH (07:44)
[2021-09-15 11:00] VITALS: BP 141/86
--- NOTE | 2021-09-15 11:49 | PDOC ---
PULMONARY PROGRESS NOTES DATE: 09/15/21 TIME: 11:48 Subjective currently on room air. Denies any shortness of breath. Vitals Vital Signs Date Time Temp Pulse Resp B/P (MAP) Pulse Ox O2 Delivery O2 Flow Rate FiO2 09/15/21 11:25 97 Room Air 09/15/21 07:44 85 169/81 09/15/21 07:00 97.7 20 97.7 ROS: No Nausea, No Chest Pain, No Abdominal Pain, No Increase Cough General: Alert, No acute distress Lungs: Other (Decreased breath sounds.) Cardiovascular: S1 Abdomen: Soft Neuro Exam: Alert Extremities: No Edema Skin: Warm Medications Active Scripts Medications Dose Route/Sig Max Daily Dose Days Date Category Diclofenac Sodium 50 Mg Tablet.dr 1 Tab PO BID PRN 4 04/10/19 Rx Fiorinal 50-325-40 Mg Capsule (Butalbital/Aspirin/Caffeine) 1 Each Capsule 1 Each PO QID PRN 04/02/19 Rx Amoxicillin 500 Mg Capsule 1 Cap PO TID 04/02/19 Rx Proair Hfa (Albuterol Sulfate) 8.5 Gm Hfa.aer.ad 2 Puff INH PRN Q6HRS PRN 01/24/19 Reported Stiolto Respimat Inhal [place] (Tiotropium Br/Olodaterol HCl) 4 Gm Mist.inhal 2 Puff IH DAILY 01/24/19 Reported Zoloft (Sertraline Hcl) 50 Mg Tablet 1 Tab PO DAILY 01/24/19 Reported Risperidone 1 Mg Tablet 1 Tab PO BID 01/24/19 Reported Hydroxyzine Hcl 25 Mg Tablet 2 Tab PO PRN TID PRN 01/24/19 Reported Lisinopril 40 Mg Tablet 1 Tab PO DAILY 06/27/18 Reported Amlodipine Besylate 5 Mg Tablet 5 Mg PO DAILY 30 06/27/18 Rx [Nicotine 21MG] 1 PATCH Patch 1 Patch TD DAILY 30 06/27/18 Rx Atorvastatin Calcium 20 Mg Tablet 1 Tab PO DAILY 08/14/17 Reported Potassium Chloride 20 Meq Tablet.er 20 Meq PO DAILY 08/14/17 Reported Carvedilol (Carvedilol) 12.5 Mg Tablet 25 Tab PO BID 08/14/17 Reported Aspir 81 (Aspirin) 81 Mg Tablet.dr 1 Tab PO DAILY 08/14/17 Reported Furosemide 40 Mg Tablet 1 Tab PO DAILY 08/14/17 Reported Impression . IMPRESSION: 1. Abnormal x-ray and CT chest with mild interstitial infiltrates mostly in the upper lobe and small right pleural effusion. 2. Acute exacerbation of chronic obstructive pulmonary disease. 3. Polysubstance use. 4. Positive influenza A 5. Acute kidney injury. 6. Possible bacterial pneumonia gram-negative/gram-positive. 7. Chronic obstructive pulmonary disease. 8. Hypertension. Plan . Patient clinically stable. Currently on room air. CT reviewed bilateral infiltrates compatible influenza a pneumonia. Small right-sided effusion, can follow-up in the office. No intervention needed. Continue empiric antibiotics Tamiflu Patient instructed on the importance of discontinuing all polysubstance We will follow-up chest x-ray today. RIC SAGE MD Sep 15, 2021 11:49
--- NOTE | 2021-09-15 13:15 | PDOC ---
[employer] PROGRESS NOTE Date of Service DOS: DATE: 09/15/21 TIME: 13:14 Chief Complaint Chief Complaint Assessment/Plan CARLA due to vasomotor nephropathy Flu a positive pneumonia Polysubstance abuse Elevated BNP may be suggestive of chronic hypoxia versus undiagnosed COPD History of CHF History of COPD History of hypertension History of dyslipidemia History of pneumothorax Continue IV fluids Continue empiric IV antibiotics Continue Tamiflu Continue IV steroids O2 supplementation as needed Lovenox for DVT prophylaxis Protonix GI prophylaxis ADA diet CODE STATUS full Discussed with RN and SW Disposition inpatient management as above, anticipate discharge in the next 24 to 48 hours DPOA: Undesignated History of Present Illness History of Present Illness 56 year old male who presents with acute shortness of breath for 1 to 2 weeks now. Patient states that he has not taken his regular home medications for quite some time. He has a history of COPD, CHF, CAD, hypertension, dyslipidemia. He smokes half a pack to 1 pack/day. He states that he is very short of breath at home. He is tachypneic and tachycardic on presentation. He states it feels a lot like his CHF and COPD. He has not used his inhalers in quite some time. He states that it feels better when he sits up as opposed to laying down. 09/05/2021 No acute events overnight. Patient seen examined bedside. Patient still having some chest tightness and difficulty breathing. Despite the fact that he saturating 96% on room air. However his creatinine did bump up to 1.4. I will start judicious light IV fluid replacement. Talk screen did show polysubstance abuse. 09/06 Patient evaluated examined at bedside. Resting in bed. Lethargic. Still endorsing shortness of breath. Continue IV antibiotics and IV steroids. Creat inine improving. Will recheck chest x-ray tomorrow morning. Discussed with bedside RN. 09/07 Patient evaluated examined at bedside. Was sleeping difficult to awaken quite lethargic after. When awoken though he has quite a cough. Has to catch his breath multiple times throughout conversation. Continue antibiotics and steroids. Therapy ordered as he may need placement which he is agreeable to right now. Chest x-ray reviewed. Discussed with bedside RN. 09/08 Patient evaluated examined at bedside. Is a little bit improved sitting up eating lunch. Much more alert than previous days. Work with rehab yesterday recommended acute rehab he is agreeable to this. However still continue IV antibiotics IV steroids and scheduled breathing treatments. Discussed with bedside RN. 09/09 Patient evaluated examined at bedside. Up in chair when seen. Still complaining of quite a bit of shortness of breath. Breath sounds very coarse as well. Consulted pulmonary today. Recommendations of theirs reviewed, CT chest today. Continue IV antibiotics and IV steroids. Aggressive breathing treatments. Likely here through the weekend until early next week 09/10 Patient evaluated examined at bedside. Up in chair when seen. Ongoing shortness of breath still continues. Discussed with pulmonary physician. Continue current. CT chest reviewed. PT OT. Discussed with bedside RN. 09/11 Patient evaluated examined at bedside. Shortness of breath is improving quite a bit today. Discussed with pulmonary physician. Discharge stable from their point. Continue therapy evaluation. If recommend changes to home can probably discharge this weekend. We will follow this closely. Discussed with bedside RN.. 09/12 Patient evaluated examined at bedside breathing notably improving still getting short of breath with ambulation. Continue antibiotics. Start weaning steroids today. Placement is biggest question at this point if he would still qualify for a rehab. 09/13: Afebrile. Currently breathing on room air. Will discontinue empiric antibiotics. Will transition from Solu-Medrol to oral prednisone. Still awaiting insurance authorization for SNU. Has multiple questions regarding his car and his job. Discussed with adoption social worker and RN. 09/14: Patient seen and evaluated bedside. Resting comfortably in bed, breathing on room air. Currently on oral prednisone and oral doxycycline for 5 days. Awaiting insurance authorization for SNU. 09/15: Patient seen and evaluated bedside. Resting comfortably on room air. He will discharge home with home health today, and rolling walker as needed. Greater than 30 minutes spent managing discharge of this patient. Vitals/I&O Vitals/I&O: Vital Signs Date Time Temp Pulse Resp B/P (MAP) Pulse Ox O2 Delivery O2 Flow Rate FiO2 09/15/21 11:25 97 Room Air 09/15/21 07:44 85 169/81 09/15/21 07:00 97.7 20 97.7 I & O 09/14/21 09/14/21 09/15/21 15:00 23:00 07:00 Intake Total 650 ml 300 ml 240 ml Balance 650 ml 300 ml 240 ml Physical Exam General: Alert, Oriented X3, Cooperative Heart: Regular rate, Normal S1, Normal S2 Lungs: Other (Decreased breath sounds.) Abdomen: Normal bowel sounds Extremities: No clubbing Skin: No rashes Assessment and Plan Assessmemt and Plan Problems Medical Problems: (1) Acute exacerbation of congestive heart failure Status: Acute (2) COPD with exacerbation Status: Acute Comment Review of Relevant I have reviewed the following items gretchen (where applicable) has been applied. Justifications for Admission Other Justification Influenza A pneumonia TRE PORTILLO MD Sep 15, 2021 13:15
--- NOTE | 2021-09-15 13:20 | PDOC3 ---
Discharge Summary Visit Information Date of Admission: Sep 04, 2021 Date of Discharge: Sep 15, 2021 Final Diagnosis Problems Medical Problems: (1) Acute exacerbation of congestive heart failure Status: Acute (2) COPD with exacerbation Status: Acute Brief Hospital Course Allergies Allergies Coded Allergies Type Severity Reaction Last Updated Verified No Known Drug Allergies 09/13/17 No Vital Signs Vital Signs Date Time Temp Pulse Resp B/P (MAP) Pulse Ox O2 Delivery O2 Flow Rate FiO2 09/15/21 11:25 97 Room Air 09/15/21 07:44 85 169/81 09/15/21 07:00 97.7 20 97.7 Brief Hospital Course Mr. Aldana is a 56 old male who presented with COPD exacerbation, influenza A pneumonia. He was treated with empiric IV antibiotics, steroids, and Tamiflu. Consultation was placed to pulmonology. CT chest was obtained that showed patchy bilateral airspace disease, perihilar edema versus atypical pneumonia, small pleural effusions, right greater than left, and mildly enlarged mediastinal and hilar lymph nodes, likely reactive. As patient continues to improve he was transitioned to oral antibiotics and oral steroids. Efforts were made to get patient into skilled rehab, but this was not approved by insurance. Instead he was stable to go home with home health, and pulmonology follow-up. Discharge Information Condition at Discharge: Improved Disposition/Orders: D/C to Home w/ HH Scheduled Amlodipine Besylate (Amlodipine Besylate) 5 Mg Tablet, 5 MG PO DAILY for HTN/CAD for 30 Days, #30 Ref 5 Prescribed by: STARLA BRANDON MD on 06/27/18825 Last Action: Continued on 09/10/21840 by STARLA GRAY MD Amoxicillin (Amoxicillin) 500 Mg Capsule, 1 CAP PO TID, #30 Prescribed by: KG ORTIZ D.O. on 04/02/19 1519 Last Action: HELD on 09/10/21840 by STARLA GRAY MD Aspirin (Aspir 81) 81 Mg Tablet., 1 TAB PO DAILY, #30 Ref 5 (Reported) Entered as Reported by: David Martin RN on 08/14/17 8031 Last Action: Continued on 09/10/21840 by STARLA GRAY MD Atorvastatin Calcium (Atorvastatin Calcium) 20 Mg Tablet, 1 TAB PO DAILY, #30 Ref 5 (Reported) Entered as Reported by: David Martin RN on 08/14/17452 Last Action: Continued on 09/10/21840 by STARLA GRAY MD Carvedilol (Carvedilol ) 12.5 Mg Tablet, 25 TAB PO BID for CAD, #180 Ref 1 (Reported) Entered as Reported by: David Martin RN on 08/14/17452 Last Action: Continued on 09/10/21840 by STARLA GRAY MD Furosemide (Furosemide) 40 Mg Tablet, 1 TAB PO DAILY, #30 Ref 5 (Reported) Entered as Reported by: David Martin RN on 08/14/17452 Last Action: Continued on 09/10/21840 by STARLA GRAY MD Lisinopril (Lisinopril) 40 Mg Tablet, 1 TAB PO DAILY for HTN, #30 Ref 5 (Reported) Entered as Reported by: NIMESH DEAN on 06/27/18 1012 Last Action: Continued on 09/10/21840 by STARLA GRAY MD Potassium Chloride (Potassium Chloride ) 20 Meq Tablet.er, 20 MEQ PO DAILY, (Reported) Entered as Reported by: David Martin RN on 08/14/17452 Last Action: HELD on 09/10/21840 by STARLA GRAY MD Risperidone (Risperidone) 1 Mg Tablet, 1 TAB PO BID for MOOD, #30 Ref 1 (Reported) Entered as Reported by: CARMEN PINEDA on 01/24/19918 Last Action: Continued on 09/10/21840 by STARLA GRAY MD Sertraline Hcl (Zoloft) 50 Mg Tablet, 1 TAB PO DAILY for MOOD, #30 Ref 2 (Reported) Entered as Reported by: CARMEN PINEDA on 01/24/19918 Last Action: Continued on 09/10/21840 by STARLA GRAY MD Tiotropium Br/Olodaterol HCl (Stiolto Respimat Inhal [place]) 4 Gm Mist.inhal, 2 PUFF IH DAILY for COPD, (Reported) Entered as Reported by: CARMEN PINEDA on 01/24/19918 Last Action: HELD on 09/10/21840 by STARLA GRAY MD [Nicotine 21MG] 1 PATCH PATCH, 1 PATCH TD DAILY for Smoking cessation for 30 Days, #30 Ref 2 Prescribed by: STARLA BRANDON MD on 06/27/18825 Last Action: HELD on 09/10/21840 by STARLA GRAY MD Scheduled PRN Albuterol Sulfate (Proair Hfa) 8.5 Gm Hfa.aer.ad, 2 PUFF INH PRN Q6HRS PRN for SHORTNESS OF BREATH, (Reported) Entered as Reported by: CARMEN PINEDA on 01/24/19918 Last Action: HELD on 09/10/21840 by STARLA GRAY MD Butalbital/Aspirin/Caffeine (Fiorinal 50-325-40 Mg Capsule) 1 Each Capsule, 1 EACH PO QID PRN for HEADACHE, #15 Prescribed by: KG ORTIZ D.O. on 04/02/19 1521 Last Action: HELD on 09/10/21840 by STARLA GRAY MD Diclofenac Sodium (Diclofenac Sodium) 50 Mg Tablet.dr, 1 TAB PO BID PRN for HEADACHE for 4 Days, #8 Ref 1 Prescribed by: SLADE CUEVA MD on 04/10/19314 Last Action: HELD on 09/10/21840 by STARLA GRAY MD Hydroxyzine Hcl (Hydroxyzine Hcl) 25 Mg Tablet, 2 TAB PO PRN TID PRN for ITCHING, #30 (Reported) Entered as Reported by: CARMEN PINEDA on 01/24/19918 Last Action: HELD on 09/10/21840 by STARLA GRAY MD Justicifation of Admission Dx: Justifications for Admission: Justification of Admission Dx: Yes TRE PORTILLO MD Sep 15, 2021 13:19
[2021-09-15] MEDS ORDERED: DOXY100T PO (13:24)
[2021-09-15] MEDS ORDERED: PRED20TA PO (13:24)
--- NOTE | 2021-09-15 13:26 | SNU/HH DC ---
DISCHARGE WITH HOME HEALTH DISCHARGE INFORMATION: Discharge Date: Sep 15, 2021 Final Diagnosis: Problems Medical Problems: (1) Acute exacerbation of congestive heart failure Status: Acute (2) COPD with exacerbation Status: Acute Condition on Discharge: Stable CODE STATUS: Code Status: Full HOME HEALTH: Face to Face: I certify this patient is under my care and that I, or a nurse practitioner or physician's physical therapist assistant working with me, had a face to face encounter that meets the physician face to face encounter requirements with this patient on 09/15/2021. RN For Eval/Treatment: Yes Physical Therapy For: Evalulation/Treatment Occupational Therapy For: Evaluation/Treatment Pt Meets Homebound Status: Extreme weakness w/ amb., Limited distance walking POST DISCHARGE ORDERS: Activity Instructions for Disc: Activity as tolerated Weight Bearing Status after Di: No restrictions DIET AFTER DISCHARGE: Cardiac CHECKS AFTER DISCHARGE: Checks after discharge: Check blood press - daily, Check your Temp as needed, Weigh Yourself Daily TREATMENT/EQUIPMENT ORDERS: Adaptive Equipment Issued: Walker CERTIFICATION STATEMENT: Certification Statement: Certification Statement: Based on the above finding, I certify that this patient is confined to the home and needs intermittent shelter care, physical therapy and/or speech therapy, or continues to need occupational therapy.~ This patient is under my care, and I have initiated the establishment of the plan of care.~ This patient will be followed by myself or a community physician who will periodically review the plan of care. Home Meds Active Scripts Diclofenac Sodium (DICLOFENAC SODIUM) 50 Mg Tablet.dr, 1 TAB PO BID PRN for HEADACHE for 4 Days, #8 TAB 1 Refill Prov:SLADE CUEVA MD 04/10/19 Butalbital/Aspirin/Caffeine (FIORINAL 50-325-40 MG CAPSULE) 1 Each Capsule, 1 EACH PO QID PRN for HEADACHE, #15 CAP Prov:KG ORTIZ DO 04/02/19 Amoxicillin (AMOXICILLIN) 500 Mg Capsule, 1 CAP PO TID, #30 CAP Prov:KG ORTIZ DO 04/02/19 Amlodipine Besylate (AMLODIPINE BESYLATE) 5 Mg Tablet, 5 MG PO DAILY for HTN/CAD for 30 Days, #30 TAB 5 Refills Prov:STARLA BRANDON MD 06/27/18 [Nicotine 21MG] 1 PATCH PATCH No Conflict Check, 1 PATCH TD DAILY for Smoking cessation for 30 Days, #30 2 Refills Prov:YOKASTAFESTARLA Blankenship MD 06/27/18 Reported Medications Albuterol Sulfate (Proair Hfa) 8.5 Gm Hfa.aer.ad, 2 PUFF INH PRN Q6HRS PRN for SHORTNESS OF BREATH, INHALER 01/24/19 Tiotropium Br/Olodaterol HCl (Stiolto Respimat Inhal [place]) 4 Gm Mist.inhal, 2 PUFF IH DAILY for COPD, SPRAY 01/24/19 Sertraline Hcl (ZOLOFT) 50 Mg Tablet, 1 TAB PO DAILY for MOOD, #30 TAB 2 Refills 01/24/19 Risperidone (RISPERIDONE) 1 Mg Tablet, 1 TAB PO BID for MOOD, #30 TAB 1 Refill 01/24/19 Hydroxyzine Hcl (HYDROXYZINE HCL) 25 Mg Tablet, 2 TAB PO PRN TID PRN for ITCHING, #30 TAB 01/24/19 Lisinopril (LISINOPRIL) 40 Mg Tablet, 1 TAB PO DAILY for HTN, #30 TAB 5 Refills 06/27/18 Atorvastatin Calcium (ATORVASTATIN CALCIUM) 20 Mg Tablet, 1 TAB PO DAILY, #30 TAB 5 Refills 08/14/17 Potassium Chloride (POTASSIUM CHLORIDE ) 20 Meq Tablet.er, 20 MEQ PO DAILY, TAB.SR 08/14/17 Carvedilol (CARVEDILOL ) 12.5 Mg Tablet, 25 TAB PO BID for CAD, #180 TAB 1 Refill 08/14/17 Aspirin (ASPIR 81) 81 Mg Tablet., 1 TAB PO DAILY, #30 TAB 5 Refills 08/14/17 Furosemide (FUROSEMIDE) 40 Mg Tablet, 1 TAB PO DAILY, #30 TAB 5 Refills 08/14/17 TRE PORTILLO MD Sep 15, 2021 13:26
--- NOTE | 2021-09-15 14:01 | NUR ---
SS following up with discharge planning. SS reviewed pt chart and discussed with pt RN. Pt is currently on room air. PT/OT recommended acute rehabilitation. Pt accepted at [facility], ; fax [phone], and [facility], ; fax [phone]. Pt Medicaid denied insurance approval for acute rehabilitation. Medicaid has no benefits for alf unit. Discharge orders received for home with home healthcare. Script received for walk. Script and clinical phoned and faxed to [facility], [phone]; fax [phone]. Walker to be delivered to pt's home today. Pt needing transport to home. [facility] transport, [id number], providing transportation to home at 1415. Discharge orders and clinical phoned and faxed to several home healthcare companies and at this time SS has been notified that all of the home healthcare companies are at capacity for Medicaid at this time. SS will continue to follow for discharge planning.
--- NOTE | 2021-09-15 14:09 | NUR ---
Discharge Note: [facility] Discharge instructions and discharge home medications reviewed with Patient and a copy given. All questions have been answered and understanding verbalized. The following instructions and handouts were given: Home health, Pulmonology follow up, and walker delivery Discontinued lines and drains: IV and quality assurance monitor removed Patient discharged to home with home health
--- NOTE | 2021-09-15 15:28 | RAD ---
Single view of the chest. 09/15/2021 1:58 PM Indication: follow-up pneumonia Comparison: Chest radiograph September 07, 2021 Findings: Bilateral pulmonary infiltrates are improved. Small right pleural effusion is improved. No pneumothorax. Heart size is top normal. Bony thorax is grossly unchanged. IMPRESSION: Improving bilateral pulmonary infiltrates and improved right pleural effusion Electronically signed by: Jason Garza MD (09/15/2021 3:25 PM) [id number]
== END 2021-09-15 14:24 | disposition home health service (06) | DRG 193 ==
LOC: ER 14:38 → 6 SOUTH 18:20
PROVIDERS: ADMIT Internal Medicine; ATTEND Internal Medicine
DX: J10.00 Influenza due to other identified influenza virus with unspecified type of pneumonia (principal); N17.0 Acute kidney failure with tubular necrosis; R65.11 Systemic inflammatory response syndrome (SIRS) of non-infectious origin with acute organ dysfunction; J44.1 Chronic obstructive pulmonary disease with (acute) exacerbation; J44.0 Chronic obstructive pulmonary disease with (acute) lower respiratory infection; J90 Pleural effusion, not elsewhere classified; E78.00 Pure hypercholesterolemia, unspecified; E78.5 Hyperlipidemia, unspecified; F12.90 Cannabis use, unspecified, uncomplicated; F14.90 Cocaine use, unspecified, uncomplicated; F15.90 Other stimulant use, unspecified, uncomplicated; R79.89 Other specified abnormal findings of blood chemistry; F19.10 Other psychoactive substance abuse, uncomplicated; Z20.822 Contact with and (suspected) exposure to COVID-19; F17.210 Nicotine dependence, cigarettes, uncomplicated; I11.0 Hypertensive heart disease with heart failure; I25.10 Atherosclerotic heart disease of native coronary artery without angina pectoris; I50.9 Heart failure, unspecified; Z79.82 Long term (current) use of aspirin; Z79.899 Other long term (current) drug therapy; Z83.3 Family history of diabetes mellitus
CPT/HCPCS: 36415; 71045; 71250; 80048; 80053; 80202; 80307; 81001; 82565; 83605; 83735; 83880; 84100; 84145; 84443; 84484; 85025; 85379; 87426; 87428; 87449; 93005; 94640; 94760; 96365; 96375; J1650; J1940; J2405; J2543; J2920; J3370; J7030; J7040; J7050; J7512; 97110-GP; 97116-GP; 97530-GO; 97530-GP; 97535-GO; 99285-25; G0378; Q0163